=== PATIENT | male | born 1960 | race Asian ===

== ENCOUNTER 2022-04-15 15:35 | Emergency (ER) | payer MEDICAID, SELFPAY ==
--- NOTE | ~2022-04-15 | XR_ITS ---
EXAMINATION: XR CHEST CLINICAL INFORMATION: Cough. COMPARISON: None TECHNIQUE: Frontal view of the chest was obtained. FINDINGS: Rounded masslike density in the right infrahilar lung. This measures about [address] chest with contrast for further assessment. Left lung normally aerated. No pleural effusion. Heart size normal. Multilevel degenerative spondylosis spine. XR/XR chest 1V IMPRESSION: Rounded masslike density in the right infrahilar lung. Recommend CT chest with contrast for further assessment. This result was discussed with Cyndi De Leon on 04/15/2022, 5:00 PM and it was ascertained that the content and urgency of the report was understood at the time of direct communication.
--- NOTE | ~2022-04-15 | CT_ITS ---
EXAMINATION: CT CHEST WITH CONTRAST CLINICAL INFORMATION: Abnormal chest x-ray COMPARISON: None TECHNIQUE: Multidetector volumetric CT imaging of the chest was obtained after the administration of 65 mL of Omnipaque 350 intravenous contrast without immediate adverse reactions. Axial MIP volume rendering provided. Sagittal and coronal reformatted images were obtained. This CT examination was performed using dose optimization techniques as appropriate, variously including the following: *Automated exposure control *Adjustment of mA and/or kV according to patient size (this includes techniques or standardized protocols for targeted exams where dose is matched to indication/reason for exam; i.e. extremities or head) *Use of iterative reconstruction technique DLP: 254 mGy-cm FINDINGS: There is a 5.4 cm mass in the right middle lobe, contiguous with a right hilar mass measuring 2.9 cm within the right lower lobe, and bulky right hilar and mediastinal adenopathy. There is also contralateral prevascular mediastinal lymphadenopathy measuring up to 1.3 cm. No pathologically enlarged left hilar lymph nodes, or supraclavicular lymphadenopathy, There is a punctate nodule in the right lower lobe, at the right lung apex and in the left upper lobe. Moderate background emphysema. Diffuse mild bronchial wall thickening. Normal heart size. No pericardial effusion. Imaged upper abdomen reveals normal adrenal glands. A simple cyst is present in the upper pole of left kidney requiring no follow-up. No acute or suspicious osseous abnormalities. CT/CT chest w con IMPRESSION: Right middle lobe lung cancer with direct extension through the axial interstitium into the mediastinum with bulky mediastinal and right hilar lymphadenopathy. Pathologically enlarged contralateral left mediastinal lymph node. This critical result was discussed with Kyleigh Darnell at 04/15/2022 7:49 PM and it was ascertained that the content and urgency of the report was understood at the time of direct communication.
[2022-04-15 16:08] VITALS: BP 115/73; PULSE 87; RESP 18; TEMP 36.6; O2SAT 97; BMI 22.3
[2022-04-15 16:30] LABS: Strep A Nucleic Acid Negative (Negative)
[2022-04-15 16:36] LABS: COVID-19 Test Negative (Negative); IDNOW Serial# 55D5AD1C
[2022-04-15 18:33] VITALS: BP 147/78; PULSE 76; RESP 16; TEMP 36.6; O2SAT 98
--- NOTE | 2022-04-15 18:39 | PC.NURSE ---
patient a/o x4 . pearrla . heart rate regular at 77 beats .lungs diminished , wet non productive cough . skin pink warm and dry . abdomen soft non tender . positive bowel sounds in all quadrants . 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 IV placed in left AC . labs sent . patient aware of plan of care .
[2022-04-15 18:42] LABS: MANUAL DIFF FLAG NO
[2022-04-15 18:51] LABS: Basophils Absolute Auto 0.1 X10*3/uL (0.0-0.2); Basophils Percent Auto 0.5 % (0-2); Eosinophils Absolute Auto 0.3 X10*3/uL (0.0-0.4); Eosinophils Percent Auto 2.4 % (0-4); Hematocrit 39.7 % (42.0-52.0); Hemoglobin 12.5 g/dl (14.0-18.0); Imm Gran Abs Auto 0.05 X10*3/uL (0.00-0.03); Imm Gran Pct Auto 0.4 % (0.0-0.4); Lymphocytes Absolute Auto 2.9 X10*3/uL (1.2-4.9); Lymphocytes Percent Auto 22.5 % (20-40); Mean Corpuscular HGB Conc 31.5 g/dl (31.0-36.0); Mean Corpuscular Hemoglobin 24.2 pg (27.0-33.0); Mean Corpuscular Volume 76.8 fL (80.0-98.0); Mean Platelet Volume 9.7 fL (9.4-12.4); Monocytes Absolute Auto 0.9 X10*3/uL (0.1-1.2); Monocytes Percent Auto 7.1 % (2-11); Neutrophils Absolute Auto 8.7 x10*3/uL (2.0-8.3); Neutrophils Percent Auto 67.1 % (45-73); Platelet Count 411 X10*3/uL (160-400); Red Blood Count 5.17 X10*6/uL (4.60-5.80); Red Cell Distribution Width 15.7 % (11.0-16.0)
[2022-04-15 19:05] LABS: Alanine Aminotransferase 22 U/L (0-40); Albumin Level 3.9 g/dL (3.5-5.0); Alkaline Phosphatase 124 U/L (39-117); Anion Gap 15 (12-20); Aspartate Amino Transferase 20 U/L (5-37); Bilirubin Total 0.3 mg/dL (0.0-1.0); Blood Urea Nitrogen 18 mg/dL (9-16); Calcium 9.3 mg/dL (8.4-10.2); Carbon Dioxide 27 mmol/L (22-29); Chloride 101 mmol/L (96-108); Creatinine Clr Calc Pharmacy 76.8; Estimated Glomerular Filt Rate > 60; Glucose Random 96 mg/dL (60-115); Potassium 4.5 mmol/L (3.3-5.1); Sodium 138 mmol/L (135-145); Total Protein 8.1 g/dL (6.5-8.0)
[2022-04-15] MEDS: iohexoL 350 MG/ML 100 ML INFUS..BTL IV (19:20)
[2022-04-15 19:34] VITALS: BP 137/69; PULSE 79; RESP 18; O2SAT 99
--- NOTE | 2022-04-15 19:40 | ED.GENADULT ---
HPI - General Adult General Chief complaint: Upper Respiratory Symptoms Stated complaint: Cough/Sore throat Time Seen by Provider: 04/15/22 16:57 Source: patient and family (Son) Mode of arrival: ambulatory History of Present Illness HPI narrative: 61-year-old male who is an everyday smoker presents with 7 day weeks of cough and congestion, sore throat, without fevers/chills/night sweats/unexplained weight loss. Patient states that he is been doing work in a basement and has discover that there is fungus growing in the basement and he is concerned that this might be contributing to his underlying symptoms. Related Data Allergies Allergy/AdvReac Type Severity Reaction Status Date / Time No Known Allergies Allergy Verified 04/15/22 16:08 Review of Systems Review of Systems: Pertinent positives and negatives as stated in HPI 10 point review of systems is otherwise negative. [facility] Past Medical History Source: nursing notes reviewed Social History Social History Alcohol intake: never Patient Tobacco Use Status: Current everyday Tobacco user Advance Directives: No Advance Directives Information Provided: No Physical Exam ED Vital Signs: Vital Signs - 24 hr 04/15/22 16:08 04/15/22 18:33 04/15/22 19:34 Temperature 97.8 F 97.8 F Pulse Rate 87 76 79 Respiratory Rate 18 16 18 Blood Pressure 115/73 147/78 H 137/69 Pulse Oximetry 97 98 99 Oxygen Delivery Method Room Air Room Air Room Air BMI result Body Mass Index 22.3 VITAL SIGNS: Reviewed. GENERAL: Well developed, well nourished, in no acute distress. HEAD: Normocephalic/atraumatic EYES: PERRLA, EOMI EARS: Ext canals without abnormality NOSE: Nares patent bilateral OROPHARYNX: no oral lesions noted, posterior pharynx clear NECK: Supple, no adenopathy LUNGS: Normal breath sounds. No adventitious sounds or accessory muscle use. SpO2<97> CARDIOVASCULAR: Regular rate and rhythm without noted murmurs, no JVD or lower extremity edema. ABDOMEN: Soft, non-tender, non-distended with bowel sounds. MUSCULOSKELETAL: No tenderness, deformities, or effusions noted on gross inspection. EXTREMITIES: No cyanosis, clubbing or edema. SKIN: Inspection of the skin reveals no rashes NEUROLOGIC: Alert and oriented x 4. Strength and sensation to light touch were grossly intact x 4. Course Course Course Narrative: 61-year-old male with history and clinical presentation suggestive of possible pneumonia, but there is no evidence of fever or chills, patient is an everyday smoker initial chest x-ray is being read as a in the right infrahilar lung. Patient was informed of these chest x-ray findings it was explained that he would further undergo lab work as well as a CT scan for better characterization of this mass. He acknowledges understanding and his son who is at bedside also is aware of these imaging findings. Patient has no pain at this time. Reevaluation(s) Reevaluation #1: I discuss the CT findings with the patient at bedside, I answered any questions, I am awaiting to hear back from Heme/Onc. Time: 20:24 Reevaluation #2: I discussed the case with Dr. Rojas who will see the patient on Monday morning and arrange for subsequent biopsy. Patient was informed of this plan. Time: 20:35 Medical Decision Making Lab Data Result diagrams: 04/15/22 18:30 04/15/22 18:30 Labs: Lab Results 04/15/22 04/15/22 04/15/22 Range/Units 16:12 16:12 18:30 WBC 13.0 H (4.8-10.8) X10*3/uL RBC 5.17 (4.60-5.80) X10*6/uL Hgb 12.5 L (14.0-18.0) g/dl Hct 39.7 L (42.0-52.0) % MCV 76.8 L (80.0-98.0) fL MCH 24.2 L (27.0-33.0) pg MCHC 31.5 (31.0-36.0) g/dl RDW 15.7 (11.0-16.0) % Plt Count 411 H (160-400) X10*3/uL MPV 9.7 (9.4-12.4) fL Immature Gran % (Auto) 0.4 (0.0-0.4) % Neut % (Auto) 67.1 (45-73) % Lymph % (Auto) 22.5 (20-40) % [place] % (Auto) 7.1 (2-11) % Eos % (Auto) 2.4 (0-4) % Baso % (Auto) 0.5 (0-2) % Lymph # (Auto) 2.9 (1.2-4.9) X10*3/uL [place] # (Auto) 0.9 (0.1-1.2) X10*3/uL Eos # (Auto) 0.3 (0.0-0.4) X10*3/uL Baso # (Auto) 0.1 (0.0-0.2) X10*3/uL Abs Immat Gran (auto) 0.05 H (0.00-0.03) X10*3/uL Absolute Neuts (auto) 8.7 H (2.0-8.3) x10*3/uL Absolute Nucleated RBC 0.000 (0.0-0.012) X10*3/uL Nucleated RBC % (auto) 0.0 (0.0-0.2) /100WBC Sodium (135-145) mmol/L Potassium (3.3-5.1) mmol/L Chloride (96-108) mmol/L Carbon Dioxide (22-29) mmol/L Anion Gap (12-20) BUN (9-16) mg/dL Creatinine (0.5-1.4) mg/dL Estim Creat Clear Calc Estimated GFR Random Glucose (60-115) mg/dL Calcium (8.4-10.2) mg/dL Total Bilirubin (0.0-1.0) mg/dL AST (5-37) U/L ALT (0-40) U/L Alkaline Phosphatase (39-117) U/L Total Protein (6.5-8.0) g/dL Albumin (3.5-5.0) g/dL COVID-19 ([facility]) Negative (Negative) COVID-19 Clin Com See Note S. pyogenes GrpA EULOGIO Negative (Negative) 04/15/22 Range/Units 18:30 WBC (4.8-10.8) X10*3/uL RBC (4.60-5.80) X10*6/uL Hgb (14.0-18.0) g/dl Hct (42.0-52.0) % MCV (80.0-98.0) fL MCH (27.0-33.0) pg MCHC (31.0-36.0) g/dl RDW (11.0-16.0) % Plt Count (160-400) X10*3/uL MPV (9.4-12.4) fL Immature Gran % (Auto) (0.0-0.4) % Neut % (Auto) (45-73) % Lymph % (Auto) (20-40) % [place] % (Auto) (2-11) % Eos % (Auto) (0-4) % Baso % (Auto) (0-2) % Lymph # (Auto) (1.2-4.9) X10*3/uL [place] # (Auto) (0.1-1.2) X10*3/uL Eos # (Auto) (0.0-0.4) X10*3/uL Baso # (Auto) (0.0-0.2) X10*3/uL Abs Immat Gran (auto) (0.00-0.03) X10*3/uL Absolute Neuts (auto) (2.0-8.3) x10*3/uL Absolute Nucleated RBC (0.0-0.012) X10*3/uL Nucleated RBC % (auto) (0.0-0.2) /100WBC Sodium 138 (135-145) mmol/L Potassium 4.5 (3.3-5.1) mmol/L Chloride 101 (96-108) mmol/L Carbon Dioxide 27 (22-29) mmol/L Anion Gap 15 (12-20) BUN 18 H (9-16) mg/dL Creatinine 1.01 (0.5-1.4) mg/dL Estim Creat Clear Calc 76.8 Estimated GFR > 60 Random Glucose 96 (60-115) mg/dL Calcium 9.3 (8.4-10.2) mg/dL Total Bilirubin 0.3 (0.0-1.0) mg/dL AST 20 (5-37) U/L ALT 22 (0-40) U/L Alkaline Phosphatase 124 H (39-117) U/L Total Protein 8.1 H (6.5-8.0) g/dL Albumin 3.9 (3.5-5.0) g/dL COVID-19 ([facility]) (Negative) COVID-19 Clin Com S. pyogenes GrpA EULOGIO (Negative) Discharge Plan Discharge Clinical Impression: Lung cancer Patient Disposition: Home, Self-Care Instructions: Lung Cancer (DC) Additional Instructions: Please call the office of Dr. Rojas on Monday. The referral has been provided to you below. Return to the ER for worsening symptoms. Referrals: Yolie Rojas MD [Physician] - (7.5cm Lung Mass)
== END 2022-04-15 20:54 | disposition home or self-care (01) ==
PROVIDERS: Emergency Provider Student in an Organized Health Care Education/Training Program
DX: C34.90 Malignant neoplasm of unspecified part of unspecified bronchus or lung (principal); R05.9 Cough, unspecified; R07.89 Other chest pain; Z20.822 Contact with and (suspected) exposure to COVID-19; F17.200 Nicotine dependence, unspecified, uncomplicated; Z71.6 Tobacco abuse counseling
CPT/HCPCS: 36415; 71045; 71260; 80053; 85025; 87635; 87651; 99284; Q9967

== ENCOUNTER → 2022-04-18 10:53 | Outpatient (BNV) | payer MEDICAID, MEDICARE, OTHER, SELFPAY | PROVIDERS: Visit Provider Internal Medicine | DX: C34.91 Malignant neoplasm of unspecified part of right bronchus or lung (principal); J69.8 Pneumonitis due to inhalation of other solids and liquids; Z92.21 Personal history of antineoplastic chemotherapy | CPT/HCPCS: 99205; 99213; 99214; 99215; G2211 ==

== ENCOUNTER 2022-04-28 09:04 | Day surgery (SDC) | payer OTHER, SELFPAY ==
[2022-04-28] VITALS (8 sets, daily range): BP systolic 114–173; BP diastolic 69–89; PULSE 70–89; RESP 18–20; TEMP 37; O2SAT 96–98; BMI 23.5
--- NOTE | ~2022-04-28 | XR_ITS ---
EXAMINATION: XR CHEST CLINICAL INFORMATION: Status post right lung biopsy. COMPARISON: CT chest 04/15/2022 TECHNIQUE: Frontal view of the chest was obtained. FINDINGS: There is no pneumothorax status post right lung biopsy. Again visualized is a large mass in the right midlung. Heart size and pulmonary vascularity is normal. There is mild spondylosis throughout dorsal spine. No aggressive lytic or sclerotic process seen. XR/XR chest 1V IMPRESSION: No pneumothorax status post right lung biopsy. Results were called to patient's nurse in PACU at 4:05 PM.
--- NOTE | ~2022-04-28 | CT_ITS ---
PROCEDURE: CT GUIDED BIOPSY, LUNG CLINICAL INFORMATION: Right lung mass. COMPARISON: 04/15/2022 TECHNIQUE: CT fluoroscopic-guided core biopsy right middle lobe mass. This CT examination was performed using dose optimization techniques as appropriate, variously including the following: *Automated exposure control *Adjustment of mA and/or kV according to patient size (this includes techniques or standardized protocols for targeted exams where dose is matched to indication/reason for exam; i.e. extremities or head) *Use of iterative reconstruction technique DLP: 286 mGy-cm Sedation: 18 minutes FINDINGS: Informed consent was obtained from the patient prior to the procedure. During this process, the procedure and potential alternatives were explained, along with the intended outcome and benefits. The risks of the procedure, as well as the risk of not doing the procedure, were discussed. The patient was given the opportunity to ask questions regarding the procedure and appeared competent to make medical decisions. A signed consent form which documents this discussion was placed in the medical record. CT scan demonstrates a large right middle lobe mass as well as right hilar and bilateral mediastinal lymphadenopathy. There is a small pericardial effusion. There are moderate changes of centrilobular and paraseptal emphysema. Using sterile technique and CT fluoroscopic guidance from a right anterolateral approach a 19-gauge guiding needle was directed into the right middle lobe mass. Three 18-gauge core biopsies were then obtained. Preliminary cytologic result was of an adequate specimen. No immediate postprocedure pneumothorax is identified. CT/CT biopsy lung RT IMPRESSION: Successful right middle lobe lung biopsy as described.
[2022-04-28 09:41] LABS: MANUAL DIFF FLAG NO
[2022-04-28 09:44] LABS: Basophils Absolute Auto 0.1 X10*3/uL (0.0-0.2); Basophils Percent Auto 0.4 % (0-2); Eosinophils Absolute Auto 0.3 X10*3/uL (0.0-0.4); Eosinophils Percent Auto 2.2 % (0-4); Hematocrit 40.6 % (42.0-52.0); Hemoglobin 12.9 g/dl (14.0-18.0); Imm Gran Abs Auto 0.08 X10*3/uL (0.00-0.03); Imm Gran Pct Auto 0.6 % (0.0-0.4); Lymphocytes Absolute Auto 2.6 X10*3/uL (1.2-4.9); Lymphocytes Percent Auto 18.4 % (20-40); Mean Corpuscular HGB Conc 31.8 g/dl (31.0-36.0); Mean Corpuscular Hemoglobin 23.9 pg (27.0-33.0); Mean Corpuscular Volume 75.2 fL (80.0-98.0); Mean Platelet Volume 9.5 fL (9.4-12.4); Monocytes Absolute Auto 0.9 X10*3/uL (0.1-1.2); Monocytes Percent Auto 6.6 % (2-11); Neutrophils Absolute Auto 9.9 x10*3/uL (2.0-8.3); Neutrophils Percent Auto 71.8 % (45-73); Platelet Count 354 X10*3/uL (160-400); White Blood Count 13.8 X10*3/uL (4.8-10.8)
[2022-04-28 09:51] LABS: INTERNATIONAL NORM RATIO 0.9 (0.9-1.1); Prothrombin Time 10.6 SEC (10.0-13.1)
[2022-04-28 09:54] LABS: Partial Thromboplastin Time 31.1 SEC (26.0-36.4)
== END 2022-04-28 16:43 | disposition home or self-care (01) ==
PROVIDERS: Radiology Diagnostic Radiology; Visit Provider Internal Medicine
DX: C34.2 Malignant neoplasm of middle lobe, bronchus or lung (principal); Z87.891 Personal history of nicotine dependence; E11.9 Type 2 diabetes mellitus without complications
CPT/HCPCS: 32408; 36415; 71045; 81479; 85025; 85610; 85730; 88305; 88333; 88341; 88342; 88360; 88374; 99152; J2250; J3010

== ENCOUNTER 2022-05-03 09:58 | Outpatient (REF) | payer OTHER, SELFPAY ==
--- NOTE | ~2022-05-03 | MR_ITS ---
EXAMINATION: MR BRAIN WITHOUT AND WITH CONTRAST CLINICAL INFORMATION: Lung cancer. Assess for metastases. Headaches. COMPARISON: There are no prior studies available for comparison. TECHNIQUE: Multiplanar, multisequence MRI of the brain was obtained before and after the intravenous administration of 6 mL Gadavist. FINDINGS: No diffusion abnormalities are identified to suggest an acute or subacute infarct. No mass effect or midline shift is seen. There is mild commensurate prominence of the ventricles and sulci consistent with mild diffuse volume loss. Brain parenchymal signal is unremarkable, and there is no abnormal parenchymal or leptomeningeal enhancement. No extra-axial fluid collections are seen. The brainstem appears normal. No pathologic magnetic susceptibility artifact is identified on the gradient refocused acquisition. The cerebellar tonsils have normal contour and position, and the craniocervical junction appears normal. Marrow signal and midline structures are normal. The major intracranial flow-voids at the level of the knik of [place] are preserved. The dural venous sinus flow-voids are maintained. The mastoid air cells are well-aerated. There is mild pansinus mucoperiosteal thickening. MR/MR head/brain wo/w con IMPRESSION: 1. There are no acute bleeds or infarcts. There are no masses or areas of abnormal enhancement. There is mild diffuse volume loss.
== END 2022-05-03 09:59 | disposition home or self-care (01) ==
LOC: HO.MRI 09:58
PROVIDERS: Visit Provider Internal Medicine
DX: R51.9 Headache, unspecified (principal); C34.90 Malignant neoplasm of unspecified part of unspecified bronchus or lung
CPT/HCPCS: 70553; A9585

== ENCOUNTER 2022-05-20 12:03 | Outpatient (REF) | payer OTHER, SELFPAY ==
[2022-05-20 14:00] LABS: Blood Urea Nitrogen 20 mg/dL (9-16); Estimated Glomerular Filt Rate > 60
== END 2022-05-20 12:04 | disposition home or self-care (01) ==
LOC: HO.CT 12:03
PROVIDERS: PCP Internal Medicine; Visit Provider Internal Medicine
DX: R91.8 Other nonspecific abnormal finding of lung field (principal)
CPT/HCPCS: 36415; 82565; 84520

== ENCOUNTER 2022-05-24 11:22 | Outpatient (REF) | payer OTHER, SELFPAY ==
--- NOTE | ~2022-05-24 | PE_ITS ---
EXAMINATION: Fluorine-18 FDG PET/CT Scan CLINICAL INDICATION: Initial treatment management. Lung cancer. PROCEDURE: 55 minutes following the intravenous administration of 16.4 mCi of fluorine 18 FDG, images from the base of the skull to the mid thighs were obtained using a combined PET/CT scanner with CT scan based attenuation correction. No oral contrast was administered. No intravenous contrast was administered. Transverse, coronal, sagittal, and volume reconstruction projections were obtained. The patient's blood glucose as determined by a finger stick, was 89 mg/dl immediately prior to injection. Total CT exam dose-length product 405.92 mGy-cm * These CT images were obtained using dose optimization techniques as appropriate, variously including the following: Automated exposure control * Adjustment of mA and/or kV according to patient size (this includes techniques or standardized protocols for targeted exams where dose is matched to indication/reason for exam; i.e. extremities or head) * Use of iterative reconstruction technique COMPARISON: No previous PET/CT scan is available for comparison. CT of the chest dated 04/15/[address]-guided right lung biopsy dated 04/28/2022 are available for comparison. FINDINGS: (Slice numbers described in this report are numbered superiorly to inferiorly with slice #1 in the head) NECK AND VISUALIZED HEAD: No foci of abnormal FDG activity are noted. The distribution of FDG activity is physiological. 2 adjacent right-sided cervical level 5B (supraclavicular) lymph nodes are present, the most intense showing SUVmax 6.6, slice 65/311 an measuring 1.5 x 1.3 cm in largest transverse dimensions. There is no additional cervical lymphadenopathy. THORAX: The recently biopsied right upper lobe lung mass is intensely FDG avid, SUVmax 14.9, slice 102/311. This abuts both the anterolateral and medial pleura of the right upper lobe. This measures 7.8 x 6.2 cm in largest transverse dimensions an approximate 7.8 cm cephalocaudad. This extends into the right hilum and narrows the right upper lobe bronchus. Peripheral to this there is some airspace opacity in this is only weakly FDG avid. There is some dependent atelectasis posteriorly in the right lower lobe and this is very weakly FDG avid. Trace pleural fluid on the right is also present. There is no abnormal FDG activity in the left lung. There is biapical scarring which is also not FDG avid. Extensive mediastinal FDG avid lymphadenopathy is present. The most intense is a mid right paratracheal node showing SUVmax 8.4, slice 83/311 measuring 3.0 x 2.6 cm in largest transverse dimensions. Additional right prevascular and periaortic/AP window FDG avid lymphadenopathy is present, the latter showing SUVmax 6.7, slice 85/311. Subcarinal FDG avid lymphadenopathy is also present. There is no left-sided pleural fluid with a small amount of predominantly left-sided pericardial fluid is present. The latter does not show abnormal FDG activity, but is new since 04/15/2022. There is no axillary lymphadenopathy. ABDOMEN AND PELVIS: There are no foci of abnormal FDG activity in the abdomen or pelvis. There is mild FDG activity throughout the gastrointestinal tract without a suspicious focal component, likely physiological. There is diverticulosis without evidence of diverticulitis. The hollow viscera are otherwise unremarkable. The liver, gallbladder, and spleen are unremarkable. There is a hypodense cyst in the upper pole of the left kidney and this is markedly FDG photopenic. The kidneys are otherwise unremarkable. The adrenal glands and pancreas are unremarkable. A moderately sized right-sided hydrocele is present and this is markedly FDG photopenic. Bilateral fat-containing inguinal hernias are present, larger on the right. The pelvic organs are otherwise unremarkable. MUSCULOSKELETAL: There are no foci of abnormal FDG activity in the osseous structures. There are degenerative changes in the spine, most severely in the mid thoracic spine. There are no suspicious sclerotic or lytic lesions visualized. VASCULAR: Vascular calcifications including coronary are noted. PET/PET CT fusion skull to thigh IMPRESSION: 1. A large intensely FDG avid right upper lobe malignant mass is present as described above. 2. Extensive mediastinal and right supraclavicular FDG avid lymphadenopathy is present most consistent with metastases. 3. No additional metastatic or other malignant lesions are noted. 4. Vascular calcifications including coronary.
== END 2022-05-24 11:23 | disposition home or self-care (01) ==
LOC: HO.PET 11:22
PROVIDERS: Visit Provider Internal Medicine
DX: Z13.89 Encounter for screening for other disorder (principal)

== ENCOUNTER 2022-08-24 08:14 | Outpatient (REF) | payer OTHER, SELFPAY ==
--- NOTE | ~2022-08-24 | CT_ITS ---
EXAMINATION: CT ABDOMEN AND PELVIS WITH CONTRAST CLINICAL INFORMATION: Lung cancer. Assess response to treatment. COMPARISON: PET/CT May 2022 TECHNIQUE: Multidetector volumetric images were obtained from the superior aspect of the liver through the pubic symphysis following administration 85 mL of Omnipaque 350 intravenous contrast. Sagittal and coronal reformatted images were obtained on the technologist's workstation. Oral contrast: Yes This CT examination was performed using dose optimization techniques as appropriate, variously including the following: *Automated exposure control *Adjustment of mA and/or kV according to patient size (this includes techniques or standardized protocols for targeted exams where dose is matched to indication/reason for exam; i.e. extremities or head) *Use of iterative reconstruction technique DLP: 390 mGy-cm FINDINGS: LUNG BASES: See chest CT report from the same day. LIVER, GALLBLADDER, AND BILIARY TREE: The liver is low in attenuation suggestive of fatty infiltration. No focal liver lesion. The gallbladder has been removed. No biliary duct dilatation. PANCREAS: Unremarkable. SPLEEN: Unremarkable. ADRENAL GLANDS: Unremarkable. KIDNEYS AND URETERS: Left renal cysts, largest measuring 3.0 cm in the upper pole of the left kidney. No imaging follow-up. Kidneys are otherwise unremarkable. BLADDER: Unremarkable. GASTROINTESTINAL TRACT: The small and large bowel are unremarkable. The appendix is unremarkable. ABDOMINAL WALL: LYMPH NODES: Normal. VASCULAR: Atherosclerotic disease. Mild dilatation of the distal abdominal aorta measuring 2.6 x 2.7 cm. No aneurysm. PELVIC VISCERA: Unremarkable. Fluid in the right scrotum probably a hydrocele. OSSEOUS STRUCTURES: Degenerative changes of the spine. CT/CT abdomen pelvis w IV con IMPRESSION: No evidence of metastatic disease. Fleischner guidelines were followed.
--- NOTE | ~2022-08-24 | CT_ITS ---
EXAMINATION: CT CHEST WITH CONTRAST CLINICAL INFORMATION: Lung cancer. Assess response to treatment. COMPARISON: Previous chest CT 04/15/2022. TECHNIQUE: Multidetector volumetric CT imaging of the chest was obtained after the administration of 85 mL of Omnipaque 350 intravenous contrast without immediate adverse reactions. Axial MIP volume rendering provided. Sagittal and coronal reformatted images were obtained. This CT examination was performed using dose optimization techniques as appropriate, variously including the following: *Automated exposure control *Adjustment of mA and/or kV according to patient size (this includes techniques or standardized protocols for targeted exams where dose is matched to indication/reason for exam; i.e. extremities or head) *Use of iterative reconstruction technique DLP: 113 mGy-cm FINDINGS: LUNGS: There is evidence of emphysema. There is increasing volume loss to the right upper and middle lobe. There is interval increase in mixed interstitial and reticular markings, mild traction bronchiectasis and ground-glass attenuation. The appearance is questionable for post radiation changes. The previously identified right middle lobe mass appears smaller measuring 3 cm (for example axial image 31, series 3) compared to 5.4 cm on the previous exam. This also appears more cystic or cavitary. This extends to the right pulmonary hilum. This extends peripherally to the right pleural surface and there is focal right pleural thickening. There are new increased interstitial or reticular markings seen in both lower lobes and some increase in ground-glass attenuation. There is new mild bilateral lower lobe bronchial wall thickening and this may represent airways disease. MEDIASTINUM: There is interval decrease in the right hilar and bilateral mediastinal lymphadenopathy. There is interval decrease in right supraclavicular lymphadenopathy. Normal heart size. Small pericardial effusion, slightly increased from previous exam. Normal caliber thoracic aorta. PLEURA: Focal pleural thickening in the right middle lobe adjacent to the mass. No pleural effusion. AXILLA: No lymphadenopathy. UPPER ABDOMEN: See abdominal and pelvic CT report from the same day. OSSEOUS STRUCTURES: Degenerative changes of the spine. CT/CT chest w IV con IMPRESSION: Interval decrease in the size of the right middle lobe mass. This now may be cavitary. Increasing volume loss to the right upper and middle lobe, increased interstitial or reticular markings and traction bronchiolectasis and ground-glass attenuation, question representing post radiation change. Emphysema. Increased generalized reticular markings and ground-glass attenuation and some bronchial wall thickening in both lower lobes, question representing airways disease. Significant interval decrease in mediastinal and right hilar and right supraclavicular lymphadenopathy. Fleischner guidelines were followed.
[2022-08-24] MEDS: Barium Sulfate Oral (Vanilla) 450 ML ORAL.SUSP 900 ML PO (11:01)
[2022-08-24] MEDS: iohexoL 350 MG/ML 100 ML INFUS..BTL IV (11:03)
== END 2022-08-24 08:15 | disposition home or self-care (01) ==
LOC: HO.CT 08:14
PROVIDERS: Visit Provider Internal Medicine
DX: C34.91 Malignant neoplasm of unspecified part of right bronchus or lung (principal)
CPT/HCPCS: 71260; 74177; Q9967

== ENCOUNTER 2022-08-31 09:51 | Outpatient (REF) | payer OTHER, SELFPAY ==
--- NOTE | ~2022-08-31 | XR_ITS ---
EXAMINATION: XR CHEST CLINICAL INFORMATION: Lung cancer. Possible pneumonia. COMPARISON: CT chest 08/24/2022, portable chest 04/28/2022, 04/15/2022 TECHNIQUE: Frontal view of the chest was obtained. FINDINGS: Changes right hemithorax is similar to recent CT 08/24/2022 with perihilar cavitary lesion 3.6 cm in diameter, mild volume loss, and coarsening of interstitial markings possibly post radiation changes. There is no lobar or segmental airspace consolidation or effusion. Heart size normal. Left lung shows mild coarsening of the interstitial and bronchovascular markings. There is no cephalization of flow. No effusion. No acute bony abnormality. XR/XR chest 1V IMPRESSION: 1. Changes right hemithorax similar to recent CT 08/24/2022. 2. Coarsening interstitial markings left lung. 3. Vascularity normal. No lobar or segmental airspace consolidation or effusion.
== END 2022-08-31 09:52 | disposition home or self-care (01) ==
LOC: HO.XRAY 09:51
PROVIDERS: PCP Nurse Practitioner Family; Visit Provider Internal Medicine
DX: R05.9 Cough, unspecified (principal)
CPT/HCPCS: 71045

== ENCOUNTER → 2022-09-02 09:59 | Outpatient (BNVA) | payer MEDICAID, SELFPAY | PROVIDERS: PCP Nurse Practitioner Family; Visit Provider Urology | DX: Z12.31 Encounter for screening mammogram for malignant neoplasm of breast (principal) ==

== ENCOUNTER 2022-09-02 10:56 | Inpatient (IN) | payer OTHER, SELFPAY ==
--- NOTE | 2022-09-02 | ECG_ITS ---
Test Reason : Tachycardia Blood Pressure : / mmHG Vent. Rate : 114 BPM Atrial Rate : 114 BPM P-R Int : 138 ms QRS Dur : 074 ms QT Int : 334 ms P-R-T Axes : 062 074 044 degrees QTc Int : 460 ms Sinus tachycardia Nonspecific T wave abnormality Abnormal ECG When compared with ECG of 31-AUG-2022 09:20, No significant change was found Referred By: Generic ED Physician Electronically Signed By:Boris Pennington
[2022-09-02 11:06] VITALS: BP 127/83; PULSE 127; RESP 18; TEMP 36.6; O2SAT 96; BMI 21.7
[2022-09-02 11:45] VITALS: BP 137/87; PULSE 121; RESP 25; O2SAT 97
[2022-09-02 12:12] LABS: MANUAL DIFF FLAG NO
--- NOTE | 2022-09-02 12:20 | ED.SOB ---
HPI - SOB/Dyspnea General Chief Complaint: Dyspnea Stated Complaint: sob Time Seen by Provider: 09/02/22 11:40 Source: patient Mode of arrival: ambulatory History of Present Illness HPI Narrative: 62-year-old male presents with worsening shortness of breath that results in him feeling dizzy and wanting to pass out is been worsening since the end of his chemo/radiation therapy for lung cancer. Patient denies any fever, chills, sore throat, GI or symptoms but states he has had cough with the shortness of breath but denies any chest pain/palpitations. The son who is at bedside endorses that he had the flu last week and lives with his father. Related Data Previous Rx's Medication Instructions Recorded ibuprofen 400 mg tablet 400 mg PO Q8H PRN Pain #30 tabs 05/31/22 ondansetron 8 mg disintegrating 8 mg PO Q8H PRN Nausea #30 tabs 05/31/22 tablet benzonatate 200 mg capsule 200 mg PO BID #60 caps 06/21/22 sennosides 8.6 mg-docusate sodium 1 tab-cap PO BID #60 tabs 06/22/22 50 mg tablet (Senna with Docusate Sodium) Allergies Allergy/AdvReac Type Severity Reaction Status Date / Time No Known Allergies Allergy Verified 09/02/22 10:14 Review of Systems Review of Systems: Pertinent positives and negatives as stated in HPI 10 point review of systems is otherwise negative. [facility] Past Medical History Source: nursing notes reviewed Medical History Diabetes (Unknown) Family History Family History Mother Diabetes Father Diabetes Social History Social History Household Members: Spouse and Children Household Members Other:: son Housing: Apartment Alcohol intake: never Patient Tobacco Use Status: Former Tobacco user Tobacco use type: Cigarette Advance Directives: No service: No Current occupational status: retired Physical Exam Vital Signs: Vital Signs: Last Vital Signs Temp 97.8 F 09/02/22 11:06 Pulse 121 H 09/02/22 11:45 Resp 25 H 09/02/22 11:45 BP 137/87 09/02/22 11:45 Pulse Ox 97 09/02/22 11:45 O2 Del Method 09/02/22 11:45 BMI result Body Mass Index 21.7 VITAL SIGNS: Reviewed. GENERAL: Well developed, well nourished, in no acute distress. HEAD: Normocephalic/atraumatic EYES: PERRLA, EOMI EARS: Ext canals without abnormality, TMs non-bulging and non-erythematous NOSE: Nares patent bilateral OROPHARYNX: no oral lesions noted, posterior pharynx clear and non-erythematous without noted tonsillar enlargement/erythema/exudates NECK: Supple, no adenopathy LUNGS: Good inspiratory effort without rhonchi/rales/wheeze noted, no tachypnea noted. SpO2<97> CARDIOVASCULAR: Regular rate and rhythm without noted murmurs, no JVD or lower extremity edema. ABDOMEN: Soft, non-tender, non-distended with bowel sounds. MUSCULOSKELETAL: No tenderness, deformities, or effusions noted on gross inspection. EXTREMITIES: No cyanosis, clubbing or edema. SKIN: Inspection of the skin reveals no rashes NEUROLOGIC: Alert and oriented x 4. Strength and sensation to light touch were grossly intact x 4. Course Course Course Narrative: I had discussed this case with Dr. Rojas a couple of days ago and she had reported to me that patient had undergone CT scan of the chest with IV contrast a few days ago and there was no identification of a PE. Reevaluation(s) Reevaluation #1: I reviewed patient's laboratory workup as well as imaging studies and suspect that patient has pneumonia although due to his immunocompromised state there is no associated fever or leukocytosis. At this time I suspect infection and will give patient cefepime. WIll discuss with patient at bedside. Time: 15:06 Medications Administered Discontinued Medications Generic Name Dose Route Start Last Admin Trade Name Freq PRN Reason Stop Dose Admin Sodium Chloride 1,000 mls @ 999 mls/hr 09/02/22 12:30 09/02/22 14:19 Ns IV 09/02/22 13:30 Infused .Q1H1M MANJINDER Infusion Iohexol 65 ml 09/02/22 14:14 09/02/22 14:14 Iohexol 350 Mg/Ml 75 Ml Infus..Btl IV 09/02/22 14:15 65 ml ONCE ONE Administration Medical Decision Making Medical Decision Making MDM Narrative: 62-year-old male with history and clinical presentation of worsening shortness of breath, lightheadedness, cough since completion of his chemo and radiation. Patient does otherwise appear well. Differential Diagnosis Differential Diagnoses: The differential diagnosis associated with the presentation includes Viral infection, pneumonia, PE Admission/Observation Consideration of admission/observation: Escalation of care including admission/observation considered After review of all investigations my suspicion is for pneumonia and as patient is immunocompromised will admit and administer antibiotics. Consult Healthcare Provider Management of the patient was discussed with: Hospitalist I discussed this case with the hospitalist who accepts admission. Lab Data MDM Lab Attestation statement: I reviewed the patient's lab results. Please see patient's course for complete discussion Result Diagrams: 09/02/22 12:05 09/02/22 12:05 Labs: Lab Results 09/02/22 09/02/22 09/02/22 Range/Units 12:05 12:05 12:05 WBC 5.8 (4.8-10.8) X10*3/uL RBC 4.36 L (4.60-5.80) X10*6/uL Hgb 11.4 L (14.0-18.0) g/dl Hct 35.2 L (42.0-52.0) % MCV 80.7 (80.0-98.0) fL MCH 26.1 L (27.0-33.0) pg MCHC 32.4 (31.0-36.0) g/dl RDW 19.9 H (11.0-16.0) % Plt Count 177 (160-400) X10*3/uL MPV 9.0 L (9.4-12.4) fL Immature Gran % (Auto) 0.3 (0.0-0.4) % Neut % (Auto) 76.7 H (45-73) % Lymph % (Auto) 9.2 L (20-40) % [place] % (Auto) 10.6 (2-11) % Eos % (Auto) 2.9 (0-4) % Baso % (Auto) 0.3 (0-2) % Lymph # (Auto) 0.5 L (1.2-4.9) X10*3/uL [place] # (Auto) 0.6 (0.1-1.2) X10*3/uL Eos # (Auto) 0.2 (0.0-0.4) X10*3/uL Baso # (Auto) 0.0 (0.0-0.2) X10*3/uL Abs Immat Gran (auto) 0.02 (0.00-0.03) X10*3/uL Absolute Neuts (auto) 4.4 (2.0-8.3) x10*3/uL Absolute Nucleated RBC 0.000 (0.0-0.012) X10*3/uL Nucleated RBC % (auto) 0.0 (0.0-0.2) /100WBC D-Dimer High Sensitivty 489 NG/ML Sodium 136 (135-145) mmol/L Potassium 4.3 (3.3-5.1) mmol/L Chloride 100 (96-108) mmol/L Carbon Dioxide 27 (22-29) mmol/L Anion Gap 13 (12-20) BUN 14 (9-16) mg/dL Creatinine 0.98 (0.5-1.4) mg/dL Estim Creat Clear Calc 76.2 Estimated GFR > 60 Random Glucose 205 H (60-115) mg/dL Calcium 9.3 (8.4-10.2) mg/dL Total Bilirubin 0.6 (0.0-1.0) mg/dL AST 19 (5-37) U/L ALT 15 (0-40) U/L Alkaline Phosphatase 129 H (39-117) U/L Troponin I High Sens (<3.5-35.0) ng/L Total Protein 7.0 (6.5-8.0) g/dL Albumin 3.7 (3.5-5.0) g/dL Influenza Type A (PCR) (Negative) Influenza Type B (PCR) (Negative) RSV RNA Qual (PCR) (Negative) SARS-CoV-2 RNA (RT-PCR) (Negative) 09/02/22 09/02/22 Range/Units 12:05 12:05 WBC (4.8-10.8) X10*3/uL RBC (4.60-5.80) X10*6/uL Hgb (14.0-18.0) g/dl Hct (42.0-52.0) % MCV (80.0-98.0) fL MCH (27.0-33.0) pg MCHC (31.0-36.0) g/dl RDW (11.0-16.0) % Plt Count (160-400) X10*3/uL MPV (9.4-12.4) fL Immature Gran % (Auto) (0.0-0.4) % Neut % (Auto) (45-73) % Lymph % (Auto) (20-40) % [place] % (Auto) (2-11) % Eos % (Auto) (0-4) % Baso % (Auto) (0-2) % Lymph # (Auto) (1.2-4.9) X10*3/uL [place] # (Auto) (0.1-1.2) X10*3/uL Eos # (Auto) (0.0-0.4) X10*3/uL Baso # (Auto) (0.0-0.2) X10*3/uL Abs Immat Gran (auto) (0.00-0.03) X10*3/uL Absolute Neuts (auto) (2.0-8.3) x10*3/uL Absolute Nucleated RBC (0.0-0.012) X10*3/uL Nucleated RBC % (auto) (0.0-0.2) /100WBC D-Dimer High Sensitivty NG/ML Sodium (135-145) mmol/L Potassium (3.3-5.1) mmol/L Chloride (96-108) mmol/L Carbon Dioxide (22-29) mmol/L Anion Gap (12-20) BUN (9-16) mg/dL Creatinine (0.5-1.4) mg/dL Estim Creat Clear Calc Estimated GFR Random Glucose (60-115) mg/dL Calcium (8.4-10.2) mg/dL Total Bilirubin (0.0-1.0) mg/dL AST (5-37) U/L ALT (0-40) U/L Alkaline Phosphatase (39-117) U/L Troponin I High Sens 4.4 (<3.5-35.0) ng/L Total Protein (6.5-8.0) g/dL Albumin (3.5-5.0) g/dL Influenza Type A (PCR) NEGATIVE (Negative) Influenza Type B (PCR) NEGATIVE (Negative) RSV RNA Qual (PCR) NEGATIVE (Negative) SARS-CoV-2 RNA (RT-PCR) NEGATIVE (Negative) Independent Interpretation I performed an independent interpretation of an: EKG Interpretation: Sinus tachycardia, HR-114, no STEMI, nonspecific T-wave abnormality, CO/QRS/QTC are within normal limits. Radiology Impression Radiologist Impression: My interpretation agrees with radiologist's impression of imaging studies. External Record Review External record reviewed: Inpatient record, Prior outpatient labs, Prior outpatient radiology and Outside ED record Chronic Conditions Patient?s care impacted by: Other Lung CA Critical Care Time Critical Care Time Critical Care Time: Yes Total Critical Care Time: 60 Attestation: I personally attest to this time spent taking care of the patient. Discharge Plan Discharge Clinical Impression: Dyspnea, Pneumonia, Lung cancer Patient Disposition: Admitted As Inpatient Prescriptions: No Action ondansetron 8 mg Tablet,Disintegrating 8 mg PO Q8H PRN (Reason: Nausea) Qty: 30 3RF ibuprofen 400 mg Tablet 400 mg PO Q8H PRN (Reason: Pain) Qty: 30 1RF benzonatate 200 mg Capsule 200 mg PO BID Qty: 60 3RF sennosides-docusate sodium [Senna with Docusate Sodium] 8.6-50 mg Tablet 1 tab-cap PO BID Qty: 60 0RF
[2022-09-02 12:21] LABS: D Dimer High Sensitivity 489 NG/ML
[2022-09-02 12:22] LABS: Basophils Percent Auto 0.3 % (0-2); Eosinophils Absolute Auto 0.2 X10*3/uL (0.0-0.4); Eosinophils Percent Auto 2.9 % (0-4); Hematocrit 35.2 % (42.0-52.0); Hemoglobin 11.4 g/dl (14.0-18.0); Imm Gran Abs Auto 0.02 X10*3/uL (0.00-0.03); Imm Gran Pct Auto 0.3 % (0.0-0.4); Lymphocytes Absolute Auto 0.5 X10*3/uL (1.2-4.9); Lymphocytes Percent Auto 9.2 % (20-40); Mean Corpuscular HGB Conc 32.4 g/dl (31.0-36.0); Mean Corpuscular Hemoglobin 26.1 pg (27.0-33.0); Mean Corpuscular Volume 80.7 fL (80.0-98.0); Monocytes Absolute Auto 0.6 X10*3/uL (0.1-1.2); Monocytes Percent Auto 10.6 % (2-11); Neutrophils Absolute Auto 4.4 x10*3/uL (2.0-8.3); Neutrophils Percent Auto 76.7 % (45-73); Platelet Count 177 X10*3/uL (160-400); Red Blood Count 4.36 X10*6/uL (4.60-5.80); Red Cell Distribution Width 19.9 % (11.0-16.0); White Blood Count 5.8 X10*3/uL (4.8-10.8)
[2022-09-02 12:41] LABS: Alanine Aminotransferase 15 U/L (0-40); Albumin Level 3.7 g/dL (3.5-5.0); Alkaline Phosphatase 129 U/L (39-117); Anion Gap 13 (12-20); Aspartate Amino Transferase 19 U/L (5-37); Bilirubin Total 0.6 mg/dL (0.0-1.0); Blood Urea Nitrogen 14 mg/dL (9-16); Calcium 9.3 mg/dL (8.4-10.2); Carbon Dioxide 27 mmol/L (22-29); Chloride 100 mmol/L (96-108); Creatinine Clr Calc Pharmacy 76.2; Estimated Glomerular Filt Rate > 60; Glucose Random 205 mg/dL (60-115); Potassium 4.3 mmol/L (3.3-5.1); Sodium 136 mmol/L (135-145)
[2022-09-02 12:48] LABS: Troponin-I High Sensitivity 4.4 ng/L (<3.5-35.0)
[2022-09-02] MEDS: 0.9 % Sodium Chloride 1,000 ML 999 ML IV (12:50)
[2022-09-02 12:54] LABS: Influenza A PCR NEGATIVE (Negative); Influenza B PCR NEGATIVE (Negative); Resp Syncy Virus RNA Qual PCR NEGATIVE (Negative); SARS COV2 PCR INHOUSE NEGATIVE (Negative)
[2022-09-02] MEDS: iohexoL 350 MG/ML 75 ML INFUS..BTL 65 ML IV (14:14)
--- NOTE | 2022-09-02 15:31 | PC.NURSE ---
iv inserted as documented, labs drawn, fluid started as documented. pt's son at bedside. no complaints.
[2022-09-02 16:00] VITALS: BP 132/86; PULSE 110; RESP 20; TEMP 37; O2SAT 98
--- NOTE | 2022-09-02 16:01 | MHC.EDTECH ---
pt blood culture and lactic acid was drawn and send to lab .
[2022-09-02 16:13] LABS: Lactic Acid 1.8 mmol/L (0.5-2.0)
[2022-09-02] MEDS: cefEPime HCl 2 GM in 0.9 % Sodium Chloride 50 ML IV (16:18)
[2022-09-02 16:27] LABS: Estimated Average Glucose 131 mg/dL; Hemoglobin A1C 149.8435 umol/L; Hemoglobin A1c % 6.2 %
--- NOTE | 2022-09-02 16:29 | PM.IMHP ---
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 patient reports coughing with yellow sputum for past few weeks, associated with sob, worse on exertion, and constant palpiations with measured tachycardia in 120s. patient reports overall good appetite and po intake. denies fever, chills. recently treated for pna. also notes several episodes of staring off, lasts about 30s, has never had before. last brain imaging was on PET 05/24/22, negative for brain mets. in ED CTA negative for pe, positive for right sided pna, ekg with sinus tach. Review of Systems Review of Systems: Constitutional: Denies fever, denies Chills Eyes: denies blurry vision ENT: denies sore throat CVS: see hpi Respiratory: dyspnea GI: no abdominal pain : denies dysuria MSK: denies neck pain Skin: denies rash Neuro: see hpi Psych: denies suicidal ideation Endocrine: denies heat/cold intolerance Hematologic: denies easy bleeding Allergy: denies hives [facility] Medical History (Updated 09/02/22 @ 16:34 by Christiano Peterson MD) Diabetes (Unknown) Non-small cell cancer of right lung Family History Mother Diabetes Father Diabetes Social History Household Members: Spouse and Children Household Members Other:: son Housing: Apartment Alcohol intake: never Patient Tobacco Use Status: Former Tobacco user Tobacco use type: Cigarette Smoked in Last 30 Days: No Use of substances other than those prescribed or required for medical reasons: No Advance Directives: No service: No Current occupational status: retired Meds Allergies Allergy/AdvReac Type Severity Reaction Status Date / Time No Known Allergies Allergy Verified 09/02/22 10:14 Active Medications: Current Medications Azithromycin (Azithromycin 500 Mg Tablet) 500 mg PO Q24H MANJINDER Famotidine (Famotidine 20 Mg Tablet) 20 mg PO BID PRN PRN Reason: heartburn Guaifenesin/Codeine Phosphate (Guaifen/Codeine Sf 200/20/10ml 10 Ml Liquid) 5 ml PO TID PRN PRN Reason: cough Ceftriaxone Sodium 1 gm/ (Sodium Chloride) 50 mls @ 100 mls/hr IV Q24H [facility] Pharmacy Consult (Consult Rx Perform Med Rec) 1 each MISCELLANE ONCE PRN PRN Reason: Consult order Home Medications Medication Instructions Recorded Confirmed Last Taken Type benzonatate 200 mg capsule 200 mg PO BID PRN Cough 09/02/22 09/02/22 Unknown History codeine 10 mg-guaifenesin 100 mg/5 5 ml PO TID PRN cough 09/02/22 09/02/22 Unknown History mL oral liquid famotidine 20 mg tablet 1 tab PO BID PRN heartburn 09/02/22 09/02/22 Unknown History sennosides 8.6 mg-docusate sodium 1 tab-cap PO BID PRN Constipation 09/02/22 09/02/22 Unknown History 50 mg tablet (Senna with Docusate Sodium) Physical Exam Vital Signs and Narrative: Vital Signs: Last Vital Signs Temp 98.6 F 09/02/22 16:00 Pulse 110 H 09/02/22 16:00 Resp 20 09/02/22 16:00 BP 132/86 09/02/22 16:00 Pulse Ox 98 09/02/22 16:00 O2 Del Method 09/02/22 16:00 BMI result Body Mass Index 21.7 General: no acute distress HEENT: atraumatic Neck: normal to visual inspection CVS: S1, S2, tachy Resp: CTA bilateral Chest: non tender GI: soft, non tender, non distended : no CVA tenderness Skin: no rashes Extremities: no edema Neuro: Oriented X3, grossly intact Psych: cooperative Results Labs CBC and Chem 7: 09/02/22 12:05 09/02/22 12:05 Labs: Laboratory Results - last 24 hr 09/02/22 09/02/22 09/02/22 12:05 12:05 12:05 MCV 80.7 MCH 26.1 L MCHC 32.4 RDW 19.9 H Plt Count 177 MPV 9.0 L Immature Gran % (Auto) 0.3 Neut % (Auto) 76.7 H Lymph % (Auto) 9.2 L [place] % (Auto) 10.6 Eos % (Auto) 2.9 Baso % (Auto) 0.3 Lymph # (Auto) 0.5 L [place] # (Auto) 0.6 Eos # (Auto) 0.2 Baso # (Auto) 0.0 Abs Immat Gran (auto) 0.02 Absolute Neuts (auto) 4.4 Absolute Nucleated RBC 0.000 Nucleated RBC % (auto) 0.0 D-Dimer High Sensitivty 489 Anion Gap 13 Estim Creat Clear Calc 76.2 Estimated GFR > 60 Random Glucose 205 H Estimat Average Glucose Hemoglobin A1c % Lactic Acid Calcium 9.3 Total Bilirubin 0.6 AST 19 ALT 15 Alkaline Phosphatase 129 H Troponin I High Sens Total Protein 7.0 Albumin 3.7 Influenza Type A (PCR) Influenza Type B (PCR) RSV RNA Qual (PCR) SARS-CoV-2 RNA (RT-PCR) 09/02/22 09/02/22 09/02/22 12:05 12:05 12:05 MCV MCH MCHC RDW Plt Count MPV Immature Gran % (Auto) Neut % (Auto) Lymph % (Auto) [place] % (Auto) Eos % (Auto) Baso % (Auto) Lymph # (Auto) [place] # (Auto) Eos # (Auto) Baso # (Auto) Abs Immat Gran (auto) Absolute Neuts (auto) Absolute Nucleated RBC Nucleated RBC % (auto) D-Dimer High Sensitivty Anion Gap Estim Creat Clear Calc Estimated GFR Random Glucose Estimat Average Glucose 131 Hemoglobin A1c % 6.2 Lactic Acid Calcium Total Bilirubin AST ALT Alkaline Phosphatase Troponin I High Sens 4.4 Total Protein Albumin Influenza Type A (PCR) NEGATIVE Influenza Type B (PCR) NEGATIVE RSV RNA Qual (PCR) NEGATIVE SARS-CoV-2 RNA (RT-PCR) NEGATIVE 09/02/22 15:58 MCV MCH MCHC RDW Plt Count MPV Immature Gran % (Auto) Neut % (Auto) Lymph % (Auto) [place] % (Auto) Eos % (Auto) Baso % (Auto) Lymph # (Auto) [place] # (Auto) Eos # (Auto) Baso # (Auto) Abs Immat Gran (auto) Absolute Neuts (auto) Absolute Nucleated RBC Nucleated RBC % (auto) D-Dimer High Sensitivty Anion Gap Estim Creat Clear Calc Estimated GFR Random Glucose Estimat Average Glucose Hemoglobin A1c % Lactic Acid 1.8 Calcium Total Bilirubin AST ALT Alkaline Phosphatase Troponin I High Sens Total Protein Albumin Influenza Type A (PCR) Influenza Type B (PCR) RSV RNA Qual (PCR) SARS-CoV-2 RNA (RT-PCR) Imaging Radiologist's Impressions: Impressions Chest X-Ray 09/02/22 11:49 IMPRESSION: Similar distribution and severity of pulmonary markings. These remain nonspecific but suggest chronic interstitial changes. An acute on chronic component cannot be excluded. Please refer to the report from the recent CT scan for more detailed findings. Radiographic follow-up is recommended as clinically indicated. Chest CTA 09/02/22 13:45 IMPRESSION: 1. No pulmonary embolism. 2. Moderate to severe emphysema. Similar appearance of cystic structure in the right middle lobe with surrounding consolidation. There is a spiculated nodular density at the inferior aspect of this cystic structure which is unchanged from the recent prior. Additional ill-defined opacities are seen more superiorly in the right upper lobe and right middle lobe which could be infectious or inflammatory. 3. Soft tissue prominence in the right hilar region. This could be associated with the right middle lobe process. 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 pna not septic rocpehin, azithro, follow up cultures staring spells check mri brain, rule out mets eeg palpitations check magnesium, tsh, echo lung cancer outpatient follow up hyperglycemia, borderline DM a1c 6.2, not on meds dvt prophylaxis - lovenox full code pateint with pna, immunocompromised at risk for decopmensation due to lung cancer, therefore, expected to require atleast 2 midnights inpatient Time Spent With Patient Time: Total time managing care of this patient today ____ minutes. Quality Stroke Does the patient have a stroke diagnosis?: No VTE Prior VTE?: No VTE Risk Level:: Medical - moderate - high VTE Device Contraindication: Treatment Not Indicated VTE Drug Contraindication: N/A - Med Ordered
[2022-09-02 16:46] LABS: Magnesium 2.1 mg/dL (1.6-2.6)
--- NOTE | 2022-09-02 16:59 | PC.NURSE ---
PT UP TO BATHROOM, STEADY GAIT OBSERVED, DENIES RDZ/DIZZINESS/PAIN. AT MRI. VSS.
[2022-09-02 17:06] LABS: Thyroid Stimulating Hormone 0.53 uIU/mL (0.32-4.0)
[2022-09-02] MEDS: Azithromycin 500 MG TABLET PO (18:44)
--- NOTE | 2022-09-02 21:25 | PC.NURSE ---
Addendum entered by Michaelle Cruz 09/02/22 22:46: Tolerating PO fluids. Original Note: PT A&Ox3, denies any pain, reports productive cough. Requested lights to be lowered. Warm blanket provided.
[2022-09-02 22:24] VITALS: BP 105/69; PULSE 112; RESP 18; O2SAT 96
[2022-09-02] MEDS: 0.9 % Sodium Chloride Flush 3 ML SYRINGE IVFLUSH (23:08)
[2022-09-03] VITALS: BP 113/59; PULSE 114; RESP 16; TEMP 37.1; O2SAT 98
--- NOTE | 2022-09-03 00:11 | MHC.EDTECH ---
0000 rounding done vital sign taken ,pt awake and in bed ,pt at bedside ,call castillo within reach .
--- NOTE | 2022-09-03 02:41 | PC.NURSE ---
PT denies pain. Ambulated to BR independently.
[2022-09-03 04:00] VITALS: BP 114/71; PULSE 112; RESP 16; TEMP 36.5; O2SAT 95
[2022-09-03] MEDS: cefTRIAXone sodium 1 GM in 0.9 % Sodium Chloride 50 ML IV (06:12)
[2022-09-03 06:29] LABS: Hematocrit 31.8 % (42.0-52.0); Hemoglobin 10.2 g/dl (14.0-18.0); Mean Corpuscular HGB Conc 32.1 g/dl (31.0-36.0); Mean Corpuscular Hemoglobin 26.1 pg (27.0-33.0); Mean Corpuscular Volume 81.3 fL (80.0-98.0); Mean Platelet Volume 9.7 fL (9.4-12.4); Platelet Count 179 X10*3/uL (160-400); Red Blood Count 3.91 X10*6/uL (4.60-5.80); Red Cell Distribution Width 19.8 % (11.0-16.0); White Blood Count 5.3 X10*3/uL (4.8-10.8)
[2022-09-03 06:45] LABS: Anion Gap 13 (12-20); Blood Urea Nitrogen 13 mg/dL (9-16); Calcium 9.1 mg/dL (8.4-10.2); Carbon Dioxide 25 mmol/L (22-29); Chloride 103 mmol/L (96-108); Creatinine Clr Calc Pharmacy 80.3; Estimated Glomerular Filt Rate > 60; Glucose Fasting 127 mg/dL (60-99); Magnesium 2.1 mg/dL (1.6-2.6); Potassium 4.5 mmol/L (3.3-5.1); Sodium 136 mmol/L (135-145)
--- NOTE | 2022-09-03 07:18 | PC.NURSE ---
pt arrvies to overflow unit. remain in sinus tach 110. aox3 speaking in full clear sentences. ambulates independently with steady gait. family at bedside. aware of plan of care and denied having any questions at this time.
--- NOTE | 2022-09-03 07:56 | PM.DS ---
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 patient reports coughing with yellow sputum for past few weeks, associated with sob, worse on exertion, and constant palpiations with measured tachycardia in 120s. patient reports overall good appetite and po intake. denies fever, chills. recently treated for pna. also notes several episodes of staring off, lasts about 30s, has never had before. last brain imaging was on PET 05/24/22, negative for brain mets. in ED CTA negative for pe, positive for right sided pna, ekg with sinus tach. hosptial course: Patient was admitted for pneumonia. History of ceftriaxone and azithromycin. He improved faster than expected and will be discharged on 5 more days of cefuroxime and azithromycin. For his staring spells there was concern of possible brain metastasis from is poorly differentiated adenocarcinoma of the lung, MRI of the brain was done and was negative. Patient will be referred for EEG and Neurology as outpatient. For his palpitations and sinus tachycardia differential includes pneumonia, deconditioning,. Magnesium and TSH were unremarkable, plan to pursue echocardiogram as outpatient. For his hyperglycemia due to borderline diabetes he will continue to monitor and diet control as outpatient. Time Spent with Patient Time attestation: Total time managing care of this patient today ____ minutes. Discharge coordination time: Greater than 30 minutes Quality: Safe Use of Opioids Does Pt have an Active Cancer Diagnosis on the Problem List?: Yes Opioid Measure Date for [facility] [address] [address] Report: 08/04/22 Opioid Measure Time for [facility] [address] Report: 07:57 Quality: Stroke Does the patient have a stroke diagnosis?: No Physical Exam Vital Signs: Vital Signs: Last Vital Signs Temp 97.7 F 09/03/22 04:00 Pulse 112 H 09/03/22 04:00 Resp 16 09/03/22 04:00 BP 114/71 09/03/22 04:00 Pulse Ox 95 09/03/22 04:00 O2 Del Method 09/03/22 04:00 BMI result Body Mass Index 21.7 General: AO X 3, no acute distress Resp: CTA bilateral, no accessory muscles used CVS: S1,S2,Rapid GI: soft, non tender, non distended Neuro: motor grossly intact, alert Psych: appropriate affect, appropriate insight DS: Data Data Completed and Pending Labs on day of discharge: Laboratory Results - last 24 hr 09/02/22 09/02/22 09/02/22 12:05 12:05 12:05 WBC 5.8 RBC 4.36 L Hgb 11.4 L Hct 35.2 L MCV 80.7 MCH 26.1 L MCHC 32.4 RDW 19.9 H Plt Count 177 MPV 9.0 L Immature Gran % (Auto) 0.3 Neut % (Auto) 76.7 H Lymph % (Auto) 9.2 L Henry % (Auto) 10.6 Eos % (Auto) 2.9 Baso % (Auto) 0.3 Lymph # (Auto) 0.5 L Henry # (Auto) 0.6 Eos # (Auto) 0.2 Baso # (Auto) 0.0 Abs Immat Gran (auto) 0.02 Absolute Neuts (auto) 4.4 Absolute Nucleated RBC 0.000 Nucleated RBC % (auto) 0.0 D-Dimer High Sensitivty 489 Sodium 136 Potassium 4.3 Chloride 100 Carbon Dioxide 27 Anion Gap 13 BUN 14 Creatinine 0.98 Estim Creat Clear Calc 76.2 Estimated GFR > 60 Random Glucose 205 H Fasting Glucose Estimat Average Glucose Hemoglobin A1c % Lactic Acid Calcium 9.3 Magnesium 2.1 Total Bilirubin 0.6 AST 19 ALT 15 Alkaline Phosphatase 129 H Troponin I High Sens Total Protein 7.0 Albumin 3.7 TSH 0.53 Influenza Type A (PCR) Influenza Type B (PCR) RSV RNA Qual (PCR) SARS-CoV-2 RNA (RT-PCR) 09/02/22 09/02/22 09/02/22 12:05 12:05 12:05 WBC RBC Hgb Hct MCV MCH MCHC RDW Plt Count MPV Immature Gran % (Auto) Neut % (Auto) Lymph % (Auto) Henry % (Auto) Eos % (Auto) Baso % (Auto) Lymph # (Auto) Henry # (Auto) Eos # (Auto) Baso # (Auto) Abs Immat Gran (auto) Absolute Neuts (auto) Absolute Nucleated RBC Nucleated RBC % (auto) D-Dimer High Sensitivty Sodium Potassium Chloride Carbon Dioxide Anion Gap BUN Creatinine Estim Creat Clear Calc Estimated GFR Random Glucose Fasting Glucose Estimat Average Glucose 131 Hemoglobin A1c % 6.2 Lactic Acid Calcium Magnesium Total Bilirubin AST ALT Alkaline Phosphatase Troponin I High Sens 4.4 Total Protein Albumin TSH Influenza Type A (PCR) NEGATIVE Influenza Type B (PCR) NEGATIVE RSV RNA Qual (PCR) NEGATIVE SARS-CoV-2 RNA (RT-PCR) NEGATIVE 09/02/22 09/03/22 09/03/22 15:58 06:05 06:05 WBC 5.3 RBC 3.91 L Hgb 10.2 L Hct 31.8 L MCV 81.3 MCH 26.1 L MCHC 32.1 RDW 19.8 H Plt Count 179 MPV 9.7 Immature Gran % (Auto) Neut % (Auto) Lymph % (Auto) Henry % (Auto) Eos % (Auto) Baso % (Auto) Lymph # (Auto) Henry # (Auto) Eos # (Auto) Baso # (Auto) Abs Immat Gran (auto) Absolute Neuts (auto) Absolute Nucleated RBC 0.000 Nucleated RBC % (auto) 0.0 D-Dimer High Sensitivty Sodium 136 Potassium 4.5 Chloride 103 Carbon Dioxide 25 Anion Gap 13 BUN 13 Creatinine 0.93 Estim Creat Clear Calc 80.3 Estimated GFR > 60 Random Glucose Fasting Glucose 127 H Estimat Average Glucose Hemoglobin A1c % Lactic Acid 1.8 Calcium 9.1 Magnesium 2.1 Total Bilirubin AST ALT Alkaline Phosphatase Troponin I High Sens Total Protein Albumin TSH Influenza Type A (PCR) Influenza Type B (PCR) RSV RNA Qual (PCR) SARS-CoV-2 RNA (RT-PCR) Discharge Plan Discharge Anticipated Discharge Date/Time: 09/03/22 07:54 Patient Disposition: Home, Self-Care Discharge Diagnosis: pneumonia, staring episodes Referrals: Christina Nugent MD [Physician] - 1 Week (staring episodes) Nika May CNP [Primary Care Provider] - 1 Week Discharge Medications: New azithromycin 500 mg Tablet 500 mg PO Q24H Qty: 5 0RF cefuroxime axetil 500 mg tablet 500 mg PO BID Qty: 10 0RF Continued ondansetron 8 mg Tablet,Disintegrating 8 mg PO Q8H PRN (Reason: Nausea) Qty: 30 3RF famotidine 20 mg tablet 1 tab PO BID PRN (Reason: heartburn) codeine-guaifenesin 10-100 mg/5 mL liquid 5 ml PO TID PRN (Reason: cough) benzonatate 200 mg capsule 200 mg PO BID PRN (Reason: Cough) sennosides-docusate sodium [Senna with Docusate Sodium] 8.6-50 mg tablet 1 tab-cap PO BID PRN (Reason: Constipation) Discontinued ibuprofen 400 mg Tablet 400 mg PO Q8H PRN (Reason: Pain) Qty: 30 1RF Discharge Orders: Discharge Order (Routine); Ordered 09/03/22 Ordered By: Christiano Peterson Diet: Advance to usual diet Activity on Discharge: As tolerated Stand Alone Forms: Patient Portal Discharge page Other Ambulatory Orders: EEG electroencephalogram (Routine) Timeframe: 1 Week Facility: [facility] - Location: Radiology Ordered By: Christiano LANDAVERDE echo transthoracic complete (Routine) Timeframe: 1 Week Facility: [facility] - Location: Cardiology Ordered By: Christiano Peterson Care Plan Goals: recovery Health Concerns: tachycardia, staring spells, pneumonia Plan of Treatment: 5 more days antibiotics, follow up echo and eeg, follow up with neuro and oncology Assessment: see above
--- NOTE | 2022-09-03 08:11 | PC.NURSE ---
plan for dc per md frances
[2022-09-03 08:29] VITALS: BP 108/58; PULSE 106; RESP 16; TEMP 36.7; O2SAT 93
== END 2022-09-03 09:30 | disposition home or self-care (01) | DRG 139 ==
LOC: HO.ED 15:17 → HO.EDOVER 16:44
PROVIDERS: Admitting Provider Internal Medicine; Emergency Provider Student in an Organized Health Care Education/Training Program; PCP Nurse Practitioner Family; Visit Provider Internal Medicine
DX: J18.9 Pneumonia, unspecified organism (principal); C34.91 Malignant neoplasm of unspecified part of right bronchus or lung; R73.03 Prediabetes; Z20.822 Contact with and (suspected) exposure to COVID-19; Z87.891 Personal history of nicotine dependence; Z79.899 Other long term (current) drug therapy
CPT/HCPCS: 0241U; 36415; 70553; 71045; 71275; 80048; 80053; 80202; 82565; 82947; 83036; 83605; 83735; 84145; 84443; 84484; 85025; 85027; 85379; 87040; 90686; 93005; 94640; 96360; 99285; A9585; J0692; J0696; J2270; J2405; J2543; J2930; J3370; Q9967

== ENCOUNTER 2022-09-06 13:03 | Inpatient (IN) | payer OTHER, SELFPAY ==
[2022-09-06] VITALS (7 sets, daily range): BP systolic 109–122; BP diastolic 68–86; PULSE 98–139; RESP 18–26; TEMP 36.3–36.7; O2SAT 94–99; BMI 20.9
--- NOTE | ~2022-09-06 | CT_ITS ---
EXAMINATION: CT ANGIOGRAM OF THE CHEST WITH AND WITHOUT CONTRAST (CT PULMONARY ANGIOGRAM FOR PE) CLINICAL INFORMATION: Reason for Exam sob, CA COMPARISON: None TECHNIQUE: Prior to contrast administration, noncontrast localization images were obtained. Subsequently, multidetector volumetric imaging was performed from the thoracic inlet to below the diaphragms following the administration of 80 mL Omnipaque 350 intravenous contrast. No contrast reaction reported Sagittal, coronal, and MIP oblique sagittal reformatted images were obtained on the CT workstation, uploaded to PACS, and reviewed. This CT examination was performed using dose optimization techniques as appropriate, variously including the following: *Automated exposure control *Adjustment of mA and/or kV according to patient size (this includes techniques or standardized protocols for targeted exams where dose is matched to indication/reason for exam; i.e. extremities or head) *Use of iterative reconstruction technique Total exam dose-length product 244 mGy-cm FINDINGS: QUALITY OF STUDY/CONTRAST BOLUS: Satisfactory. PULMONARY ARTERIES: No central or segmental pulmonary emboli. THORACIC AORTA: There is mild calcified the sclerotic plaque along the undersurface of the aortic arch and soft plaque along the left subclavian artery. A three-vessel branching of arch is noted. No aortic aneurysm or dissection seen. LUNG: There is diffuse centrilobular and paraseptal emphysema with patchy opacities and reticular interstitial thickening in right upper lobe, right middle lobe and both lower lobes especially left side. There is a large cyst or cavity in the right upper lobe with peripheral parenchymal atelectasis. Also visualized is bilateral especially right paravascular parahilar soft tissue opacities. No pulmonary nodule, mass or consolidation seen. Previously described spiculated-appearing area inferior to the cystic structure right middle lobe is mainly parenchymal consolidation/atelectasis and is stable. PLEURA: There is minimal posterior bibasilar and bilateral apical pleural thickening. MEDIASTINUM: Normal heart size. No pericardial effusion. No hilar or mediastinal lymphadenopathy. No evidence of septal bowing or right heart strain. CHEST WALL/AXILLA: No axillary or internal mammary lymphadenopathy. OSSEOUS STRUCTURES: No aggressive lytic or sclerotic process seen. Moderate ventral spondylosis mid and lower dorsal spine. UPPER ABDOMEN: There is a moderate-sized cyst upper midpole left kidney. Liver, gallbladder, spleen and adrenal glands unremarkable. No reflux of contrast into the hepatic veins to suggest elevated right heart pressures. CT/CT angio chest PE protocol IMPRESSION: 1. No evidence of PE. 2. 3. No evidence aortic dissection or aneurysm. Atherosclerotic plaques along the left brachiocephalic artery and undersurface of the arch. 4. Diffuse centrilobular and paraseptal emphysema with a large cyst or cavity in the right upper lobe with peripheral atelectasis/consolidation is stable. Spiculated appearance inferior to right middle lobe cyst seen on the previous study is most likely parenchymal opacity/consolidation. There is chronic interstitial thickening and honeycombing appearance in right upper lobe, left lower lobe, stable. 5. Bilateral paravascular parahilar soft tissue opacities are stable VTE: negative
--- NOTE | 2022-09-06 15:31 | ED.GENADULT ---
HPI - General Adult General Chief complaint: Upper Respiratory Symptoms <LOKI Tee - Last Filed: 09/06/22 15:42> Stated complaint: Low O2/Rib pain/Back pain <LOKI Tee - Last Filed: 09/06/22 15:42> Time Seen by Provider: 09/06/22 16:09 <LOKI Tee - Last Filed: 09/06/22 15:42> Source: patient <Sho Treadwell NP - Last Filed: 09/07/22 02:48> Mode of arrival: ambulatory <Sho Treadwell NP - Last Filed: 09/07/22 02:48> Limitations: no limitations <Sho Treadwell NP - Last Filed: 09/07/22 02:48> History of Present Illness HPI narrative: 62-year-old male presents for shortness of breath, right-sided chest pain, and hypoxia. He does have lung cancer, was recently admitted and treated with antibiotics. He states to feel fatigued, has intermittent fevers and chills, and week. <Sho Treadwell NP - Last Filed: 09/07/22 02:48> Onset (ago): day(s) <Sho Treadwell NP - Last Filed: 09/07/22 02:48> Severity: moderate <Sho Treadwell NP - Last Filed: 09/07/22 02:48> Quality: aching <Sho Treadwell NP - Last Filed: 09/07/22 02:48> Pain Consistency: constant <Sho Treadwell NP - Last Filed: 09/07/22 02:48> Relieving factors: none <Sho Treadwell NP - Last Filed: 09/07/22 02:48> Exacerbating factors: movement and other (Breathing) <Sho Treadwell NP - Last Filed: 09/07/22 02:48> Associated symptoms: chest pain, cough, fever/chills, malaise and nausea/vomiting <Sho Treadwell NP - Last Filed: 09/07/22 02:48> Treatments prior to arrival: other (Antibiotics) <Sho Treadwell NP - Last Filed: 09/07/22 02:48> Related Data Home medications: Home Medications Medication Instructions Recorded Confirmed benzonatate 200 mg capsule 200 mg PO BID PRN Cough 09/02/22 09/06/22 codeine 10 mg-guaifenesin 100 mg/5 5 ml PO TID PRN cough 09/02/22 09/06/22 mL oral liquid famotidine 20 mg tablet 1 tab PO BID PRN heartburn 09/02/22 09/06/22 sennosides 8.6 mg-docusate sodium 1 tab-cap PO BID PRN Constipation 09/02/22 09/06/22 50 mg tablet (Senna with Docusate Sodium) Previous Rx's Medication Instructions Recorded ondansetron 8 mg disintegrating 8 mg PO Q8H PRN Nausea #30 tabs 05/31/22 tablet azithromycin 500 mg tablet 500 mg PO Q24H #5 tabs 09/03/22 cefuroxime axetil 500 mg tablet 500 mg PO BID #10 tabs 09/03/22 <LOKI Tee - Last Filed: 09/06/22 15:42> Allergies/adverse reactions: Allergies Allergy/AdvReac Type Severity Reaction Status Date / Time No Known Allergies Allergy Verified 09/06/22 15:38 <LOKI Tee - Last Filed: 09/06/22 15:42> Review of Systems Review of Systems: Constitutional: Pop Fever, positive Chills ENT/Mouth: No sore throat, No Rhinorrhea, No Swallowing Difficulty Eyes: No Eye Pain, No Swelling, No Redness Cardiovascular: Positive Chest Pain, positive SOB, No Orthopnea, no Edema Respiratory: Positive Cough, No Sputum, positive Wheezing, positive dyspnea Gastrointestinal: Positive Nausea, No Vomiting, No Diarrhea, No abdominal Pain, No Hematochezia, No Melena Genitourinary: No Dysuria, No Urinary Frequency, No Hematuria Musculoskeletal: No joint pain, positive Myalgias Skin: No Skin Lesions, No rash Neuro: Pop Weakness, No Numbness, No Dizziness, No Headache Psych: No Anxiety/Panic, No Depression <Sho Treadwell NP - Last Filed: 09/07/22 02:48> Yes all other systems are reviewed and are negative <Sho Treadwell NP - Last Filed: 09/07/22 02:48> PMFSH Past Medical History Attestation statement: The following information was validated with the patient. <Sho Treadwell NP - Last Filed: 09/07/22 02:48> Source: old records reviewed <Sho Treadwell NP - Last Filed: 09/07/22 02:48> Medical History: Medical History Diabetes (Unknown) Non-small cell cancer of right lung <LOKI Tee - Last Filed: 09/06/22 15:42> Family History Family History: Family History Mother Diabetes Father Diabetes <LOKI Tee - Last Filed: 09/06/22 15:42> Social History Social History: Social History Household Members: Spouse and Children Household Members Other:: son Housing: Apartment Alcohol intake: never Patient Tobacco Use Status: Former Tobacco user Tobacco use type: Cigarette Advance Directives: No Advance Directives Information Provided: No service: No Current occupational status: retired <LOKI Tee - Last Filed: 09/06/22 15:42> Physical Exam ED Vital Signs: Vital Signs - 24 hr 09/06/22 15:30 09/06/22 15:54 09/06/22 15:57 Temperature 98.0 F Pulse Rate 139 H 120 H 122 H Respiratory Rate 24 H 26 H Blood Pressure 122/86 113/83 Pulse Oximetry 94 99 Oxygen Delivery Method Room Air Nasal Cannula Oxygen Flow Rate 2 09/06/22 16:47 09/06/22 16:54 09/06/22 21:04 Temperature 97.4 F Pulse Rate 120 H 104 H Respiratory Rate 24 H Blood Pressure 109/68 Pulse Oximetry 95 96 Oxygen Delivery Method Nasal Cannula Room Air Oxygen Flow Rate BMI result Body Mass Index 20.9 <LOKI Tee - Last Filed: 09/06/22 15:42> Vital Signs - 24 hr 09/06/22 15:30 09/06/22 15:54 09/06/22 15:57 Temperature 98.0 F Pulse Rate 139 H 120 H 122 H Respiratory Rate 24 H 26 H Blood Pressure 122/86 113/83 Pulse Oximetry 94 99 Oxygen Delivery Method Room Air Nasal Cannula Oxygen Flow Rate 2 09/06/22 16:47 09/06/22 16:54 09/06/22 21:04 Temperature 97.4 F Pulse Rate 120 H 104 H Respiratory Rate 24 H Blood Pressure 109/68 Pulse Oximetry 95 96 Oxygen Delivery Method Nasal Cannula Room Air Oxygen Flow Rate BMI result Body Mass Index 20.9 <Sho Treadwell NP - Last Filed: 09/07/22 02:48> Appearance: Alert. Oriented X3. Moderate distress. Eyes: Pupils equal, round and reactive to light. ENT: Pharynx normal. Dry mucous membranes. Neck: Normal inspection. Neck supple. CVS: Tachycardic heart rate and rhythm. Apical pulses equal pulses to extremities. Respiratory: No respiratory distress. Expiratory wheezing throughout. Poor lung sound at the bases. Abdomen: Soft and nontender. Skin: Skin warm and dry. Normal skin color. Normal skin turgor. Extremities: No lower extremity edema. Gait balance and coordinated. Neuro: No motor deficit. No sensory deficit. Cranial nerves 2-12 intact. <Sho Treadwell NP - Last Filed: 09/07/22 02:48> Course Course Course Narrative: RME: 1532 62 year old male hx of lung cancer, diabetes presents with shortness of breath and palpiations. Was recently admitted into the hospital. O2 sat at home 85% on RA. doesnt wear oxygen. PE: w/ ambulatory O2 of 88% Plan- speak to charge to get patient back ajith concerns for PE vs pna <LOKI Tee - Last Filed: 09/06/22 15:42> RME: 1532 62 year old male hx of lung cancer, diabetes presents with shortness of breath and palpiations. Was recently admitted into the hospital. O2 sat at home 85% on RA. doesnt wear oxygen. PE: w/ ambulatory O2 of 88% Plan- speak to charge to get patient back ajith concerns for PE vs pna 62-year-old male presents for worsening shortness of breath, fatigue, and chest pain with hypoxia. Has lung cancer, is on O2 chronically however his O2 sat was 88% with oxygen which is unusual for him. Was admitted to the hospitalist service on 09/02/2022, and discharged on 09/03 with prescription for cefuroxime azithromycin for 5 days. Has been taking these medications as directed and has 2 days left. His last dose of antibiotics was this morning. He states he presents because his chest pain and his poor breathing is really concerning to him. He is concerned that he might have worsening pneumonia or fluid in his chest. Patient's labs were drawn in the emergency department waiting room, his D-dimer has more than doubled since his last value on 09/02/2022. I will order PE study for this patient, give 2 L of fluid, add lactic and cultures, and give ceftriaxone. 17:00 fluids are infusing, lactic do not indicate sepsis. Viral panel is negative. 20:30 CTA indicates no evidence of PE, no evidence of aortic dissection or aneurysm, diffuse central lobular and paraseptal emphysema with large cystic cavity to the right upper lobe with peripheral atelectasis and consolidation is stable. There is a spiculated appearance inferior to the right middle lobe of the cyst seen in the previous study is most likely parent [place] opacity or consolidation. There is chronic interstitial thickening and honeycombing appearance of the right upper lobe. Bilateral para vascular parahilar soft tissue opacities are stable. While there is no obvious source of infection, I feel that this patient should be admitted for suspected pneumonia. 20:45 discussion with hospitalist, plan of care is to admit and also for vancomycin and Zosyn. Patient agrees with plan of care. <Sho Treadwell NP - Last Filed: 09/07/22 02:48> Consultations Consultation #1: Meredith <Sho Treadwell NP - Last Filed: 09/07/22 02:48> Time: 20:45 <Sho Treadwell NP - Last Filed: 09/07/22 02:48> Medications Administered Generic Name Dose Route Start Last Admin Trade Name Freq PRN Reason Stop Dose Admin Heparin Sodium (Porcine) 5,000 unit 09/06/22 21:30 09/07/22 00:34 Heparin Sodium,Porcine 5,000 Unit/Ml Vial SUBCUT 5,000 unit Q12H MANJINDER Administration Sodium Chloride 1,000 mls @ 80 mls/hr 09/06/22 21:30 09/07/22 00:33 Ns IVCONT 80 mls/hr .[id number] MANJINDER Administration Sodium Chloride 3 ml 09/07/22 00:00 09/07/22 00:54 0.9 % Sodium Chloride Flush 3 Ml Syringe IVFLUSH 3 ml QSHIFT MANJINDER Administration Discontinued Medications Generic Name Dose Route Start Last Admin Trade Name Nataliya PRN Reason Stop Dose Admin Acetaminophen 650 mg 09/06/22 17:22 09/06/22 17:25 Acetaminophen 325 Mg Tablet PO 09/06/22 17:23 650 mg ONCE ONE Administration Albuterol Sulfate 7.5 mg/ 10 mg 09/06/22 16:36 09/06/22 16:46 Albuterol Sulfate 2.5 mg INHALE 09/06/22 16:37 10 mg ONCE ONE Administration Ceftriaxone Sodium 1 gm/ 50 mls @ 100 mls/hr 09/06/22 16:48 09/06/22 18:13 Sodium Chloride IV 09/06/22 17:17 Infused ONCE ONE Infusion Vancomycin HCl 1,000 mg/ 535 mls @ 267.5 mls/hr 09/06/22 20:40 09/07/22 00:23 Vancomycin HCl 750 mg/ Sodium IV 09/06/22 22:39 Infused Chloride ONCE ONE Infusion Piperacillin Sod/Tazobactam 50 mls @ 100 mls/hr 09/06/22 20:40 09/07/22 00:59 Sod 3.375 gm/ Sodium Chloride IV 09/06/22 21:09 Infused ONCE ONE Infusion Iohexol 65 ml 09/06/22 19:00 09/06/22 19:01 Iohexol 350 Mg/Ml 100 Ml Infus..Btl IV 09/06/22 19:01 65 ml ONCE ONE Administration Methylprednisolone Sodium Succinate 125 mg 09/06/22 16:36 09/06/22 16:49 Methylprednisolone Sod Succ 125 Mg/2 Ml Vial IVPUSH 09/06/22 16:37 125 mg ONCE ONE Administration Morphine Sulfate 2 mg 09/06/22 16:36 09/06/22 16:49 Morphine Sulfate 2 Mg/Ml Cartridge IVPUSH 09/06/22 16:37 2 mg ONCE ONE Administration Protocol Ondansetron HCl 4 mg 09/06/22 16:36 09/06/22 16:49 Ondansetron Hcl 4 Mg/2 Ml Vial IVPUSH 09/06/22 16:37 4 mg ONCE ONE Administration <LOKI Tee - Last Filed: 09/06/22 15:42> Medications Administered Generic Name Dose Route Start Last Admin Trade Name Freq PRN Reason Stop Dose Admin Heparin Sodium (Porcine) 5,000 unit 09/06/22 21:30 09/07/22 00:34 Heparin Sodium,Porcine 5,000 Unit/Ml Vial SUBCUT 5,000 unit Q12H MANJINDER Administration Sodium Chloride 1,000 mls @ 80 mls/hr 09/06/22 21:30 09/07/22 00:33 Ns IVCONT 80 mls/hr .[id number] MANJINDER Administration Sodium Chloride 3 ml 09/07/22 00:00 09/07/22 00:54 0.9 % Sodium Chloride Flush 3 Ml Syringe IVFLUSH 3 ml QSHIFT MANJINDER Administration Discontinued Medications Generic Name Dose Route Start Last Admin Trade Name Rosasq PRN Reason Stop Dose Admin Acetaminophen 650 mg 09/06/22 17:22 09/06/22 17:25 Acetaminophen 325 Mg Tablet PO 09/06/22 17:23 650 mg ONCE ONE Administration Albuterol Sulfate 7.5 mg/ 10 mg 09/06/22 16:36 09/06/22 16:46 Albuterol Sulfate 2.5 mg INHALE 09/06/22 16:37 10 mg ONCE ONE Administration Ceftriaxone Sodium 1 gm/ 50 mls @ 100 mls/hr 09/06/22 16:48 09/06/22 18:13 Sodium Chloride IV 09/06/22 17:17 Infused ONCE ONE Infusion Vancomycin HCl 1,000 mg/ 535 mls @ 267.5 mls/hr 09/06/22 20:40 09/07/22 00:23 Vancomycin HCl 750 mg/ Sodium IV 09/06/22 22:39 Infused Chloride ONCE ONE Infusion Piperacillin Sod/Tazobactam 50 mls @ 100 mls/hr 09/06/22 20:40 09/07/22 00:59 Sod 3.375 gm/ Sodium Chloride IV 09/06/22 21:09 Infused ONCE ONE Infusion Iohexol 65 ml 09/06/22 19:00 09/06/22 19:01 Iohexol 350 Mg/Ml 100 Ml Infus..Btl IV 09/06/22 19:01 65 ml ONCE ONE Administration Methylprednisolone Sodium Succinate 125 mg 09/06/22 16:36 09/06/22 16:49 Methylprednisolone Sod Succ 125 Mg/2 Ml Vial IVPUSH 09/06/22 16:37 125 mg ONCE ONE Administration Morphine Sulfate 2 mg 09/06/22 16:36 09/06/22 16:49 Morphine Sulfate 2 Mg/Ml Cartridge IVPUSH 09/06/22 16:37 2 mg ONCE ONE Administration Protocol Ondansetron HCl 4 mg 09/06/22 16:36 09/06/22 16:49 Ondansetron Hcl 4 Mg/2 Ml Vial IVPUSH 09/06/22 16:37 4 mg ONCE ONE Administration <Sho Treadwell NP - Last Filed: 09/07/22 02:48> Medical Decision Making Differential Diagnosis Differential Diagnoses: The differential diagnosis associated with the presentation includes <Sho Treadwell NP - Last Filed: 09/07/22 02:48> Admission/Observation Consideration of admission/observation: Escalation of care including admission/observation considered <Sho Treadwell NP - Last Filed: 09/07/22 02:48> This patient requires admission for hypoxia and chest pain <Sho Treadwell NP - Last Filed: 09/07/22 02:48> Consult Healthcare Provider Management of the patient was discussed with: Hospitalist <Sho Treadwell NP - Last Filed: 09/07/22 02:48> Lab Data MDM Lab Attestation statement: I reviewed the patient's lab results. <Sho Treadwell NP - Last Filed: 09/07/22 02:48> Result Diagrams: : 09/06/22 15:54 09/06/22 15:54 <LOKI Tee - Last Filed: 09/06/22 15:42> Labs: Lab Results 09/06/22 09/06/22 09/06/22 Range/Units 15:48 15:54 15:54 WBC 5.7 (4.8-10.8) X10*3/uL RBC 4.25 L (4.60-5.80) X10*6/uL Hgb 11.2 L (14.0-18.0) g/dl Hct 35.0 L (42.0-52.0) % MCV 82.4 (80.0-98.0) fL MCH 26.4 L (27.0-33.0) pg MCHC 32.0 (31.0-36.0) g/dl RDW 19.4 H (11.0-16.0) % Plt Count 261 D (160-400) X10*3/uL MPV 9.5 (9.4-12.4) fL Immature Gran % (Auto) 0.4 (0.0-0.4) % Neut % (Auto) 72.7 (45-73) % Lymph % (Auto) 11.5 L (20-40) % [place] % (Auto) 11.3 H (2-11) % Eos % (Auto) 3.7 (0-4) % Baso % (Auto) 0.4 (0-2) % Lymph # (Auto) 0.7 L (1.2-4.9) X10*3/uL [place] # (Auto) 0.6 (0.1-1.2) X10*3/uL Eos # (Auto) 0.2 (0.0-0.4) X10*3/uL Baso # (Auto) 0.0 (0.0-0.2) X10*3/uL Abs Immat Gran (auto) 0.02 (0.00-0.03) X10*3/uL Absolute Neuts (auto) 4.1 (2.0-8.3) x10*3/uL Absolute Nucleated RBC 0.000 (0.0-0.012) X10*3/uL Nucleated RBC % (auto) 0.0 (0.0-0.2) /100WBC D-Dimer High Sensitivty NG/ML Sodium 133 L (135-145) mmol/L Potassium 4.1 (3.3-5.1) mmol/L Chloride 101 (96-108) mmol/L Carbon Dioxide 23 (22-29) mmol/L Anion Gap 13 (12-20) BUN 15 (9-16) mg/dL Creatinine 0.84 (0.5-1.4) mg/dL Estim Creat Clear Calc 85.4 Estimated GFR > 60 Random Glucose 126 H (60-115) mg/dL Lactic Acid (0.5-2.0) mmol/L Calcium 9.0 (8.4-10.2) mg/dL Total Bilirubin 0.5 (0.0-1.0) mg/dL AST 49 H (5-37) U/L ALT 53 H (0-40) U/L Alkaline Phosphatase 190 H (39-117) U/L Troponin I High Sens (<3.5-35.0) ng/L Total Protein 7.3 (6.5-8.0) g/dL Albumin 3.8 (3.5-5.0) g/dL Influenza Type A (PCR) NEGATIVE (Negative) Influenza Type B (PCR) NEGATIVE (Negative) RSV RNA Qual (PCR) NEGATIVE (Negative) SARS-CoV-2 RNA (RT-PCR) NEGATIVE (Negative) 09/06/22 09/06/22 09/06/22 Range/Units 15:54 15:54 17:52 WBC (4.8-10.8) X10*3/uL RBC (4.60-5.80) X10*6/uL Hgb (14.0-18.0) g/dl Hct (42.0-52.0) % MCV (80.0-98.0) fL MCH (27.0-33.0) pg MCHC (31.0-36.0) g/dl RDW (11.0-16.0) % Plt Count (160-400) X10*3/uL MPV (9.4-12.4) fL Immature Gran % (Auto) (0.0-0.4) % Neut % (Auto) (45-73) % Lymph % (Auto) (20-40) % [place] % (Auto) (2-11) % Eos % (Auto) (0-4) % Baso % (Auto) (0-2) % Lymph # (Auto) (1.2-4.9) X10*3/uL [place] # (Auto) (0.1-1.2) X10*3/uL Eos # (Auto) (0.0-0.4) X10*3/uL Baso # (Auto) (0.0-0.2) X10*3/uL Abs Immat Gran (auto) (0.00-0.03) X10*3/uL Absolute Neuts (auto) (2.0-8.3) x10*3/uL Absolute Nucleated RBC (0.0-0.012) X10*3/uL Nucleated RBC % (auto) (0.0-0.2) /100WBC D-Dimer High Sensitivty 796 NG/ML Sodium (135-145) mmol/L Potassium (3.3-5.1) mmol/L Chloride (96-108) mmol/L Carbon Dioxide (22-29) mmol/L Anion Gap (12-20) BUN (9-16) mg/dL Creatinine (0.5-1.4) mg/dL Estim Creat Clear Calc Estimated GFR Random Glucose (60-115) mg/dL Lactic Acid 1.5 (0.5-2.0) mmol/L Calcium (8.4-10.2) mg/dL Total Bilirubin (0.0-1.0) mg/dL AST (5-37) U/L ALT (0-40) U/L Alkaline Phosphatase (39-117) U/L Troponin I High Sens 6.5 (<3.5-35.0) ng/L Total Protein (6.5-8.0) g/dL Albumin (3.5-5.0) g/dL Influenza Type A (PCR) (Negative) Influenza Type B (PCR) (Negative) RSV RNA Qual (PCR) (Negative) SARS-CoV-2 RNA (RT-PCR) (Negative) <LOKI Tee - Last Filed: 09/06/22 15:42> Lab Results 09/06/22 09/06/22 09/06/22 Range/Units 15:48 15:54 15:54 WBC 5.7 (4.8-10.8) X10*3/uL RBC 4.25 L (4.60-5.80) X10*6/uL Hgb 11.2 L (14.0-18.0) g/dl Hct 35.0 L (42.0-52.0) % MCV 82.4 (80.0-98.0) fL MCH 26.4 L (27.0-33.0) pg MCHC 32.0 (31.0-36.0) g/dl RDW 19.4 H (11.0-16.0) % Plt Count 261 D (160-400) X10*3/uL MPV 9.5 (9.4-12.4) fL Immature Gran % (Auto) 0.4 (0.0-0.4) % Neut % (Auto) 72.7 (45-73) % Lymph % (Auto) 11.5 L (20-40) % [place] % (Auto) 11.3 H (2-11) % Eos % (Auto) 3.7 (0-4) % Baso % (Auto) 0.4 (0-2) % Lymph # (Auto) 0.7 L (1.2-4.9) X10*3/uL [place] # (Auto) 0.6 (0.1-1.2) X10*3/uL Eos # (Auto) 0.2 (0.0-0.4) X10*3/uL Baso # (Auto) 0.0 (0.0-0.2) X10*3/uL Abs Immat Gran (auto) 0.02 (0.00-0.03) X10*3/uL Absolute Neuts (auto) 4.1 (2.0-8.3) x10*3/uL Absolute Nucleated RBC 0.000 (0.0-0.012) X10*3/uL Nucleated RBC % (auto) 0.0 (0.0-0.2) /100WBC D-Dimer High Sensitivty NG/ML Sodium 133 L (135-145) mmol/L Potassium 4.1 (3.3-5.1) mmol/L Chloride 101 (96-108) mmol/L Carbon Dioxide 23 (22-29) mmol/L Anion Gap 13 (12-20) BUN 15 (9-16) mg/dL Creatinine 0.84 (0.5-1.4) mg/dL Estim Creat Clear Calc 85.4 Estimated GFR > 60 Random Glucose 126 H (60-115) mg/dL Lactic Acid (0.5-2.0) mmol/L Calcium 9.0 (8.4-10.2) mg/dL Total Bilirubin 0.5 (0.0-1.0) mg/dL AST 49 H (5-37) U/L ALT 53 H (0-40) U/L Alkaline Phosphatase 190 H (39-117) U/L Troponin I High Sens (<3.5-35.0) ng/L Total Protein 7.3 (6.5-8.0) g/dL Albumin 3.8 (3.5-5.0) g/dL Influenza Type A (PCR) NEGATIVE (Negative) Influenza Type B (PCR) NEGATIVE (Negative) RSV RNA Qual (PCR) NEGATIVE (Negative) SARS-CoV-2 RNA (RT-PCR) NEGATIVE (Negative) 09/06/22 09/06/22 09/06/22 Range/Units 15:54 15:54 17:52 WBC (4.8-10.8) X10*3/uL RBC (4.60-5.80) X10*6/uL Hgb (14.0-18.0) g/dl Hct (42.0-52.0) % MCV (80.0-98.0) fL MCH (27.0-33.0) pg MCHC (31.0-36.0) g/dl RDW (11.0-16.0) % Plt Count (160-400) X10*3/uL MPV (9.4-12.4) fL Immature Gran % (Auto) (0.0-0.4) % Neut % (Auto) (45-73) % Lymph % (Auto) (20-40) % [place] % (Auto) (2-11) % Eos % (Auto) (0-4) % Baso % (Auto) (0-2) % Lymph # (Auto) (1.2-4.9) X10*3/uL [place] # (Auto) (0.1-1.2) X10*3/uL Eos # (Auto) (0.0-0.4) X10*3/uL Baso # (Auto) (0.0-0.2) X10*3/uL Abs Immat Gran (auto) (0.00-0.03) X10*3/uL Absolute Neuts (auto) (2.0-8.3) x10*3/uL Absolute Nucleated RBC (0.0-0.012) X10*3/uL Nucleated RBC % (auto) (0.0-0.2) /100WBC D-Dimer High Sensitivty 796 NG/ML Sodium (135-145) mmol/L Potassium (3.3-5.1) mmol/L Chloride (96-108) mmol/L Carbon Dioxide (22-29) mmol/L Anion Gap (12-20) BUN (9-16) mg/dL Creatinine (0.5-1.4) mg/dL Estim Creat Clear Calc Estimated GFR Random Glucose (60-115) mg/dL Lactic Acid 1.5 (0.5-2.0) mmol/L Calcium (8.4-10.2) mg/dL Total Bilirubin (0.0-1.0) mg/dL AST (5-37) U/L ALT (0-40) U/L Alkaline Phosphatase (39-117) U/L Troponin I High Sens 6.5 (<3.5-35.0) ng/L Total Protein (6.5-8.0) g/dL Albumin (3.5-5.0) g/dL Influenza Type A (PCR) (Negative) Influenza Type B (PCR) (Negative) RSV RNA Qual (PCR) (Negative) SARS-CoV-2 RNA (RT-PCR) (Negative) <Sho Treadwell NP - Last Filed: 09/07/22 02:48> Independent Interpretation I performed an independent interpretation of an: EKG and CT Scan <Sho Treadwell NP - Last Filed: 09/07/22 02:48> Interpretation: Vent. rate 129 BPM OK interval 112 ms QRS duration 72 ms QT/QTc 398/583 ms P-R-T axes 0 62 56 Sinus tachycardia Nonspecific T wave abnormality Abnormal ECG When compared with ECG of 02-SEP-2022 11:48, No significant change was found 06-SEP-2022 17:12:50 <Sho Treadwell NP - Last Filed: 09/07/22 02:48> Radiology Impression Discussion of test interpretation with radiology: I have reviewed the radiologist's reading. <Sho Treadwell NP - Last Filed: 09/07/22 02:48> Radiologist Impression: QUALITY OF STUDY/CONTRAST BOLUS: Satisfactory. PULMONARY ARTERIES: No central or segmental pulmonary emboli.? THORACIC AORTA: There is mild calcified the sclerotic plaque along the undersurface of the aortic arch and soft plaque along the left subclavian artery. A three-vessel branching of arch is noted. No aortic aneurysm or dissection seen. LUNG: There is diffuse centrilobular and paraseptal emphysema with patchy opacities and reticular interstitial thickening in right upper lobe, right middle lobe and both lower lobes especially left side. There is a large cyst or cavity in the right upper lobe with peripheral parenchymal atelectasis. Also visualized is bilateral especially right paravascular parahilar soft tissue opacities. No pulmonary nodule, mass or consolidation seen. Previously described spiculated-appearing area inferior to the cystic structure right middle lobe is mainly parenchymal consolidation/atelectasis and is stable. PLEURA: There is minimal posterior bibasilar and bilateral apical pleural thickening. MEDIASTINUM: Normal heart size.? No pericardial effusion.? No hilar or mediastinal lymphadenopathy.? No evidence of septal bowing or right heart strain. CHEST WALL/AXILLA: No axillary or internal mammary lymphadenopathy. OSSEOUS STRUCTURES: No aggressive lytic or sclerotic process seen. Moderate ventral spondylosis mid and lower dorsal spine.? UPPER ABDOMEN: There is a moderate-sized cyst upper midpole left kidney. Liver, gallbladder, spleen and adrenal glands unremarkable.? No reflux of contrast into the hepatic veins to suggest elevated right heart pressures. CT/CT angio chest PE protocol IMPRESSION: 1.? No evidence of PE. 2.? 3.? No evidence aortic dissection or aneurysm. Atherosclerotic plaques along the left brachiocephalic artery and undersurface of the arch. 4. ? Diffuse centrilobular and paraseptal emphysema with a large cyst or cavity in the right upper lobe with peripheral atelectasis/consolidation is stable. Spiculated appearance inferior to right middle lobe cyst seen on the previous study is most likely parenchymal opacity/consolidation. There is chronic interstitial thickening and honeycombing appearance in right upper lobe, left lower lobe, stable. 5.? Bilateral paravascular parahilar soft tissue opacities are stable <Sho Treadwell NP - Last Filed: 09/07/22 02:48> Independent Historian Clinical information obtained from an independent historian. History obtained from or confirmed by: Other (Son) <Sho Treadwell NP - Last Filed: 09/07/22 02:48> External Record Review External record reviewed: Inpatient record, Office record and Outpatient record <Sho Treadwell NP - Last Filed: 09/07/22 02:48> Chronic Conditions Patient?s care impacted by: Cancer <Sho Treadwell NP - Last Filed: 09/07/22 02:48> Discharge Plan Discharge Clinical Impression: Pneumonia, Non-small cell cancer of right lung, Dyspnea, Hypoxia <LOKI Tee - Last Filed: 09/06/22 15:42> Patient Disposition: Admitted As Inpatient <LOKI Tee - Last Filed: 09/06/22 15:42>
--- NOTE | 2022-09-06 15:34 | ECG_ITS ---
Test Reason : SHORT OF BREATH Blood Pressure : / mmHG Vent. Rate : 129 BPM Atrial Rate : 129 BPM P-R Int : 112 ms QRS Dur : 072 ms QT Int : 398 ms P-R-T Axes : 000 062 056 degrees QTc Int : 583 ms Sinus tachycardia Nonspecific T wave abnormality Abnormal ECG When compared with ECG of 02-SEP-2022 11:48, No significant change was found Referred By: Kyleigh Darnell Electronically Signed By:LITA PATEL MD
[2022-09-06 15:59] LABS: MANUAL DIFF FLAG NO
[2022-09-06 16:08] LABS: D Dimer High Sensitivity 796 NG/ML
[2022-09-06 16:13] LABS: Basophils Percent Auto 0.4 % (0-2); Eosinophils Absolute Auto 0.2 X10*3/uL (0.0-0.4); Eosinophils Percent Auto 3.7 % (0-4); Hemoglobin 11.2 g/dl (14.0-18.0); Imm Gran Abs Auto 0.02 X10*3/uL (0.00-0.03); Imm Gran Pct Auto 0.4 % (0.0-0.4); Lymphocytes Absolute Auto 0.7 X10*3/uL (1.2-4.9); Lymphocytes Percent Auto 11.5 % (20-40); Mean Corpuscular Hemoglobin 26.4 pg (27.0-33.0); Mean Corpuscular Volume 82.4 fL (80.0-98.0); Mean Platelet Volume 9.5 fL (9.4-12.4); Monocytes Absolute Auto 0.6 X10*3/uL (0.1-1.2); Monocytes Percent Auto 11.3 % (2-11); Neutrophils Absolute Auto 4.1 x10*3/uL (2.0-8.3); Neutrophils Percent Auto 72.7 % (45-73); Platelet Count 261 X10*3/uL (160-400); Red Blood Count 4.25 X10*6/uL (4.60-5.80); Red Cell Distribution Width 19.4 % (11.0-16.0); White Blood Count 5.7 X10*3/uL (4.8-10.8)
[2022-09-06 16:22] LABS: Alanine Aminotransferase 53 U/L (0-40); Albumin Level 3.8 g/dL (3.5-5.0); Alkaline Phosphatase 190 U/L (39-117); Anion Gap 13 (12-20); Aspartate Amino Transferase 49 U/L (5-37); Bilirubin Total 0.5 mg/dL (0.0-1.0); Blood Urea Nitrogen 15 mg/dL (9-16); Carbon Dioxide 23 mmol/L (22-29); Chloride 101 mmol/L (96-108); Creatinine Clr Calc Pharmacy 85.4; Estimated Glomerular Filt Rate > 60; Glucose Random 126 mg/dL (60-115); Potassium 4.1 mmol/L (3.3-5.1); Sodium 133 mmol/L (135-145); Total Protein 7.3 g/dL (6.5-8.0)
[2022-09-06 16:37] LABS: Troponin-I High Sensitivity 6.5 ng/L (<3.5-35.0)
[2022-09-06 16:42] LABS: Influenza A PCR NEGATIVE (Negative); Influenza B PCR NEGATIVE (Negative); Resp Syncy Virus RNA Qual PCR NEGATIVE (Negative); SARS COV2 PCR INHOUSE NEGATIVE (Negative)
[2022-09-06] MEDS: Albuterol Sulfate 7.5 MG, Albuterol Sulfate (0.083%) 2.5 MG 10 MG INHALE (16:46)
[2022-09-06] MEDS: methylPREDNISolone Sod Succ 125 MG/2 ML VIAL IVPUSH (16:49)
[2022-09-06] MEDS: ondansetron HCL 4 MG/2 ML VIAL IVPUSH (16:49)
[2022-09-06] MEDS: Morphine Sulfate 2 MG/ML CARTRIDGE IVPUSH (16:49)
[2022-09-06] MEDS: Acetaminophen 325 MG TABLET 650 MG PO (17:25)
[2022-09-06] MEDS: cefTRIAXone sodium 1 GM in 0.9 % Sodium Chloride 50 ML IV (17:50)
[2022-09-06 18:11] LABS: Lactic Acid 1.5 mmol/L (0.5-2.0)
[2022-09-06] MEDS: iohexoL 350 MG/ML 100 ML INFUS..BTL 65 ML IV (19:01)
[2022-09-06] MEDS: Piperacillin Sodium/Tazobactam 3.375 GM in 0.9 % Sodium Chloride 50 ML IV (21:10)
--- NOTE | 2022-09-06 21:23 | P.HPHOSP_ITS ---
History of Present Illness Date of Service: 09/06/22 Chief Complaint: SOB 62-year-old male with past medical history of non-small cell cancer of right lung, diabetes, recently discharged from the hospital on 09/03 after being managed for pneumonia presents to the hospital with complaints of worsening symptoms. Patient was discharged on p.o. antibiotics. Patient reports that he ever since discharge on the he continued to feel worse, he continues to have cough, dyspnea, and generally not feeling well, increased weakness, and decreased appetite. Patient denies any fever, has chills, reports no chest pain, no abdominal pain nausea or vomiting, no diarrhea constipation, no urinary symptoms and no lower e xtremity edema. On arrival to the ED patient found to have a heart rate of 139 cough, respiratory rate of 24, satting 94% on room air Labs are significant for WBC count of 5.7, hemoglobin of 11.2, hematocrit 35, sodium 133, D-dimer of 796, AST of 49, ALT of 53, viral serology negative Chest CT angiogram shows no PE, diffuse centrilobular and paraseptal emphysema with a large cyst or cavity in the right upper lobe with peripheral consolidation. Patient started on IV antibiotics and will be admitted for further management Review of Systems Review of Systems: Yes all other systems are reviewed and are negative [facility] Medical History Diabetes (Unknown) Non-small cell cancer of right lung Family History Mother Diabetes Father Diabetes Social History Household Members: Spouse and Children Household Members Other:: son Housing: Apartment Alcohol intake: never Patient Tobacco Use Status: Former Tobacco user Tobacco use type: Cigarette Advance Directives: No Advance Directives Information Provided: No service: No Current occupational status: retired Meds Allergies Allergy/AdvReac Type Severity Reaction Status Date / Time No Known Allergies Allergy Verified 09/06/22 15:38 Active Medications: Current Medications Vancomycin HCl 1,000 mg/Vancomycin HCl 750 mg/ Sodium Chloride 535 mls @ 267.5 mls/hr IV ONCE ONE Stop: 09/06/22 22:39 Home Medications Medication Instructions Recorded Confirmed Last Taken Type benzonatate 200 mg capsule 200 mg PO BID PRN Cough 09/02/22 09/06/22 Unknown History codeine 10 mg-guaifenesin 100 mg/5 5 ml PO TID PRN cough 09/02/22 09/06/22 Unknown History mL oral liquid famotidine 20 mg tablet 1 tab PO BID PRN heartburn 09/02/22 09/06/22 Unknown History sennosides 8.6 mg-docusate sodium 1 tab-cap PO BID PRN Constipation 09/02/22 09/06/22 Unknown History 50 mg tablet (Senna with Docusate Sodium) Physical Exam Vital Signs and Narrative: Vital Signs: Last Vital Signs Temp 97.4 F 09/06/22 21:04 Pulse 104 H 09/06/22 21:04 Resp 24 H 09/06/22 21:04 BP 109/68 09/06/22 21:04 Pulse Ox 96 09/06/22 21:04 O2 Del Method 09/06/22 21:04 O2 Flow Rate 2 09/06/22 15:57 Oxygen Flow Rate 2 09/06/22 16:54 BMI result Body Mass Index 20.9 Const: Other: Ill-appearing General: cooperative and no acute distress Orientation/consciousness: patient oriented x3 Eyes: General: appearance normal, both eyes and all related structures Pupils: Equal, round and reactive pupils present Resp: Other: Crackles Effort & Inspection: normal respiratory effort Cardio: Rate: regular rate Rhythm: regular rhythm GI: Palpation (GI): Soft to palpation Auscultation: normal bowel sounds Skin: General skin exam: no rashes or lesions noted Neuro: General: patient oriented x3 Cranial nerves: Yes Equal, round and reactive pupils present Cognition (Neuro): normal cognition Extrem: General: Yes normal to inspection and Yes no pedal edema Results Labs CBC and Chem 7: 09/06/22 15:54 09/06/22 15:54 Labs: Laboratory Results - last 24 hr 09/06/22 09/06/22 09/06/22 15:48 15:54 15:54 MCV 82.4 MCH 26.4 L MCHC 32.0 RDW 19.4 H Plt Count 261 D MPV 9.5 Immature Gran % (Auto) 0.4 Neut % (Auto) 72.7 Lymph % (Auto) 11.5 L [place] % (Auto) 11.3 H Eos % (Auto) 3.7 Baso % (Auto) 0.4 Lymph # (Auto) 0.7 L [place] # (Auto) 0.6 Eos # (Auto) 0.2 Baso # (Auto) 0.0 Abs Immat Gran (auto) 0.02 Absolute Neuts (auto) 4.1 Absolute Nucleated RBC 0.000 Nucleated RBC % (auto) 0.0 D-Dimer High Sensitivty Anion Gap 13 Estim Creat Clear Calc 85.4 Estimated GFR > 60 Random Glucose 126 H Lactic Acid Calcium 9.0 Total Bilirubin 0.5 AST 49 H ALT 53 H Alkaline Phosphatase 190 H Troponin I High Sens Total Protein 7.3 Albumin 3.8 Influenza Type A (PCR) NEGATIVE Influenza Type B (PCR) NEGATIVE RSV RNA Qual (PCR) NEGATIVE SARS-CoV-2 RNA (RT-PCR) NEGATIVE 09/06/22 09/06/22 09/06/22 15:54 15:54 17:52 MCV MCH MCHC RDW Plt Count MPV Immature Gran % (Auto) Neut % (Auto) Lymph % (Auto) [place] % (Auto) Eos % (Auto) Baso % (Auto) Lymph # (Auto) [place] # (Auto) Eos # (Auto) Baso # (Auto) Abs Immat Gran (auto) Absolute Neuts (auto) Absolute Nucleated RBC Nucleated RBC % (auto) D-Dimer High Sensitivty 796 Anion Gap Estim Creat Clear Calc Estimated GFR Random Glucose Lactic Acid 1.5 Calcium Total Bilirubin AST ALT Alkaline Phosphatase Troponin I High Sens 6.5 Total Protein Albumin Influenza Type A (PCR) Influenza Type B (PCR) RSV RNA Qual (PCR) SARS-CoV-2 RNA (RT-PCR) Imaging Radiologist's Impressions: Impressions Chest CTA 09/06/22 19:01 IMPRESSION: 1. No evidence of PE. 2. 3. No evidence aortic dissection or aneurysm. Atherosclerotic plaques along the left brachiocephalic artery and undersurface of the arch. 4. Diffuse centrilobular and paraseptal emphysema with a large cyst or cavity in the right upper lobe with peripheral atelectasis/consolidation is stable. Spiculated appearance inferior to right middle lobe cyst seen on the previous study is most likely parenchymal opacity/consolidation. There is chronic interstitial thickening and honeycombing appearance in right upper lobe, left lower lobe, stable. 5. Bilateral paravascular parahilar soft tissue opacities are stable VTE: negative Assessment and Plan (1) Pneumonia: Qualifiers: Pneumonia type: due to unspecified organism Laterality: right Lung location: middle lobe of lung Qualified Code(s): J18.9 - Pneumonia, unspecified organism Status: Acute (2) Non-small cell cancer of right lung: Status: Acute Plan 62-year-old male with past medical history of lung cancer presents to the hospital with complaints of worsening respiratory symptoms after being treated f or pneumonia discharged on 09/03 # pneumonia - at this point will treat for hospital-acquired given his recent admission as well as non resolution of his symptoms - imaging show stable consolidation, failed outpatient therapy with cefuroxime as well as azithromycin - Patient has no leukocytosis, afebrile - treat with IV antibiotics - follow cultures # non-small cell cancer of right line - continue management outpatient DVT prophylaxis: Heparin subQ Given pneumonia with failed outpatient therapy patient require minimum 2 night inpatient hospital stay for further management and monitoring Time Spent With Patient Time: Total time managing care of this patient today ____ minutes. Quality Stroke Does the patient have a stroke diagnosis?: No VTE Prior VTE?: No VTE Risk Level:: Medical - moderate - high VTE Device Contraindication: Treatment Not Indicated VTE Drug Contraindication: N/A - Med Ordered
--- NOTE | 2022-09-06 21:33 | PHA.MEDREC ---
Pharmacy Consult ? Medication Reconciliation Pharmacy has completed the medication reconciliation.
[2022-09-06] MEDS: vancomycin HCL 1,000 MG, vancomycin HCL 750 MG in 0.9 % Sodium Chloride 500 ML 267.5 MG IV (21:38)
--- NOTE | 2022-09-06 22:16 | PHA.PROG ---
Admission Date/Time: September 06, 2022 21:21 Indication: RESP INFECTION Weight in k.039 kg Serum Creatinine - Last 168 Hours 09/06/22 15:54 Creatinine 0.84 Estimated CrCl and GFR - Last 168 Hours 09/06/22 15:54 Estim Creat Clear Calc 85.4 Estimated GFR > 60 Vancomycin Loading Dose: 1750 Current Vancomycin Dosing Regimen: 100 Q 12 Vancomycin Monitoring using AUC goal of 400 - 600 range with trough as surrogate marker: 575 Date and Time for next Vancomycin Level to be drawn: 09/08 @ 0800 Pharmacist Comments on Vancomycin Plan: Vancomycin dosing will take advantage of [employer] as a clinical decision support tool that uses Bayesian modeling to calculate individual patient's pharmacokinetic parameters and forecast the patient's drug concentration time course with the target goal AUC 24 range of 400 - 600 mg/L/hr.
[2022-09-07 00:09] VITALS: BP 110/69; PULSE 87; RESP 22; TEMP 36.4; O2SAT 93
[2022-09-07] MEDS: 0.9 % Sodium Chloride 1,000 ML 80 ML IVCONT ×2 (00:33→14:02)
[2022-09-07] MEDS: Heparin Sodium,Porcine 5,000 UNIT/ML VIAL 5000 UNIT SUBCUT ×3 (00:34→20:18)
[2022-09-07] MEDS: 0.9 % Sodium Chloride Flush 3 ML SYRINGE IVFLUSH (00:54)
--- NOTE | 2022-09-07 02:45 | MHC.EDTECH ---
pt is resting his daughter stated he was hungry so got him a tuna sandwich and her a turkey sandwich with darek emanuel, vitals taken no issues
[2022-09-07 03:14] VITALS: BP 120/74; PULSE 67; RESP 18
[2022-09-07 04:13] VITALS: BP 117/76; PULSE 90; RESP 25; TEMP 36.6; O2SAT 94
[2022-09-07] MEDS: Piperacillin Sodium/Tazobactam 3.375 GM in 0.9 % Sodium Chloride 50 ML IV ×4 (04:46→20:17)
--- NOTE | 2022-09-07 04:54 | PC.NURSE ---
Patient is alert and oriented to his baseline. Denies pain, skin warm and dry. No signs of resp distress. Daughter by the bedside
--- NOTE | 2022-09-07 05:14 | MHC.EDTECH ---
pt ambulated to restroom had a BM
[2022-09-07 07:04] LABS: MANUAL DIFF FLAG NO
[2022-09-07 07:05] LABS: Basophils Percent Auto 0.3 % (0-2); Hematocrit 29.5 % (42.0-52.0); Hemoglobin 9.7 g/dl (14.0-18.0); Imm Gran Abs Auto 0.01 X10*3/uL (0.00-0.03); Imm Gran Pct Auto 0.3 % (0.0-0.4); Lymphocytes Absolute Auto 0.3 X10*3/uL (1.2-4.9); Lymphocytes Percent Auto 7.6 % (20-40); Mean Corpuscular HGB Conc 32.9 g/dl (31.0-36.0); Mean Corpuscular Hemoglobin 26.3 pg (27.0-33.0); Mean Corpuscular Volume 79.9 fL (80.0-98.0); Monocytes Absolute Auto 0.2 X10*3/uL (0.1-1.2); Monocytes Percent Auto 4.8 % (2-11); Neutrophils Absolute Auto 3.4 x10*3/uL (2.0-8.3); Platelet Count 219 X10*3/uL (160-400); Red Blood Count 3.69 X10*6/uL (4.60-5.80); Red Cell Distribution Width 18.8 % (11.0-16.0)
[2022-09-07 07:26] LABS: Anion Gap 13 (12-20); Blood Urea Nitrogen 17 mg/dL (9-16); Calcium 8.9 mg/dL (8.4-10.2); Carbon Dioxide 21 mmol/L (22-29); Chloride 103 mmol/L (96-108); Creatinine Clr Calc Pharmacy 74.8; Estimated Glomerular Filt Rate > 60; Glucose Random 283 mg/dL (60-115); Potassium 4.4 mmol/L (3.3-5.1); Sodium 133 mmol/L (135-145)
--- NOTE | 2022-09-07 07:52 | HE.PHANOTE ---
RE: vanco Pt's creatinine increased, new predicted AUC with 1000mg Q12H increased to 634mg/L. Changed dose to 750mg Q12H with predicted AUC 480mg/L. Level still to be drawn 09/08/22 @0800 as originally planned
[2022-09-07] MEDS: Acetaminophen 325 MG TABLET 650 MG PO (09:36)
[2022-09-07 10:19] VITALS: BP 116/76; PULSE 81; RESP 22; TEMP 36.7; O2SAT 97
[2022-09-07] MEDS: vancomycin HCL 750 MG in 0.9 % Sodium Chloride 250 ML 265 MG IV ×2 (10:51→21:10)
--- NOTE | 2022-09-07 15:15 | HO.PM.IMPN ---
Subjective Subjective Date of Service: 09/07/22 Interval History: Notes improvement in breathing overnight. Lying quietly in bed Review of Systems Denies chest pain Denies shortness of breath Denies nausea vomiting diarrhea Denies fever chills Physical Exam Vital Signs: Vital Signs: Last Vital Signs Temp 98.1 F 09/07/22 10:19 Pulse 81 09/07/22 10:19 Resp 22 H 09/07/22 10:19 BP 116/76 09/07/22 10:19 Pulse Ox 97 09/07/22 10:19 O2 Del Method 09/07/22 10:19 O2 Flow Rate 2 09/06/22 15:57 Oxygen Flow Rate 2 09/06/22 16:54 BMI result Body Mass Index 20.9 Const: Other: Awake alert lying comfortably in bed Resp: Other: Diminished at bases with scant crackles right mid failed Cardio: Other: No S4; positive S1-S2; no S3 murmurs rubs or gallops GI: Other: Soft nontender nondistended normoactive bowel sounds Extrem: Other: No edema bilaterally Objective Data Active Medications Acetaminophen (Acetaminophen 325 Mg Tablet) 650 mg PO Q6H PRN PRN Reason: Pain, Mild (Pain Scale 1-3) Last Admin: 09/07/22 09:36 Dose: 650 mg Documented By: MANPREET Docusate Sodium (Docusate Sodium 100 Mg Capsule) 100 mg PO DAILY PRN PRN Reason: Constipation Heparin Sodium (Porcine) (Heparin Sodium,Porcine 5,000 Unit/Ml Vial) 5,000 unit SUBCUT Q12H [facility] Last Admin: 09/07/22 09:29 Dose: 5,000 unit Documented By: MANPREET Sodium Chloride (Ns) 1,000 mls @ 80 mls/hr IVCONT .[id number] [facility] Last Admin: 09/07/22 14:02 Dose: 80 mls/hr Documented By: MANPREET Piperacillin Sod/Tazobactam (Sod 3.375 gm/ Sodium Chloride) 50 mls @ 100 mls/hr IV Q6H [facility] Last Infusion: 09/07/22 10:19 Dose: 0 mls/hr Documented By: MANPREET Vancomycin HCl 750 mg/ Sodium (Chloride) 265 mls @ 265 mls/hr IV Q12H [facility] Last Infusion: 09/07/22 12:33 Dose: 0 mls/hr Documented By: MANPREET Ondansetron HCl (Ondansetron Hcl 4 Mg/2 Ml Vial) 4 mg IVPUSH Q8H PRN PRN Reason: Nausea and Vomiting Pharmacy Consult (Consult Rx Vancomycin Dosing) 1 each MISCELLANE DAILY PRN PRN Reason: Consult order Sodium Chloride (0.9 % Sodium Chloride Flush 3 Ml Syringe) 3 ml IVFLUSH QSHIFT [facility] Last Admin: 09/07/22 09:22 Dose: Not Given Documented By: MANPREET Non-Admin Reason: IV Running Labs CBC & Chem 7: 09/07/22 06:58 09/07/22 06:58 Labs: Laboratory Results - last 24 hr 09/06/22 09/06/22 09/06/22 15:48 15:54 15:54 MCV 82.4 MCH 26.4 L MCHC 32.0 RDW 19.4 H Plt Count 261 D MPV 9.5 Immature Gran % (Auto) 0.4 Neut % (Auto) 72.7 Lymph % (Auto) 11.5 L [place] % (Auto) 11.3 H Eos % (Auto) 3.7 Baso % (Auto) 0.4 Lymph # (Auto) 0.7 L [place] # (Auto) 0.6 Eos # (Auto) 0.2 Baso # (Auto) 0.0 Abs Immat Gran (auto) 0.02 Absolute Neuts (auto) 4.1 Absolute Nucleated RBC 0.000 Nucleated RBC % (auto) 0.0 D-Dimer High Sensitivty Anion Gap 13 Estim Creat Clear Calc 85.4 Estimated GFR > 60 Random Glucose 126 H Lactic Acid Calcium 9.0 Total Bilirubin 0.5 AST 49 H ALT 53 H Alkaline Phosphatase 190 H Troponin I High Sens Total Protein 7.3 Albumin 3.8 Influenza Type A (PCR) NEGATIVE Influenza Type B (PCR) NEGATIVE RSV RNA Qual (PCR) NEGATIVE SARS-CoV-2 RNA (RT-PCR) NEGATIVE 09/06/22 09/06/22 09/06/22 15:54 15:54 17:52 MCV MCH MCHC RDW Plt Count MPV Immature Gran % (Auto) Neut % (Auto) Lymph % (Auto) [place] % (Auto) Eos % (Auto) Baso % (Auto) Lymph # (Auto) [place] # (Auto) Eos # (Auto) Baso # (Auto) Abs Immat Gran (auto) Absolute Neuts (auto) Absolute Nucleated RBC Nucleated RBC % (auto) D-Dimer High Sensitivty 796 Anion Gap Estim Creat Clear Calc Estimated GFR Random Glucose Lactic Acid 1.5 Calcium Total Bilirubin AST ALT Alkaline Phosphatase Troponin I High Sens 6.5 Total Protein Albumin Influenza Type A (PCR) Influenza Type B (PCR) RSV RNA Qual (PCR) SARS-CoV-2 RNA (RT-PCR) 09/07/22 09/07/22 06:58 06:58 MCV 79.9 L MCH 26.3 L MCHC 32.9 RDW 18.8 H Plt Count 219 MPV 9.0 L Immature Gran % (Auto) 0.3 Neut % (Auto) 87.0 H Lymph % (Auto) 7.6 L [place] % (Auto) 4.8 Eos % (Auto) 0.0 Baso % (Auto) 0.3 Lymph # (Auto) 0.3 L [place] # (Auto) 0.2 Eos # (Auto) 0.0 Baso # (Auto) 0.0 Abs Immat Gran (auto) 0.01 Absolute Neuts (auto) 3.4 Absolute Nucleated RBC 0.000 Nucleated RBC % (auto) 0.0 D-Dimer High Sensitivty Anion Gap 13 Estim Creat Clear Calc 74.8 Estimated GFR > 60 Random Glucose 283 H Lactic Acid Calcium 8.9 Total Bilirubin AST ALT Alkaline Phosphatase Troponin I High Sens Total Protein Albumin Influenza Type A (PCR) Influenza Type B (PCR) RSV RNA Qual (PCR) SARS-CoV-2 RNA (RT-PCR) Assessment and Plan (1) Pneumonia: Status: Acute (2) Non-small cell cancer of right lung: Status: Acute Plan 62-year-old male with past medical history of lung cancer presents to the hospital with complaints of worsening respiratory symptoms after being treated for pneumonia discharged on 09/03 1. Hospital Aquired Pneumonia - vancomycin/Zosyn (2) -titrate O2 to maintain sats greater than equal to 92% -IV Solu-Medrol 60 mg q.6 hours -DuoNebs q.4 hours 2.Non-small cell cancer of right line - continue management outpatient Heparin subQ Full code Patient requires ongoing hospitalization for IV antibiotics/steroids for treatment of hospital-acquired pneumonia Time Spent With Patient Time: Total time managing care of this patient today ____ minutes. Quality Stroke Does the patient have a stroke diagnosis?: No VTE Prior VTE?: No VTE Risk Level:: Medical - moderate - high VTE Device Contraindication: Treatment Not Indicated VTE Drug Contraindication: N/A - Med Ordered
[2022-09-07 16:00] VITALS: BP 102/65; PULSE 86; RESP 19; TEMP 36.8; O2SAT 95
[2022-09-07 19:09] VITALS: BMI 21.9
[2022-09-07 19:22] VITALS: BP 103/63; PULSE 100; RESP 20; TEMP 36.6; O2SAT 98
--- NOTE | 2022-09-07 20:40 | MHC.CM.PN ---
Met with admitted patient in ED Over with bed assignment pending. A&Ox4. Lives w and family. No DME/services. Outpatient oncology services. Non small cell CA R lung. Recently at [facility] . None admitted with pneumonia. Pfizer x2. HCP at home. HCP/son Jonas Bradford ([phone]). D/C plan: home without services. Family to transport. CM to follow for discharge planning.
[2022-09-07] MEDS: methylPREDNISolone Sod Succ 125 MG/2 ML VIAL 60 MG IVPUSH (21:10)
[2022-09-08] MEDS: Piperacillin Sodium/Tazobactam 3.375 GM in 0.9 % Sodium Chloride 50 ML IV ×4 (03:06→19:47)
[2022-09-08] MEDS: methylPREDNISolone Sod Succ 125 MG/2 ML VIAL 60 MG IVPUSH ×4 (03:06→21:58)
[2022-09-08] MEDS: 0.9 % Sodium Chloride 1,000 ML 80 ML IVCONT ×2 (03:07→17:40)
[2022-09-08 04:00] VITALS: BP 107/60; PULSE 65; RESP 18; TEMP 36.2; O2SAT 98
[2022-09-08 07:23] VITALS: BP 99/54; PULSE 86; RESP 18; TEMP 36; O2SAT 97
[2022-09-08 08:56] LABS: Basophils Percent Auto 0.1 % (0-2); Hemoglobin 9.9 g/dl (14.0-18.0); Imm Gran Abs Auto 0.03 X10*3/uL (0.00-0.03); Imm Gran Pct Auto 0.4 % (0.0-0.4); Lymphocytes Absolute Auto 0.3 X10*3/uL (1.2-4.9); Lymphocytes Percent Auto 4.5 % (20-40); MANUAL DIFF FLAG SCAN; Mean Corpuscular HGB Conc 31.9 g/dl (31.0-36.0); Mean Corpuscular Hemoglobin 26.1 pg (27.0-33.0); Mean Corpuscular Volume 81.8 fL (80.0-98.0); Mean Platelet Volume 9.5 fL (9.4-12.4); Monocytes Absolute Auto 0.1 X10*3/uL (0.1-1.2); Monocytes Percent Auto 1.6 % (2-11); Neutrophils Absolute Auto 6.9 x10*3/uL (2.0-8.3); Neutrophils Percent Auto 93.4 % (45-73); Platelet Count 260 X10*3/uL (160-400); Red Blood Count 3.79 X10*6/uL (4.60-5.80); SCAN SMEAR FLAG 1; White Blood Count 7.4 X10*3/uL (4.8-10.8)
[2022-09-08] MEDS: Heparin Sodium,Porcine 5,000 UNIT/ML VIAL 5000 UNIT SUBCUT ×2 (09:08→19:49)
[2022-09-08 09:14] LABS: Alanine Aminotransferase 52 U/L (0-40); Albumin Level 3.2 g/dL (3.5-5.0); Alkaline Phosphatase 130 U/L (39-117); Anion Gap 11 (12-20); Aspartate Amino Transferase 32 U/L (5-37); Bilirubin Total 0.3 mg/dL (0.0-1.0); Blood Urea Nitrogen 17 mg/dL (9-16); Calcium 8.5 mg/dL (8.4-10.2); Carbon Dioxide 23 mmol/L (22-29); Chloride 107 mmol/L (96-108); Estimated Glomerular Filt Rate > 60; Glucose Fasting 216 mg/dL (60-99); Potassium 4.1 mmol/L (3.3-5.1); Sodium 137 mmol/L (135-145); Total Protein 6.1 g/dL (6.5-8.0)
[2022-09-08] MEDS: Docusate Sodium 100 MG CAPSULE PO (09:16)
[2022-09-08 09:22] LABS: SLIDE REVIEW VERIFIED
--- NOTE | 2022-09-08 10:16 | P.PNIM_ITS ---
Subjective Subjective Date of Service: 09/08/22 Interval History: Notes improvement in breathing overnight. Still markedly short of breath with minimal ambulation Review of Systems Denies chest pain Denies shortness of breath Denies nausea vomiting diarrhea Denies fever chills Physical Exam Vital Signs: Vital Signs: Last Vital Signs Temp 96.8 F 09/08/22 07:23 Pulse 86 09/08/22 07:23 Resp 18 09/08/22 07:23 BP 99/54 L 09/08/22 07:23 Pulse Ox 97 09/08/22 07:23 O2 Del Method 09/08/22 07:23 O2 Flow Rate 2 09/08/22 07:23 Oxygen Flow Rate 2 09/06/22 16:54 BMI result Body Mass Index 21.9 Const: Other: Awake alert lying comfortably in bed Resp: Other: Diminished at bases with scant crackles right mid failed Cardio: Other: No S4; positive S1-S2; no S3 murmurs rubs or gallops GI: Other: Soft nontender nondistended normoactive bowel sounds Extrem: Other: No edema bilaterally Objective Data Active Medications Acetaminophen (Acetaminophen 325 Mg Tablet) 650 mg PO Q6H PRN PRN Reason: Pain, Mild (Pain Scale 1-3) Last Admin: 09/07/22 09:36 Dose: 650 mg Documented By: MANPREET Docusate Sodium (Docusate Sodium 100 Mg Capsule) 100 mg PO DAILY PRN PRN Reason: Constipation Last Admin: 09/08/22 09:16 Dose: 100 mg Documented By: RASHAAD Heparin Sodium (Porcine) (Heparin Sodium,Porcine 5,000 Unit/Ml Vial) 5,000 unit SUBCUT Q12H [facility] Last Admin: 09/08/22 09:08 Dose: 5,000 unit Documented By: RASHAAD Sodium Chloride (Ns) 1,000 mls @ 80 mls/hr IVCONT .[id number] [facility] Last Infusion: 09/08/22 03:41 Dose: 80 mls/hr Documented By: JOSE Piperacillin Sod/Tazobactam (Sod 3.375 gm/ Sodium Chloride) 50 mls @ 100 mls/hr IV Q6H [facility] Last Infusion: 09/08/22 09:40 Dose: 0 mls/hr Documented By: ROXIE Vancomycin HCl 750 mg/ Sodium (Chloride) 265 mls @ 265 mls/hr IV Q12H [facility] Last Infusion: 09/07/22 22:21 Dose: 0 mls/hr Documented By: JOSE Methylprednisolone Sodium Succinate (Methylprednisolone Sod Succ 125 Mg/2 Ml Vial) 60 mg IVPUSH Q6H [facility] Last Admin: 09/08/22 09:08 Dose: 60 mg Documented By: RASHAAD Ondansetron HCl (Ondansetron Hcl 4 Mg/2 Ml Vial) 4 mg IVPUSH Q8H PRN PRN Reason: Nausea and Vomiting Pharmacy Consult (Consult Rx Vancomycin Dosing) 1 each MISCELLANE DAILY PRN PRN Reason: Consult order Sodium Chloride (0.9 % Sodium Chloride Flush 3 Ml Syringe) 3 ml IVFLUSH QSHIFT [facility] Last Admin: 09/08/22 07:03 Dose: Not Given Documented By: ROXIE Non-Admin Reason: IV Running Labs CBC & Chem 7: 09/08/22 08:16 09/08/22 08:16 Labs: Laboratory Results - last 24 hr 09/08/22 09/08/22 09/08/22 08:16 08:16 08:16 MCV 81.8 MCH 26.1 L MCHC 31.9 RDW 19.0 H Plt Count 260 MPV 9.5 Immature Gran % (Auto) 0.4 Neut % (Auto) 93.4 H Lymph % (Auto) 4.5 L [place] % (Auto) 1.6 L Eos % (Auto) 0.0 Baso % (Auto) 0.1 Lymph # (Auto) 0.3 L [place] # (Auto) 0.1 Eos # (Auto) 0.0 Baso # (Auto) 0.0 Abs Immat Gran (auto) 0.03 Absolute Neuts (auto) 6.9 Absolute Nucleated RBC 0.000 Nucleated RBC % (auto) 0.0 Smear Tech's Comments VERIFIED Anion Gap 11 L Estim Creat Clear Calc 81.0 Estimated GFR > 60 Fasting Glucose 216 H Calcium 8.5 Total Bilirubin 0.3 AST 32 ALT 52 H Alkaline Phosphatase 130 H Total Protein 6.1 L Albumin 3.2 L Vancomycin Trough 12.0 Microbiology Microbiology Results: Microbiology 09/06/22 17:52 Blood Culture - Preliminary Blood - Venous No growth after 24 hours. 09/06/22 17:52 Blood Culture - Preliminary Blood - Venous No growth after 24 hours. Assessment and Plan (1) Pneumonia: Status: Acute (2) Non-small cell cancer of right lung: Status: Acute Plan 62-year-old male with past medical history of lung cancer presents to the [facility] with complaints of worsening respiratory symptoms after being treated for pneumonia discharged on 09/03 1. Hospital Aquired Pneumonia - vancomycin/Zosyn (3)... Slowly responding to therapies -titrate O2 to maintain sats greater than equal to 92% -IV Solu-Medrol 60 mg q.6 hours -DuoNebs q.4 hours 2.Non-small cell cancer of right line - continue management outpatient Heparin subQ Full code Patient requires ongoing hospitalization for IV antibiotics/steroids for treatment of hospital-acquired pneumonia Time Spent With Patient Time: Total time managing care of this patient today ____ minutes. Quality Stroke Does the patient have a stroke diagnosis?: No VTE Prior VTE?: No VTE Risk Level:: Medical - moderate - high VTE Device Contraindication: Treatment Not Indicated VTE Drug Contraindication: N/A - Med Ordered
[2022-09-08] MEDS: vancomycin HCL 750 MG in 0.9 % Sodium Chloride 250 ML 265 MG IV ×2 (10:55→21:58)
--- NOTE | 2022-09-08 13:49 | P.CDIC_ITS ---
CDI Concurrent Query Documentation Clarification: PHYSICIAN'S DOCUMENTATION REQUEST Date of Query: 09/08/22 1303 Patient Name: Bayron Arenas Admit Date: 09/06/22 Dear Doctor, A review of the medical record indicates additional documentation may be needed. Please review below and update the documentation accordingly. Clinical Indicators: Is there a diagnosis that correlates with the findings below: Risk Factors/Clinical Indicators/Treatments POA/RESOLVED/TREAT/RULE OUT Per provider progress note on 09/08: Still markedly short of breath with minimal ambulation. Lungs diminished at bases with scant crackles right mid failed. Hospital Aquired Pneumonia Slowly responding to therapies -titrate O2 to maintain sats greater eula n equal to 92% -IV Solu-Medrol 60 mg q.6 hours Other indicators: -Patient with tachypnea -Patient tachycardic -Patient receiving IV solumedrol Recognized standard criteria for respiratory failure includes: (Source: [facility] Hospitalist Jul 2013) Symptoms: ? Tachypnea, SOB, dyspnea ? Pallor or cyanosis ? Anxiety or restlessness ? Use of accessory muscles ? Retractions (grunting in newborns) ? Unable to speak in complete sentences Clarify which of the following accurately represents the patient's respiratory status: * Acute respiratory failure * Other (please specify) * Unable to determine Please include type if known: * Hypoxic * Hypercapnic * Hypoxic and hypercapnic * Unable to determine Use of terms such as suspected, likely, concern for, or probable (associated with a specific diagnosis that is being evaluated, monitored, or treated as if it exists) are acceptable and can be coded in the inpatient setting, when documented at the time of discharge. Thank you, Kaitlynn Flores, MS, RN, CCRN Extension: [phone] Please use your independent medical judgment in providing your response. THIS QUERY IS PART OF THE PERMANENT MEDICAL RECORD Provider Response: Other Other Diagnosis: Acute hypoxic respiratory failure
--- NOTE | 2022-09-08 14:09 | P.CDIC_ITS ---
CDI Concurrent Query Documentation Clarification: PHYSICIAN'S DOCUMENTATION REQUEST Date of Query: 09/08/22 1409 Patient Name: Bayron Arenas Admit Date: 09/06/22 Dear Doctor, A review of the medical record indicates additional documentation may be needed. Please review below and update the documentation accordingly. Clinical Indicators: Is there a diagnosis that correlates with the findings below: Risk Factors/Clinical Indicators/Treatments Labs: POCs: 09/07 283 09/08 Based on the above, could you clarify in the Progress Notes the appropriate diagnosis, if significant, that supports the above abnormalities and additional evaluation, monitoring, and/or treatment rendered: * Hyperglycemia * Labs indicate a diagnosis of (please specify) * Other (please specify) * Unable to determine Use of terms such as suspected, likely, concern for, or probable (associated with a specific diagnosis that is being evaluated, monitored, or treated as if it exists) are acceptable and can be coded in the inpatient setting, when documented at the time of discharge. Thank you, Kaitlynn Flores MS, RN, CCRN Extension: [phone] Please use your independent medical judgment in providing your response. THIS QUERY IS PART OF THE PERMANENT MEDICAL RECORD Provider Response: Other Other Diagnosis: Hyperglycemia secondary to steroids
[2022-09-08 15:39] VITALS: BP 112/67; PULSE 85; RESP 18; TEMP 36.1; O2SAT 92
[2022-09-08] MEDS: 0.9 % Sodium Chloride Flush 3 ML SYRINGE IVFLUSH (15:56)
[2022-09-08 20:00] VITALS: BP 118/70; PULSE 83; RESP 18; TEMP 36.4; O2SAT 98
[2022-09-09] MEDS: Piperacillin Sodium/Tazobactam 3.375 GM in 0.9 % Sodium Chloride 50 ML IV ×4 (03:02→20:33)
[2022-09-09] MEDS: methylPREDNISolone Sod Succ 125 MG/2 ML VIAL 60 MG IVPUSH ×4 (03:02→21:26)
[2022-09-09 03:27] VITALS: BP 124/75; PULSE 86; RESP 15; TEMP 36.4; O2SAT 96
[2022-09-09] MEDS: guaiFENesin DM 100/10/5 ML 5 ML SYRUP PO (03:33)
[2022-09-09 05:27] LABS: MANUAL DIFF FLAG NO
[2022-09-09 05:34] LABS: Basophils Percent Auto 0.1 % (0-2); Hematocrit 28.3 % (42.0-52.0); Hemoglobin 9.2 g/dl (14.0-18.0); Imm Gran Abs Auto 0.13 X10*3/uL (0.00-0.03); Imm Gran Pct Auto 1.6 % (0.0-0.4); Lymphocytes Absolute Auto 0.3 X10*3/uL (1.2-4.9); Lymphocytes Percent Auto 3.6 % (20-40); Mean Corpuscular HGB Conc 32.5 g/dl (31.0-36.0); Mean Corpuscular Hemoglobin 26.3 pg (27.0-33.0); Mean Corpuscular Volume 80.9 fL (80.0-98.0); Mean Platelet Volume 9.3 fL (9.4-12.4); Monocytes Absolute Auto 0.4 X10*3/uL (0.1-1.2); Monocytes Percent Auto 5.2 % (2-11); NRBC Pct Auto 0.2 /100WBC (0.0-0.2); Neutrophils Absolute Auto 7.2 x10*3/uL (2.0-8.3); Neutrophils Percent Auto 89.5 % (45-73); Platelet Count 256 X10*3/uL (160-400); Red Cell Distribution Width 18.7 % (11.0-16.0)
[2022-09-09 06:14] LABS: Alanine Aminotransferase 40 U/L (0-40); Albumin Level 3.1 g/dL (3.5-5.0); Alkaline Phosphatase 130 U/L (39-117); Anion Gap 11 (12-20); Aspartate Amino Transferase 18 U/L (5-37); Bilirubin Total 0.3 mg/dL (0.0-1.0); Blood Urea Nitrogen 19 mg/dL (9-16); Calcium 8.6 mg/dL (8.4-10.2); Carbon Dioxide 24 mmol/L (22-29); Chloride 105 mmol/L (96-108); Creatinine Clr Calc Pharmacy 76.1; Estimated Glomerular Filt Rate > 60; Glucose Fasting 346 mg/dL (60-99); Potassium 3.9 mmol/L (3.3-5.1); Sodium 136 mmol/L (135-145); Total Protein 5.9 g/dL (6.5-8.0)
[2022-09-09 07:55] VITALS: BP 133/73; PULSE 70; RESP 18; TEMP 36.8; O2SAT 92
[2022-09-09] MEDS: Heparin Sodium,Porcine 5,000 UNIT/ML VIAL 5000 UNIT SUBCUT ×2 (08:52→20:36)
[2022-09-09] MEDS: vancomycin HCL 750 MG in 0.9 % Sodium Chloride 250 ML 265 MG IV (09:41)
--- NOTE | 2022-09-09 13:43 | MHC.CM.PN ---
PLAN IS DC HOME MONDAY - [facility] FAM[facility] TO TRANSPORT
--- NOTE | 2022-09-09 13:45 | HO.PM.IMPN ---
Subjective Subjective Date of Service: 09/09/22 Interval History: Continues to improve. Able to ambulate to bathroom and back without O2 with lessening shortness of breath Review of Systems Denies chest pain Denies shortness of breath Denies nausea vomiting diarrhea Denies fever chills Physical Exam Vital Signs: Vital Signs: Last Vital Signs Temp 98.2 F 09/09/22 07:55 Pulse 70 09/09/22 07:55 Resp 18 09/09/22 07:55 BP 133/73 09/09/22 07:55 Pulse Ox 92 09/09/22 07:55 O2 Del Method 09/09/22 07:55 O2 Flow Rate 3 09/09/22 03:27 Oxygen Flow Rate 2 09/06/22 16:54 BMI result Body Mass Index 21.9 Const: Other: Awake alert lying comfortably in bed Resp: Other: Improved air flow to the bases. Minimal crackles appreciated Cardio: Other: No S4; positive S1-S2; no S3 murmurs rubs or gallops GI: Other: Soft nontender nondistended normoactive bowel sounds Extrem: Other: No edema bilaterally Objective Data Active Medications Acetaminophen (Acetaminophen 325 Mg Tablet) 650 mg PO Q6H PRN PRN Reason: Pain, Mild (Pain Scale 1-3) Last Admin: 09/07/22 09:36 Dose: 650 mg Documented By: MANPREET Docusate Sodium (Docusate Sodium 100 Mg Capsule) 100 mg PO DAILY PRN PRN Reason: Constipation Last Admin: 09/08/22 09:16 Dose: 100 mg Documented By: RASHAAD Guaifenesin/Dextromethorphan (Guaifenesin Dm 100/10/5 Ml 5 Ml Syrup) 5 ml PO Q4H PRN PRN Reason: Cough Last Admin: 09/09/22 03:33 Dose: 5 ml Documented By: DOMENICA Heparin Sodium (Porcine) (Heparin Sodium,Porcine 5,000 Unit/Ml Vial) 5,000 unit SUBCUT Q12H [facility] Last Admin: 09/09/22 08:52 Dose: 5,000 unit Documented By: MARIO Piperacillin Sod/Tazobactam (Sod 3.375 gm/ Sodium Chloride) 50 mls @ 100 mls/hr IV Q6H [facility] Last Infusion: 09/09/22 09:42 Dose: 0 mls/hr Documented By: MARIO Vancomycin HCl 750 mg/ Sodium (Chloride) 265 mls @ 265 mls/hr IV Q12H [facility] Last Infusion: 09/09/22 10:51 Dose: 0 mls/hr Documented By: MARIO Methylprednisolone Sodium Succinate (Methylprednisolone Sod Succ 125 Mg/2 Ml Vial) 60 mg IVPUSH Q6H [facility] Last Admin: 09/09/22 08:51 Dose: 60 mg Documented By: MARIO Ondansetron HCl (Ondansetron Hcl 4 Mg/2 Ml Vial) 4 mg IVPUSH Q8H PRN PRN Reason: Nausea and Vomiting Pharmacy Consult (Consult Rx Vancomycin Dosing) 1 each MISCELLANE DAILY PRN PRN Reason: Consult order Sodium Chloride (0.9 % Sodium Chloride Flush 3 Ml Syringe) 3 ml IVFLUSH QSHIFT [facility] Last Admin: 09/09/22 07:12 Dose: Not Given Documented By: MARIO Non-Admin Reason: IV Running Labs CBC & Chem 7: 09/09/22 05:12 09/09/22 05:12 Labs: Laboratory Results - last 24 hr 09/09/22 09/09/22 05:12 05:12 MCV 80.9 MCH 26.3 L MCHC 32.5 RDW 18.7 H Plt Count 256 MPV 9.3 L Immature Gran % (Auto) 1.6 H Neut % (Auto) 89.5 H Lymph % (Auto) 3.6 L Bradford % (Auto) 5.2 Eos % (Auto) 0.0 Baso % (Auto) 0.1 Lymph # (Auto) 0.3 L Bradford # (Auto) 0.4 Eos # (Auto) 0.0 Baso # (Auto) 0.0 Abs Immat Gran (auto) 0.13 H Absolute Neuts (auto) 7.2 Absolute Nucleated RBC 0.020 H Nucleated RBC % (auto) 0.2 Anion Gap 11 L Estim Creat Clear Calc 76.1 Estimated GFR > 60 Fasting Glucose 346 H Calcium 8.6 Total Bilirubin 0.3 AST 18 ALT 40 Alkaline Phosphatase 130 H Total Protein 5.9 L D Albumin 3.1 L D Microbiology Microbiology Results: Microbiology 09/06/22 17:52 Blood Culture - Preliminary Blood - Venous No growth after 48 hours. 09/06/22 17:52 Blood Culture - Preliminary Blood - Venous No growth after 48 hours. Assessment and Plan (1) Pneumonia: Status: Acute (2) Acute respiratory failure with hypoxia: Status: Acute (3) Non-small cell cancer of right lung: Status: Acute Plan 62-year-old male with past medical history of lung cancer presents to the hospital with complaints of worsening respiratory symptoms after being treated for pneumonia discharged on 09/03 1. Hospital Aquired Pneumonia/acute hypoxic respiratory failure - vancomycin/Zosyn (4)... Slowly responding to therapies -titrate O2 to maintain sats greater than equal to 92% -IV Solu-Medrol 60 mg q.6 hours -DuoNebs q.4 hours 2.Non-small cell cancer of right line - continue management outpatient Heparin subQ Full code Patient requires ongoing hospitalization for IV antibiotics/steroids for treatment of hospital-acquired pneumonia Time Spent With Patient Time: Total time managing care of this patient today ____ minutes. Quality Stroke Does the patient have a stroke diagnosis?: No VTE Prior VTE?: No VTE Risk Level:: Medical - moderate - high VTE Device Contraindication: Treatment Not Indicated VTE Drug Contraindication: N/A - Med Ordered
[2022-09-09] MEDS: 0.9 % Sodium Chloride Flush 3 ML SYRINGE IVFLUSH (14:07)
[2022-09-09 15:14] VITALS: BP 112/57; PULSE 80; RESP 17; TEMP 37.1; O2SAT 91
[2022-09-09 19:15] VITALS: BP 133/63; PULSE 85; RESP 18; TEMP 36.9; O2SAT 93
[2022-09-09 20:41] LABS: Vancomycin Trough 11.3 mcg/mL (10.0-20.0)
[2022-09-09] MEDS: vancomycin HCL 1,000 MG in 0.9 % Sodium Chloride 250 ML 270 MG IV (21:26)
[2022-09-09 23:37] VITALS: BP 142/65; PULSE 78; RESP 18; TEMP 36.2; O2SAT 97
[2022-09-10] MEDS: 0.9 % Sodium Chloride Flush 3 ML SYRINGE IVFLUSH ×4 (01:14→20:03)
[2022-09-10] MEDS: ondansetron HCL 4 MG/2 ML VIAL IVPUSH (01:14)
[2022-09-10] MEDS: Piperacillin Sodium/Tazobactam 3.375 GM in 0.9 % Sodium Chloride 50 ML IV ×4 (03:10→20:04)
[2022-09-10] MEDS: methylPREDNISolone Sod Succ 125 MG/2 ML VIAL 60 MG IVPUSH ×4 (03:10→21:32)
[2022-09-10 03:17] VITALS: BP 135/73; PULSE 69; RESP 18; TEMP 36.3; O2SAT 94
[2022-09-10 05:49] LABS: Basophils Percent Auto 0.2 % (0-2); Hematocrit 32.1 % (42.0-52.0); Hemoglobin 10.3 g/dl (14.0-18.0); Imm Gran Abs Auto 0.45 X10*3/uL (0.00-0.03); Imm Gran Pct Auto 4.5 % (0.0-0.4); Lymphocytes Absolute Auto 0.5 X10*3/uL (1.2-4.9); Lymphocytes Percent Auto 5.3 % (20-40); Mean Corpuscular HGB Conc 32.1 g/dl (31.0-36.0); Mean Corpuscular Hemoglobin 26.3 pg (27.0-33.0); Mean Corpuscular Volume 82.1 fL (80.0-98.0); Mean Platelet Volume 9.7 fL (9.4-12.4); Monocytes Absolute Auto 0.6 X10*3/uL (0.1-1.2); Monocytes Percent Auto 5.5 % (2-11); Neutrophils Absolute Auto 8.4 x10*3/uL (2.0-8.3); Neutrophils Percent Auto 84.5 % (45-73); Platelet Count 274 X10*3/uL (160-400); Red Blood Count 3.91 X10*6/uL (4.60-5.80); Red Cell Distribution Width 19.2 % (11.0-16.0); White Blood Count 9.9 X10*3/uL (4.8-10.8)
[2022-09-10 05:59] LABS: NRBC Pct Auto 2.3 /100WBC (0.0-0.2)
[2022-09-10 06:00] LABS: MANUAL DIFF FLAG SCAN
[2022-09-10 06:11] LABS: SLIDE REVIEW VERIFIED
[2022-09-10 06:37] LABS: Alanine Aminotransferase 41 U/L (0-40); Albumin Level 2.9 g/dL (3.5-5.0); Alkaline Phosphatase 144 U/L (39-117); Anion Gap 14 (12-20); Aspartate Amino Transferase 20 U/L (5-37); Bilirubin Total 0.4 mg/dL (0.0-1.0); Blood Urea Nitrogen 20 mg/dL (9-16); Calcium 8.6 mg/dL (8.4-10.2); Carbon Dioxide 23 mmol/L (22-29); Chloride 103 mmol/L (96-108); Creatinine Clr Calc Pharmacy 71.1; Estimated Glomerular Filt Rate > 60; Glucose Fasting 483 mg/dL (60-99); Potassium 3.9 mmol/L (3.3-5.1); Sodium 136 mmol/L (135-145); Total Protein 6.1 g/dL (6.5-8.0)
[2022-09-10] MEDS: Insulin Lispro 100 UNIT/ML 3 ML VIAL SUBCUT ×5 (06:46→20:04)
[2022-09-10 06:54] VITALS: BP 123/80; PULSE 84; RESP 18; TEMP 36.1; O2SAT 92
--- NOTE | 2022-09-10 06:57 | PC.NURSE ---
received critical blood glucose [address] Harper order sliding scale & extra lispro 5 units. given by this nurse. will check POC 4/day.
[2022-09-10 07:56] LABS: Glucose, Whole Blood 445 mg/dL (60-115)
--- NOTE | 2022-09-10 08:01 | HE.PHANOTE ---
SOFIA TORRE CONTINUE CURRENT DOSE. SLIGHT BUMP IN SCR, PREDICTED LEVEL NOW 559, TROUGH 16.9. NEXT LEVEL DUE 09/11 @0800 BE
[2022-09-10 08:36] LABS: Glucose, Whole Blood 356 mg/dL (60-115)
--- NOTE | 2022-09-10 08:57 | MHC.CM.PN ---
PT EXPECTED TO DC HOME TODAY WITH NO SERVICES PT TO ARRANGE TRANSPORT
[2022-09-10] MEDS: Heparin Sodium,Porcine 5,000 UNIT/ML VIAL 5000 UNIT SUBCUT ×2 (08:58→21:32)
[2022-09-10] MEDS: vancomycin HCL 1,000 MG in 0.9 % Sodium Chloride 250 ML 270 MG IV ×2 (10:10→21:33)
[2022-09-10 11:03] LABS: Glucose, Whole Blood 342 mg/dL (60-115)
[2022-09-10 14:52] VITALS: BP 145/75; PULSE 90; RESP 18; TEMP 36.6; O2SAT 95
--- NOTE | 2022-09-10 15:01 | HO.PM.IMPN ---
Subjective Subjective Date of Service: 09/10/22 Interval History: Still short of breath with exertion; O2 requirement of 2 liters/minute but feels somewhat better Review of Systems Denies chest pain Denies shortness of breath Denies nausea vomiting diarrhea Denies fever chills Physical Exam Vital Signs: Vital Signs: Last Vital Signs Temp 97.9 F 09/10/22 14:52 Pulse 90 09/10/22 14:52 Resp 18 09/10/22 14:52 BP 145/75 H 09/10/22 14:52 Pulse Ox 95 09/10/22 14:52 O2 Del Method 09/10/22 14:52 O2 Flow Rate 2 09/10/22 14:52 Oxygen Flow Rate 2 09/06/22 16:54 BMI result Body Mass Index 21.9 Const: Other: Awake alert lying comfortably in bed Resp: Other: Improved air flow to the bases. Minimal crackles appreciated Cardio: Other: No S4; positive S1-S2; no S3 murmurs rubs or gallops GI: Other: Soft nontender nondistended normoactive bowel sounds Extrem: Other: No edema bilaterally Objective Data Active Medications Acetaminophen (Acetaminophen 325 Mg Tablet) 650 mg PO Q6H PRN PRN Reason: Pain, Mild (Pain Scale 1-3) Last Admin: 09/07/22 09:36 Dose: 650 mg Documented By: MANPREET Dextrose (Dextrose 50 % 25 Gm/50 Ml Syringe) 25 gm IVPUSH Q15M PRN; Protocol PRN Reason: per Hypoglycemia Standing Ord. Docusate Sodium (Docusate Sodium 100 Mg Capsule) 100 mg PO DAILY PRN PRN Reason: Constipation Last Admin: 09/08/22 09:16 Dose: 100 mg Documented By: RASHAAD Glucose (Glucose Gel 15 Gm Gel..Gram.) 15 gm PO Q15M PRN; Protocol PRN Reason: per Hypoglycemia Standing Ord. Guaifenesin/Dextromethorphan (Guaifenesin Dm 100/10/5 Ml 5 Ml Syrup) 5 ml PO Q4H PRN PRN Reason: Cough Last Admin: 09/09/22 03:33 Dose: 5 ml Documented By: DOMENICA Heparin Sodium (Porcine) (Heparin Sodium,Porcine 5,000 Unit/Ml Vial) 5,000 unit SUBCUT Q12H [facility] Last Admin: 09/10/22 08:58 Dose: 5,000 unit Documented By: RAJI Piperacillin Sod/Tazobactam (Sod 3.375 gm/ Sodium Chloride) 50 mls @ 100 mls/hr IV Q6H [facility] Last Admin: 09/10/22 14:44 Dose: 100 mls/hr Documented By: RAJI Vancomycin HCl 1,000 mg/ (Sodium Chloride) 270 mls @ 270 mls/hr IV Q12H [facility] Last Infusion: 09/10/22 11:11 Dose: 0 mls/hr Documented By: RAJI Insulin Human Lispro (Insulin Lispro 100 Unit/Ml 3 Ml Vial) 0 unit SUBCUT QIDACHS [facility]; Protocol Last Admin: 09/10/22 11:48 Dose: 8 unit Documented By: RAJI Methylprednisolone Sodium Succinate (Methylprednisolone Sod Succ 125 Mg/2 Ml Vial) 60 mg IVPUSH Q6H [facility] Last Admin: 09/10/22 08:58 Dose: 60 mg Documented By: RAJI Ondansetron HCl (Ondansetron Hcl 4 Mg/2 Ml Vial) 4 mg IVPUSH Q8H PRN PRN Reason: Nausea and Vomiting Last Admin: 09/10/22 01:14 Dose: 4 mg Documented By: MARIO Pharmacy Consult (Consult Rx Vancomycin Dosing) 1 each MISCELLANE DAILY PRN PRN Reason: Consult order Sodium Chloride (0.9 % Sodium Chloride Flush 3 Ml Syringe) 3 ml IVFLUSH QSHIFT [facility] Last Admin: 09/10/22 14:44 Dose: 3 ml Documented By: RAJI Labs CBC & Chem 7: 09/10/22 05:28 09/10/22 05:28 Labs: Laboratory Results - last 24 hr 09/09/22 09/10/22 09/10/22 20:13 05:28 05:28 MCV 82.1 MCH 26.3 L MCHC 32.1 RDW 19.2 H Plt Count 274 MPV 9.7 Immature Gran % (Auto) 4.5 H Neut % (Auto) 84.5 H Lymph % (Auto) 5.3 L Fleming % (Auto) 5.5 Eos % (Auto) 0.0 Baso % (Auto) 0.2 Lymph # (Auto) 0.5 L Fleming # (Auto) 0.6 Eos # (Auto) 0.0 Baso # (Auto) 0.0 Abs Immat Gran (auto) 0.45 H Absolute Neuts (auto) 8.4 H Absolute Nucleated RBC 0.230 H Nucleated RBC % (auto) 2.3 H Smear Tech's Comments VERIFIED Anion Gap 14 Estim Creat Clear Calc 71.1 Estimated GFR > 60 POC Glucose Fasting Glucose 483 H* Calcium 8.6 Total Bilirubin 0.4 AST 20 ALT 41 H Alkaline Phosphatase 144 H Total Protein 6.1 L Albumin 2.9 L Vancomycin Trough 11.3 09/10/22 09/10/22 09/10/22 06:53 08:32 10:57 MCV MCH MCHC RDW Plt Count MPV Immature Gran % (Auto) Neut % (Auto) Lymph % (Auto) Fleming % (Auto) Eos % (Auto) Baso % (Auto) Lymph # (Auto) Fleming # (Auto) Eos # (Auto) Baso # (Auto) Abs Immat Gran (auto) Absolute Neuts (auto) Absolute Nucleated RBC Nucleated RBC % (auto) Smear Tech's Comments Anion Gap Estim Creat Clear Calc Estimated GFR POC Glucose 445 H* 356 H* 342 H Fasting Glucose Calcium Total Bilirubin AST ALT Alkaline Phosphatase Total Protein Albumin Vancomycin Trough Assessment and Plan (1) Acute respiratory failure with hypoxia: Status: Acute (2) Pneumonia: Status: Acute (3) Non-small cell cancer of right lung: Status: Acute Plan 62-year-old male with past medical history of lung cancer presents to the hospital with complaints of worsening respiratory symptoms after being treated for pneumonia discharged on 09/03 1. Hospital Aquired Pneumonia/acute hypoxic respiratory failure - vancomycin/Zosyn (5)... Slowly responding to therapies -titrate O2 to maintain sats greater than equal to 92% -IV Solu-Medrol 60 mg q.6 hours -DuoNebs q.4 hours 2.Non-small cell cancer of right line - continue management outpatient Heparin subQ Full code Patient requires ongoing hospitalization for IV antibiotics/steroids for treatment of hospital-acquired pneumonia Time Spent With Patient Time: Total time managing care of this patient today ____ minutes. Quality Stroke Does the patient have a stroke diagnosis?: No VTE Prior VTE?: No VTE Risk Level:: Medical - moderate - high VTE Device Contraindication: Treatment Not Indicated VTE Drug Contraindication: N/A - Med Ordered
[2022-09-10 16:25] LABS: Glucose, Whole Blood 296 mg/dL (60-115)
[2022-09-10 19:31] VITALS: BP 167/77; PULSE 103; RESP 18; TEMP 37; O2SAT 89
[2022-09-10 19:41] LABS: Glucose, Whole Blood 321 mg/dL (60-115)
[2022-09-11] MEDS: Piperacillin Sodium/Tazobactam 3.375 GM in 0.9 % Sodium Chloride 50 ML IV ×4 (02:48→20:51)
[2022-09-11] MEDS: methylPREDNISolone Sod Succ 125 MG/2 ML VIAL 60 MG IVPUSH ×2 (03:16→14:21)
[2022-09-11 04:00] VITALS: BP 133/71; PULSE 72; RESP 18; TEMP 36.1; O2SAT 92
[2022-09-11] MEDS: Acetaminophen 325 MG TABLET 650 MG PO (04:44)
--- NOTE | 2022-09-11 04:51 | PC.NURSE ---
pt requesting O2 sat check and glucose check, O2 sat is 3L via NC 92%, POC 293, pt states that sweaty, not feeling well. provided Acetaminophen, he agree to take for the discomfort. continue to monitor S/S.
[2022-09-11 06:56] VITALS: BP 158/82; PULSE 74; RESP 18; TEMP 36.1; O2SAT 97
[2022-09-11 07:10] LABS: Glucose, Whole Blood 285 mg/dL (60-115)
[2022-09-11 08:08] LABS: Glucose, Whole Blood 293 mg/dL (60-115)
[2022-09-11 08:35] LABS: Vancomycin Random 15.4 mcg/mL (15-20)
[2022-09-11 08:36] LABS: Creatinine Clr Calc Pharmacy 84.6; Estimated Glomerular Filt Rate > 60
[2022-09-11] MEDS: Insulin Glargine,Hum.rec.anlog 100 UNIT/ML 10 ML VIAL 20 UNIT SUBCUT (08:41)
[2022-09-11] MEDS: Insulin Lispro 100 UNIT/ML 3 ML VIAL SUBCUT ×4 (08:41→20:50)
[2022-09-11] MEDS: 0.9 % Sodium Chloride Flush 3 ML SYRINGE IVFLUSH ×3 (08:41→20:56)
[2022-09-11] MEDS: Heparin Sodium,Porcine 5,000 UNIT/ML VIAL 5000 UNIT SUBCUT ×2 (08:42→20:50)
--- NOTE | 2022-09-11 09:11 | HE.PHANOTE ---
VANCOMYCIN DOSE ADJUSTMENT BASED ON SCR AND TROUGH DOSE CONTINUED AT 1000 Q 12H. NEXT TROUGH AT 09/12 @ 1900
[2022-09-11] MEDS: vancomycin HCL 1,000 MG in 0.9 % Sodium Chloride 250 ML 270 MG IV ×2 (09:58→21:30)
[2022-09-11 11:07] LABS: Glucose, Whole Blood 244 mg/dL (60-115)
--- NOTE | 2022-09-11 12:19 | P.PNIM_ITS ---
Subjective Subjective Date of Service: 09/11/22 Interval History: coughing + dyspnea improved qualifies for home O2- RA SaO2 87 at rest Review of Systems Review of Systems: Yes all other systems are reviewed and are negative Physical Exam Vital Signs: Vital Signs: Last Vital Signs Temp 97 F 09/11/22 06:56 Pulse 74 09/11/22 06:56 Resp 18 09/11/22 06:56 BP 158/82 H 09/11/22 06:56 Pulse Ox 97 09/11/22 06:56 O2 Del Method 09/11/22 06:56 O2 Flow Rate 3 09/11/22 04:00 Oxygen Flow Rate 2 09/06/22 16:54 BMI result Body Mass Index 21.9 Gen: in no acute distress HEENT: sclera anicteric, moist mucus membranes Neck: supple Lungs: clear to auscultation bilaterally Heart: regular rate and rhythm, no murmurs Abd: soft, non-tender, non-distended Ext: no edema Skin: warm/well-perfused Neuro: alert and oriented x3, no focal findings Psych: appropriate affect Objective Data Active Medications Acetaminophen (Acetaminophen 325 Mg Tablet) 650 mg PO Q6H PRN PRN Reason: Pain, Mild (Pain Scale 1-3) Last Admin: 09/11/22 04:44 Dose: 650 mg Documented By: YUNIOR Benzonatate (Benzonatate 100 Mg Capsule) 200 mg PO BID PRN PRN Reason: Cough Dextrose (Dextrose 50 % 25 Gm/50 Ml Syringe) 25 gm IVPUSH Q15M PRN; Protocol PRN Reason: per Hypoglycemia Standing Ord. Docusate Sodium (Docusate Sodium 100 Mg Capsule) 100 mg PO DAILY PRN PRN Reason: Constipation Last Admin: 09/08/22 09:16 Dose: 100 mg Documented By: RASHAAD Famotidine (Famotidine 20 Mg Tablet) 20 mg PO BID PRN PRN Reason: heartburn Glucose (Glucose Gel 15 Gm Gel..Gram.) 15 gm PO Q15M PRN; Protocol PRN Reason: per Hypoglycemia Standing Ord. Guaifenesin/Dextromethorphan (Guaifenesin Dm 100/10/5 Ml 5 Ml Syrup) 5 ml PO Q4H PRN PRN Reason: Cough Last Admin: 09/09/22 03:33 Dose: 5 ml Documented By: DOMENICA Heparin Sodium (Porcine) (Heparin Sodium,Porcine 5,000 Unit/Ml Vial) 5,000 unit SUBCUT Q12H [facility] Last Admin: 09/11/22 08:42 Dose: 5,000 unit Documented By: MARIO Piperacillin Sod/Tazobactam (Sod 3.375 gm/ Sodium Chloride) 50 mls @ 100 mls/hr IV Q6H [facility] Last Infusion: 09/11/22 09:19 Dose: 0 mls/hr Documented By: MARIO Vancomycin HCl 1,000 mg/ (Sodium Chloride) 270 mls @ 270 mls/hr IV Q12H [facility] Last Infusion: 09/11/22 11:18 Dose: 0 mls/hr Documented By: MARIO Insulin Glargine (Insulin Glargine,Hum.Rec.Anlog 100 Unit/Ml 10 Ml Vial) 20 unit SUBCUT DAILY [facility] Last Admin: 09/11/22 08:41 Dose: 20 unit Documented By: MARIO Insulin Human Lispro (Insulin Lispro 100 Unit/Ml 3 Ml Vial) 0 unit SUBCUT QIDACHS [facility]; Protocol Last Admin: 09/11/22 11:59 Dose: 4 unit Documented By: SO Methylprednisolone Sodium Succinate (Methylprednisolone Sod Succ 125 Mg/2 Ml Vial) 60 mg IVPUSH Q12H [facility] Ondansetron HCl (Ondansetron Hcl 4 Mg/2 Ml Vial) 4 mg IVPUSH Q8H PRN PRN Reason: Nausea and Vomiting Last Admin: 09/10/22 01:14 Dose: 4 mg Documented By: MARIO Pharmacy Consult (Consult Rx Vancomycin Dosing) 1 each MISCELLANE DAILY PRN PRN Reason: Consult order Senna/Docusate Sodium (Sennosides/Docusate Sodium Tablet) 1 tab PO BID PRN PRN Reason: Constipation Sodium Chloride (0.9 % Sodium Chloride Flush 3 Ml Syringe) 3 ml IVFLUSH QSHIFT [facility] Last Admin: 09/11/22 08:41 Dose: 3 ml Documented By: MARIO Labs CBC & Chem 7: 09/10/22 05:28 09/11/22 08:07 Labs: Laboratory Results - last 24 hr 09/10/22 09/10/22 09/11/22 16:21 19:34 04:42 Estim Creat Clear Calc Estimated GFR POC Glucose 296 H 321 H 293 H Random Vancomycin 09/11/22 09/11/22 09/11/22 06:56 08:07 08:07 Estim Creat Clear Calc 84.6 Estimated GFR > 60 POC Glucose 285 H Random Vancomycin 15.4 09/11/22 11:01 Estim Creat Clear Calc Estimated GFR POC Glucose 244 H Random Vancomycin Assessment and Plan (1) Acute respiratory failure with hypoxia: Status: Acute (2) Pneumonia: Status: Acute (3) Non-small cell cancer of right lung: Status: Acute Plan hospital d#6 62yo M with 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 Quality Stroke Does the patient have a stroke diagnosis?: No VTE Prior VTE?: No VTE Risk Level:: Medical - moderate - high VTE Device Contraindication: Treatment Not Indicated VTE Drug Contraindication: N/A - Med Ordered
[2022-09-11 13:43] VITALS: PULSE 77; PULSE 78; PULSE 81; PULSE 90; O2SAT 86; O2SAT 87; O2SAT 91; O2SAT 94
[2022-09-11 15:20] VITALS: BP 140/70; PULSE 77; RESP 18; TEMP 36.8; O2SAT 93
[2022-09-11 15:48] LABS: Glucose, Whole Blood 293 mg/dL (60-115)
[2022-09-11 19:12] VITALS: BP 146/86; PULSE 84; RESP 18; TEMP 37.1; O2SAT 93
[2022-09-11 20:19] LABS: Glucose, Whole Blood 323 mg/dL (60-115)
[2022-09-12] MEDS: Piperacillin Sodium/Tazobactam 3.375 GM in 0.9 % Sodium Chloride 50 ML IV ×2 (03:02→08:38)
[2022-09-12] MEDS: methylPREDNISolone Sod Succ 125 MG/2 ML VIAL 60 MG IVPUSH (03:02)
[2022-09-12 03:04] VITALS: BP 149/81; PULSE 59; RESP 18; TEMP 36; O2SAT 97
[2022-09-12 06:16] LABS: Hematocrit 31.1 % (42.0-52.0); Mean Corpuscular HGB Conc 32.2 g/dl (31.0-36.0); Mean Corpuscular Hemoglobin 26.5 pg (27.0-33.0); Mean Corpuscular Volume 82.5 fL (80.0-98.0); Mean Platelet Volume 9.4 fL (9.4-12.4); Platelet Count 243 X10*3/uL (160-400); Red Blood Count 3.77 X10*6/uL (4.60-5.80); Red Cell Distribution Width 20.4 % (11.0-16.0); White Blood Count 7.4 X10*3/uL (4.8-10.8)
[2022-09-12 06:17] LABS: NRBC Pct Auto 2.4 /100WBC (0.0-0.2)
[2022-09-12 06:41] LABS: Anion Gap 12 (12-20); Blood Urea Nitrogen 24 mg/dL (9-16); Calcium 8.2 mg/dL (8.4-10.2); Carbon Dioxide 28 mmol/L (22-29); Chloride 102 mmol/L (96-108); Creatinine Clr Calc Pharmacy 77.6; Estimated Glomerular Filt Rate > 60; Glucose Random 186 mg/dL (60-115); Potassium 4.1 mmol/L (3.3-5.1); Sodium 138 mmol/L (135-145)
[2022-09-12 06:54] LABS: Procalcitonin 0.04 ng/mL
[2022-09-12 08:00] VITALS: BP 166/85; PULSE 68; RESP 18; TEMP 36.8; O2SAT 97
[2022-09-12 08:02] LABS: Glucose, Whole Blood 227 mg/dL (60-115)
[2022-09-12 08:11] LABS: Estimated Average Glucose 137 mg/dL; Hemoglobin A1c % 6.4 %
[2022-09-12] MEDS: Insulin Lispro 100 UNIT/ML 3 ML VIAL SUBCUT ×2 (08:36→12:27)
[2022-09-12] MEDS: 0.9 % Sodium Chloride Flush 3 ML SYRINGE IVFLUSH (08:37)
[2022-09-12] MEDS: Insulin Glargine,Hum.rec.anlog 100 UNIT/ML 10 ML VIAL 20 UNIT SUBCUT (08:37)
[2022-09-12] MEDS: Heparin Sodium,Porcine 5,000 UNIT/ML VIAL 5000 UNIT SUBCUT (08:37)
[2022-09-12] MEDS: vancomycin HCL 1,000 MG in 0.9 % Sodium Chloride 250 ML 270 MG IV (09:41)
--- NOTE | 2022-09-12 09:59 | W.MHC.F2F ---
Service Date Service Date: 09/12/22 Encounter Date of encounter: 09/12/22 Reasons for Services Signs and symptoms assessed: home oxygen requirement Reason for prison: medication management, medication treatment, teach disease management and other Reason for physical therapy: home safety and mobility, therapeutic exercises, gait/transfer training, assess need for DME, ADL training and energy conservation MD Overseeing Care: Nika May Homebound: Leaving the home is medically contraindicated at this time without the asist of a device and/or another person due th the listed conditions above and below. Reason homebound: shortness of breath with minimal effort and weakness related to hospital stay Certification: Based on the above findings, I certify that this patient is confined to the home and needs intermittent prison care, physical therapy and/or speech therapy, or continues to need occupational therapy. The patient is under my care, and I have initiated the establishment of the plan of care. The patient will be followed by a physician who will periodically review the plan of care. Time Spent With Patient Time: Total time managing care of this patient today ____ minutes.
--- NOTE | 2022-09-12 10:12 | PM.DS ---
DS: Providers Provider Date of Service: 09/12/22 Date of admission: 09/06/22 21:21 Date of discharge: 09/12/22 Primary care physician: Nika May CNP DS: Diagnosis Discharge Diagnosis (1) Acute respiratory failure with hypoxia: Status: Acute (2) Pneumonia: Status: Acute (3) Non-small cell cancer of right lung: Status: Acute (4) Type 2 diabetes mellitus with hyperglycemia: Status: Acute DS: Summary Hospital Course Hospital Course: from admission history and physical by hospitalist Perico Harper, 09/06/22: 62-year-old male with past medical history of non-small cell cancer of right lung, diabetes, recently discharged from the hospital on 09/03 after being managed for pneumonia presents to the hospital with complaints of worsening symptoms.? Patient was discharged on p.o. antibiotics.? Patient reports that he ever since discharge on the he continued to feel worse, he continues to have cough, dyspnea, and generally not feeling well, increased weakness, and decreased appetite. Patient denies any fever, has chills, reports no chest pain, no abdominal pain nausea or vomiting, no diarrhea constipation, no urinary symptoms and no lower extremity edema.? On arrival to the ED patient found to have a heart rate of 139 cough, respiratory rate of 24, satting 94% on room air Labs are significant for WBC count of 5.7, hemoglobin of 11.2, hematocrit 35, sodium 133, D-dimer of 796, AST of 49, ALT of 53, viral serology negative Chest CT angiogram shows no PE, diffuse centrilobular and paraseptal emphysema with a large cyst or cavity in the right upper lobe with peripheral consolidation. 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 He was admitted to the medical/surgical floor and treated with 7 days of vancomycin and piperacillin/tazobactam IV along with steroids. He gradually improved. Blood cultures were negative. He was discharged on home oxygen 2L and will need to follow up with his oncologist and his primary care doctor. He was prescribed 3 more days of antibiotic treatment with doxycycline and amoxicillin-clavulanate PO. He was started on metformin for steroid-induced hyperglycemia. Time Spent with Patient Time attestation: Total time managing care of this patient today __35__ minutes. Discharge coordination time: Greater than 30 minutes Quality: Safe Use of Opioids Does Pt have an Active Cancer Diagnosis on the Problem List?: Yes Opioid Measure Date for [facility] [address] Report: 08/13/22 Opioid Measure Time for [facility] [address] Report: 10:14 Quality: Stroke Does the patient have a stroke diagnosis?: No Physical Exam Vital Signs: Vital Signs: Last Vital Signs Temp 98.3 F 09/12/22 08:00 Pulse 68 09/12/22 08:00 Resp 18 09/12/22 08:00 BP 166/85 H 09/12/22 08:00 Pulse Ox 97 09/12/22 08:00 O2 Del Method 09/12/22 08:00 O2 Flow Rate 2 09/12/22 03:04 Oxygen Flow Rate 2 09/06/22 16:54 BMI result Body Mass Index 21.9 Gen: in no acute distress HEENT: sclera anicteric, moist mucus membranes Neck: supple Lungs: clear to auscultation bilaterally Heart: regular rate and rhythm, no murmurs Abd: soft, non-tender, non-distended Ext: no edema Skin: warm/well-perfused Neuro: alert and oriented x3, no focal findings Psych: appropriate affect DS: Data Data Completed and Pending Completed studies during hospitalization [Text1]: Laboratory Results WBC 7.4 X10*3/uL (4.8-10.8) 09/12/22 05:40 RBC 3.77 X10*6/uL (4.60-5.80) L 09/12/22 05:40 Hgb 10.0 g/dl (14.0-18.0) L 09/12/22 05:40 Hct 31.1 % (42.0-52.0) L 09/12/22 05:40 MCV 82.5 fL (80.0-98.0) 09/12/22 05:40 MCH 26.5 pg (27.0-33.0) L 09/12/22 05:40 MCHC 32.2 g/dl (31.0-36.0) 09/12/22 05:40 RDW 20.4 % (11.0-16.0) H 09/12/22 05:40 Plt Count 243 X10*3/uL (160-400) 09/12/22 05:40 MPV 9.4 fL (9.4-12.4) 09/12/22 05:40 Immature Gran % (Auto) 4.5 % (0.0-0.4) H 09/10/22 05:28 Neut % (Auto) 84.5 % (45-73) H 09/10/22 05:28 Lymph % (Auto) 5.3 % (20-40) L 09/10/22 05:28 [place]ley % (Auto) 5.5 % (2-11) 09/10/22 05:28 Eos % (Auto) 0.0 % (0-4) 09/10/22 05:28 Baso % (Auto) 0.2 % (0-2) 09/10/22 05:28 Lymph # (Auto) 0.5 X10*3/uL (1.2-4.9) L 09/10/22 05:28 [place]wsley # (Auto) 0.6 X10*3/uL (0.1-1.2) 09/10/22 05:28 Eos # (Auto) 0.0 X10*3/uL (0.0-0.4) 09/10/22 05:28 Baso # (Auto) 0.0 X10*3/uL (0.0-0.2) 09/10/22 05:28 Abs Immat Gran (auto) 0.45 X10*3/uL (0.00-0.03) H 09/10/22 05:28 Absolute Neuts (auto) 8.4 x10*3/uL (2.0-8.3) H 09/10/22 05:28 Absolute Nucleated RBC 0.180 X10*3/uL (0.0-0.012) H 09/12/22 05:40 Nucleated RBC % (auto) 2.4 /100WBC (0.0-0.2) H 09/12/22 05:40 Smear Tech's Comments VERIFIED 09/10/22 05:28 D-Dimer High Sensitivty 796 NG/ML 09/06/22 15:54 Sodium 138 mmol/L (135-145) 09/12/22 05:40 Potassium 4.1 mmol/L (3.3-5.1) 09/12/22 05:40 Chloride 102 mmol/L (96-108) 09/12/22 05:40 Carbon Dioxide 28 mmol/L (22-29) 09/12/22 05:40 Anion Gap 12 (12-20) 09/12/22 05:40 BUN 24 mg/dL (9-16) H 09/12/22 05:40 Creatinine 0.97 mg/dL (0.5-1.4) 09/12/22 05:40 Estim Creat Clear Calc 77.6 09/12/22 05:40 Estimated GFR > 60 09/12/22 05:40 POC Glucose 227 mg/dL (60-115) H 09/12/22 07:47 Random Glucose 186 mg/dL (60-115) H D 09/12/22 05:40 Fasting Glucose 483 mg/dL (60-99) H* 09/10/22 05:28 Estimat Average Glucose 137 mg/dL 09/12/22 05:40 Hemoglobin A1c % 6.4 % 09/12/22 05:40 Lactic Acid 1.5 mmol/L (0.5-2.0) 09/06/22 17:52 Calcium 8.2 mg/dL (8.4-10.2) L 09/12/22 05:40 Total Bilirubin 0.4 mg/dL (0.0-1.0) 09/10/22 05:28 AST 20 U/L (5-37) 09/10/22 05:28 ALT 41 U/L (0-40) H 09/10/22 05:28 Alkaline Phosphatase 144 U/L (39-117) H 09/10/22 05:28 Troponin I High Sens 6.5 ng/L (<3.5-35.0) 09/06/22 15:54 Total Protein 6.1 g/dL (6.5-8.0) L 09/10/22 05:28 Albumin 2.9 g/dL (3.5-5.0) L 09/10/22 05:28 Procalcitonin 0.04 ng/mL 09/12/22 05:40 Vancomycin Trough 11.3 mcg/mL (10.0-20.0) 09/09/22 20:13 Random Vancomycin 15.4 mcg/mL (15-20) 09/11/22 08:07 Influenza Type A (PCR) NEGATIVE (Negative) 09/06/22 15:48 Influenza Type B (PCR) NEGATIVE (Negative) 09/06/22 15:48 RSV RNA Qual (PCR) NEGATIVE (Negative) 09/06/22 15:48 SARS-CoV-2 RNA (RT-PCR) NEGATIVE (Negative) 09/06/22 15:48 Impressions Chest CTA 09/06/22 19:01 IMPRESSION: 1. No evidence of PE. 2. 3. No evidence aortic dissection or aneurysm. Atherosclerotic plaques along the left brachiocephalic artery and undersurface of the arch. 4. Diffuse centrilobular and paraseptal emphysema with a large cyst or cavity in the right upper lobe with peripheral atelectasis/consolidation is stable. Spiculated appearance inferior to right middle lobe cyst seen on the previous study is most likely parenchymal opacity/consolidation. There is chronic interstitial thickening and honeycombing appearance in right upper lobe, left lower lobe, stable. 5. Bilateral paravascular parahilar soft tissue opacities are stable VTE: negative Discharge Plan Discharge Anticipated Discharge Date/Time: 09/12/22 10:00 Patient Disposition: Home Health Service Discharge Diagnosis: acute hypoxic respiratory failure due to pneumonia and lung cancer, diabetes mellitus Referrals: Yolie Rojas MD [Physician] - 1 Week Nika May CNP [Primary Care Provider] - 1 Week Discharge Medications: New doxycycline monohydrate 100 mg tablet 100 mg PO BID Qty: 6 0RF amoxicillin-pot clavulanate 875-125 mg tablet 1 tab PO BID Qty: 6 0RF prednisone 10 mg tablet See Rx Instructions .ROUTE .COMPLEX Qty: 20 0RF Rx Instructions: 40 mg daily x 2 days, then 30 mg daily x 2 days, then 20 mg daily x 2 days, then 10 mg daily x 2 days metformin 500 mg tablet extended release 24 hr 500 mg PO BID Qty: 60 0RF (DME) FreeStyle Lite Strips Strip Qty: 100 0RF Rx Instructions: check blood glucose every morning before breakfast (DME) blood-glucose meter [FreeStyle Lite Meter] Kit Qty: 1 0RF Rx Instructions: check blood glucose every morning before breakfast alcohol swabs Pads, Medicated 1 pad TOPICAL DAILY Qty: 100 0RF Rx Instructions: check blood glucose every morning before breakfast (DME) lancets [FreeStyle Lancets] 28 gauge misc Qty: 100 0RF Rx Instructions: check blood glucose every morning before breakfast Continued ondansetron 8 mg Tablet,Disintegrating 8 mg PO Q8H PRN (Reason: Nausea) Qty: 30 3RF famotidine 20 mg tablet 1 tab PO BID PRN (Reason: heartburn) codeine-guaifenesin 10-100 mg/5 mL liquid 5 ml PO TID PRN (Reason: cough) benzonatate 200 mg capsule 200 mg PO BID PRN (Reason: Cough) sennosides-docusate sodium [Senna with Docusate Sodium] 8.6-50 mg tablet 1 tab-cap PO BID PRN (Reason: Constipation) Discontinued azithromycin 500 mg Tablet 500 mg PO Q24H Qty: 5 0RF cefuroxime axetil 500 mg tablet 500 mg PO BID Qty: 10 0RF Discharge Orders: Discharge Order (Routine); Ordered 09/12/22 Ordered By: Wilmar Pnea Diet: Diabetic diet Activity on Discharge: As tolerated Stand Alone Forms: Patient Portal Discharge page Care Plan Goals: respiratory relief Health Concerns: acute hypoxic respiratory failure due to pneumonia and lung cancer, diabetes mellitus Plan of Treatment: home oxygen 2 liters antibiotics as prescribed for 3 days prednisone taper as follows: 40 mg daily x 2 days, then 30 mg daily x 2 days, then 20 mg daily x 2 days, then 10 mg daily x 2 days metformin 500 mg twice daily, diabetic diet check blood sugar daily before breakfast; goal 80-140 mg/dL follow up with Dr Rojas from Oncology in 1 week. Please follow up with your primary care doctor within 1 week. Return to the hospital if you experience recurrent or worsening symptoms. Assessment: See Discharge Summary.
--- NOTE | 2022-09-12 10:35 | MHC.CM.PN ---
Addendum entered by Jacqui Sandoval RN 09/12/22 12:55: CHANGE OF PLAN. MD WANTS [facility] SERVICES [facility] REFERRAL PLACED. RN AWARE AWARE CASE MANAGEMENT TO UPDATE WITH A NEW NOTE Original Note: PATIENT IS DC HOME - [facility] TO TRANSPORT. RN AWARE OF PLAN.
[2022-09-12 11:46] LABS: Glucose, Whole Blood 257 mg/dL (60-115)
--- NOTE | 2022-09-12 13:40 | MHC.CM.PN ---
[facility] CANNOT SEE WITHIN A SAFE TIME FRAME REFERRALS UPDATED TO INCLUDE MORE AGENCIES
--- NOTE | 2022-09-12 15:17 | MHC.CM.PN ---
PATIENT AWARE OF THE LACK OF AVAILABLE [facility] SERVICE AT THIS TIME. HE DOES NOT WISH TO STAY OVERNIGHT AND REPORTS FEELING SAFE TO DC HOME. T/W TO DISCUSS WITH TEAM TOMORROW ABOUT POSSIBLE [facility] SERVICES, ALTHOUGH [facility] IS CURRENTLY TELLING T/W THAT THEY CANNOT ACCEPT AT THIS TIME. RN AWARE OF PLAN. SON IS IN ROOM TO TRANSPORT
== END 2022-09-12 15:48 | disposition home health service (06) | DRG 139 ==
LOC: HO.ED 21:25 → HO.EDOVER 21:31 → HO.S3 09-07 16:07
PROVIDERS: Hospitalist; Nurse Practitioner Family; Physician Assistant; Admitting Provider Internal Medicine; Emergency Provider Internal Medicine; PCP Nurse Practitioner Family; Visit Provider Family Medicine
DX: J18.9 Pneumonia, unspecified organism (principal); J96.01 Acute respiratory failure with hypoxia; E11.65 Type 2 diabetes mellitus with hyperglycemia; J43.2 Centrilobular emphysema; T38.0X5A Adverse effect of glucocorticoids and synthetic analogues, initial encounter; C34.91 Malignant neoplasm of unspecified part of right bronchus or lung; Z23 Encounter for immunization; Z87.891 Personal history of nicotine dependence; Z79.899 Other long term (current) drug therapy
CPT/HCPCS: 0241U; 36415; 71275; 80048; 80053; 80202; 82565; 82947; 83036; 83605; 84145; 84484; 85025; 85027; 85379; 87040; 90686; 93005; 94640; 99285; J0696; J2270; J2405; J2543; J2930; J3370; Q9967

== ENCOUNTER 2022-09-22 13:41 | Outpatient (REF) | payer OTHER, SELFPAY ==
--- NOTE | 2022-09-22 17:18 | PFT_ITS ---
FLOWS: FEV1 61% of predicted at 2.19 L. FVC 65% of predicted at 3.16 L. FEV1 to FVC ratio of 0.69. No bronchodilator response. LUNG VOLUMES: Total lung capacity 61% of predicted at 4.44 L. Residual volume 58% of predicted at 1.39 L. Slow vital capacity 63% of predicted at 3.06 L. Expiratory reserve volume 103% of predicted at 1.47 L. Diffusion capacity is severely decreased. IMPRESSION: Combined moderate obstructive and moderate restrictive ventilatory defect with no bronchodilator response. Decreased diffusion capacity suggests emphysema. Nick Cortez MD AP/MODL / [id number]
== END 2022-09-22 13:42 | disposition home or self-care (01) ==
LOC: HO.RESP 13:41
PROVIDERS: PCP Family Medicine; Visit Provider Hospitalist
DX: C34.90 Malignant neoplasm of unspecified part of unspecified bronchus or lung (principal); J44.9 Chronic obstructive pulmonary disease, unspecified
CPT/HCPCS: 94060; 94727; 94729

== ENCOUNTER 2022-09-27 11:36 | Emergency (ER) | payer OTHER, SELFPAY ==
--- NOTE | ~2022-09-27 | CT_ITS ---
EXAMINATION: CT ANGIOGRAM OF THE CHEST WITH AND WITHOUT CONTRAST (CT PULMONARY ANGIOGRAM FOR PE) CLINICAL INFORMATION: Reason for Exam Right sided chest pain with pleurisy? PE? COMPARISON: CT angiogram chest 09/06/2022 TECHNIQUE: Prior to contrast administration, noncontrast localization images were obtained. Subsequently, multidetector volumetric imaging was performed from the thoracic inlet to below the diaphragms following the administration of 65 mL Omnipaque 350 intravenous contrast. No contrast reaction reported Sagittal, coronal, and MIP oblique sagittal reformatted images were obtained on the CT workstation, uploaded to PACS, and reviewed. This CT examination was performed using dose optimization techniques as appropriate, variously including the following: *Automated exposure control *Adjustment of mA and/or kV according to patient size (this includes techniques or standardized protocols for targeted exams where dose is matched to indication/reason for exam; i.e. extremities or head) *Use of iterative reconstruction technique Total exam dose-length product 202 mGy-cm FINDINGS: QUALITY OF STUDY/CONTRAST BOLUS: Satisfactory. PULMONARY ARTERIES: No central or segmental pulmonary emboli. THORACIC AORTA: No aneurysm or dissection. Scattered vascular wall calcifications of thoracic aorta. LUNG: Redemonstration of the diffuse centrilobular and paraseptal emphysematous change of lungs with architectural distortion bronchial wall thickening and bronchiectasis of the lungs. Stable large cyst or cavity in the right upper lobe with pleural and parenchymal scarring and thickening. No acute airspace disease. No significant change since prior CT chest 09/06/2022. PLEURA: Stable pleural thickening bibasilar and biapical. Trace dependent right pleural effusion. MEDIASTINUM: Normal heart size. No pericardial effusion. No hilar or mediastinal lymphadenopathy. No evidence of septal bowing or right heart strain. CORONARY ARTERY CALCIFICATION: None visualized on this study. CHEST WALL/AXILLA: No axillary or internal mammary lymphadenopathy. OSSEOUS STRUCTURES: No acute or suspicious osseous abnormality. Multilevel degenerative spondylosis spine. UPPER ABDOMEN: Unremarkable. No reflux of contrast into the hepatic veins to suggest elevated right heart pressures. CT/CT angio chest PE protocol IMPRESSION: 1. No evidence of pulmonary embolism. 2. Stable emphysematous changes of lungs. Stable large cyst or cavity in the right upper lobe with pleural and parenchymal scarring and thickening. No acute airspace disease. VTE: negative
--- NOTE | 2022-09-27 11:59 | ECG_ITS ---
Test Reason : RIGHT SIDED CHEST PAIN Blood Pressure : / mmHG Vent. Rate : 100 BPM Atrial Rate : 100 BPM P-R Int : 136 ms QRS Dur : 082 ms QT Int : 310 ms P-R-T Axes : 058 067 056 degrees QTc Int : 399 ms Normal sinus rhythm Possible Left atrial enlargement Nonspecific ST elevation Possible Early Repolarization Abnormal ECG When compared with ECG of 06-SEP-2022 17:12, ST elevation now present in Anterior leads Referred By: Bereket Rossi Electronically Signed By:LITA PATEL MD
[2022-09-27 12:00] VITALS: BP 105/76; PULSE 115; RESP 20; TEMP 36.9; O2SAT 99; BMI 21.2
--- NOTE | 2022-09-27 12:03 | ED.GENADULT ---
HPI - General Adult General Chief complaint: Dyspnea <LOKI Flores - Last Filed: 09/27/22 19:19> Stated complaint: Lung pain/SOB <LOKI Flores - Last Filed: 09/27/22 19:19> Time Seen by Provider: 09/27/22 12:21 <LOKI Flores - Last Filed: 09/27/22 19:19> Source: patient <Rudy Barrett MD - Last Filed: 09/27/22 16:51> Mode of arrival: ambulatory <Rudy Barrett MD - Last Filed: 09/27/22 16:51> History of Present Illness HPI narrative: Presented to the Ed c/o rt side chest pain and SOB,he has hx of lung cancer rt and pain is refractory to oxycodone,he wear 02 24/h <Rudy Barrett MD - Last Filed: 09/27/22 16:51> Onset (ago): day(s) (2) <Rudy Barrett MD - Last Filed: 09/27/22 16:51> Location: chest <Rudy Barrett MD - Last Filed: 09/27/22 16:51> Radiation: non-radiation <Rudy Barrett MD - Last Filed: 09/27/22 16:51> Pain Consistency: constant <Rudy Barrett MD - Last Filed: 09/27/22 16:51> Relieving factors: none <Rudy Barrett MD - Last Filed: 09/27/22 16:51> Exacerbating factors: none <Rudy Barrett MD - Last Filed: 09/27/22 16:51> Related Data Home medications: Home Medications Medication Instructions Recorded Confirmed benzonatate 200 mg capsule 200 mg PO BID PRN Cough 09/02/22 09/21/22 codeine 10 mg-guaifenesin 100 mg/5 5 ml PO TID PRN cough 09/02/22 09/21/22 mL oral liquid famotidine 20 mg tablet 1 tab PO BID PRN heartburn 09/02/22 09/21/22 sennosides 8.6 mg-docusate sodium 1 tab-cap PO BID PRN Constipation 09/02/22 09/21/22 50 mg tablet (Senna with Docusate Sodium) Previous Rx's Medication Instructions Recorded ondansetron 8 mg disintegrating 8 mg PO Q8H PRN Nausea #30 tabs 05/31/22 tablet alcohol swabs 1 pad topical DAILY #100 ea 09/12/22 amoxicillin 875 mg-potassium 1 tab PO BID #6 tabs 09/12/22 clavulanate 125 mg tablet blood sugar diagnostic (FreeStyle #100 ea 09/12/22 Lite Strips) blood-glucose meter (FreeStyle #1 ea 09/12/22 Lite Meter kit) doxycycline monohydrate 100 mg 100 mg PO BID #6 tabs 09/12/22 tablet lancets 28 gauge (FreeStyle #100 ea 09/12/22 Lancets) metformin 500 mg tablet,extended 500 mg PO BID #60 tabs 09/12/22 release 24 hr prednisone 10 mg tablet See Rx Instructions .Route 09/12/22 .COMPLEX #20 tabs lorazepam 0.5 mg tablet 0.5 mg PO BID PRN Anxiety #60 tabs 09/21/22 tramadol 50 mg tablet 50 mg PO Q6H PRN pain #15 tabs 09/27/22 <LOKI Flores - Last Filed: 09/27/22 19:19> Allergies/adverse reactions: Allergies Allergy/AdvReac Type Severity Reaction Status Date / Time No Known Allergies Allergy Verified 09/19/22 11:46 <LOKI Flores - Last Filed: 09/27/22 19:19> Review of Systems Eyes: Eyes: Reports no additional eye complaints <Rudy Barrett MD - Last Filed: 09/27/22 16:51> Respiratory: Respiratory: Reports other (rt side chest pain) <Rudy Barrett MD - Last Filed: 09/27/22 16:51> [facility] Past Medical History Medical History: Medical History Diabetes (Unknown) Non-small cell cancer of right lung Type 2 diabetes mellitus with hyperglycemia <LOKI Flores - Last Filed: 09/27/22 19:19> Family History Family History: Family History Mother Diabetes Father Diabetes <LOKI Flores - Last Filed: 09/27/22 19:19> Social History Social History: Social History Household Members: Spouse and Children Household Members Other:: son Housing: Apartment Do you presently have visiting nurse or other home services: No Alcohol intake: never Patient Tobacco Use Status: Former Tobacco user Quit Date: 05/12/22 Tobacco use type: Cigarette Smoked in Last 30 Days: No Second Hand Smoke Exposure: No Advance Directives: No Advance Directives Information Provided: Yes service: No Current occupational status: retired <LOKI Flores - Last Filed: 09/27/22 19:19> Physical Exam ED Vital Signs: Vital Signs - 24 hr 09/27/22 12:00 09/27/22 12:52 09/27/22 12:55 Temperature 98.4 F 97.9 F Pulse Rate 115 H 100 Respiratory Rate 20 20 20 Blood Pressure 105/76 131/86 Pulse Oximetry 99 100 Oxygen Delivery Method Nasal Cannula Oxygen Flow Rate 2 09/27/22 14:00 09/27/22 16:27 Temperature 97.7 F 97.8 F Pulse Rate 90 92 Respiratory Rate 18 18 Blood Pressure 125/76 119/77 Pulse Oximetry 100 99 Oxygen Delivery Method Room Air Nasal Cannula Oxygen Flow Rate 2 BMI result Body Mass Index 21.2 <LOKI Flores - Last Filed: 09/27/22 19:19> Vital Signs - 24 hr 09/27/22 12:00 09/27/22 12:52 09/27/22 12:55 Temperature 98.4 F 97.9 F Pulse Rate 115 H 100 Respiratory Rate 20 20 20 Blood Pressure 105/76 131/86 Pulse Oximetry 99 100 Oxygen Delivery Method Nasal Cannula Oxygen Flow Rate 2 09/27/22 14:00 09/27/22 16:27 Temperature 97.7 F 97.8 F Pulse Rate 90 92 Respiratory Rate 18 18 Blood Pressure 125/76 119/77 Pulse Oximetry 100 99 Oxygen Delivery Method Room Air Nasal Cannula Oxygen Flow Rate 2 BMI result Body Mass Index 21.2 <Rudy Barrett MD - Last Filed: 09/27/22 16:51> Const General: cooperative <Rudy Barrett MD - Last Filed: 09/27/22 16:51> Nutritional Appearance: average body habitus <Rudy Barrett MD - Last Filed: 09/27/22 16:51> Orientation/consciousness: patient oriented x3 <Rudy Barrett MD - Last Filed: 09/27/22 16:51> HENMT Head: Yes normal to inspection <Rudy Barrett MD - Last Filed: 09/27/22 16:51> General nose exam: Normal external nose present <Rudy Barrett MD - Last Filed: 09/27/22 16:51> Face and sinus: Yes normal facial exam <Rudy Barrett MD - Last Filed: 09/27/22 16:51> Mouth: Normal oral and palatal mucosa present <Rudy Barrett MD - Last Filed: 09/27/22 16:51> Throat: Yes posterior oropharynx normal <Rudy Barrett MD - Last Filed: 09/27/22 16:51> Neck Neck: Yes normal visual inspection and Yes full ROM <Rudy Barrett MD - Last Filed: 09/27/22 16:51> Chest Chest palpation & inspection: normal inspection of the chest <Rudy Barrett MD - Last Filed: 09/27/22 16:51> Resp Effort & Inspection: normal respiratory effort <Rudy Barrett MD - Last Filed: 09/27/22 16:51> Cardio Rate: regular rate <Rudy Barrett MD - Last Filed: 09/27/22 16:51> Rhythm: regular rhythm <MD Natalia Shelby Last Filed: 09/27/22 16:51> GI Inspection: Yes normal to inspection <Rudy Barrett MD - Last Filed: 09/27/22 16:51> Palpation (GI): Soft to palpation, not firm, nontender and no guarding <Rudy Barrett MD - Last Filed: 09/27/22 16:51> Auscultation: other (rease breath sond rt) <Rudy Barrett MD - Last Filed: 09/27/22 16:51> Skin General skin exam: no rashes or lesions noted and elasticity normal <MD Natalia Shelby Last Filed: 09/27/22 16:51> Lesions: no lesions <Rudy Barrett MD - Last Filed: 09/27/22 16:51> Rashes: no rashes <Rudy Barrett MD - Last Filed: 09/27/22 16:51> Neuro General: patient oriented x3 <Rudy Barrett MD - Last Filed: 09/27/22 16:51> Course Course Course Narrative: RME: 62 yold male with lung CA and recent pneumonia presents for right sided CHest pain with SOB and pleurisy. Patient is on oxygen at home. Vital signs stable. no leg swelling. EKG and labs ordered. CHest CTA ordered due to risk with Cancer, Tachycardia, and immoblization. D- dimer in august was over 700. no need for repeat D-dimer <LOKI Flores - Last Filed: 09/27/22 19:19> Reevaluation(s) Reevaluation #1: Asyntomatic at this tome heart rate 80,CTA negative for PE no pneumonia,ct unchanged essentially from August <Rudy Barrett MD - Last Filed: 09/27/22 16:51> Time: 16:19 <Rudy Barrett MD - Last Filed: 09/27/22 16:51> Medications Administered Discontinued Medications Generic Name Dose Route Start Last Admin Trade Name Freq PRN Reason Stop Dose Admin Iohexol 100 ml 09/27/22 14:19 09/27/22 14:19 Iohexol 350 Mg/Ml 100 Ml Infus..Btl IV 09/27/22 14:20 65 ml ONCE ONE Administration Morphine Sulfate 5 mg 09/27/22 12:30 09/27/22 12:52 Morphine Sulfate 10 Mg/Ml Cartridge IVPUSH 09/27/22 12:31 5 mg ONCE ONE Administration Protocol <LOKI Flores - Last Filed: 09/27/22 19:19> Medications Administered Discontinued Medications Generic Name Dose Route Start Last Admin Trade Name Freq PRN Reason Stop Dose Admin Iohexol 100 ml 09/27/22 14:19 09/27/22 14:19 Iohexol 350 Mg/Ml 100 Ml Infus..Btl IV 09/27/22 14:20 65 ml ONCE ONE Administration Morphine Sulfate 5 mg 09/27/22 12:30 09/27/22 12:52 Morphine Sulfate 10 Mg/Ml Cartridge IVPUSH 09/27/22 12:31 5 mg ONCE ONE Administration Protocol <Rudy Barrett MD - Last Filed: 09/27/22 16:51> Medical Decision Making Medical Decision Making [facility] Narrative: presented with rt side schest pain <Rudy Barrett MD - Last Filed: 09/27/22 16:51> Differential Diagnosis Differential Diagnoses: The differential diagnosis associated with the presentation includes <Rudy Barrett MD - Last Filed: 09/27/22 16:51> PNX/Pneumonia/DE <Rudy Barrett MD - Last Filed: 09/27/22 16:51> Admission/Observation Consideration of admission/observation: Escalation of care including admission/observation considered <Rudy Barrett MD - Last Filed: 09/27/22 16:51> Lab Data [facility] Lab Attestation statement: I reviewed the patient's lab results. <Rudy Barrett MD - Last Filed: 09/27/22 16:51> Result Diagrams: 09/27/22 12:45 09/27/22 12:45 <LOKI Flores - Last Filed: 09/27/22 19:19> Labs: Lab Results 09/27/22 09/27/22 09/27/22 Range/Units 12:45 12:45 12:45 WBC 5.3 (4.8-10.8) X10*3/uL RBC 4.50 L (4.60-5.80) X10*6/uL Hgb 12.4 L D (14.0-18.0) g/dl Hct 38.1 L D (42.0-52.0) % MCV 84.7 (80.0-98.0) fL MCH 27.6 (27.0-33.0) pg MCHC 32.5 (31.0-36.0) g/dl RDW 17.6 H (11.0-16.0) % Plt Count 220 (160-400) X10*3/uL MPV 9.7 (9.4-12.4) fL Immature Gran % (Auto) 1.0 H (0.0-0.4) % Neut % (Auto) 77.1 H (45-73) % Lymph % (Auto) 9.9 L (20-40) % Butts % (Auto) 8.4 (2-11) % Eos % (Auto) 3.4 (0-4) % Baso % (Auto) 0.2 (0-2) % Lymph # (Auto) 0.5 L (1.2-4.9) X10*3/uL Butts # (Auto) 0.4 (0.1-1.2) X10*3/uL Eos # (Auto) 0.2 (0.0-0.4) X10*3/uL Baso # (Auto) 0.0 (0.0-0.2) X10*3/uL Abs Immat Gran (auto) 0.05 H (0.00-0.03) X10*3/uL Absolute Neuts (auto) 4.1 (2.0-8.3) x10*3/uL Absolute Nucleated RBC 0.000 (0.0-0.012) X10*3/uL Nucleated RBC % (auto) 0.0 (0.0-0.2) /100WBC PT 9.8 L (10.0-13.1) SEC INR 0.9 (0.9-1.1) APTT 33.6 (26.0-36.4) SEC Sodium 136 (135-145) mmol/L Potassium 4.4 (3.3-5.1) mmol/L Chloride 98 (96-108) mmol/L Carbon Dioxide 28 (22-29) mmol/L Anion Gap 14 (12-20) BUN 16 (9-16) mg/dL Creatinine 0.84 (0.5-1.4) mg/dL Estim Creat Clear Calc 86.6 Estimated GFR > 60 Random Glucose 178 H (60-115) mg/dL Calcium 9.7 D (8.4-10.2) mg/dL Total Bilirubin 0.3 (0.0-1.0) mg/dL AST 17 (5-37) U/L ALT 18 (0-40) U/L Alkaline Phosphatase 127 H (39-117) U/L Troponin I High Sens (<3.5-35.0) ng/L B-Natriuretic Peptide (<100) pg/mL Total Protein 6.8 (6.5-8.0) g/dL Albumin 3.8 (3.5-5.0) g/dL Influenza Type A (PCR) (Negative) Influenza Type B (PCR) (Negative) RSV RNA Qual (PCR) (Negative) SARS-CoV-2 RNA (RT-PCR) (Negative) 09/27/22 09/27/22 09/27/22 Range/Units 12:45 12:45 12:45 WBC (4.8-10.8) X10*3/uL RBC (4.60-5.80) X10*6/uL Hgb (14.0-18.0) g/dl Hct (42.0-52.0) % MCV (80.0-98.0) fL MCH (27.0-33.0) pg MCHC (31.0-36.0) g/dl RDW (11.0-16.0) % Plt Count (160-400) X10*3/uL MPV (9.4-12.4) fL Immature Gran % (Auto) (0.0-0.4) % Neut % (Auto) (45-73) % Lymph % (Auto) (20-40) % Butts % (Auto) (2-11) % Eos % (Auto) (0-4) % Baso % (Auto) (0-2) % Lymph # (Auto) (1.2-4.9) X10*3/uL Butts # (Auto) (0.1-1.2) X10*3/uL Eos # (Auto) (0.0-0.4) X10*3/uL Baso # (Auto) (0.0-0.2) X10*3/uL Abs Immat Gran (auto) (0.00-0.03) X10*3/uL Absolute Neuts (auto) (2.0-8.3) x10*3/uL Absolute Nucleated RBC (0.0-0.012) X10*3/uL Nucleated RBC % (auto) (0.0-0.2) /100WBC PT (10.0-13.1) SEC INR (0.9-1.1) APTT (26.0-36.4) SEC Sodium (135-145) mmol/L Potassium (3.3-5.1) mmol/L Chloride (96-108) mmol/L Carbon Dioxide (22-29) mmol/L Anion Gap (12-20) BUN (9-16) mg/dL Creatinine (0.5-1.4) mg/dL Estim Creat Clear Calc Estimated GFR Random Glucose (60-115) mg/dL Calcium (8.4-10.2) mg/dL Total Bilirubin (0.0-1.0) mg/dL AST (5-37) U/L ALT (0-40) U/L Alkaline Phosphatase (39-117) U/L Troponin I High Sens 3.9 (<3.5-35.0) ng/L B-Natriuretic Peptide 11 (<100) pg/mL Total Protein (6.5-8.0) g/dL Albumin (3.5-5.0) g/dL Influenza Type A (PCR) NEGATIVE (Negative) Influenza Type B (PCR) NEGATIVE (Negative) RSV RNA Qual (PCR) NEGATIVE (Negative) SARS-CoV-2 RNA (RT-PCR) NEGATIVE (Negative) <LOKI Flores - Last Filed: 09/27/22 19:19> Lab Results 09/27/22 09/27/22 09/27/22 Range/Units 12:45 12:45 12:45 WBC 5.3 (4.8-10.8) X10*3/uL RBC 4.50 L (4.60-5.80) X10*6/uL Hgb 12.4 L D (14.0-18.0) g/dl Hct 38.1 L D (42.0-52.0) % MCV 84.7 (80.0-98.0) fL MCH 27.6 (27.0-33.0) pg MCHC 32.5 (31.0-36.0) g/dl RDW 17.6 H (11.0-16.0) % Plt Count 220 (160-400) X10*3/uL MPV 9.7 (9.4-12.4) fL Immature Gran % (Auto) 1.0 H (0.0-0.4) % Neut % (Auto) 77.1 H (45-73) % Lymph % (Auto) 9.9 L (20-40) % Butts % (Auto) 8.4 (2-11) % Eos % (Auto) 3.4 (0-4) % Baso % (Auto) 0.2 (0-2) % Lymph # (Auto) 0.5 L (1.2-4.9) X10*3/uL Butts # (Auto) 0.4 (0.1-1.2) X10*3/uL Eos # (Auto) 0.2 (0.0-0.4) X10*3/uL Baso # (Auto) 0.0 (0.0-0.2) X10*3/uL Abs Immat Gran (auto) 0.05 H (0.00-0.03) X10*3/uL Absolute Neuts (auto) 4.1 (2.0-8.3) x10*3/uL Absolute Nucleated RBC 0.000 (0.0-0.012) X10*3/uL Nucleated RBC % (auto) 0.0 (0.0-0.2) /100WBC PT 9.8 L (10.0-13.1) SEC INR 0.9 (0.9-1.1) APTT 33.6 (26.0-36.4) SEC Sodium 136 (135-145) mmol/L Potassium 4.4 (3.3-5.1) mmol/L Chloride 98 (96-108) mmol/L Carbon Dioxide 28 (22-29) mmol/L Anion Gap 14 (12-20) BUN 16 (9-16) mg/dL Creatinine 0.84 (0.5-1.4) mg/dL Estim Creat Clear Calc 86.6 Estimated GFR > 60 Random Glucose 178 H (60-115) mg/dL Calcium 9.7 D (8.4-10.2) mg/dL Total Bilirubin 0.3 (0.0-1.0) mg/dL AST 17 (5-37) U/L ALT 18 (0-40) U/L Alkaline Phosphatase 127 H (39-117) U/L Troponin I High Sens (<3.5-35.0) ng/L B-Natriuretic Peptide (<100) pg/mL Total Protein 6.8 (6.5-8.0) g/dL Albumin 3.8 (3.5-5.0) g/dL Influenza Type A (PCR) (Negative) Influenza Type B (PCR) (Negative) RSV RNA Qual (PCR) (Negative) SARS-CoV-2 RNA (RT-PCR) (Negative) 09/27/22 09/27/22 09/27/22 Range/Units 12:45 12:45 12:45 WBC (4.8-10.8) X10*3/uL RBC (4.60-5.80) X10*6/uL Hgb (14.0-18.0) g/dl Hct (42.0-52.0) % MCV (80.0-98.0) fL MCH (27.0-33.0) pg MCHC (31.0-36.0) g/dl RDW (11.0-16.0) % Plt Count (160-400) X10*3/uL MPV (9.4-12.4) fL Immature Gran % (Auto) (0.0-0.4) % Neut % (Auto) (45-73) % Lymph % (Auto) (20-40) % Butts % (Auto) (2-11) % Eos % (Auto) (0-4) % Baso % (Auto) (0-2) % Lymph # (Auto) (1.2-4.9) X10*3/uL Butts # (Auto) (0.1-1.2) X10*3/uL Eos # (Auto) (0.0-0.4) X10*3/uL Baso # (Auto) (0.0-0.2) X10*3/uL Abs Immat Gran (auto) (0.00-0.03) X10*3/uL Absolute Neuts (auto) (2.0-8.3) x10*3/uL Absolute Nucleated RBC (0.0-0.012) X10*3/uL Nucleated RBC % (auto) (0.0-0.2) /100WBC PT (10.0-13.1) SEC INR (0.9-1.1) APTT (26.0-36.4) SEC Sodium (135-145) mmol/L Potassium (3.3-5.1) mmol/L Chloride (96-108) mmol/L Carbon Dioxide (22-29) mmol/L Anion Gap (12-20) BUN (9-16) mg/dL Creatinine (0.5-1.4) mg/dL Estim Creat Clear Calc Estimated GFR Random Glucose (60-115) mg/dL Calcium (8.4-10.2) mg/dL Total Bilirubin (0.0-1.0) mg/dL AST (5-37) U/L ALT (0-40) U/L Alkaline Phosphatase (39-117) U/L Troponin I High Sens 3.9 (<3.5-35.0) ng/L B-Natriuretic Peptide 11 (<100) pg/mL Total Protein (6.5-8.0) g/dL Albumin (3.5-5.0) g/dL Influenza Type A (PCR) NEGATIVE (Negative) Influenza Type B (PCR) NEGATIVE (Negative) RSV RNA Qual (PCR) NEGATIVE (Negative) SARS-CoV-2 RNA (RT-PCR) NEGATIVE (Negative) <Rudy Barrett MD - Last Filed: 09/27/22 16:51> Independent Interpretation I performed an independent interpretation of an: EKG <Rudy Barrett MD - Last Filed: 09/27/22 16:51> Interpretation: NSR [address]-t changes no ischemia <Rudy Barrett MD - Last Filed: 09/27/22 16:51> Radiology Impression Discussion of test interpretation with radiology: I have reviewed the radiologist's reading. <Rudy Barrett MD - Last Filed: 09/27/22 16:51> Radiologist Impression: PLEURA: Stable pleural thickening bibasilar and biapical. Trace dependent right pleural effusion. MEDIASTINUM: Normal heart size.? No pericardial effusion.? No hilar or mediastinal lymphadenopathy.? No evidence of septal bowing or right heart strain. CORONARY ARTERY CALCIFICATION: None visualized on this study. CHEST WALL/AXILLA: No axillary or internal mammary lymphadenopathy. OSSEOUS STRUCTURES: No acute or suspicious osseous abnormality. Multilevel degenerative spondylosis spine.? UPPER ABDOMEN: Unremarkable.? No reflux of contrast into the hepatic veins to suggest elevated right heart pressures. CT/CT angio chest PE protocol IMPRESSION: 1.? No evidence of pulmonary embolism. 2.? Stable emphysematous changes of lungs. Stable large cyst or cavity in the right upper lobe with pleural and parenchymal scarring and thickening. No acute airspace disease. ? VTE: negative <Rudy Barrett MD - Last Filed: 09/27/22 16:51> Independent Historian Clinical information obtained from an independent historian. History obtained from or confirmed by: Other (Son) <Rudy Barrett MD - Last Filed: 09/27/22 16:51> External Record Review External record reviewed: Inpatient record <Rudy Barrett MD - Last Filed: 09/27/22 16:51> Prescription Management I considered prescription management with: Pain Medication <Rudy Barrett MD - Last Filed: 09/27/22 16:51> Chronic Conditions Patient?s care impacted by: Cancer <Rudy Barrett MD - Last Filed: 09/27/22 16:51> Social Determinants CT chest essentially unchanged,shared decision making with pt and son,it is reasonable d/c home,pt states that does not like oxycodone because makes him drowsy will try different analgesic ,will try tramadol <Rudy Barrett MD - Last Filed: 09/27/22 16:51> Discharge Plan Discharge Clinical Impression: Chest wall pain <LOKI Flores - Last Filed: 09/27/22 19:19> Patient Disposition: Home, Self-Care <LOKI Flores - Last Filed: 09/27/22 19:19> Instructions: Chest Wall Pain (ED) <LOKI Flores - Last Filed: 09/27/22 19:19> Additional Instructions: follow up with your Primary Care Doctor return if worse <LOKI Flores - Last Filed: 09/27/22 19:19> Prescriptions: New tramadol 50 mg tablet 50 mg PO Q6H PRN (Reason: pain) Qty: 15 0RF No Action ondansetron 8 mg Tablet,Disintegrating 8 mg PO Q8H PRN (Reason: Nausea) Qty: 30 3RF lorazepam 0.5 mg Tablet 0.5 mg PO BID PRN (Reason: Anxiety) Qty: 60 0RF famotidine 20 mg tablet 1 tab PO BID PRN (Reason: heartburn) codeine-guaifenesin 10-100 mg/5 mL liquid 5 ml PO TID PRN (Reason: cough) benzonatate 200 mg capsule 200 mg PO BID PRN (Reason: Cough) sennosides-docusate sodium [Senna with Docusate Sodium] 8.6-50 mg tablet 1 tab-cap PO BID PRN (Reason: Constipation) doxycycline monohydrate 100 mg tablet 100 mg PO BID Qty: 6 0RF amoxicillin-pot clavulanate 875-125 mg tablet 1 tab PO BID Qty: 6 0RF prednisone 10 mg tablet See Rx Instructions .ROUTE .COMPLEX Qty: 20 0RF Rx Instructions: 40 mg daily x 2 days, then 30 mg daily x 2 days, then 20 mg daily x 2 days, then 10 mg daily x 2 days metformin 500 mg tablet extended release 24 hr 500 mg PO BID Qty: 60 0RF (DME) FreeStyle Lite Strips Strip Qty: 100 0RF Rx Instructions: check blood glucose every morning before breakfast (DME) blood-glucose meter [FreeStyle Lite Meter] Kit Qty: 1 0RF Rx Instructions: check blood glucose every morning before breakfast alcohol swabs Pads, Medicated 1 pad TOPICAL DAILY Qty: 100 0RF Rx Instructions: check blood glucose every morning before breakfast (DME) lancets [FreeStyle Lancets] 28 gauge misc Qty: 100 0RF Rx Instructions: check blood glucose every morning before breakfast <LOKI Flores - Last Filed: 09/27/22 19:19> Referrals: Viraj Mckoy MD [Primary Care Provider] - 2 days <LOKI Flores - Last Filed: 09/27/22 19:19> Interventions: ED Discharge Assessment Last Done: 09/27/22 16:45 <LOKI Flores - Last Filed: 09/27/22 19:19> Discharge Date/Time: 09/27/22 16:45 <LOKI Flores - Last Filed: 09/27/22 19:19>
[2022-09-27 12:52] VITALS: RESP 20
[2022-09-27] MEDS: Morphine Sulfate 10 MG/ML CARTRIDGE 5 MG IVPUSH (12:52)
[2022-09-27 12:55] VITALS: BP 131/86; PULSE 100; RESP 20; TEMP 36.6; O2SAT 100
[2022-09-27 12:59] LABS: MANUAL DIFF FLAG NO
[2022-09-27 13:01] LABS: Basophils Percent Auto 0.2 % (0-2); Eosinophils Absolute Auto 0.2 X10*3/uL (0.0-0.4); Eosinophils Percent Auto 3.4 % (0-4); Hematocrit 38.1 % (42.0-52.0); Hemoglobin 12.4 g/dl (14.0-18.0); Imm Gran Abs Auto 0.05 X10*3/uL (0.00-0.03); Lymphocytes Absolute Auto 0.5 X10*3/uL (1.2-4.9); Lymphocytes Percent Auto 9.9 % (20-40); Mean Corpuscular HGB Conc 32.5 g/dl (31.0-36.0); Mean Corpuscular Hemoglobin 27.6 pg (27.0-33.0); Mean Corpuscular Volume 84.7 fL (80.0-98.0); Mean Platelet Volume 9.7 fL (9.4-12.4); Monocytes Absolute Auto 0.4 X10*3/uL (0.1-1.2); Monocytes Percent Auto 8.4 % (2-11); Neutrophils Absolute Auto 4.1 x10*3/uL (2.0-8.3); Neutrophils Percent Auto 77.1 % (45-73); Platelet Count 220 X10*3/uL (160-400); Red Cell Distribution Width 17.6 % (11.0-16.0); White Blood Count 5.3 X10*3/uL (4.8-10.8)
--- NOTE | 2022-09-27 13:05 | PC.NURSE ---
patient a/ox4 . markyrla . heart rate regular at 98 beats per minute . breathing even and unlabored . crackles noted in bilaterally upper lobes , airway flow diminished in right lobe . skin pink warm and moist . productive wet cough , patient reports green mucous for last week . abdomen soft , positive bowel sounds throughout . patient placed on cardiac rn . EKG done . IV placed in left A.C . labs sent . Patient medicated with IVP morphine for 8 out of 10 chest pain/ lung pain .as reported by patient . family at bedside . family and patient aware of plan of care .
[2022-09-27 13:06] LABS: INTERNATIONAL NORM RATIO 0.9 (0.9-1.1); Prothrombin Time 9.8 SEC (10.0-13.1)
[2022-09-27 13:09] LABS: Partial Thromboplastin Time 33.6 SEC (26.0-36.4)
[2022-09-27 13:19] LABS: Alanine Aminotransferase 18 U/L (0-40); Albumin Level 3.8 g/dL (3.5-5.0); Alkaline Phosphatase 127 U/L (39-117); Anion Gap 14 (12-20); Aspartate Amino Transferase 17 U/L (5-37); Bilirubin Total 0.3 mg/dL (0.0-1.0); Blood Urea Nitrogen 16 mg/dL (9-16); Calcium 9.7 mg/dL (8.4-10.2); Carbon Dioxide 28 mmol/L (22-29); Chloride 98 mmol/L (96-108); Creatinine Clr Calc Pharmacy 86.6; Estimated Glomerular Filt Rate > 60; Glucose Random 178 mg/dL (60-115); Potassium 4.4 mmol/L (3.3-5.1); Sodium 136 mmol/L (135-145); Total Protein 6.8 g/dL (6.5-8.0)
[2022-09-27 13:22] LABS: B Type Natriuretic Peptide 11 pg/mL (<100)
[2022-09-27 13:27] LABS: Troponin-I High Sensitivity 3.9 ng/L (<3.5-35.0)
[2022-09-27 13:37] LABS: Influenza A PCR NEGATIVE (Negative); Influenza B PCR NEGATIVE (Negative); Resp Syncy Virus RNA Qual PCR NEGATIVE (Negative); SARS COV2 PCR INHOUSE NEGATIVE (Negative)
--- NOTE | 2022-09-27 13:49 | PC.NURSE ---
Patient transported to [facility] for images . patient and family aware of plan of care .
[2022-09-27 14:00] VITALS: BP 125/76; PULSE 90; RESP 18; TEMP 36.5; O2SAT 100
--- NOTE | 2022-09-27 14:16 | PC.NURSE ---
patient a&o, vss, family at bedside, pt c/o 01/18 pain which he states has decreased, call castillo within reach, will continue to monitor
[2022-09-27] MEDS: iohexoL 350 MG/ML 100 ML INFUS..BTL IV (14:19)
[2022-09-27 16:27] VITALS: BP 119/77; PULSE 92; RESP 18; TEMP 36.6; O2SAT 99
== END 2022-09-27 16:45 | disposition home or self-care (01) ==
PROVIDERS: Physician Assistant; Emergency Provider Emergency Medicine; PCP Family Medicine
DX: R07.89 Other chest pain (principal); R06.02 Shortness of breath; Z87.891 Personal history of nicotine dependence; Z20.822 Contact with and (suspected) exposure to COVID-19; Z20.828 Contact with and (suspected) exposure to other viral communicable diseases; Z79.899 Other long term (current) drug therapy
CPT/HCPCS: 0241U; 36415; 71275; 80053; 83880; 84484; 85025; 85610; 85730; 93005; 96374; 99284; 99285; J2270; Q9967

== ENCOUNTER → 2022-09-29 12:57 | Outpatient (BNVA) | payer OTHER, SELFPAY | PROVIDERS: PCP Family Medicine; Visit Provider Hospitalist | DX: C34.91 Malignant neoplasm of unspecified part of right bronchus or lung (principal); J96.21 Acute and chronic respiratory failure with hypoxia; J43.2 Centrilobular emphysema; J18.9 Pneumonia, unspecified organism; Z92.21 Personal history of antineoplastic chemotherapy; Z92.3 Personal history of irradiation; Z99.81 Dependence on supplemental oxygen | CPT/HCPCS: 99202 ==

== ENCOUNTER → 2022-10-18 10:37 | Outpatient (BNVA) | payer OTHER, SELFPAY | PROVIDERS: PCP Family Medicine; Visit Provider Hospitalist | DX: J43.2 Centrilobular emphysema (principal); J96.21 Acute and chronic respiratory failure with hypoxia; C34.91 Malignant neoplasm of unspecified part of right bronchus or lung; J18.9 Pneumonia, unspecified organism | CPT/HCPCS: 99212 ==

== ENCOUNTER → 2022-10-25 08:43 | Outpatient (REF) | payer OTHER, SELFPAY ==
--- NOTE | 2022-10-25 08:48 | CA_ITS ---
Transthoracic Echocardiogram Patient (Last, First, Middle): Bayron Arenas C Gender: Male Date of : 1960 Age: 62 Procedure Date: 10/25/2022 Procedure Type: Transthoracic Echocardiogram Location: OP Height: 180.34 cm Weight: 70.31 kg BSA: 1.89 m2 Heart Rate: bpm BP: 135 / 80 mmHg Mail Technician: TO Referring MD: Neil Huynh MD Symptoms: R00.0 - Tachycardia, unspecified Study Quality: Fair ECG Rhythm: Sinus Conclusions: - The left ventricular systolic function is normal. The calculated ejection fraction is 65% by biplane method. - No obvious valvular pathology seen on this study. - There is a small loculated pericardial effusion overlying the left ventricle (noted in chest CT 08/2022). Findings Left Ventricle Normal left ventricular cavity size. There is normal left ventricular wall thickness. The left ventricular systolic function is normal. The calculated ejection fraction is 65% by biplane method. There is no evidence of regional wall motion abnormalities. Diastolic function is normal for age. Right Ventricle Normal right ventricular cavity size and systolic function. Atria Both atria are normal in size. Aortic Valve There is a normal trileaflet aortic valve. There is mild calcification of the aortic valve. There is no aortic valve stenosis. There is no aortic valve regurgitation. Mitral Valve The mitral valve appears normal. There is trace mitral valve regurgitation. There is no mitral valve stenosis. Pulmonic Valve The pulmonic valve is likely normal. Tricuspid Valve Normal tricuspid valve structure. There is trace tricuspid valve regurgitation. There is no evidence of pulmonary hypertension. Great Vessels The aortic annulus, sinuses of valsalva, and asc aorta are normal in size. Venous The inferior vena cava is normal in size and collapses greater than 50% with inspiration. Pericardium/Pleural There is a small loculated pericardial effusion overlying the left ventricle. Prior Study Comparison No prior study available for comparison. Recommendations, Care & Conclusions No obvious valvular pathology seen on this study. Measurements 2D Linear Measurements IVSd: 0.89 0.6-0.9/0.6-1.0 cm LVIDd: 4.74 3.9-5.3/4.2-5.9 cm LVIDd Index: 2.51 2.4-3.2/2.2-3.1 cm/m2 LVIDs: 3.33 2.0-3.6 cm LVPWd: 0.83 0.7-1.1 cm LA Diam: 3.10 2.7-3.8/3.0-4.0 cm LAIDs Index: 1.64 1.5-2.3 cm/m2 LV Mass: 169.22 67-162/88-224 g LV Mass Index: 89.54 43-95/49-115 g/m2 LVOT Diam: 2.00 3.0+(-)1.3 cm 2D Systolic Function EF 4C: 66.30 >55% EF 2C: 65.30 >55% EF BiP: 64.50 >55% Mitral Valve MV Pk E: 0.75 MV PK A: 0.82 MV Decel Time: 208.00 E/A: 0.90 E'Lateral: 9.57 E'Medial: 5.00 E/E' Med: 15.10 E/E' Lat: 7.90 PHT: 61.00 MVA PHT: 3.61 Decel Howell: 3.63 Aortic Valve AoV Pk Ric: 1.44 AoV Mn Ric: 0.97 AoV VTI: 0.26 AoV Pk Grad: 8.00 Aov Mn Grad: 4.00 CURTIS Cont.VTI: 3.16 LVOT LVOT Pk Ric: 1.46 LVOT Mn Ric: 0.94 LVOT VTI: 0.27 LVOT Pk Grad: 9.00 LVOT Mn Grad: 4.00 LVOT Diam: 2.00 LVOT Area: 3.14 Diastolic Function MV Pk E: 0.75 MV Pk A: 0.82 E/A: 0.90 E'Medial: 5.00 E/E' Med: 15.10 E' Laterial: 9.57 E/E' Lat: 7.90 Right Ventricle TAPSE (mm): 18.70 TVS' Ric: 11.10 Tricuspid Valve TR Pk Ric: 2.07 TR Pk Grad: 17.00 Great Vessels Aorta Sinus of Valsalva: 3.03 2.0-3.[address] Ridge: 2.11 1.7-3.4 cm Ao Asc: 2.80 2.1-3.4 cm Updated in Other Vendor System with Status of Final Tao Mahmood MD electronically signed on 10/25/2022 12:36:53 PM with status of Final
== END ==
LOC: HO.CARD 08:43
PROVIDERS: PCP Nurse Practitioner Family; Visit Provider Hospitalist
DX: R00.0 Tachycardia, unspecified (principal)
CPT/HCPCS: 93306

== ENCOUNTER 2022-10-25 10:04 | Outpatient (REF) | payer OTHER, SELFPAY | END 2022-10-25 10:05 | disposition home or self-care (01) | LOC: HO.PET 10:04 | PROVIDERS: PCP Family Medicine; Visit Provider Internal Medicine | DX: Z13.89 Encounter for screening for other disorder (principal) ==

== ENCOUNTER 2022-11-03 10:01 | Outpatient (REF) | payer OTHER, SELFPAY ==
--- NOTE | ~2022-11-03 | XR_ITS ---
EXAMINATION: XR CHEST CLINICAL INFORMATION: Dyspnea COMPARISON: 09/02/2022 TECHNIQUE: 2 views of the chest were obtained. FINDINGS: Interval increase in right lung opacities with bronchial wall thickening. Right lung cystic opacity with increased peripheral thickening measuring up to 1.1 cm. No effusion. Unchanged cardiac mediastinal silhouette. XR/XR chest 2V IMPRESSION: Interval increase in right lung opacities with bronchial wall thickening. Right lung cystic opacity with increased peripheral thickening measuring up to 1.1 cm. Findings are concerning for infection.
== END 2022-11-03 10:02 | disposition home or self-care (01) ==
LOC: HO.XRAY 10:01
PROVIDERS: PCP Nurse Practitioner Family; Visit Provider Hospitalist
DX: C34.91 Malignant neoplasm of unspecified part of right bronchus or lung (principal); J96.21 Acute and chronic respiratory failure with hypoxia; J43.2 Centrilobular emphysema; J18.9 Pneumonia, unspecified organism
CPT/HCPCS: 71046; 99212

== ENCOUNTER 2022-11-15 09:43 | Outpatient (REF) | payer OTHER, SELFPAY ==
--- NOTE | ~2022-11-15 | PE_ITS ---
EXAMINATION: Fluorine-18 FDG PET/CT Scan CLINICAL INDICATION: Subsequent treatment management. Malignant neoplasm right lung, restaging. Status post chemotherapy and radiation therapy last treatment 7 weeks ago, September 2022. PROCEDURE: 70 minutes following the intravenous administration of 17.1 mCi of fluorine 18 FDG, images from the base of the skull to the mid thighs were obtained using a combined PET/CT scanner with CT scan based attenuation correction. No oral contrast was administered. No intravenous contrast was administered. Transverse, coronal, sagittal, and volume reconstruction projections were obtained. The patient's blood glucose as determined by a finger stick, was 135 mg/dl immediately prior to injection. Total CT exam dose-length product 386.71 mGy-cm * These CT images were obtained using dose optimization techniques as appropriate, variously including the following: Automated exposure control * Adjustment of mA and/or kV according to patient size (this includes techniques or standardized protocols for targeted exams where dose is matched to indication/reason for exam; i.e. extremities or head) * Use of iterative reconstruction technique COMPARISON: The previous PET CT scan dated 05/24/2022 is available for comparison. CT angiogram of the chest dated 09/27/[address] scan of the abdomen and pelvis dated 08/24/2022 are also available for comparison. FINDINGS: (Slice numbers described in this report are numbered superiorly to inferiorly with slice #1 in the head) NECK AND VISUALIZED HEAD: There is an FDG avid left cervical level 5B lymph node showing SUVmax 7.4, slice 59/267 corresponding to a lymph node on the CT images measuring 1.6 x 1.0 cm in largest transverse dimensions. An additional right sided subcentimeter mildly FDG avid cervical level 5B lymph node is also present, SUVmax 4.1, slice 58/267.. The left-sided lymph node was not present on the prior 05/24/[address] scan, but the mildly FDG avid right supraclavicular lymph node on the current study corresponds to a much more intensely FDG avid lymph node present on 05/24/2022, with previous SUVmax 6.6. Medial to the previously described FDG avid left supraclavicular node there are few subcentimeter weakly FDG avid lymph nodes just lateral to the left lobe of the thyroid gland and this weak FDG activity was also not present on 05/24/2022. No additional cervical lymphadenopathy is present. The distribution of FDG activity in the remainder of the neck and visualized head appears physiological. THORAX: There has been a marked diminution in the intensity of FDG activity as well as a significant diminution in the size of a right lung mass present on the prior 05/24/[address] scan. There are now are patchy opacities present with mild FDG activity throughout the right upper lobe with the most prominent abnormalities in the periphery of the air cyst that measures 3.2 x 1.9 cm in largest transverse dimensions, and approximately 2.5 cm cephalocaudad. This is located in the region of the right upper lobe that was previously within the intensely FDG avid right lung mass. This now shows SUVmax 4.6, slice 92/267 versus SUVmax 14.9 previously. There is diffuse FDG avid pleural thickening in the right lung, most prominently posteriorly in the right lower lobe this shows SUVmax 4.9, slice 101/267. In addition to the FDG avid pleural thickening there is some pleural fluid on the right, but most of this is only weakly FDG avid. In the left lung there is some weakly FDG avid dependent atelectasis but no discrete foci of abnormal FDG activity are present in the left lung. Diffuse emphysema is noted bilaterally. There is no left-sided pleural fluid or pneumothorax. A small amount of pericardial fluid is present, predominantly on the left, and this does not show significant FDG activity. There are few FDG avid high prevascular left-sided mediastinal lymph nodes that are more intense than on 05/24/2022, the most prominent showing SUVmax 4.7, slice 65/267, but multiple previously very prominently FDG avid right high paratracheal, right hilar and subcarinal FDG avid lymph nodes are much less intense on the current study. ABDOMEN AND PELVIS: There are no foci of abnormal FDG activity in the abdomen or pelvis. There is mild FDG activity throughout the gastrointestinal tract without a suspicious focal component or corresponding CT abnormality. The liver, gallbladder, and spleen are unremarkable. A hypodense left renal cyst is unchanged from 05/24/2022 and is markedly FDG photopenic. The adrenal glands are unremarkable. The pancreas is atrophic but otherwise unremarkable. There is no retroperitoneal, mesenteric, pelvic or inguinal lymphadenopathy. The pelvic organs are unremarkable. Bilateral fat-containing inguinal hernias and a right-sided hydrocele which is markedly FDG photopenic are also noted and appear unchanged from 05/24/2022. MUSCULOSKELETAL: There are no foci of abnormal FDG activity in the osseous structures. There are diffuse degenerative changes in the spine but no suspicious sclerotic or lytic lesions are visualized. VASCULAR: Vascular calcifications including some coronary calcifications are noted. Ectasia of the infrarenal abdominal aorta measuring 2.8 cm in largest AP diameter is stable from prior studies. PET/PET CT fusion skull to thigh IMPRESSION: 1. There has been a marked partial metabolic response to therapy of extensive FDG avid masses previously present in the right lung. 2. There has also been resolution of some mediastinal and right hilar FDG avid lymphadenopathy and improvement (partial response) of right supraclavicular FDG avid lymphadenopathy. 3. However, some new FDG avid left supraclavicular and worsening high left prevascular mediastinal lymph nodes are present. 4. There are no FDG avid or other lesions outside the chest and supraclavicular lymph nodes suspicious for other metastatic or malignant lesions. 5. Vascular calcifications including coronary.
== END 2022-11-15 09:44 | disposition home or self-care (01) ==
LOC: HO.PET 09:43
PROVIDERS: PCP Nurse Practitioner Family; Visit Provider Internal Medicine
DX: Z13.89 Encounter for screening for other disorder (principal)

== ENCOUNTER → 2022-12-05 14:15 | Outpatient (BNVA) | payer OTHER, SELFPAY | PROVIDERS: PCP Family Medicine; Visit Provider Hospitalist | DX: C34.91 Malignant neoplasm of unspecified part of right bronchus or lung (principal); J43.2 Centrilobular emphysema; J18.9 Pneumonia, unspecified organism | CPT/HCPCS: 99212 ==

== ENCOUNTER 2023-01-06 15:40 | Outpatient (REF) | payer OTHER, SELFPAY ==
--- NOTE | ~2023-01-06 | XR_ITS ---
EXAMINATION: XR CHEST CLINICAL INFORMATION: Lung cancer. Shortness of breath. COMPARISON: PET/CT 11/15/2022, chest radiographs 11/03/2022, 09/02/2022 TECHNIQUE: Frontal view of the chest was obtained. FINDINGS: Coarsening of the interstitial markings is similar to prior exam. Left lung shows no airspace consolidation or effusion. Right hemithorax again shows mild tenting of the diaphragm and subpleural groundglass opacity is similar to prior exam. Right perihilar cavitary lesion is decreased in size and there is no longer fluid level suggested. There is no interval airspace consolidation or groundglass opacity or effusion. The heart is normal in size. Vascularity normal. XR/XR chest 1V IMPRESSION: No significant changes from prior exam.
== END 2023-01-06 15:41 | disposition home or self-care (01) ==
LOC: HO.XRAY 15:40
PROVIDERS: PCP Family Medicine; Referring Provider Hospitalist; Visit Provider Internal Medicine
DX: R06.00 Dyspnea, unspecified (principal); C34.91 Malignant neoplasm of unspecified part of right bronchus or lung
CPT/HCPCS: 71045

== ENCOUNTER 2023-01-11 15:26 | Outpatient (REF) | payer OTHER, SELFPAY | END 2023-01-11 15:27 | disposition home or self-care (01) | LOC: HO.SH 15:26 | PROVIDERS: Visit Provider Family Medicine | DX: H90.6 Mixed conductive and sensorineural hearing loss, bilateral (principal) | CPT/HCPCS: 92557 ==

== ENCOUNTER 2023-02-17 18:16 | Outpatient (REF) | payer OTHER, SELFPAY ==
--- NOTE | ~2023-02-17 | MR_ITS ---
EXAMINATION: MR BRAIN WITHOUT AND WITH CONTRAST CLINICAL INFORMATION: Evaluate for brain metastases COMPARISON: MRI of the brain with and without contrast 09/02/2022 TECHNIQUE: Multiplanar multisequence MR imaging of the brain was obtained without and following the administration of 7.5 mL Gadavist intravenous contrast. FINDINGS: There is no acute infarct on diffusion-weighted imaging. There is no intracranial hemorrhage on iron-sensitive imaging. No extra-axial collection or mass effect/herniation. Normal parenchymal signal characteristics. No hydrocephalus. Mild generalized cerebral volume loss with commensurate sulcal and ventricular prominence. No abnormal parenchymal or extra-axial enhancement. The major flow voids at the skull base are preserved. The midline structures are normal. The cerebellar tonsils are normally positioned. The craniocervical junction is normal. Marrow signal is within normal limits. The visualized soft tissues are without significant abnormality. Bilateral mastoid effusions, new on the left. MR/MR head/brain wo/w con IMPRESSION: 1. No evidence of intracranial metastatic disease. 2. Bilateral mastoid effusions.
== END 2023-02-17 18:17 | disposition home or self-care (01) ==
LOC: HO.MRI 18:16
PROVIDERS: PCP Family Medicine; Visit Provider Internal Medicine
DX: R51.9 Headache, unspecified (principal); C34.91 Malignant neoplasm of unspecified part of right bronchus or lung
CPT/HCPCS: 70553; A9585

== ENCOUNTER → 2023-02-20 09:49 | Outpatient (BNVA) | payer OTHER, SELFPAY | PROVIDERS: PCP Internal Medicine; Visit Provider Hospitalist | DX: J18.9 Pneumonia, unspecified organism (principal); J43.2 Centrilobular emphysema; C34.91 Malignant neoplasm of unspecified part of right bronchus or lung | CPT/HCPCS: 94618; 99212 ==

== ENCOUNTER → 2023-03-03 09:12 | Outpatient (BNVA) | payer OTHER, SELFPAY | PROVIDERS: PCP Internal Medicine; Visit Provider Psychiatry & Neurology Neurology | DX: R56.9 Unspecified convulsions (principal) | CPT/HCPCS: 99202 ==

== ENCOUNTER 2023-03-28 12:18 | Outpatient (REF) | payer OTHER, SELFPAY ==
--- NOTE | ~2023-03-28 | PE_ITS ---
EXAMINATION: Fluorine-18 FDG PET/CT Scan CLINICAL INDICATION: Subsequent treatment management. Malignant neoplasm of right lung. Status post chemotherapy and radiation therapy. For follow-up. Restaging. PROCEDURE: 65 minutes following the intravenous administration of 16.8 mCi of fluorine 18 FDG, images from the base of the skull to the mid thighs were obtained using a combined PET/CT scanner with CT scan based attenuation correction. No intravenous contrast was administered. Transverse, coronal, sagittal, and volume reconstruction projections were obtained. The patient's blood glucose as determined by a finger stick, was 103 mg/dl immediately prior to injection. The radiotracer was injected intravenously through left antecubital superficial vein, without any complications. Total CT exam dose-length product 703.45 mGy-cm * These CT images were obtained using dose optimization techniques as appropriate, variously including the following: Automated exposure control * Adjustment of mA and/or kV according to patient size (this includes techniques or standardized protocols for targeted exams where dose is matched to indication/reason for exam; i.e. extremities or head) * Use of iterative reconstruction technique COMPARISON: Baseline PET/CT study done on 05/24/2022 and most recent prior PET CT study done on 11/15/2022. MRI of the head done on 05/31/2023 is also reviewed. FINDINGS: NECK AND VISUALIZED HEAD: Interval complete metabolic response of bilateral FDG avid supraclavicular lymphadenopathy since the prior study dated 11/15/2022. No new abnormalities. THORAX: Interval complete metabolic response of previously documented left superior anterior mediastinal FDG avid lymphadenopathy since the prior study. Interval development of pleural-based nonspecific focal airspace opacity associated with mild FDG avidity (SUV max of 3.7-92/267) is noted along the right upper anterolateral hemithorax, may represent evolving posttreatment changes versus evolving pleural-parenchymal scar, atelectasis or infiltrate or combination thereof. Previously documented, clinically known non-FDG avid cavitary lesion and adjacent peribronchiolar thickening and bronchiectatic changes and presumed fibrotic changes at the site of the previously documented intense FDG avid biopsy-proven malignancy appear similar to most recent prior study dated 11/15/2022, consistent with stable posttreatment changes. No definite FDG avid mediastinal, hilar, axillary or internal mammary lymphadenopathy. Note is made of non-FDG avid moderate to large simple appearing right-sided pleural effusion which has significantly increased in size since the most recent prior study dated 11/15/2022. Persistent stable small volume simple appearing fluid is noted within the base of the pericardial space consistent with stable pericardial effusion, unchanged since the baseline study dated 05/24/2022. ABDOMEN AND PELVIS: Interval development of mild FDG avidity is noted within the stomach, likely represent inflammatory changes. Please correlate clinically. No focal FDG avid liver, splenic or adrenal disease. The gallbladder, biliary tree, pancreas appear unremarkable. Simple appearing exophytic cortical renal cyst is noted, appears photopenic involving the anterior mid to superior cortex of the left kidney, appears similar to prior studies. No FDG avid retroperitoneal, mesenteric, pelvic and/or groin lymphadenopathy, unchanged. Long segment FDG avidity involving the right-sided colon is likely physiologic. Persistent stable large volume right-sided hydrocele appear unchanged. The prostate is mildly enlarged. MUSCULOSKELETAL: No suspicious FDG avid osseous disease, unchanged. VASCULAR: Diffuse atherosclerotic disease of the aorta and its branches including coronary artery calcifications. Specific note is made of infrarenal abdominal aortic ectasia measuring 2.8 cm at its maximum dimension. SUV max OF MEDIASTINAL BLOOD POOL: 2.9 SUV max OF LIVER: 3.2 PET/PET CT fusion skull to thigh IMPRESSION: 1. Complete metabolic response at the site of previously documented bilateral FDG avid supraclavicular and left superior mediastinal lymphadenopathy since the prior study dated 11/15/2022. 2. Interval development of pleural-based nonspecific mild FDG avid focal airspace opacities noted at right upper anterolateral hemithorax with SUV max of 3.7 (92/267), may represent evolving posttreatment changes versus evolving pleural parenchymal scar, atelectasis or infiltrate or combination thereof. Attention to follow-up is recommended. 3. Otherwise, previously documented posttreatment changes at the site of the known malignancy involving the right upper lobe of the lung appear stable without any significant FDG avidity to suspect disease recurrence. 4. Non-FDG avid moderate to large simple appearing right-sided pleural effusion, has significantly increased since the most recent prior study dated 11/15/2022. 5. Mild nonspecific FDG avidity within the stomach, new since the prior studies, may represent inflammatory changes. Clinical correlation is recommended.
== END 2023-03-28 12:19 | disposition home or self-care (01) ==
LOC: HO.PET 12:18
PROVIDERS: PCP Internal Medicine; Visit Provider Internal Medicine
DX: Z13.89 Encounter for screening for other disorder (principal)

== ENCOUNTER 2023-04-12 12:53 | Outpatient (REF) | payer OTHER, SELFPAY ==
--- NOTE | 2023-04-12 12:57 | EEG_ITS ---
FINDINGS: Waking background activity consists of a well-defined, moderate-voltage posterior 9 hertz alpha frequency intermixed anteriorly with low voltage fast frequencies. Photic stimulation is without activation. hyperventilation is omitted. No sleep stages are identified. No focal, lateralizing, or paroxysmal discharges are seen. IMPRESSION: This waking EEG is within normal limits. MD RHETT Curtis/AMELIA / [id number]
== END 2023-04-12 12:54 | disposition home or self-care (01) ==
LOC: HO.NEURO 12:53
PROVIDERS: PCP Internal Medicine; Visit Provider Psychiatry & Neurology Neurology
DX: R56.9 Unspecified convulsions (principal)
CPT/HCPCS: 95816

== ENCOUNTER 2023-04-17 08:32 | Outpatient (AMB) | payer OTHER, SELFPAY ==
--- NOTE | 2023-04-17 08:40 | MHC.OFFVIS ---
Intake Vital Signs 04/17/23 08:42 Height 5 ft 11 in Weight 154 lb 5.177 oz BMI 21.5 BP 124/70 Blood Pressure Location Rt brachial Position Sitting Pulse 89 Pulse Source Pulse Oximeter Pulse Oximetry (%) 97 Oxygen Delivery Method Room Air Comment 1.5 Liter Oxygen([employer]) Intake Visit Reasons: Check-up on coughing Fitness Floor Attendant Required: No Allergies No Known Allergies Allergy (Verified 04/17/23 08:45) HPI HPI Comments History of Present Illness Details The patient is a 62-year-old gentleman who was initially evaluated back in the summer of 2021 with worsening cough. He did have a CT scan that point he had a large right middle lobe mass with hilar density as well. 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 He was treated with concomitant chemoradiation including cisplatin and Taxol. The patient completed radiation therapy. However, started developing worsening right-sided chest pains and worsening shortness of breath. Therefore he was started on antibiotics by his radiation therapist. However his symptoms worsened he was admitted to the hospital with a right-sided pneumonia. The patient is treated with antibiotics. He was also placed on oxygen. He has been off the chemo since then. He did speak to Oncology regarding starting immune therapy. I did evaluate his last CTA that he had couple days ago. Appears that he has the masslike density has not become cavitated. He still has some residual abnormalities. In addition to that he has significant airspace disease in pneumonitis along with reactive inflammation of the pleura. He also has a small right-sided pleural effusion. Likely that he has a component of pneumonitis resulting from the chemotherapy and radiation in addition to a component of pleuritis. Smoldering infections are also in the differential she was leukopenic. At this point the patient is still having discomfort so therefore will start him on prednisone. The the patient also had pulmonary function studies demonstrating moderate COPD. The patient also had a moderate restriction due to pneumonitis and also had evidence of severe diffusion impairment. The patient will be started on respiratory therapy for the COPD. He is also continues the oxygen. I will speak further with Oncology regarding the need for bronchoscopy. 10/18/2022 the patient is here for pulmonary follow-up visit. Overall the patient is feeling better. He is not completing the course of prednisone. He only has several days ago. Unfortunately he was not able to gets PET scan because he developed worsening chest pain. He did go to the ER had a CTA. It appears that the cavitary lesions about the same. The ground-glass opacities have subsided some degree. Overall looks like he has improved some. He did start the Advair which she is taking it twice a day. I am hopeful that he can reschedule the PET scan. We did call in to help him schedule it and is currently scheduled for October 25 at 11:15. The patient has the information to make sure that he follows through with that. He understands his blood sugar needs to be below 200 in order to get an effective PET scan and is going to be off the prednisone by then anyway. During our brief walking oximetry the patient was able to maintain a pulse ox between 93-95% with activity. However the heart rate was elevated to about 120 beats per minute. The patient was winded as well. The etiology for the tachycardia still not clear. I will request an echocardiogram and also TSH for the patient. I am also hopeful the patient can follow up with Oncology after the PET scan to see about starting immune therapy. 11/03/2022 the patient is here for a pulmonary follow-up visit. He is feeling more shortness of breath. Unfortunately he had his PET scan but it could not be interpreted so therefore he had to be rescheduled. There was a confusion about his appointment so therefore he missed his PET scan appointment and then will had to be rescheduled again. He is planned to have a this Monday. Unfortunately meantime he has continued to have worsening respiratory status. He did not come in with his oxygen today. I did emphasize that he should use the oxygen with activity. I did have him go for chest x-ray demonstrating some increased haziness of the right hemithorax and also appears to be a nodular like opacity in the left hemithorax. Question of further progression of his cancer. Will hopefully get a better idea once he gets his PET scan. I will give him 4 more days of prednisone and also a Z-Sudheer so we can take that and see if he develops any significant improvement. He should be off the prednisone by Monday in order to get his sugars back to below 200-80 getting adequate PET scan. After the PET scan we can address if this appears to be more recurrent cancer versus pneumonitis versus any risk of any infectious processes. 12/05/2022 the patient is here for a pulmonary follow-up visit. Since we last spoke he did get the PET scan demonstrating the metastatic disease to the lymph nodes. The patient did start his immune therapy for the cancer. He had the 1st dose any seems to be tolerating it with some minimal adverse effects. He is complaining of some increasing shortness of breath and also productive cough with green phlegm. Has a hard time expectorating the phlegm. Sometimes takes a while to bring up some phlegm. Will start him on some antibiotics. The patient tolerated well the deep PACs will go ahead and place him on azithromycin 3 times a week. If the patient feels better then he will continue it. If the patient does not feel better on this therapy then I did provide him with sputum cup for culture and also he can come in for chest x-ray. Depending on his response to therapy we can always consider bronchoscopy to further address the airway disease depending on the x-ray and his response to therapy. He understands it is crucial for him to stay on the PDL1 inhibitor as this cancer has metastasized and this would allow the cancer to be effectively treated. 02/20/2023 the patient is here for a pulmonary follow-up visit. The patient overall has been feeling better. He is tolerating the PDL1 inhibitor. The patient is following closely with Oncology. The plan to repeat the PET scan a few months. In the meantime he has been off prednisone. He continues with the nebulized therapy. He also continues with the oxygen. Sometimes hard for him to get around with the large tanks. Therefore we did do a repeat 6 minutes walk test. The patient did my lot better not requiring oxygen at rest. The patient did need oxygen with activity. He desaturated down to 88% will place him on a portable oxygen concentrator 2 L pulse he was able to maintain a pulse ox of 94% with activity. Therefore will request be cylinders with a conserving valve for him to start off with and then also a portable oxygen concentrator to be provided once once available. The portable oxygen concentrator will provide with better portability outside of the home which is what he needs. 04/17/2023 the patient is here for pulmonary follow-up visit. He continues to have dyspnea on exertion. Moderate severity. Actually even at rest. The patient has been using the oxygen at 2 L with partial improvement. Is very hard for him to carry the oxygen tank. The patient did qualify for the conserving device. Sleep. We had him go for a walk any qualify still. Therefore will would request the cylinders with a conserving valve. The patient also requesting portable oxygen concentrator for increased portability and ease carrying the oxygen. The patient did have a PET scan recently. Review we did review it. Appears to have significant improvement of the mass and the FDG activity. Although now he appears to have a moderate-sized pleural effusion. Likely contributing to his breathing. The patient will need to have drained. He continues with the nebulized therapy does her affecting beneficial. His eosinophil count is increasing on the blood. 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 The patient cannot take prednisone because of the PDL1 inhibitor. She continues to be symptomatic even after the drainage the fluid and we can consider Dupixent as a good option for frequent exacerbation of his COPD. [facility] Medical History (Updated 04/17/23 @ 09:04 by Neil Huynh MD) Acute and chronic respiratory failure Chronic respiratory failure Diabetes (Unknown) Dyspnea Non-small cell cancer of right lung (~2021) Pleural effusion on right Pleuritis Pneumonitis Seizures Tachycardia Type 2 diabetes mellitus with hyperglycemia Surgical History History of lung biopsy Family History Mother Diabetes Father Diabetes Social History Household Members: Spouse and Children Household Members Other:: son Housing: Apartment Do you presently have visiting nurse or other home services: No Alcohol intake: never Patient Tobacco Use Status: Former Tobacco user Quit Date: 05/12/22 Tobacco use type: Cigarette e-Cigarette/Vaping Use: Never Used Second Hand Smoke Exposure: No service: No Current occupational status: retired Review of Systems Const Denies chills, Denies fatigue, Denies fever(s), Denies headache(s) and Denies weakness ENT Denies dizziness and Denies headache(s) Card Denies chest pain, Denies lightheadedness, Reports dyspnea, Reports dyspnea on exertion and Denies other (Palpitations) Resp Denies change in phlegm color, Denies chest congestion, Denies cough, Reports dyspnea, Reports dyspnea on exertion, Denies wheezing and Denies other ( shortness of breath) GI Reports abdominal pain Musc Denies numbness and Denies tingling Neuro Denies dizziness, Denies headache(s), Denies numbness, Denies tingling, Denies paresthesias and Denies weakness Psych Denies anxiety and Denies depression Endo Denies fatigue, Denies polydipsia and Denies polyuria Aller/Immun Denies wheezing Physical Exam Vital Signs: Last Vital Signs Pulse 89 04/17/23 08:42 BP 124/70 04/17/23 08:42 Pulse Ox 97 04/17/23 08:42 Oxygen Delivery Method Room Air 04/17/23 08:42 BMI result Body Mass Index 21.5 Const General: comfortable Nutritional Appearance: thin HEENT Head: Yes normocephalic and Yes atraumatic Eyes General: appearance normal, both eyes and all related structures Neck Neck: Yes supple Chest Chest palpation & inspection: normal inspection of the chest Resp Effort & Inspection: normal respiratory effort Auscultation: no rales and diminished lung sounds Cardio Rate: regular rate Rhythm: regular rhythm Heart sounds: S1 normal heart sound present and S2 normal heart sound present GI Auscultation: normal bowel sounds Skin General skin exam: no rashes or lesions noted Extrem General: Yes clubbing, No cyanosis and No edema Office Procedures 6 Minute Walk SPO2 % at rest: 95 Pulse at rest: 89 SPO2 % during excercise: 88 Pulse during excercise: 90 Distance in yards walked: 150 Juan Score: 7 Supplemental Oxygen: desaturated to 88% with activity, placed on 2L/pulse and maintained pox 92% with activity 74030 - 6 Minute Walk Results Reviewed Results Reviewed: PET/CT personally reviewed by be: moderate right sided pleural effusion Assessment & Plan Assessment & Plan (1) COPD (chronic obstructive pulmonary disease): Code(s): J44.9 - Chronic obstructive pulmonary disease, unspecified Qualifiers: COPD type: emphysema Emphysema type: centrilobular Qualified Code(s): J43.2 - Centrilobular emphysema (2) Non-small cell cancer of right lung: Onset Date: ~2021 Comment: (RML Adenocarcinoma - Clinical stage cT3N2/3, IIIB/C - dx 04/2022) Code(s): C34.91 - Malignant neoplasm of unspecified part of right bronchus or lung (3) Pneumonitis: Comment: better Code(s): J18.9 - Pneumonia, unspecified organism (4) Pleural effusion on right: Code(s): J90 - Pleural effusion, not elsewhere classified Plan Diagnostic/therapeutic right sided thoracentesis. Labs requested continue budesonide BID continue Xopenex DOMINIC as needed consider Dupixent based on the COPD and the elevated Eosiniphil count. continue azithromycin MWF continue PDL1 inhibitor oxygen revision: 2L/pulse with activity and 2L with sleep. requesting a portable oxygen concentrator in order to have better portability outside of the home. He has a hard time handling the oxygen tanks. benzonates as needed Once better, will benifit from pulmonary rehab F/U 8-10 weeks Orders: Orders Cell Count w Diff Pleural Fld Today J90 - Pleural effusion, not elsewhere classified LDH Pleural Fluid Today J90 - Pleural effusion, not elsewhere classified pH Pleural Fluid Today J90 - Pleural effusion, not elsewhere classified Total Protein Pleural Fluid Today J90 - Pleural effusion, not elsewhere classified Other Ref Test - Misc Today J90 - Pleural effusion, not elsewhere classified Routine Culture w Gram Stain Today J90 - Pleural effusion, not elsewhere classified US drain thoracentesis w image Today J90 - Pleural effusion, not elsewhere classified AMB 6 minute walk Today J43.2 - Centrilobular emphysema Medications: Discontinued lorazepam 0.5 mg PO BID PRN 60 tabs 0RF Anxiety methylprednisolone Use as directed. Taper as directed. 4 mg PO DAILY 21 ea 0RF Coding Level of Care Code Est Pt Level 5 (18789) Diagnoses COPD (chronic obstructive pulmonary disease) J43.2 COPD type: emphysema Emphysema type: centrilobular Non-small cell cancer of right lung C34.91 Pneumonitis J18.9 Pleural effusion on right J90 CPT Codes Coding ([id number]) Time Spent (min) 45
[2023-04-17 08:42] VITALS: BP 124/70; PULSE 89; O2SAT 97; BMI 21.5
[2023-04-17 21:15] VITALS: PULSE 89; O2SAT 95
== END 2023-04-17 09:29 | disposition home or self-care (01) ==
PROVIDERS: PCP Internal Medicine; Visit Provider Hospitalist
DX: J43.2 Centrilobular emphysema (principal); C34.91 Malignant neoplasm of unspecified part of right bronchus or lung; J18.9 Pneumonia, unspecified organism; J90 Pleural effusion, not elsewhere classified
CPT/HCPCS: 94618; 99215

== ENCOUNTER → 2023-04-17 08:32 | Outpatient (BNVA) | payer OTHER, SELFPAY | PROVIDERS: PCP Internal Medicine; Visit Provider Hospitalist | DX: J96.20 Acute and chronic respiratory failure, unspecified whether with hypoxia or hypercapnia (principal); J43.2 Centrilobular emphysema; J90 Pleural effusion, not elsewhere classified; C34.91 Malignant neoplasm of unspecified part of right bronchus or lung; Z87.891 Personal history of nicotine dependence; Z92.21 Personal history of antineoplastic chemotherapy; Z92.3 Personal history of irradiation; Z99.81 Dependence on supplemental oxygen | CPT/HCPCS: 94618; 99212 ==

== ENCOUNTER 2023-04-21 13:44 | Outpatient (REF) | payer OTHER, SELFPAY ==
--- NOTE | ~2023-04-21 | XR_ITS ---
EXAMINATION: XR CHEST CLINICAL INFORMATION: Recurrent right pleural effusion COMPARISON: 01/06/2023, 11/03/2022 TECHNIQUE: 2 views of the chest were obtained. FINDINGS: Redemonstration of coarsening of the interstitial markings. Heart size normal. Right perihilar cavity appears increased in size, although precise measurements are limited due to technical differences and background interstitial opacities. CT scan should be considered for more accurate assessment Persistent right subpleural groundglass opacities redemonstrated, decreased. Degenerative changes in the thoracic spine. XR/XR chest 2V IMPRESSION: Right perihilar cavity appears increased in size, although precise measurements are limited due to technical differences and background interstitial opacities. CT scan should be considered for more accurate assessment
== END 2023-04-21 13:45 | disposition home or self-care (01) ==
LOC: HO.XRAY 13:44
PROVIDERS: Visit Provider Internal Medicine
DX: J90 Pleural effusion, not elsewhere classified (principal)
CPT/HCPCS: 71046

== ENCOUNTER 2023-05-05 08:37 | Day surgery (SDC) | payer OTHER, SELFPAY ==
[2023-05-05] VITALS (8 sets, daily range): BP systolic 116–161; BP diastolic 74–95; PULSE 70–96; RESP 15–20; TEMP 36.1–36.6; O2SAT 97–98; BMI 21.6
--- NOTE | ~2023-05-05 | US_ITS ---
EXAMINATION: Ultrasound-guided thoracentesis. CLINICAL INDICATION: Right pleural effusion. TECHNIQUE: Following explaining ultrasound-guided right thoracentesis procedure, benefits and risk, a written consent was obtained. Patient was placed upright sitting with preliminary imaging obtained through the right posterior chest. An optimal site was selected and marked on the posterior infrascapular line. Marked area was cleaned and draped in usual sterile fashion with 2% chlorhexidine solution. 1% lidocaine was injected. Through a small skin incision a 5 [employer] catheter was advanced into the right pleural space. After observing fluid return, stylet was withdrawn and catheter connected to vacuum bottle. After obtaining all fluid and observing no more fluid return, catheter was withdrawn and complete hemostasis achieved at puncture site. Simple Band-Aid applied postprocedure. Patient tolerated procedure extremely well. FINDINGS: There is moderate fluid seen in the right pleural space. Approximately 300 mL of cloudy yellowish fluid was drained from the right chest and sent to lab for further evaluation as per referring physician's orders. US/US thoracentesis IMPRESSION: Successful ultrasound-guided diagnostic and therapeutic right thoracentesis performed.
--- NOTE | ~2023-05-05 | XR_ITS ---
EXAMINATION: XR CHEST CLINICAL INFORMATION: Post right thoracentesis COMPARISON: Previous chest x-ray most recent 04/21/2023 TECHNIQUE: Two-view inspiration and expiration chest x-ray FINDINGS: No pneumothorax post right thoracentesis. No right pleural effusion appreciated. Coarse lung markings and nodular opacities particularly at the right lung base similar to prior exam. The left lung is clear. Cardiac and mediastinal contours are stable. There are degenerative changes of the spine. XR/XR chest 2V IMPRESSION: No pneumothorax post right thoracentesis.
[2023-05-05 09:39] LABS: INTERNATIONAL NORM RATIO 0.9 (0.9-1.1); Prothrombin Time 10.4 SEC (11.1-13.3)
[2023-05-05 09:41] LABS: Glucose, Whole Blood 157 mg/dL (60-115)
[2023-05-05 09:41] LABS: Partial Thromboplastin Time 36.3 SEC (26.0-36.4)
[2023-05-05] MEDS: Lidocaine HCl 1 % MPF 5 ML VIAL SUBCUT (11:09)
[2023-05-05 11:24] LABS: MN% 92.5 %; PMN% 7.5 %; RBC Pleural Fluid 0.002 X10*6/uL
[2023-05-05 12:15] LABS: BF Shift QC OK YES; Man Diluent Bkgrd OK YES
[2023-05-05 12:16] LABS: Basophils Pleural Fluid 2 %; Eosinophils Pleural Fluid 3 %; Lymphocytes Pleural Fluid 77 %; Monocytes Pleural Fluid 3 %; Neutrophils Pleural Fluid 0 %; Other Cells Plerual Fl 15 %
[2023-05-05 14:20] LABS: pH Pleural Fluid 7.51
[2023-05-05 14:26] LABS: LDH Pleural Fluid 153 U/L; Total Protein Pleural Fluid 4.7 GM/DL
== END 2023-05-05 13:10 | disposition home or self-care (01) ==
PROVIDERS: Hospitalist; PCP Nurse Practitioner Family; Visit Provider Radiology Diagnostic Radiology
DX: J90 Pleural effusion, not elsewhere classified (principal); R06.00 Dyspnea, unspecified; C34.91 Malignant neoplasm of unspecified part of right bronchus or lung; C77.1 Secondary and unspecified malignant neoplasm of intrathoracic lymph nodes; J43.2 Centrilobular emphysema; J18.9 Pneumonia, unspecified organism; Z99.81 Dependence on supplemental oxygen; E11.9 Type 2 diabetes mellitus without complications; Z79.84 Long term (current) use of oral hypoglycemic drugs; Z87.891 Personal history of nicotine dependence
CPT/HCPCS: 32555; 36415; 71046; 82947; 83615; 83986; 84157; 85610; 85730; 87070; 87073; 87205; 89051

== ENCOUNTER → 2023-05-05 09:58 | Outpatient (BNV) | payer OTHER, SELFPAY | PROVIDERS: PCP Nurse Practitioner Family; Visit Provider Radiology Diagnostic Radiology | DX: J90 Pleural effusion, not elsewhere classified (principal) | CPT/HCPCS: 32555 ==

== ENCOUNTER 2023-05-23 10:20 | Outpatient (AMB) | payer OTHER, SELFPAY ==
--- NOTE | 2023-05-23 10:24 | A.OFFVIS_ITS ---
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 He did have a CT scan that point he had a large right middle lobe mass with hilar density as well. 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 He was treated with concomitant chemoradiation including cisplatin and Taxol. The patient completed radiation therapy. However, started developing worsening right-sided chest pains and worsening shortness of breath. Therefore he was started on antibiotics by his radiation therapist. However his symptoms worsened he was admitted to the hospital with a right-sided pneumonia. The patient is treated with antibiotics. He was also placed on oxygen. He has been off the chemo since then. He did speak to Oncology regarding starting immune therapy. I did evaluate his last CTA that he had couple days ago. Appears that he has the masslike density has not become cavitated. He still has some residual abnormalities. In addition to that he has significant airspace disease in pneumonitis along with reactive inflammation of the pleura. He also has a small right-sided pleural effusion. Likely that he has a component of pneumonitis resulting from the chemotherapy and radiation in addition to a component of pleuritis. Smoldering infections are also in the differential she was leukopenic. At this point the patient is still having discomfort so therefore will start him on prednisone. The the patient also had pulmonary function studies demonstrating moderate COPD. The patient also had a moderate restriction due to pneumonitis and also had evidence of severe diffusion impairment. The patient will be started on respiratory therapy for the COPD. He is also continues the oxygen. I will speak further with Oncology regarding the need for bronchoscopy. 10/18/2022 the patient is here for pulmona ry follow-up visit. Overall the patient is feeling better. He is not completing the course of prednisone. He only has several days ago. Unfortunately he was not able to gets PET scan because he developed worsening chest pain. He did go to the ER had a CTA. It appears that the cavitary lesions about the same. The ground-glass opacities have subsided some degree. Overall looks like he has improved some. He did start the Advair which she is taking it twice a day. I am hopeful that he can reschedule the PET scan. We did call in to help him schedule it and is currently scheduled for October 25 at 11:15. The patient has the information to make sure that he follows through with that. He understands his blood sugar needs to be below 200 in order to get an effective PET scan and is going to be off the prednisone by then anyway. During our brief walking oximetry the patient was able to maintain a pulse ox between 93-95% with activity. However the heart rate was elevated to about 120 beats per minute. The patient was winded as well. The etiology for the tachycardia still not clear. I will request an echocardiogram and also TSH for the patient. I am also hopeful the patient can follow up with Oncology after the PET scan to see about starting immune therapy. 11/03/2022 the patient is here for a pulmonary follow-up visit. He is feeling more shortness of breath. Unfortunately he had his PET scan but it could not be interpreted so therefore he had to be rescheduled. There was a confusion about his appointment so therefore he missed his PET scan appointment and then will had to be rescheduled again. He is planned to have a this Monday. Unfortunately meantime he has continued to have worsening respiratory status. He did not come in with his oxygen today. I did emphasize that he should use the oxygen with activity. I did have him go for chest x-ray demonstrating some increased haziness of the right hemithorax and also appears to be a nodular like opacity in the left hemithorax. Question of further progression of his cancer. Will hopefully get a better idea once he gets his PET scan. I will give him 4 more days of prednisone and also a Z-Sudheer so we can take that and see if he d evelops any significant improvement. He should be off the prednisone by Monday in order to get his sugars back to below 200-80 getting adequate PET scan. After the PET scan we can address if this appears to be more recurrent cancer versus pneumonitis versus any risk of any infectious processes. 12/05/2022 the patient is here for a pulm onary follow-up visit. Since we last spoke he did get the PET scan demonstrating the metastatic disease to the lymph nodes. The patient did start his immune therapy for the cancer. He had the 1st dose any seems to be tolerating it with some minimal adverse effects. He is complaining of some increasing shortness of breath and also productive cough with green phlegm. Has a hard time expectorating the phlegm. Sometimes takes a while to bring up some phlegm. Will start him on some antibiotics. The patient tolerated well the deep PACs will go ahead and place him on azithromycin 3 times a week. If the patient feels better then he will continue it. If the patient does not feel better on this therapy then I did provide him with sputum cup for culture and also he can come in for chest x-ray. Depending on his response to therapy we can always consider bronchoscopy to further address the airway disease depending on the x-ray and his response to therapy. He understands it is crucial for him to stay on the PDL1 inhibitor as this cancer has metastasized and this would allow the cancer to be effectively treated. 02/20/2023 the patient is here for a pulm onary follow-up visit. The patient overall has been feeling better. He is tolerating the PDL1 inhibitor. The patient is following closely with Oncology. The plan to repeat the PET scan a few months. In the meantime he has been off prednisone. He continues with the nebulized therapy. He also continues with the oxygen. Sometimes hard for him to get around with the large tanks. Therefore we did do a repeat 6 minutes walk test. The patient did my lot better not requiring oxygen at rest. The patient did need oxygen with activity. He desaturated down to 88% will place him on a portable oxygen concentrator 2 L pulse he was able to maintain a pulse ox of 94% with activity. Therefore will request be cylinders with a conserving valve for him to start off with and then also a portable oxygen concentrator to be provided once once available. The portable oxygen concentrator will provide with better portability outside of the home which is what he needs. 04/17/2023 the patient is here for pulmona ry follow-up visit. He continues to have dyspnea on exertion. Moderate severity. Actually even at rest. The patient has been using the oxygen at 2 L with partial improvement. Is very hard for him to carry the oxygen tank. The patient did qualify for the conserving device. Sleep. We had him go for a walk any qualify still. Therefore will would request the cylinders with a conserving valve. The patient also requesting portable oxygen concentrator for increased portability and ease carrying the oxygen. The patient did have a PET scan recently. Review we did review it. Appears to have significant improvement of the mass and the FDG activity. Although now he appears to have a moderate-sized pleural effusion. Likely contributing to his breathing. The patient will need to have drained. He continues with the nebulized therapy does her affecting beneficial. His eosinophil count is increasing on the blood. 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 The patient cannot take prednisone because of the PDL1 inhibitor. She continues to be symptomatic even after the drainage the fluid and we can consider Dupixent as a good option for frequent exacerbation of his COPD. 05/23/2023 the patient is here for a pulm onary follow-up visit. He is feeling a little better. Still having dyspnea on exertion. Still using the oxygen. He did have the thoracentesis draining about 300 mL of fluid. It appears to be exudative in nature in visit predominant. Cytology still not back yet. His postprocedure x-ray still demonstrates opacities on the right lung area. He continues on the immune therapy for his cancer. Seems to be helpful. He has been having symptoms such as dizziness and vertigo specially when she switching positions. His blood work also demonstrated that he was a little dehydrated. Therefore he will increase his fluid intake. The patient also would benefit from pulmonary rehabilitation. She will follow-up with oncology regarding the potential side effects from immune therapy. She understands that the immune therapy is very effective in helping him with his cancer and stopping the therapy could be detrimental. [facility] Medical History (Updated 05/23/23 @ 22:08 by Neil Huynh MD) Pleural effusion on right Seizures Dyspnea Tachycardia Acute and chronic respiratory failure Pleuritis Pneumonitis Chronic respiratory failure Type 2 diabetes mellitus with hyperglycemia Non-small cell cancer of right lung (~2021) Diabetes (Unknown) Surgical History History of lung biopsy Family History Mother Diabetes Father Diabetes Social History Household Members: Spouse and Children Household Members Other:: son Housing: Apartment Do you presently have visiting nurse or other home services: No Alcohol intake: never Patient Tobacco Use Status: Former Tobacco user Quit Date: 05/12/22 Tobacco use type: Cigarette e-Cigarette/Vaping Use: Never Used Second Hand Smoke Exposure: No service: No Current occupational status: retired Review of Systems Const Denies chills, Denies fatigue, Denies fever(s), Denies headache(s) and Denies weakness ENT Denies dizziness and Denies headache(s) Card Denies chest pain, Denies lightheadedness, Reports dyspnea on exertion and Denies other (Palpitations) Resp Denies change in phlegm color, Denies chest congestion, Denies cough, Reports dyspnea on exertion, Denies wheezing and Denies other ( shortness of breath) GI Reports abdominal pain Musc Denies numbness and Denies tingling Neuro Denies dizziness, Denies headache(s), Denies numbness, Denies tingling, Denies paresthesias and Denies weakness Psych Denies anxiety and Denies depression Endo Denies fatigue, Denies polydipsia and Denies polyuria Aller/Immun Denies wheezing Physical Exam Vital Signs: Last Vital Signs Pulse 90 05/23/23 10:25 BP 128/70 05/23/23 10:25 Pulse Ox 97 05/23/23 10:25 BMI result Body Mass Index 22.9 Const General: comfortable Nutritional Appearance: thin HEENT Head: Yes normocephalic and Yes atraumatic Eyes General: appearance normal, both eyes and all related structures Neck Neck: Yes supple Chest Chest palpation & inspection: normal inspection of the chest Resp Effort & Inspection: normal respiratory effort Auscultation: no rales and diminished lung sounds Cardio Rate: regular rate Rhythm: regular rhythm Heart sounds: S1 normal heart sound present and S2 normal heart sound present GI Auscultation: normal bowel sounds Skin General skin exam: no rashes or lesions noted Extrem General: Yes clubbing, No cyanosis and No edema Assessment & Plan Assessment & Plan (1) COPD (chronic obstructive pulmonary disease): Code(s): J44.9 - Chronic obstructive pulmonary disease, unspecified Qualifiers: COPD type: emphysema Emphysema type: centrilobular Qualified Code(s): J43.2 - Centrilobular emphysema (2) Non-small cell cancer of right lung: Onset Date: ~2021 Comment: (RML Adenocarcinoma - Clinical stage cT3N2/3, IIIB/C - dx 04/2022) Code(s): C34.91 - Malignant neoplasm of unspecified part of right bronchus or lung (3) Pneumonitis: Comment: better Code(s): J18.9 - Pneumonia, unspecified organism (4) Pleural effusion on right: Comment: lymphocytic predominant Code(s): J90 - Pleural effusion, not elsewhere classified Plan continue budesonide BID continue Xopenex DOMINIC as needed consider Dupixent based on the COPD and the elevated Eosiniphil count. continue azithromycin MWF continue PDL1 inhibitor oxygen revision: 2L/pulse with activity and 2L with sleep. requesting a portable oxygen concentrator in order to have better portability outside of the home. He has a hard time handling the oxygen tanks. start Pulmonary rehab repeat CXR benzonates as needed Once better, will benifit from pulmonary rehab F/U 8-10 weeks Orders: Orders XR chest 2V Today J44.9 - Chronic obstructive pulmonary disease, unspecified Pulmonary Rehab Today J44.9 - Chronic obstructive pulmonary disease, unspecified Coding Level of Care Code Est Pt Level 4 (15575) Diagnoses Centrilobular emphysema J43.2 COPD type: emphysema Emphysema type: centrilobular Non-small cell cancer of right lung C34.91 Pneumonitis J18.9 Pleural effusion on right J90 Time Spent (min) 18
[2023-05-23 10:25] VITALS: BP 128/70; PULSE 90; O2SAT 97; BMI 22.9
== END 2023-05-23 10:49 | disposition home or self-care (01) ==
PROVIDERS: PCP Internal Medicine; Visit Provider Hospitalist
DX: J43.2 Centrilobular emphysema (principal); C34.91 Malignant neoplasm of unspecified part of right bronchus or lung; J18.9 Pneumonia, unspecified organism; J90 Pleural effusion, not elsewhere classified
CPT/HCPCS: 99214

== ENCOUNTER → 2023-05-23 10:20 | Outpatient (BNVA) | payer OTHER, SELFPAY | PROVIDERS: PCP Internal Medicine; Visit Provider Hospitalist | DX: J43.2 Centrilobular emphysema (principal); C34.2 Malignant neoplasm of middle lobe, bronchus or lung; J18.9 Pneumonia, unspecified organism; J90 Pleural effusion, not elsewhere classified; Z79.899 Other long term (current) drug therapy; Z92.3 Personal history of irradiation | CPT/HCPCS: 99212 ==

== ENCOUNTER 2023-06-29 07:45 | Outpatient (AMB) | payer MEDICARE, MEDICAID, SELFPAY ==
[2023-06-29 08:06] VITALS: BP 118/80; BMI 22.6
--- NOTE | 2023-06-29 08:06 | A.OFFPC_ITS ---
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 Accompanied by: Self / Same As Patient Allergies No Known Allergies Allergy (Verified 06/29/23 08:11) Medication List - Last Reconciled 06/29/23 by Bhargav Chen MD alcohol swabs 1 pad topical DAILY blood sugar diagnostic (FreeStyle Lite Strips) check blood glucose every morning before breakfast blood-glucose meter (FreeStyle Lite Meter kit) check blood glucose every morning before breakfast budesonide 0.5 mg (2 mL) inhalation BID 30 days famotidine 1 tab PO BID PRN fluticasone furoate-vilanterol 200-25 mcg/dose (Breo Ellipta) 1 inh inhalation DAILY 30 days fluticasone propion-salmeterol 250-50 mcg/dose (Advair Diskus) 1 inh inhalation Q12H 30 days glipizide ER 5 mg PO QAM 30 days lancets (FreeStyle Lancets) check blood glucose every morning before breakfast levalbuterol HCl 1.25 mg (3 mL) inhalation BID 30 days lorazepam 0.5 mg PO BID PRN metformin ER 500 mg PO DAILY 30 days miscellaneous medical supply Wheelchair As directed, 999 days nebulizers As directed ondansetron 8 mg PO Q8H PRN Oxygen Home Use As directed sennosides-docusate sodium 8.6-50 mg (Senna with Docusate Sodium) 1 tab-cap PO BID PRN tramadol 50 mg PO Q6H PRN triamcinolone acetonide 0.1% 1 appl topical BID 14 days walker (Ultra-Light Rollator [facility] [place]) Rollator walker with As directed seat and brakes. As directed, 999 days Tobacco use date assessed: 11/17/22 Fall risk assessment: No Falls in past year Last assessed Fall Risk: 06/29/23 Dental Screening Dental Screen Date: 06/29/23 Did you have a dental visit in the last 12 months?: No Did you have a dental problem in the last 6 months where you did not have access to dental care?: No Was dental information given to patient?: Patient declined HPI Primary care visit HPI Details 62-year-old male presents to the office to establish his care. Chronic medical conditions include active non-small cell cancer of the right lung, moderately well controlled diabetes mellitus and shortness of breath at baseline. Patient is seen a oncologist and a car supervisor for the above reasons. His diabetes is new onset and is reasonably well controlled on metformin. Blood sugars are in the 200 range. [facility] Medical History Pleural effusion on right Seizures Dyspnea Tachycardia Acute and chronic respiratory failure Pleuritis Pneumonitis Chronic respiratory failure Type 2 diabetes mellitus with hyperglycemia Non-small cell cancer of right lung (~2021) Diabetes (Unknown) Surgical History History of lung biopsy Family History Mother Diabetes Father Diabetes Social History Household Members: Spouse and Children Household Members Other:: son Housing: Apartment Do you presently have visiting nurse or other home services: No Alcohol intake: never Patient Tobacco Use Status: Former Tobacco user Quit Date: 05/12/22 Tobacco use type: Cigarette e-Cigarette/Vaping Use: Never Used Second Hand Smoke Exposure: No service: No Current occupational status: retired Cognitive needs: No Hearing needs: No Vision needs: Yes Questionnaire Thrive Questionnaire Date Thrive assessed: 10/19/22 EVE-7 AMB Questionnaire EVE-7 Date EVE - 7 assessed: 10/19/22 Source: Developed by Drs. Bakari Herr, Genevieve Mcelroy, Asael Winter and colleagues, with an educational ulises from [employer]. Physical exam (Primary Care) Tobacco/Smoking Status: Tobacco use Status Tobacco use date assessed 11/17/22 01/10/23 10:05 Patient Tobacco Use Status Former Tobacco user 05/05/23 12:55 Tobacco use type Cigarette 01/10/23 10:05 e-Cigarette/Vaping Use Never Used 01/10/23 10:05 Thrive Assessment: Date of Thrive Assessment Date Thrive assessed 10/19/22 01/10/23 10:05 Advance Care Planning discussion: Exists, not on file Date of discussion: 06/29/23 Who was present: Son and patient Forms completed: Health Care Proxy and MOLST Time spent: 1-15 minutes, not on file Const Other: Using oxygen at baseline and is comfortable. General: cooperative, healthy appearing, comfortable and no acute distress Nutritional Appearance: well nourished Orientation/consciousness: patient oriented x3 Limitations: no limitations HENMT Head: Yes normal to inspection Eyes General: appearance normal, both eyes and all related structures Neck Neck: Yes normal visual inspection Chest Other: Diminished breath sounds. Chest palpation & inspection: normal palpation of entire chest wall Resp Effort & Inspection: normal respiratory effort Neuro General: patient oriented x3 Results AMB Hemoglobin A1c AMB Hemoglobin A1c 6.0 % Last Edit by ELLYN Deluca on 06/29/23 08:1 6 Assessment and Plan Assessment & Plan (1) Diabetes: Onset Date: Unknown Code(s): E11.9 - Type 2 diabetes mellitus without complications Plan: A1c reviewed. Continue metformin at same dosage. Advised to continue to check blood sugars P (2) Non-small cell cancer of right lung: Onset Date: ~2021 Comment: (RML Adenocarcinoma - Clinical stage cT3N2/3, IIIB/C - dx 04/2022) Code(s): C34.91 - Malignant neoplasm of unspecified part of right bronchus or lung Plan: Condition is being actively managed by the oncologist. Follow the management. (3) Chronic respiratory failure: Code(s): J96.10 - Chronic respiratory failure, unspecified whether with hypoxia or hypercapnia Plan: Patient is on nebulizer treatment and home oxygen. Continue current management plan Orders: Orders AMB Hemoglobin A1c Today E11.65 - Type 2 diabetes mellitus with hyperglycemia Medications: Discontinued diphenhydramine HCl (Benadryl) Discontinued Reason: Patient Completed Course 25 mg PO TID PRN 90 caps 3RF Rash benzonatate Discontinued Reason: Patient Completed Course 200 mg PO BID PRN 60 caps 6RF Cough azithromycin Take 1 tablet on Monday/Monday/Monday Discontinued Reason: Patient Completed Course 250 mg PO 3XW 12 tabs 6RF 28 days K21.9 - Gastro-esophageal reflux disease without esophagitis Coding Level of Care Code Est Pt Level 4 (08092) Diagnoses Diabetes E11.9 Non-small cell cancer of right lung C34.91 Chronic respiratory failure J96.10 Additional Codes Vital Signs *Quality* - Advance Care Planning discussion: Exists, not on file ([id number]) Vital Signs *Quality* - Time spent: 1-15 minutes, not on file ([id number])
== END 2023-06-29 08:36 | disposition home or self-care (01) ==
PROVIDERS: PCP Internal Medicine; Visit Provider Internal Medicine
DX: E11.9 Type 2 diabetes mellitus without complications (principal); C34.91 Malignant neoplasm of unspecified part of right bronchus or lung; J96.10 Chronic respiratory failure, unspecified whether with hypoxia or hypercapnia; E11.65 Type 2 diabetes mellitus with hyperglycemia; Z00.00 Encounter for general adult medical examination without abnormal findings
CPT/HCPCS: 1123F; 1124F; 83036; 99214

== ENCOUNTER 2023-07-19 14:49 | Outpatient (AMB) | payer MEDICARE, MEDICAID, SELFPAY ==
[2023-07-19 14:55] VITALS: BP 138/82; PULSE 98; O2SAT 99; BMI 24.0
--- NOTE | 2023-07-19 14:55 | MHC.PC.OV ---
Vital Signs 07/19/23 14:55 Height 5 ft 11 in Weight 172 lb BMI 24.0 BP 138/82 Blood Pressure Location Lt brachial Position Sitting Pulse 98 Pulse Source Pulse Oximeter Pulse Oximetry (%) 99 Oxygen Delivery Method Nasal Cannula Oxygen Flow Rate 1.5 Intake Visit Reasons: mid back pain Intake Note: Pt is here for mid back pain for two days. Also, requesting ENT referral due to multiples ear infections. Health Equipment Servicer Required: No Accompanied by: Son Allergies No Known Allergies Allergy (Verified 07/19/23 15:14) Medication List - Last Reconciled 07/19/23 by Rubén Joshi PA-C alcohol swabs 1 pad topical DAILY blood sugar diagnostic (FreeStyle Lite Strips) check blood glucose every morning before breakfast blood-glucose meter (FreeStyle Lite Meter kit) check blood glucose every morning before breakfast budesonide 0.5 mg (2 mL) inhalation BID 30 days famotidine 1 tab PO BID PRN fluticasone furoate-vilanterol 200-25 mcg/dose (Breo Ellipta) 1 inh inhalation DAILY 30 days fluticasone propion-salmeterol 250-50 mcg/dose (Advair Diskus) 1 inh inhalation Q12H 30 days glipizide ER 5 mg PO QAM 30 days lancets (FreeStyle Lancets) check blood glucose every morning before breakfast levalbuterol HCl 1.25 mg (3 mL) inhalation BID 30 days lorazepam 0.5 mg PO BID PRN metformin ER 500 mg PO DAILY 30 days miscellaneous medical supply Wheelchair As directed, 999 days nebulizers As directed ondansetron 8 mg PO Q8H PRN Oxygen Home Use As directed sennosides-docusate sodium 8.6-50 mg (Senna with Docusate Sodium) 1 tab-cap PO BID PRN tramadol 50 mg PO Q6H PRN triamcinolone acetonide 0.1% 1 appl topical BID 14 days walker (Ultra[place] [facility] [place]er with As directed seat and brakes. As directed, 999 days Tobacco use date assessed: 11/17/22 Fall risk assessment: No Falls in past year Last assessed Fall Risk: 07/19/23 Dental Screening Dental Screen Date: 07/19/23 Did you have a dental visit in the last 12 months?: No Did you have a dental problem in the last 6 months where you did not have access to dental care?: No Was dental information given to patient?: Yes HPI mid back pain HPI Details Patient is 63-year-old male here today for problem visit. This is the 1st time meeting this 63-year-old male with a past medical history significant for non-small small lung cancer, COPD and type 2 diabetes. Reports having left upper flank pain and is concerned that this is his lung. He reports pain in this area when he takes a deep breath over the last 2 days.. He has had pneumonia in the past requiring several-day hospitalization. He denies any increased cough, fever or shortness of breath. He is interested in getting a chest x-ray. Currently undergoing treatment for his lung cancer and reports he is due for CT and PET scan in near future. He also reports he continues to get chronic outer ear infections and would like treatment for this. [facility] Medical History Pleural effusion on right Seizures Dyspnea Tachycardia Acute and chronic respiratory failure Pleuritis Pneumonitis Chronic respiratory failure Type 2 diabetes mellitus with hyperglycemia Non-small cell cancer of right lung (~2021) Diabetes (Unknown) Surgical History History of lung biopsy Family History Mother Diabetes Father Diabetes Social History Household Members: Spouse and Children Household Members Other:: son Housing: Apartment Do you presently have visiting nurse or other home services: No Alcohol intake: never Patient Tobacco Use Status: Former Tobacco user Quit Date: 05/12/22 Tobacco use type: Cigarette e-Cigarette/Vaping Use: Never Used Second Hand Smoke Exposure: No service: No Current occupational status: retired Cognitive needs: No Hearing needs: No Vision needs: Yes Questionnaire Thrive Questionnaire Date Thrive assessed: 10/19/22 EVE-7 AMB Questionnaire EVE-7 Date EVE - 7 assessed: 10/19/22 Source: Developed by Drs. Bakari Herr, Genevieve Mcelroy, Asael Winter and colleagues, with an educational ulises from [employer]. Review of Systems Const Denies headache(s) Eyes Denies loss of vision ENT Denies vertigo, Denies dizziness, Denies headache(s) and Denies sore throat Card Denies chest pain, Denies leg edema and Denies lightheadedness Resp Denies cough, Denies hemoptysis and Denies wheezing GI Denies abdominal pain, Denies melena, Denies constipation, Denies diarrhea and Denies vomiting Denies dysuria, Denies urinary frequency and Denies urinary urgency Musc Denies arthralgias, Denies joint swelling, Denies numbness and Denies tingling Neuro Denies Abnormal speech present, Denies behavioral changes, Denies vertigo, Denies dizziness, Denies headache(s), Denies loss of vision, Denies memory loss, Denies numbness and Denies tingling Psych Denies anxiety, Denies behavioral changes, Denies depression, Denies memory loss and Denies panic attacks [place]/Lymph Denies easy bleeding and Denies easy bruising Aller/Immun Denies wheezing Physical exam (Primary Care) Vital Signs: Last Vital Signs Pulse 98 07/19/23 14:55 BP 138/82 07/19/23 14:55 Pulse Ox 99 07/19/23 14:55 Oxygen Delivery Method Nasal Cannula 07/19/23 14:55 Oxygen Flow Rate 1.5 07/19/23 14:55 BMI result Body Mass Index 24.0 Tobacco/Smoking Status: Tobacco use Status Tobacco use date assessed 11/17/22 07/19/23 14:59 Patient Tobacco Use Status Former Tobacco user 07/19/23 14:59 Tobacco use type Cigarette 07/19/23 14:59 e-Cigarette/Vaping Use Never Used 07/19/23 14:59 Thrive Assessment: Date of Thrive Assessment Date Thrive assessed 10/19/22 07/19/23 14:59 Const General: healthy appearing, no acute distress, alert and awake Nutritional Appearance: well nourished Orientation/consciousness: oriented to person, oriented to place and oriented to time HENMT Other: RIGHT EXTERNAL CANAL ERYTHEMATOUS AND EDEMATOUS. Ears: TM's normal bilaterally General nose exam: Normal nasal mucous membranes and turbinates present Eyes Conjunctivae: conjunctivae normal Sclerae: sclerae normal Pupils: Equal, round and reactive pupils present Neck Neck: Yes no lymphadenopathy and Yes no JVD Thyroid: Thyroid normal Carotids: no bruits Resp Effort & Inspection: normal respiratory effort and not tachypneic Auscultation: no crackles, no rales, no rhonchi and no wheezes Cardio Rate: regular rate Rhythm: regular rhythm Heart sounds: no murmurs and normal S1 and S2 GI Palpation (GI): Soft to palpation, nontender, no hepatomegaly and no splenomegaly Auscultation: normal bowel sounds Skin General skin exam: no rashes or lesions noted and dry skin Neuro General: oriented to person, oriented to place and oriented to time Cranial nerves: Yes Equal, round and reactive pupils present Speech: No Abnormal speech present Gait exam (Neuro): Normal gait present Motor exam (neuro): no tremor noted Extrem Right upper extremity: full ROM Left upper extremity: full ROM Right lower extremity: full ROM; no edema Left lower extremity: full ROM; no edema Psych Mental Status: mental status grossly normal Speech and movement: Normal speech and movement present Affect: normal affect Attitude: cooperative Thought process: Normal thought process present Assessment and Plan Assessment & Plan (1) Otitis externa: Code(s): H60.90 - Unspecified otitis externa, unspecified ear Qualifiers: Chronicity: chronic Laterality: right Otitis externa type: diffuse Qualified Code(s): H60.311 - Diffuse otitis externa, right ear Plan: Notable external canal edema and erythema. Will supply patient with antibiotic ear drops. (2) Left flank pain: Code(s): R10.9 - Unspecified abdominal pain Plan: Reporting left flank pain. Does have history of lung cancer. Has also history of pneumonia on his afraid that pneumonia is back. Will get x-ray of chest to evaluate for pulmonary infiltrate on left side. Otherwise he reports his breathing is not compromised.. Orders: Orders XR chest 2V 07/19/23 C34.91 - Malignant neoplasm of unspecified part of right bronchus or lung, R05.9 - Cough, unspecified Medications: New ofloxacin 0.3% 10 drps otic (ears) DAILY 7 days 10 mL 0RF H60.311 - Diffuse otitis externa, right ear Coding Level of Care Code Est Pt Level 3 (61358) Diagnoses Chronic diffuse otitis externa of right ear H60.311 Chronicity: chronic Laterality: right Otitis externa type: diffuse Left flank pain R10.9
== END 2023-07-19 15:28 | disposition home or self-care (01) ==
PROVIDERS: PCP Internal Medicine; Visit Provider Physician Assistant
DX: H60.311 Diffuse otitis externa, right ear (principal); R10.9 Unspecified abdominal pain
CPT/HCPCS: 99213

== ENCOUNTER 2023-07-20 17:29 | Emergency (ER) | payer MEDICARE, MEDICAID, SELFPAY ==
--- NOTE | ~2023-07-20 | CT_ITS ---
EXAMINATION: CT ABDOMEN AND PELVIS WITHOUT CONTRAST CLINICAL INFORMATION: Abdominal distention, small bowel obstruction. History of lung cancer. COMPARISON: PET/CT 03/28/2023, CT abdomen/pelvis 08/24/2022. TECHNIQUE: Multidetector volumetric imaging was performed from the superior aspect of the liver through the pubic symphysis. Sagittal and coronal reformatted images were obtained on the technologist's workstation. This CT examination was performed using dose optimization techniques as appropriate, variously including the following: *Automated exposure control *Adjustment of mA and/or kV according to patient size (this includes techniques or standardized protocols for targeted exams where dose is matched to indication/reason for exam; i.e. extremities or head) *Use of iterative reconstruction technique DLP: 485 mGy-cm FINDINGS: The lack of intravenous contrast limits evaluation of the solid visceral organs including the liver, spleen, pancreas, and kidneys. LUNG BASES: Stable moderate-sized right-sided pleural effusion compared to most recent PET. Stable partially imaged irregular parenchymal thickening, bronchiectasis and cavitary lesion in the lingula/right lower lobe compared to most recent PET. Partially imaged small pericardial effusion, multivessel coronary artery calcifications and aortic valve calcifications. LIVER, GALLBLADDER, AND BILIARY TREE: The liver is normal in size, shape, and attenuation. No focal hepatic lesion or biliary ductal dilatation is present. The gallbladder is unremarkable with no evidence of radiopaque gallstones, gallbladder wall thickening, or obvious pericholecystic inflammatory changes. PANCREAS: New fat stranding centered around the root of the small bowel mesentery, abutting the inferior aspect of the pancreatic head/uncinate process, as well as minimal fatty haziness around the celiac axis. No main ductal dilatation. SPLEEN: Unremarkable. ADRENAL GLANDS: Unremarkable. KIDNEYS AND URETERS: Simple appearing water density cyst in the upper left kidney, for which no imaging follow-up is recommended. Punctate nonobstructive calculi in the mid right kidney (6:75). No hydronephrosis or No perinephric fat stranding. BLADDER: Unremarkable. GASTROINTESTINAL TRACT: The stomach and the small bowel are nondilated. Normal appendix. Colonic diverticulosis without significant pericolonic fat stranding or free fluid. No evidence of bowel obstruction. ABNormal. WALL: Redemonstration of partially imaged large right hydrocele, not significantly changed compared to most recent PET. LYMPH NODES: Prominent posterior mediastinal lymph nodes, for instance measuring 0.7 cm in short axis (3:1) are unchanged compared to most recent PET. A few prominent, subcentimeter lower paraesophageal lymph nodes (3:16) are also unchanged. VASCULAR: Atherosclerotic disease. Aneurysm of the infrarenal abdominal aorta measuring 2.6 cm, unchanged. PELVIC VISCERANo significant abnormality.STRUCTURES: No acute or aggressive appearing osseous findings. Degenerative changes of the spine. CT/CT abdomen pelvis wo IV con IMPRESSION: 1. New fat stranding centered around the proximal pancreas suspicious for acute pancreatitis in the appropriate clinical context. 2. No evidence of bowel obstruction. 3. Colonic diverticulosis but no evidence of acute diverticulitis. 4. Stable moderate-sized right-sided pleural effusion; stable irregular parenchymal thickening, bronchiectasis and cavitary lesion in the lingula/right lower lobe; stable prominent posterior mediastinal and lower paraesophageal lymph nodes when compared to most recent PET. Recommend continued follow-up according to according to guidelines in this patient with a history of lung cancer. 5. Redemonstration of partially imaged large right hydrocele, not significantly changed compared to most recent PET. 6. Aneurysm of the infrarenal abdominal aorta measuring 2.6 cm, unchanged. Based on published guidelines in J Am Gosia Radiol 2013; 10(10):789-794 and J Vasc Surg. 2018; 67:2-77, the recommendation for an abdominal aorta with diameter 2.6-2.9 cm is follow-up every 5 years if the aorta that meets the criteria for AAA (>1.5 x proximal normal segment; no f/u if < 1.5 x proximal normal segment; no f/u for aorta < 2.6 cm).
--- NOTE | ~2023-07-20 | XR_ITS ---
EXAMINATION: XR CHEST CLINICAL INFORMATION: Shortness of breath, history of lung cancer. COMPARISON: Chest radiograph 05/05/2023. TECHNIQUE: 2 views of the chest were obtained. FINDINGS: Stable asymmetric volume loss in the right lung with multifocal patchy, streaky and nodular-like opacities; dominant nodular-like opacity projecting over the right lower lobe measuring up to 4.2 cm is increased in size from 2.7 cm on 05/05/2023. Clear left lung. Unchanged cardiomediastinal silhouette. No acute osseous findings. Thoracic spondylosis. Similar asymmetric tenting of the right hemidiaphragm. XR/XR chest 2V IMPRESSION: Complex appearance of the right lung with increased size of a dominant nodule-like opacity projecting over the right lower lobe compared to 05/05/2023. In this patient with a history of lung cancer, malignancy is a concern and further evaluation with a chest CT is recommended.
[2023-07-20 17:35] VITALS: BP 162/98; PULSE 106; RESP 20; TEMP 36.9; O2SAT 98; BMI 23.6
[2023-07-20 17:51] LABS: MANUAL DIFF FLAG NO
--- NOTE | 2023-07-20 17:52 | ED_ITS ---
HPI - General Adult General Chief complaint: Abdominal Pain Stated complaint: Abdominal pain 2 days Time Seen by Provider: 07/20/23 21:06 History of Present Illness HPI narrative: Seen By Dr. Bailey Related Data Home Medications Medication Instructions Recorded Confirmed famotidine 20 mg tablet 1 tab PO BID PRN heartburn 09/02/22 07/19/23 Oxygen Home Use 12/05/22 07/19/23 nebulizers 12/05/22 07/19/23 Previous Rx's Medication Instructions Recorded ondansetron 8 mg disintegrating 8 mg PO Q8H PRN Nausea #30 tabs 05/31/22 tablet alcohol swabs 1 pad topical DAILY #100 ea 09/12/22 blood-glucose meter (FreeStyle #1 ea 09/12/22 Lite Meter kit) lancets 28 gauge (FreeStyle #100 ea 09/12/22 Lancets) tramadol 50 mg tablet 50 mg PO Q6H PRN pain #15 tabs 09/27/22 fluticasone furoate 200 1 inh inhalation DAILY 30 days #60 09/29/22 mcg-vilanterol 25 mcg/dose ea inhalation powder (Breo Ellipta) fluticasone 250 mcg-salmeterol 50 1 inh inhalation Q12H 30 days #60 10/03/22 mcg/dose blistr powdr for ea inhalation (Advair Diskus) glipizide 5 mg tablet, extended 5 mg PO QAM 30 days #30 tabs 11/17/22 release 24 hr lorazepam 0.5 mg tablet 0.5 mg PO BID PRN Anxiety #60 tabs 12/15/22 budesonide 0.5 mg/2 mL suspension 0.5 mg (2 mL) inhalation BID 30 12/19/22 for nebulization days #120 mL levalbuterol HCl 1.25 mg/3 mL 1.25 mg (3 mL) inhalation BID 30 12/19/22 solution for nebulization days #180 mL miscellaneous medical supply #1 ea 01/10/23 triamcinolone acetonide 0.1 % 1 appl topical BID 14 days #60 01/10/23 topical ointment francisco javier parker (Ultra-Light Rollator misc) #1 ea 01/10/23 blood sugar diagnostic (FreeStyle #100 ea 02/27/23 Lite Strips) metformin 500 mg tablet,extended 500 mg PO DAILY 30 days #30 tabs 05/22/23 release 24 hr sennosides 8.6 mg-docusate sodium 1 tab-cap PO BID PRN Constipation 06/23/23 50 mg tablet (Senna with Docusate #60 tabs Sodium) ofloxacin 0.3 % ear drops 10 drp otic (ears) DAILY 7 days 07/19/23 #10 mL Allergies Allergy/AdvReac Type Severity Reaction Status Date / Time No Known Allergies Allergy Verified 07/20/23 17:35 [facility] Past Medical History Medical History Pleural effusion on right Seizures Dyspnea Tachycardia Acute and chronic respiratory failure Pleuritis Pneumonitis Chronic respiratory failure Type 2 diabetes mellitus with hyperglycemia Non-small cell cancer of right lung (~2021) Diabetes (Unknown) Surgical History History of lung biopsy Family History Family History Mother Diabetes Father Diabetes Social History Social History Household Members: Spouse and Children Household Members Other:: son Housing: Apartment Do you presently have visiting nurse or other home services: No Alcohol intake: never Patient Tobacco Use Status: Former Tobacco user Quit Date: 05/12/22 Tobacco use type: Cigarette Smoked in Last 30 Days: No e-Cigarette/Vaping Use: Never Used Second Hand Smoke Exposure: No Use of substances other than those prescribed or required for medical reasons: No Advance Directives: No service: No Current occupational status: retired Cognitive needs: No Hearing needs: No Vision needs: Yes Physical Exam ED Vital Signs: Vital Signs - 24 hr 07/20/23 17:35 07/20/23 20:31 07/20/23 21:43 Temperature 98.5 F 97.6 F 98.4 F Pulse Rate 106 H 90 Respiratory Rate 20 18 16 Blood Pressure 162/98 H 174/105 H 170/96 H Pulse Oximetry 98 99 98 Oxygen Delivery Method Nasal Cannula Nasal Cannula Nasal Cannula Oxygen Flow Rate 1.5 1 07/20/23 23:30 Temperature 97.7 F Pulse Rate 88 Respiratory Rate 16 Blood Pressure 163/104 H Pulse Oximetry 97 Oxygen Delivery Method Nasal Cannula Oxygen Flow Rate 1 BMI result Body Mass Index 23.6 Course Course Course Narrative: RME: 63 yold male presents to the ED for abdominal pain and constipation for the past 2 days. patient states also dysuria, abdominal distended. Patient is oxygen dependent. labs odered Medications Administered Discontinued Medications Generic Name Dose Route Start Last Admin Trade Name Rosasq PRN Reason Stop Dose Admin Acetaminophen 975 mg 07/20/23 23:32 07/20/23 23:46 Acetaminophen 325 Mg Tablet PO 07/20/23 23:33 975 mg ONCE ONE Administration Sodium Chloride 500 mls @ 999 mls/hr 07/20/23 21:45 07/20/23 22:33 Ns IV 07/20/23 22:15 Infused .Q31M MANJINDER Infusion Polyethylene Glycol 17 gm 07/20/23 21:37 07/20/23 21:54 Polyethylene Glycol 3350 17 Gm Powd.Pack PO 07/20/23 21:38 17 gm ONCE ONE Administration Medical Decision Making Lab Data 07/20/23 17:46 07/20/23 17:46 Labs: Lab Results 07/20/23 07/20/23 Range/Units 17:46 21:01 WBC 10.0 (4.8-10.8) X10*3/uL RBC 5.88 H (4.60-5.80) X10*6/uL Hgb 15.1 (14.0-18.0) g/dl Hct 46.0 (42.0-52.0) % MCV 78.2 L (80.0-98.0) fL MCH 25.7 L (27.0-33.0) pg MCHC 32.8 (31.0-36.0) g/dl RDW 14.6 (11.0-16.0) % Plt Count 262 (160-400) X10*3/uL MPV 9.0 L (9.4-12.4) fL Immature Gran % (Auto) 0.3 (0.0-0.4) % Neut % (Auto) 73.1 H (45-73) % Lymph % (Auto) 11.6 L (20-40) % [place] % (Auto) 7.1 (2-11) % Eos % (Auto) 7.4 H (0-4) % Baso % (Auto) 0.5 (0-2) % Lymph # (Auto) 1.2 (1.2-4.9) X10*3/uL [place] # (Auto) 0.7 (0.1-1.2) X10*3/uL Eos # (Auto) 0.7 H (0.0-0.4) X10*3/uL Baso # (Auto) 0.1 (0.0-0.2) X10*3/uL Abs Immat Gran (auto) 0.03 (0.00-0.03) X10*3/uL Absolute Neuts (auto) 7.3 (2.0-8.3) x10*3/uL Absolute Nucleated RBC 0.000 (0.0-0.012) X10*3/uL Nucleated RBC % (auto) 0.0 (0.0-0.2) /100WBC Sodium 136 (135-145) mmol/L Potassium 4.1 (3.3-5.1) mmol/L Chloride 99 (96-108) mmol/L Carbon Dioxide 27 (22-29) mmol/L Anion Gap 14 (12-20) BUN 11 (9-16) mg/dL Creatinine 1.12 (0.5-1.4) mg/dL Estim Creat Clear Calc 70.0 Estimated GFR > 60 Random Glucose 175 H (60-115) mg/dL Calcium 9.9 (8.4-10.2) mg/dL Total Bilirubin 0.4 (0.0-1.0) mg/dL AST 20 (5-37) U/L ALT 17 (0-40) U/L Alkaline Phosphatase 105 (39-117) U/L Total Protein 8.1 H (6.5-8.0) g/dL Albumin 4.4 (3.5-5.0) g/dL Lipase 18 (8-78) U/L Urine Color Yellow Urine Appearance Clear Urine pH 6.5 (5.0-9.0) Ur Specific [place] 1.010 (1.005-1.025) Urine Protein Negative (Neg-Trace) mg/dL Urine Glucose (UA) Negative (Negative) mg/dL Urine Ketones Negative (Negative) mg/dL Urine Blood Negative (Negative) Urine Nitrite Negative (Negative) Ur Leukocyte Esterase Negative (Negative) Discharge Plan Discharge Clinical Impression: Abdominal pain Patient Disposition: Home, Self-Care Instructions: Abdominal Pain (ED) Prescriptions: No Action fluticasone propion-salmeterol [Advair Diskus] 250-50 mcg/dose blister with device 1 inh inhalation Q12H 30 Days Qty: 60 11RF levalbuterol HCl 1.25 mg/3 mL solution for nebulization 1.25 mg inhalation BID 30 Days Qty: 180 0RF budesonide 0.5 mg/2 mL suspension for nebulization 0.5 mg inhalation BID 30 Days Qty: 120 11RF (DME) FreeStyle Lite Strips Strip Qty: 100 0RF Rx Instructions: check blood glucose every morning before breakfast metformin 500 mg tablet extended release 24 hr 500 mg PO DAILY 30 Days Qty: 30 1RF tramadol 50 mg tablet 50 mg PO Q6H PRN (Reason: pain) Qty: 15 0RF ondansetron 8 mg Tablet,Disintegrating 8 mg PO Q8H PRN (Reason: Nausea) Qty: 30 3RF lorazepam 0.5 mg Tablet 0.5 mg PO BID PRN (Reason: Anxiety) Qty: 60 0RF sennosides-docusate sodium [Senna with Docusate Sodium] 8.6-50 mg tablet 1 tab-cap PO BID PRN (Reason: Constipation) Qty: 60 4RF famotidine 20 mg tablet 1 tab PO BID PRN (Reason: heartburn) (DME) blood-glucose meter [FreeStyle Lite Meter] Kit Qty: 1 0RF Rx Instructions: check blood glucose every morning before breakfast alcohol swabs Pads, Medicated 1 pad TOPICAL DAILY Qty: 100 0RF Rx Instructions: check blood glucose every morning before breakfast (DME) lancets [FreeStyle Lancets] [facility]: 100 0RF Rx Instructions: check blood glucose every morning before breakfast glipizide 5 mg tablet extended release 24hr 5 mg PO QAM 30 Days Qty: 30 2RF (DME) miscellaneous medical supply Misc See Rx Instructions .ROUTE .MEDSUPPLY Qty: 1 0RF Rx Instructions: Wheelchair As directed, 999 days (DME) Ultra-Light Rollator Misc See Rx Instructions .Route Qty: 1 0RF Rx Instructions: Rollator walker with As directed seat and brakes. As directed, 999 days triamcinolone acetonide 0.1 % ointment 1 appl topical BID 14 Days Qty: 60 0RF ofloxacin 0.3 % drops 10 drp otic (ears) DAILY 7 Days Qty: 10 0RF fluticasone furoate-vilanterol [Breo Ellipta] 200-25 mcg/dose blister with device 1 inh inhalation DAILY 30 Days Qty: 60 11RF (DME) nebulizers Misc See Rx Instructions .Route Rx Instructions: As directed (DME) Oxygen Home Use Kit See Rx Instructions .Route Rx Instructions: As directed Referrals: Physician,Connor J [Primary Care Provider] - 07/24/23 Interventions: ED Discharge Assessment Last Done: 07/21/23 01:56 Discharge Date/Time: 07/21/23 01:57
[2023-07-20 17:53] LABS: Basophils Absolute Auto 0.1 X10*3/uL (0.0-0.2); Basophils Percent Auto 0.5 % (0-2); Eosinophils Absolute Auto 0.7 X10*3/uL (0.0-0.4); Eosinophils Percent Auto 7.4 % (0-4); Hemoglobin 15.1 g/dl (14.0-18.0); Imm Gran Abs Auto 0.03 X10*3/uL (0.00-0.03); Imm Gran Pct Auto 0.3 % (0.0-0.4); Lymphocytes Absolute Auto 1.2 X10*3/uL (1.2-4.9); Lymphocytes Percent Auto 11.6 % (20-40); Mean Corpuscular HGB Conc 32.8 g/dl (31.0-36.0); Mean Corpuscular Hemoglobin 25.7 pg (27.0-33.0); Mean Corpuscular Volume 78.2 fL (80.0-98.0); Monocytes Absolute Auto 0.7 X10*3/uL (0.1-1.2); Monocytes Percent Auto 7.1 % (2-11); Neutrophils Absolute Auto 7.3 x10*3/uL (2.0-8.3); Neutrophils Percent Auto 73.1 % (45-73); Platelet Count 262 X10*3/uL (160-400); Red Blood Count 5.88 X10*6/uL (4.60-5.80); Red Cell Distribution Width 14.6 % (11.0-16.0)
[2023-07-20 18:06] LABS: Alanine Aminotransferase 17 U/L (0-40); Albumin Level 4.4 g/dL (3.5-5.0); Alkaline Phosphatase 105 U/L (39-117); Anion Gap 14 (12-20); Aspartate Amino Transferase 20 U/L (5-37); Bilirubin Total 0.4 mg/dL (0.0-1.0); Blood Urea Nitrogen 11 mg/dL (9-16); Calcium 9.9 mg/dL (8.4-10.2); Carbon Dioxide 27 mmol/L (22-29); Chloride 99 mmol/L (96-108); Estimated Glomerular Filt Rate > 60; Glucose Random 175 mg/dL (60-115); Lipase 18 U/L (8-78); Potassium 4.1 mmol/L (3.3-5.1); Sodium 136 mmol/L (135-145); Total Protein 8.1 g/dL (6.5-8.0)
[2023-07-20 20:31] VITALS: BP 174/105; RESP 18; TEMP 36.4; O2SAT 99
[2023-07-20 21:07] LABS: Appearance Urine Clear; Color Urine Yellow; Glucose Urine UA Negative (Negative); Leukocyte Esterase Urine Negative (Negative); Nitrite Urine Negative (Negative); PH 6.5 (5.0-9.0); Urine Blood Negative (Negative); Urine Ketones Negative (Negative); Urine Protein Negative (Neg-Trace)
--- NOTE | 2023-07-20 21:31 | ED_ITS ---
HPI - Abdominal Pain General Chief Complaint: Abdominal Pain Stated Complaint: Abdominal pain 2 days Time Seen by Provider: 07/20/23 21:06 History of Present Illness HPI narrative: Patient is a 63-year-old male with a history of lung cancer currently on chemotherapy last dose was approximately 11 days ago. History of respiratory failure history of COPD baseline is on a L and a half of oxygen at home. History of having pleural effusion on the right side. Positive history of shortness of breath but is about the same as before. What is new today is patient is having abdominal pain that is diffuse over the entire abdomen. No fever no chills. Positive bowel movement this morning. However patient feels that he is constipated. He has not been taking his tramadol. He has a history diabetes been compliant with his medication. No fever no chills. No pain on urination. Patient is from home. No travel history. No leg swelling. Related Data Home Medications Medication Instructions Recorded Confirmed famotidine 20 mg tablet 1 tab PO BID PRN heartburn 09/02/22 07/19/23 Oxygen Home Use 12/05/22 07/19/23 nebulizers 12/05/22 07/19/23 Previous Rx's Medication Instructions Recorded ondansetron 8 mg disintegrating 8 mg PO Q8H PRN Nausea #30 tabs 05/31/22 tablet alcohol swabs 1 pad topical DAILY #100 luis 09/12/22 blood-glucose meter (FreeStyle #1 luis 09/12/22 Lite Meter kit) lancets 28 gauge (FreeStyle #100 ea 09/12/22 Lancets) tramadol 50 mg tablet 50 mg PO Q6H PRN pain #15 tabs 09/27/22 fluticasone furoate 200 1 inh inhalation DAILY 30 days #60 09/29/22 mcg-vilanterol 25 mcg/dose ea inhalation powder (Breo Ellipta) fluticasone 250 mcg-salmeterol 50 1 inh inhalation Q12H 30 days #60 10/03/22 mcg/dose blistr powdr for ea inhalation (Advair Diskus) glipizide 5 mg tablet, extended 5 mg PO QAM 30 days #30 tabs 11/17/22 release 24 hr lorazepam 0.5 mg tablet 0.5 mg PO BID PRN Anxiety #60 tabs 12/15/22 budesonide 0.5 mg/2 mL suspension 0.5 mg (2 mL) inhalation BID 30 12/19/22 for nebulization days #120 mL levalbuterol HCl 1.25 mg/3 mL 1.25 mg (3 mL) inhalation BID 30 12/19/22 solution for nebulization days #180 mL [employer] supply #1 ea 01/10/23 triamcinolone acetonide 0.1 % 1 appl topical BID 14 days #60 01/10/23 topical ointment francisco javier parker (Ultra-Light Rollator [facility] [place] #1 ea 01/10/23 blood sugar diagnostic (FreeStyle #100 ea 02/27/23 Lite Strips) metformin 500 mg tablet,extended 500 mg PO DAILY 30 days #30 tabs 05/22/23 release 24 hr sennosides 8.6 mg-docusate sodium 1 tab-cap PO BID PRN Constipation 06/23/23 50 mg tablet (Senna with Docusate #60 tabs Sodium) ofloxacin 0.3 % ear drops 10 drp otic (ears) DAILY 7 days 07/19/23 #10 mL Allergies Allergy/AdvReac Type Severity Reaction Status Date / Time No Known Allergies Allergy Verified 07/20/23 17:35 Review of Systems Review of Systems Positive abdominal pain positive constipation Yes all other systems are reviewed and are negative PMFSH Past Medical History Attestation statement: The following information was validated with the patient. Medical History Pleural effusion on right Seizures Dyspnea Tachycardia Acute and chronic respiratory failure Pleuritis Pneumonitis Chronic respiratory failure Type 2 diabetes mellitus with hyperglycemia Non-small cell cancer of right lung (~2021) Diabetes (Unknown) Surgical History History of lung biopsy Family History Family History Mother Diabetes Father Diabetes Social History Social History Household Members: Spouse and Children Household Members Other:: son Housing: Apartment Do you presently have visiting nurse or other home services: No Alcohol intake: never Patient Tobacco Use Status: Former Tobacco user Quit Date: 05/12/22 Tobacco use type: Cigarette Smoked in Last 30 Days: No e-Cigarette/Vaping Use: Never Used Second Hand Smoke Exposure: No Use of substances other than those prescribed or required for medical reasons: No Advance Directives: No service: No Current occupational status: retired Cognitive needs: No Hearing needs: No Vision needs: Yes Physical Exam ED Vital Signs: Vital Signs - 24 hr 07/20/23 17:35 07/20/23 20:31 07/20/23 21:43 Temperature 98.5 F 97.6 F 98.4 F Pulse Rate 106 H 90 Respiratory Rate 20 18 16 Blood Pressure 162/98 H 174/105 H 170/96 H Pulse Oximetry 98 99 98 Oxygen Delivery Method Nasal Cannula Nasal Cannula Nasal Cannula Oxygen Flow Rate 1.5 1 07/20/23 23:30 Temperature 97.7 F Pulse Rate 88 Respiratory Rate 16 Blood Pressure 163/104 H Pulse Oximetry 97 Oxygen Delivery Method Nasal Cannula Oxygen Flow Rate 1 BMI result Body Mass Index 23.6 Medical Decision Making Medical Decision Making MDM Narrative: presented today with having abdominal pain is diffuse over the entire abdomen. With a history of lung cancer. Currently on chemotherapy. CT scan of the abdomen pelvis again showed pleural effusion on the right side consistent with previous finding. Mass on the right side consistent with history of lung cancer. Patient has no overt sign of obstruction abscess perforation. There is a question of pancreatitis on the CT scan. However patient's lipase is normal pain is diffuse over the entire abdomen patient does not have any history of drinking. Does not have any history gallstone. Did not have any previous history of being on medication causing pancreatitis. In the setting of having normal lipase unlikely this is pancreatitis. Patient has shortness of breath however patient is on baseline 1.5 L oxygen. He feels short of breath all the time and is not new. However given patient's history will get a chest x-ray to check for worsening pleural effusion. Patient's urine was checked there is no evidence of urinary tract infection. CT scan of the abdomen showed a minimally enlarged infrarenal aorta at 2.6 cm in size. No evidence of dissection. Unlikely this is the cause of patient's pain. This with just needs to be follow up on an outpatient basis. A small bolus of fluid was ordered. Will monitor carefully. patient's symptom improved with IV fluids. Will discharge patient home. Currently in stable condition. A chest x-ray show approximally same infiltrate. Patient has a known malignancy. Differential Diagnosis Differential Diagnoses: The differential diagnosis associated with the presentation includes Obstruction, abscess, perforation, dissection, diverticulitis, tumor Admission/Observation Consideration of admission/observation: Escalation of care including admission/observation considered patient baseline on 1/2 L of oxygen. Well-appearing. Does not want to stay in the hospital. Will discharge home Lab Data MDM Lab Attestation statement: I reviewed the patient's lab results. 07/20/23 17:46 07/20/23 17:46 Labs: Lab Results 07/20/23 07/20/23 Range/Units 17:46 21:01 WBC 10.0 (4.8-10.8) X10*3/uL RBC 5.88 H (4.60-5.80) X10*6/uL Hgb 15.1 (14.0-18.0) g/dl Hct 46.0 (42.0-52.0) % MCV 78.2 L (80.0-98.0) fL MCH 25.7 L (27.0-33.0) pg MCHC 32.8 (31.0-36.0) g/dl RDW 14.6 (11.0-16.0) % Plt Count 262 (160-400) X10*3/uL MPV 9.0 L (9.4-12.4) fL Immature Gran % (Auto) 0.3 (0.0-0.4) % Neut % (Auto) 73.1 H (45-73) % Lymph % (Auto) 11.6 L (20-40) % [facility] % (Auto) 7.1 (2-11) % Eos % (Auto) 7.4 H (0-4) % Baso % (Auto) 0.5 (0-2) % Lymph # (Auto) 1.2 (1.2-4.9) X10*3/uL [facility] # (Auto) 0.7 (0.1-1.2) X10*3/uL Eos # (Auto) 0.7 H (0.0-0.4) X10*3/uL Baso # (Auto) 0.1 (0.0-0.2) X10*3/uL Abs Immat Gran (auto) 0.03 (0.00-0.03) X10*3/uL Absolute Neuts (auto) 7.3 (2.0-8.3) x10*3/uL Absolute Nucleated RBC 0.000 (0.0-0.012) X10*3/uL Nucleated RBC % (auto) 0.0 (0.0-0.2) /100WBC Sodium 136 (135-145) mmol/L Potassium 4.1 (3.3-5.1) mmol/L Chloride 99 (96-108) mmol/L Carbon Dioxide 27 (22-29) mmol/L Anion Gap 14 (12-20) BUN 11 (9-16) mg/dL Creatinine 1.12 (0.5-1.4) mg/dL Estim Creat Clear Calc 70.0 Estimated GFR > 60 Random Glucose 175 H (60-115) mg/dL Calcium 9.9 (8.4-10.2) mg/dL Total Bilirubin 0.4 (0.0-1.0) mg/dL AST 20 (5-37) U/L ALT 17 (0-40) U/L Alkaline Phosphatase 105 (39-117) U/L Total Protein 8.1 H (6.5-8.0) g/dL Albumin 4.4 (3.5-5.0) g/dL Lipase 18 (8-78) U/L Urine Color Yellow Urine Appearance Clear Urine pH 6.5 (5.0-9.0) Ur Specific [place] 1.010 (1.005-1.025) Urine Protein Negative (Neg-Trace) mg/dL Urine Glucose (UA) Negative (Negative) mg/dL Urine Ketones Negative (Negative) mg/dL Urine Blood Negative (Negative) Urine Nitrite Negative (Negative) Ur Leukocyte Esterase Negative (Negative) Independent Interpretation I performed an independent interpretation of an: Plain X-Ray ( positive mass noted in the right lung.) and CT Scan ( no large abdominal aortic aneurysm no obstruction) Radiology Impression Discussion of test interpretation with radiology: I have reviewed the radiologist's reading. External Record Review External record reviewed: Office record ( previous pulmonary evaluation reviewed) Chronic Conditions lung cancer, COPD Medications Administered Discontinued Medications Generic Name Dose Route Start Last Admin Trade Name Freq PRN Reason Stop Dose Admin Acetaminophen 975 mg 07/20/23 23:32 07/20/23 23:46 Acetaminophen 325 Mg Tablet PO 07/20/23 23:33 975 mg ONCE ONE Administration Sodium Chloride 500 mls @ 999 mls/hr 07/20/23 21:45 07/20/23 22:33 Ns IV 07/20/23 22:15 Infused .Q31M MANJINDER Infusion Polyethylene Glycol 17 gm 07/20/23 21:37 07/20/23 21:54 Polyethylene Glycol 3350 17 Gm Powd.Pack PO 07/20/23 21:38 17 gm ONCE ONE Administration Discharge Plan Discharge Clinical Impression: Abdominal pain Patient Disposition: Home, Self-Care Instructions: Abdominal Pain (ED) Prescriptions: No Action fluticasone propion-salmeterol [Advair Diskus] 250-50 mcg/dose blister with device 1 inh inhalation Q12H 30 Days Qty: 60 11RF levalbuterol HCl 1.25 mg/3 mL solution for nebulization 1.25 mg inhalation BID 30 Days Qty: 180 0RF budesonide 0.5 mg/2 mL suspension for nebulization 0.5 mg inhalation BID 30 Days Qty: 120 11RF (DME) FreeStyle Lite Strips Strip Qty: 100 0RF Rx Instructions: check blood glucose every morning before breakfast metformin 500 mg tablet extended release 24 hr 500 mg PO DAILY 30 Days Qty: 30 1RF tramadol 50 mg tablet 50 mg PO Q6H PRN (Reason: pain) Qty: 15 0RF ondansetron 8 mg Tablet,Disintegrating 8 mg PO Q8H PRN (Reason: Nausea) Qty: 30 3RF lorazepam 0.5 mg Tablet 0.5 mg PO BID PRN (Reason: Anxiety) Qty: 60 0RF sennosides-docusate sodium [Senna with Docusate Sodium] 8.6-50 mg tablet 1 tab-cap PO BID PRN (Reason: Constipation) Qty: 60 4RF famotidine 20 mg tablet 1 tab PO BID PRN (Reason: heartburn) (DME) blood-glucose meter [FreeStyle Lite Meter] Kit Qty: 1 0RF Rx Instructions: check blood glucose every morning before breakfast alcohol swabs Pads, Medicated 1 pad TOPICAL DAILY Qty: 100 0RF Rx Instructions: check blood glucose every morning before breakfast (DME) lancets [FreeStyle Lancets] 28 gauge misc Qty: 100 0RF Rx Instructions: check blood glucose every morning before breakfast glipizide 5 mg tablet extended release 24hr 5 mg PO QAM 30 Days Qty: 30 2RF (DME) miscellaneous medical supply [facility] [place] See Rx Instructions .ROUTE .MEDSUPPLY Qty: 1 0RF Rx Instructions: Wheelchair As directed, 999 days (DME) Ultra-Light Rollator [facility] [place] See Rx Instructions .Route Qty: 1 0RF Rx Instructions: Rollator walker with As directed seat and brakes. As directed, 999 days triamcinolone acetonide 0.1 % ointment 1 appl topical BID 14 Days Qty: 60 0RF ofloxacin 0.3 % drops 10 drp otic (ears) DAILY 7 Days Qty: 10 0RF fluticasone furoate-vilanterol [Breo Ellipta] 200-25 mcg/dose blister with device 1 inh inhalation DAILY 30 Days Qty: 60 11RF (DME) nebulizers [facility] [place] See Rx Instructions .Route Rx Instructions: As directed (DME) Oxygen Home Use Kit See Rx Instructions .Route Rx Instructions: As directed Referrals: Physician,Connor J [Primary Care Provider] - 07/24/23
[2023-07-20 21:43] VITALS: BP 170/96; PULSE 90; RESP 16; TEMP 36.9; O2SAT 98
[2023-07-20] MEDS: polyethylene glycoL 3350 17 GM POWD.PACK PO (21:54)
[2023-07-20] MEDS: 0.9 % Sodium Chloride 500 ML 999 ML IV (21:54)
[2023-07-20 23:30] VITALS: BP 163/104; PULSE 88; RESP 16; TEMP 36.5; O2SAT 97
--- NOTE | 2023-07-20 23:35 | PC.NURSE ---
Assumed care of pt. Pt lying on stretcher, O2 via NC in place, endorsing moderate abdominal pain. Requested orders from provider. No other acute distress.
[2023-07-20] MEDS: Acetaminophen 325 MG TABLET 975 MG PO (23:46)
== END 2023-07-21 01:57 | disposition home or self-care (01) ==
PROVIDERS: Physician Assistant; Emergency Provider Emergency Medicine Emergency Medical Services
DX: R10.9 Unspecified abdominal pain (principal); E11.9 Type 2 diabetes mellitus without complications; C34.91 Malignant neoplasm of unspecified part of right bronchus or lung; J96.01 Acute respiratory failure with hypoxia; J44.9 Chronic obstructive pulmonary disease, unspecified; Z99.81 Dependence on supplemental oxygen; Z87.891 Personal history of nicotine dependence; Z79.84 Long term (current) use of oral hypoglycemic drugs; Z79.899 Other long term (current) drug therapy
CPT/HCPCS: 36415; 71046; 74176; 80053; 81003; 83690; 85025; 96360; 99284; 99285

== ENCOUNTER 2023-07-28 09:50 | Outpatient (AMB) | payer MEDICARE, MEDICAID, SELFPAY ==
[2023-07-28 09:54] VITALS: PULSE 92; O2SAT 99; BMI 23.1
--- NOTE | 2023-07-28 09:54 | A.OFFVIS_ITS ---
Intake Vital Signs 07/28/23 09:54 Height 5 ft 11 in Weight 165 lb 5.547 oz BMI 23.1 Pulse 92 Pulse Source Pulse Oximeter Pulse Oximetry (%) 99 Oxygen Delivery Method Room Air Comment 1.5 Liters Oxygen([employer]) Intake Visit Reasons: Lung Cancer Follow up Materials Analyst Required: No Allergies No Known Allergies Allergy (Verified 07/28/23 09:55) HPI HPI Comments History of Present Illness Details The patient is a 63-year-old gentleman who was initially evaluated back in the summer of 2021 with worsening cough. He did have a CT scan that point he had a large right middle lobe mass with hilar density as well. 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 He was treated with concomitant chemoradiation including cisplatin and Taxol. The patient completed radiation therapy. However, started developing worsening right-sided chest pains and worsening shortness of breath. Therefore he was started on antibiotics by his radiation therapist. However his symptoms worsened he was admitted to the hospital with a right-sided pneumonia. The patient is treated with antibiotics. He was also placed on oxygen. He has been off the chemo since then. He did speak to Oncology regarding starting immune therapy. I did evaluate his last CTA that he had couple days ago. Appears that he has the masslike density has not become cavitated. He still has some residual abnormalities. In addition to that he has significant airspace disease in pneumonitis along with reactive inflammation of the pleura. He also has a small right-sided pleural effusion. Likely that he has a component of pneumonitis resulting from the chemotherapy and radiation in addition to a component of pleuritis. Smoldering infections are also in the differential she was leukopenic. At this point the patient is still having discomfort so therefore will start him on prednisone. The the patient also had pulmonary function studies demonstrating moderate COPD. The patient also had a moderate restriction due to pneumonitis and also had evidence of severe diffusion impairment. The patient will be started on respiratory therapy for the COPD. He is also continues the oxygen. I will speak further with Oncology regarding the need for bronchoscopy. 10/18/2022 the patient is here for pulmona ry follow-up visit. Overall the patient is feeling better. He is not completing the course of prednisone. He only has several days ago. Unfortunately he was not able to gets PET scan because he developed worsening chest pain. He did go to the ER had a CTA. It appears that the cavitary lesions about the same. The ground-glass opacities have subsided some degree. Overall looks like he has improved some. He did start the Advair which she is taking it twice a day. I am hopeful that he can reschedule the PET scan. We did call in to help him schedule it and is currently scheduled for October 25 at 11:15. The patient has the information to make sure that he follows through with that. He understands his blood sugar needs to be below 200 in order to get an effective PET scan and is going to be off the prednisone by then anyway. During our brief walking oximetry the patient was able to maintain a pulse ox between 93-95% with activity. However the heart rate was elevated to about 120 beats per minute. The patient was winded as well. The etiology for the tachycardia still not clear. I will request an echocardiogram and also TSH for the patient. I am also hopeful the patient can follow up with Oncology after the PET scan to see about starting immune therapy. 11/03/2022 the patient is here for a pulmonary follow-up visit. He is feeling more shortness of breath. Unfortunately he had his PET scan but it could not be interpreted so therefore he had to be rescheduled. There was a confusion about his appointment so therefore he missed his PET scan appointment and then will had to be rescheduled again. He is planned to have a this Monday. Unfortunately meantime he has continued to have worsening respiratory status. He did not come in with his oxygen today. I did emphasize that he should use the oxygen with activity. I did have him go for chest x-ray demonstrating some increased haziness of the right hemithorax and also appears to be a nodular like opacity in the left hemithorax. Question of further progression of his cancer. Will hopefully get a better idea once he gets his PET scan. I will give him 4 more days of prednisone and also a Z-Sudheer so we can take that and see if he develops any significant improvement. He should be off the prednisone by Monday in order to get his sugars back to below 200-80 getting adequate PET scan. After the PET scan we can address if this appears to be more recurrent cancer versus pneumonitis versus any risk of any infectious processes. 12/05/2022 the patient is here for a pulm onary follow-up visit. Since we last spoke he did get the PET scan demonstrating the metastatic disease to the lymph nodes. The patient did start his immune therapy for the cancer. He had the 1st dose any seems to be tolerating it with some minimal adverse effects. He is complaining of some increasing shortness of breath and also productive cough with green phlegm. Has a hard time expectorating the phlegm. Sometimes takes a while to bring up some phlegm. Will start him on some antibiotics. The patient tolerated well the deep PACs will go ahead and place him on azithromycin 3 times a week. If the patient feels better then he will continue it. If the patient does not feel better on this therapy then I did provide him with sputum cup for culture and also he can come in for chest x-ray. Depending on his response to therapy we can always consider bronchoscopy to further address the airway disease depending on the x-ray and his response to therapy. He understands it is crucial for him to stay on the PDL1 inhibitor as this cancer has metastasized and this would allow the cancer to be effectively treated. 02/20/2023 the patient is here for a pulm onary follow-up visit. The patient overall has been feeling better. He is tolerating the PDL1 inhibitor. The patient is following closely with Oncology. The plan to repeat the PET scan a few months. In the meantime he has been off prednisone. He continues with the nebulized therapy. He also continues with the oxygen. Sometimes hard for him to get around with the large tanks. Therefore we did do a repeat 6 minutes walk test. The patient did my lot better not requiring oxygen at rest. The patient did need oxygen with activity. He desaturated down to 88% will place him on a portable oxygen concentrator 2 L pulse he was able to maintain a pulse ox of 94% with activity. Therefore will request be cylinders with a conserving valve for him to start off with and then also a portable oxygen concentrator to be provided once once available. The portable oxygen concentrator will provide with better portability outside of the home which is what he needs. 04/17/2023 the patient is here for pulmona ry follow-up visit. He continues to have dyspnea on exertion. Moderate severity. Actually even at rest. The patient has been using the oxygen at 2 L with partial improvement. Is very hard for him to carry the oxygen tank. The patient did qualify for the conserving device. Sleep. We had him go for a walk any qualify still. Therefore will would request the cylinders with a conserving valve. The patient also requesting portable oxygen concentrator for increased portability and ease carrying the oxygen. The patient did have a PET scan recently. Review we did review it. Appears to have significant improvement of the mass and the FDG activity. Although now he appears to have a moderate-sized pleural effusion. Likely contributing to his breathing. The patient will need to have drained. He continues with the nebulized therapy does her affecting beneficial. His eosinophil count is increasing on the blood. 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 The patient cannot take prednisone because of the PDL1 inhibitor. She continues to be symptomatic even after the drainage the fluid and we can consider Dupixent as a good option for frequent exacerbation of his COPD. 05/23/2023 the patient is here for a pulm onary follow-up visit. He is feeling a little better. Still having dyspnea on exertion. Still using the oxygen. He did have the thoracentesis draining about 300 mL of fluid. It appears to be exudative in nature in visit predominant. Cytology still not back yet. His postprocedure x-ray still demonstrates opacities on the right lung area. He continues on the immune therapy for his cancer. Seems to be helpful. He has been having symptoms such as dizziness and vertigo specially when she switching positions. His blood work also demonstrated that he was a little dehydrated. Therefore he will increase his fluid intake. The patient also would benefit from pulmonary rehabilitation. She will follow-up with oncology regarding the potential side effects from immune therapy. She understands that the immune therapy is very effective in helping him with his cancer and stopping the thera py could be detrimental. 07/28/2023 the patient is here for a pulmonary follow-up visit. Continues have dyspnea on exertion. Has been using the oxygen with good effect. Also continues with respiratory therapy. He did go to the ER because of abdominal discomfort. Found to have inflammatory process. He is feeling better at this time. His CT scan of the abdomen demonstrated stranding around the pancreas. In addition to that the lung windows demonstrated stable findings. He did follow-up with Oncology and is scheduled to have a PET scan soon to assess his response to therapy currently on immune therapy. The patient is still using the oxygen. We did taken for 6 minute walk test. The patient had a portable oxygen concentrator trial and he was able to do well on 2 L pulse. Therefore will go ahead and request be cylinders with conserving valve that he can use with better portability outside of the home. We will retest in the future. It may be that he can wean off the oxygen. [facility] Medical History Pleural effusion on right Seizures Dyspnea Tachycardia Acute and chronic respiratory failure Pleuritis Pneumonitis Chronic respiratory failure Type 2 diabetes mellitus with hyperglycemia Non-small cell cancer of right lung (~2021) Diabetes (Unknown) Surgical History History of lung biopsy Family History Mother Diabetes Father Diabetes Social History Household Members: Spouse and Children Household Members Other:: son Housing: Apartment Do you presently have visiting nurse or other home services: No Alcohol intake: never Patient Tobacco Use Status: Former Tobacco user Quit Date: 05/12/22 Tobacco use type: Cigarette e-Cigarette/Vaping Use: Never Used Second Hand Smoke Exposure: No service: No Current occupational status: retired Cognitive needs: No Hearing needs: No Vision needs: Yes Review of Systems Const Denies chills, Denies fatigue, Denies fever(s), Denies headache(s) and Denies weakness ENT Denies dizziness and Denies headache(s) Card Denies chest pain, Denies lightheadedness, Reports dyspnea on exertion and Denies other (Palpitations) Resp Denies change in phlegm color, Denies chest congestion, Denies cough, Reports dyspnea on exertion, Denies wheezing and Denies other ( shortness of breath) GI Reports abdominal pain Musc Denies numbness and Denies tingling Neuro Denies dizziness, Denies headache(s), Denies numbness, Denies tingling, Denies paresthesias and Denies weakness Psych Denies anxiety and Denies depression Endo Denies fatigue, Denies polydipsia and Denies polyuria Aller/Immun Denies wheezing Physical Exam Vital Signs: Last Vital Signs Pulse 92 11/17/23 09:54 Pulse Ox 99 07/28/23 09:54 Oxygen Delivery Method Room Air 07/28/23 09:54 BMI result Body Mass Index 23.1 Const General: comfortable Nutritional Appearance: thin HEENT Head: Yes normocephalic and Yes atraumatic Eyes General: appearance normal, both eyes and all related structures Neck Neck: Yes supple Chest Chest palpation & inspection: normal inspection of the chest Resp Effort & Inspection: normal respiratory effort Auscultation: no rales and diminished lung sounds Cardio Rate: regular rate Rhythm: regular rhythm Heart sounds: S1 normal heart sound present and S2 normal heart sound present GI Auscultation: normal bowel sounds Skin General skin exam: no rashes or lesions noted Extrem General: Yes clubbing, No cyanosis and No edema Office Procedures 6 Minute Walk Time:: 10:30 SPO2 % at rest: 99 Pulse at rest: 108 SPO2 % during excercise: 88 Pulse during excercise: 128 SPO2 % after excercise: 97 Pulse after excercise: 120 Distance in yards walked: 120 Juan Score: 6 Performance Observations:: Bayron walked on level ground without assistance, he walked on room air the entire walk. his SPO2 88% on no supplemental O2 needed. Placed on 2liters/pulse and maintained pulse ox 95% with acitivity. Requesting conserving valves for oxygen. [id number] - 6 Minute Walk Assessment & Plan Assessment & Plan (1) COPD (chronic obstructive pulmonary disease): Code(s): J44.9 - Chronic obstructive pulmonary disease, unspecified Qualifiers: COPD type: emphysema Emphysema type: centrilobular Qualified Code(s): J43.2 - Centrilobular emphysema (2) Non-small cell cancer of right lung: Onset Date: ~2021 Comment: (RML Adenocarcinoma - Clinical stage cT3N2/3, IIIB/C - dx 04/2022) Code(s): C34.91 - Malignant neoplasm of unspecified part of right bronchus or lung (3) Pneumonitis: Comment: better Code(s): J18.9 - Pneumonia, unspecified organism (4) Pleural effusion on right: Comment: lymphocytic predominant Code(s): J90 - Pleural effusion, not elsewhere classified Plan continue budesonide BID continue Xopenex DOMINIC as needed consider Dupixent based on the COPD and the elevated Eosiniphil count. continue azithromycin MWF continue PDL1 inhibitor oxygen revision: 2L/pulse with activity and 2L with sleep. Requesting B cylinders with conserving valve Pulmonary rehab PET pending benzonates as needed F/U 3-4 months Orders: Orders AMB 6 minute walk 07/28/23 J44.9 - Chronic obstructive pulmonary disease, unspecified Coding Level of Care Code Est Pt Level 4 (95632) Diagnoses Centrilobular emphysema J43.2 COPD type: emphysema Emphysema type: centrilobular Non-small cell cancer of right lung C34.91 Pneumonitis J18.9 Pleural effusion on right J90 CPT Codes Coding ([id number]) Time Spent (min) 17
[2023-07-30 20:45] VITALS: PULSE 108; O2SAT 99
== END 2023-07-28 10:34 | disposition home or self-care (01) ==
PROVIDERS: PCP Internal Medicine; Visit Provider Hospitalist
DX: J43.2 Centrilobular emphysema (principal); C34.91 Malignant neoplasm of unspecified part of right bronchus or lung
CPT/HCPCS: 94618; 99214

== ENCOUNTER → 2023-07-28 09:50 | Outpatient (BNVA) | payer MEDICARE, MEDICAID, SELFPAY | PROVIDERS: PCP Internal Medicine; Visit Provider Hospitalist | DX: J43.2 Centrilobular emphysema (principal); C34.91 Malignant neoplasm of unspecified part of right bronchus or lung; J18.9 Pneumonia, unspecified organism; J90 Pleural effusion, not elsewhere classified | CPT/HCPCS: 94618; 99212 ==

== ENCOUNTER 2023-08-17 11:30 | Outpatient (RCR) | payer MEDICARE, OTHER, MEDICAID, SELFPAY | END 2023-09-27 09:29 | disposition home or self-care (01) | LOC: HO.PR 11:30 | PROVIDERS: Visit Provider Hospitalist | DX: J44.9 Chronic obstructive pulmonary disease, unspecified (principal) | CPT/HCPCS: 94625; 94761; 99215 ==

== ENCOUNTER 2023-09-12 08:11 | Outpatient (REF) | payer OTHER, SELFPAY ==
--- NOTE | ~2023-09-12 | PE_ITS ---
EXAMINATION: FLUORINE-18 FDG PET/CT SCAN CLINICAL INFORMATION: Subsequent treatment management. Malignant neoplasm of right lung. Status post chemotherapy and radiation therapy. For follow-up/restaging. TECHNIQUE: 65 minutes following the intravenous administration of 15.99 mCi of fluorine 18 FDG, images from the base of skull to mid-thigh were obtained using a combined PET/CT scanner with CT scan based attenuation correction. No intravenous contrast was administered. Transverse, coronal, sagittal, and volume reconstruction projections were obtained. The patient's blood glucose as determined by a finger stick, was 125 mg/dL immediately prior to injection. The radiotracer was injected intravenously through the left antecubital superficial vein, without any complications. Total CT exam dose-length product 677.03 mGy-cm. * These CT images were obtained using dose optimization techniques as appropriate, variously including the following: Automated exposure control * Adjustment of mA and/or kV according to patient size (this includes techniques or standardized protocols for targeted exams where dose is matched to indication/reason for exam; i.e. extremities or head) * Use of iterative reconstruction technique COMPARISON: Most recent prior PET CT study done on 03/28/[address] study done on 05/24/2022. CT scan of the abdomen and pelvis in the chest radiograph done on 07/20/2023 at also reviewed during interpretation of the current study. FINDINGS: SUV max REFERENCE: Blood: 2.95 (current). 2.52 (03/28/2023). 1.56 (baseline-05/24/2022). Liver: 3.9 (current). 3.6 (03/28/2023). 1.91 (baseline-05/24/2022). HEAD AND NECK: No abnormal radiotracer uptake. No large intracranial hemorrhage, acute territorial infarct or significant shift of midline structures. CHEST: Ports and Devices: None Lungs: Persistent stable fibrocavitary changes, partial loss of volume of right upper lobe and superimposed pleuroparenchymal soft tissue thickening associated with mild tracer avidity appear stable since 03/28/2023. Similar-appearing changes are also seen extending into the medial segment of the right middle lobe, unchanged. Specifically, no evidence of any discrete focal new mass/soft tissue abnormality identified to suspect local disease recurrence. The contralateral lung field remain clear. Hypoventilatory changes are present at both lung bases. Pleura: Persistent stable moderate size mild tracer avid right-sided pleural effusion is seen, unchanged since 03/28/2023. Lymph Nodes: Persistent stable subcentimeter mild tracer avid superior right paratracheal lymph node with SUV max of 2.1 (187/267), previously 2.78 on the study dated 03/28/2023. Mild tracer avidity around the origin of the right upper lobe bronchus and right perihilar region without any discrete mass appear similar to that of the most recent prior study dated 03/28/2023, most consistent with posttreatment changes. Mediastinum: Persistent small volume simple-appearing non tracer avid pericardial effusion is noted, appear stable since 03/28/2023 and minimally smaller since the baseline study dated 05/24/2022. Breasts/Chest Wall: No abnormal radiotracer uptake. ABDOMEN/PELVIS: Liver/Biliary System: No focal tracer-avid liver lesion. The gallbladder appears unremarkable. Pancreas: Normal. Spleen: No abnormal radiotracer uptake. No evidence of splenomegaly. Adrenal Glands: No abnormal radiotracer uptake. Kidneys: No hydronephrosis, hydroureter or renal calculi bilaterally. Stable left renal cortical cyst. Bowel: There is no significant bowel dilatation to suggest obstruction. Lymph Nodes: No tracer avid retroperitoneal, mesenteric or pelvic and/or groin lymphadenopathy. Pelvic Organs: The urinary bladder is underdistended. MUSCULOSKELETAL: VASCULAR: Calcific atherosclerotic disease of the aorta and is branches including coronary and carotid arterial calcifications. The infrarenal abdominal aorta measures 2.6 cm at its maximum dimension and is stable since prior study dated 03/28/2023. THE SITE(S) OF MOST INTENSE FDG AVIDITY AND SUV MAX: Superior right paratracheal subcentimeter stable lymph node with SUV max of 2.1. PET/PET CT fusion skull to thigh IMPRESSION: 1. Persistent stable posttreatment changes are noted within the right upper lobe of the lung and medial segment of the right middle lobe and the right perihilar region, unchanged since 03/28/2023. Persistent stable subcentimeter mild tracer avid superior right paratracheal lymph node and mild tracer avid moderate size right-sided pleural effusion. 2. No evidence of new tracer avid disease to suspect local disease recurrence or intrathoracic and/or extrathoracic metastatic disease.
== END 2023-09-12 08:12 | disposition home or self-care (01) ==
LOC: HO.PET 08:11
PROVIDERS: PCP Internal Medicine; Visit Provider Internal Medicine
DX: Z13.89 Encounter for screening for other disorder (principal)

== ENCOUNTER 2023-11-03 14:35 | Outpatient (REF) | payer OTHER, SELFPAY ==
--- NOTE | ~2023-11-03 | XR_ITS ---
EXAMINATION: XR CHEST CLINICAL INFORMATION: Cough and congestion. COMPARISON: Chest 07/20/2023 TECHNIQUE: Frontal view of the chest was obtained. FINDINGS: There is loss of right lung volume with multifocal patchy opacity right parahilar region involving lower lobe and right upper lobe. Some of this is most likely postradiation scarring. Similar findings seen on previous CT chest 08/24/2022. The left lung is expanded and clear. Heart size and pulmonary vascularity is normal. No gross bony abnormality seen. XR/XR chest 1V IMPRESSION: 1. Right parahilar upper and lower lobe lobe patchy opacity with loss of right lung volume. Some of this is most likely postradiation scarring. Similar findings were seen on the previous CT chest 08/24/2022. 2. Left lung is clear.
== END 2023-11-03 14:36 | disposition home or self-care (01) ==
LOC: HO.XRAY 14:35
PROVIDERS: PCP Internal Medicine; Visit Provider Internal Medicine Medical Oncology
DX: C34.91 Malignant neoplasm of unspecified part of right bronchus or lung (principal); R05.9 Cough, unspecified
CPT/HCPCS: 71045

== ENCOUNTER 2023-12-01 10:09 | Outpatient (AMB) | payer OTHER, SELFPAY ==
[2023-12-01 10:13] VITALS: BP 118/78; PULSE 115; O2SAT 97; BMI 23.1
--- NOTE | 2023-12-01 10:13 | A.OFFVIS_ITS ---
Intake Vital Signs 12/01/23 10:13 Height 5 ft 11 in Weight 165 lb 5.547 oz BMI 23.1 BP 118/78 Blood Pressure Location Rt brachial Position Sitting Pulse 115 H Pulse Source Pulse Oximeter Pulse Oximetry (%) 97 Oxygen Delivery Method Nasal Cannula Oxygen Flow Rate 1.5 Intake Visit Reasons: Lung Cancer Follow up Intake Note: please discuss refills with pt. Allergies No Known Allergies Allergy (Verified 12/01/23 10:16) HPI HPI Comments History of Present Illness Details The patient is a 63-year-old gentleman who was initially evaluated back in the summer of 2021 with worsening cough. He did have a CT scan that point he had a large right middle lobe mass with hilar density as well. 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 He was treated with concomitant chemoradiation including cisplatin and Taxol. The patient completed radiation therapy. However, started developing worsening right-sided chest pains and worsening shortness of breath. Therefore he was started on antibiotics by his radiation therapist. However his symptoms worsened he was admitted to the hospital with a right-sided pneumonia. The patient is treated with antibiotics. He was also placed on oxygen. He has been off the chemo since then. He did speak to Oncology regarding starting i mmune therapy. I did evaluate his last CTA that he had couple days ago. Appears that he has the masslike density has not become cavitated. He still has some residual abnormalities. In addition to that he has significant airspace disease in pneumonitis along with reactive inflammation of the pleura. He also has a small right-sided pleural effusion. Likely that he has a component of pneumonitis resulting from the chemotherapy and radiation in addition to a component of pleuritis. Smoldering infections are also in the differential she was leukopenic. At this point the patient is still having discomfort so therefore will start him on prednisone. The the patient also had pulmonary function studies demonstrating moderate COPD. The patient also had a moderate restriction due to pneumonitis and also had evidence of severe diffusion impairment. The patient will be started on respiratory therapy for the COPD. He is also continues the oxygen. I will speak further with Oncology regarding the need for bronchoscopy. 10/18/2022 the patient is here for pulmona ry follow-up visit. Overall the patient is feeling better. He is not completing the course of prednisone. He only has several days ago. Unfortunately he was not able to gets PET scan because he developed worsening chest pain. He did go to the ER had a CTA. It appears that the cavitary lesions about the same. The ground-glass opacities have subsided some degree. Overall looks like he has improved some. He did start the Advair which she is taking it twice a day. I am hopeful that he can reschedule the PET scan. We did call in to help him schedule it and is currently scheduled for October 25 at 11:15. The patient has the information to make sure that he follows through with that. He understands his blood sugar needs to be below 200 in order to get an effective PET scan and is going to be off the prednisone by then anyway. During our brief walking oximetry the patient was able to maintain a pulse ox between 93-95% with activity. However the heart rate was elevated to about 120 beats per minute. The patient was winded as well. The etiology for the tachycardia still not clear. I will request an echocardiogram and also TSH for the patient. I am also hopeful the patient can follow up with Oncology after the PET scan to see about starting immune therapy. 11/03/2022 the patient is here for a pulmonary follow-up visit. He is feeling more shortness of breath. Unfortunately he had his PET scan but it could not be interpreted so therefore he had to be rescheduled. There was a confusion about his appointment so therefore he missed his PET scan appointment and then will had to be rescheduled again. He is planned to have a this Monday. Unfortunately meantime he has continued to have worsening respiratory status. He did not come in with his oxygen today. I did emphasize that he should use the oxygen with activity. I did have him go for chest x-ray demonstrating some increased haziness of the right hemithorax and also appears to be a nodular like opacity in the left hemithorax. Question of further progression of his cancer. Will hopefully get a better idea once he gets his PET scan. I will give him 4 more days of prednisone and also a Z-Sudheer so we can take that and see if he develops any significant improvement. He should be off the prednisone by Monday in order to get his sugars back to below 200-80 getting adequate PET scan. After the PET scan we can address if this appears to be more recurrent cancer versus pneumonitis versus any risk of any infectious processes. 12/05/2022 the patient is here for a pulm onary follow-up visit. Since we last spoke he did get the PET scan demonstrating the metastatic disease to the lymph nodes. The patient did start his immune therapy for the cancer. He had the 1st dose any seems to be tolerating it with some minimal adverse effects. He is complaining of some increasing shortness of breath and also productive cough with green phlegm. Has a hard time expectorating the phlegm. Sometimes takes a while to bring up some phlegm. Will start him on some antibiotics. The patient tolerated well the deep PACs will go ahead and place him on azithromycin 3 times a week. If the patient feels better then he will continue it. If the patient does not feel better on this therapy then I did provide him with sputum cup for culture and also he can come in for chest x-ray. Depending on his response to therapy we can always consider bronchoscopy to further address the airway disease depending on the x-ray and his response to therapy. He understands it is crucial for him to stay on the PDL1 inhibitor as this cancer has metastasized and this would allow the cancer to be effectively treated. 02/20/2023 the patient is here for a pulm onary follow-up visit. The patient overall has been feeling better. He is tolerating the PDL1 inhibitor. The patient is following closely with Oncology. The plan to repeat the PET scan a few months. In the meantime he has been off prednisone. He continues with the nebulized therapy. He also continues with the oxygen. Sometimes hard for him to get around with the large tanks. Therefore we did do a repeat 6 minutes walk test. The patient did my lot better not requiring oxygen at rest. The patient did need oxygen with activity. He desaturated down to 88% will place him on a portable oxygen concentrator 2 L pulse he was able to maintain a pulse ox of 94% with activity. Therefore will request be cylinders with a conserving valve for him to start off with and then also a portable oxygen concentrator to be provided once once available. The portable oxygen concentrator will provide with better portability outside of the home which is what he needs. 04/17/2023 the patient is here for pulmona ry follow-up visit. He continues to have dyspnea on exertion. Moderate severity. Actually even at rest. The patient has been using the oxygen at 2 L with partial improvement. Is very hard for him to carry the oxygen tank. The patient did qualify for the conserving device. Sleep. We had him go for a walk any qualify still. Therefore will would request the cylinders with a conserving valve. The patient also requesting portable oxygen concentrator for increased portability and ease carrying the oxygen. The patient did have a PET scan recently. Review we did review it. Appears to have significant improvement of the mass and the FDG activity. Although now he appears to have a moderate-sized pleural effusion. Likely contributing to his breathing. The patient will need to have drained. He continues with the nebulized therapy does her affecting beneficial. His eosinophil count is increasing on the blood. 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 The patient cannot take prednisone because of the PDL1 inhibitor. She continues to be symptomatic even after the drainage the fluid and we can consider Dupixent as a good option for frequent exacerbation of his COPD. 05/23/2023 the patient is here for a pulm onary follow-up visit. He is feeling a little better. Still having dyspnea on exertion. Still using the oxygen. He did have the thoracentesis draining about 300 mL of fluid. It appears to be exudative in nature in visit predominant. Cytology still not back yet. His postprocedure x-ray still demonstrates opacities on the right lung area. He continues on the immune therapy for his cancer. Seems to be helpful. He has been having symptoms such as dizziness and vertigo specially when she switching positions. His blood work also demonstrated that he was a little dehydrated. Therefore he will increase his fluid intake. The patient also would benefit from pulmonary rehabilitation. She will follow-up with oncology regarding the potential side effects from immune therapy. She understands that the immune therapy is very effective in helping him with his cancer and stopping the therapy could be detrimental. 07/28/2023 the patient is here for a pulmonary follow-up visit. Continues have dyspnea on exertion. Has been using the oxygen with good effect. Also continues with respiratory therapy. He did go to the ER because of abdominal discomfort. Found to have inflammatory process. He is feeling better at this time. His CT scan of the abdomen demonstrated stranding around the pancreas. In addition to that the lung windows demonstrated stable findings. He did follow-up with Oncology and is scheduled to have a PET scan soon to assess his response to therapy currently on immune therapy. The patient is still using the oxygen. We did taken for 6 minute walk test. The patient had a portable oxygen concentrator trial and he was able to do well on 2 L pulse. Therefore will go ahead and request be cylinders with conserving valve that he can use with better portability outside of the home. We will retest in the future. It may be that he can wean off the oxygen. 12/01/2023 the patient is here for a pulmonary follow-up visit. The patient was exposed to sick contacts in the family. He started developing worse cough and also chest congestion constitutional symptoms. Most of the family now Doing better. He is still having residual symptoms although also has been getting better. He did have a chest x-ray done demonstrating no evidence of any acute disease although very difficult to interpret x-rays in view of his significant radiation changes to his right hemithorax. The patient is scheduled to have a CT scan of the chest per oncology will follow-up with those results. In the meantime will try get a sputum culture to make sure that he is being adequately treated. The patient continues to be on azithromycin 3 times a week which appears to be helpful. He has been having some difficulty with his nebulizer. It is not working appropriately. The compressor does not appear to be functioning and seems like it is affecting the way it is nebulized in the therapy. At this point the nebulizer personally broken beyond repair. Will request a replacement machine for him. The patient is really dependent on his nebulizers important for him to have a functional nebulizer at this time. He continues use the oxygen with good effect. [facility] Medical History Pleural effusion on right Seizures Dyspnea Tachycardia Acute and chronic respiratory failure Pleuritis Pneumonitis Chronic respiratory failure Type 2 diabetes mellitus with hyperglycemia Non-small cell cancer of right lung (~2021) Diabetes (Unknown) Surgical History History of lung biopsy Family History Mother Diabetes Father Diabetes Social History Household Members: Spouse and Children Household Members Other:: son Housing: Apartment Do you presently have visiting nurse or other home services: No Alcohol intake: never Patient Tobacco Use Status: Former Tobacco user Quit Date: 05/12/22 Tobacco use type: Cigarette e-Cigarette/Vaping Use: Never Used Second Hand Smoke Exposure: No service: No Current occupational status: retired Cognitive needs: No Hearing needs: No Vision needs: Yes Review of Systems Const Denies chills, Denies fatigue, Denies fever(s), Denies headache(s) and Denies weakness ENT Denies dizziness and Denies headache(s) Card Denies chest pain, Denies lightheadedness, Reports dyspnea on exertion and Denies other (Palpitations) Resp Denies change in phlegm color, Denies chest congestion, Denies cough, Reports dyspnea on exertion, Denies wheezing and Denies other ( shortness of breath) GI Reports abdominal pain Musc Denies numbness and Denies tingling Neuro Denies dizziness, Denies headache(s), Denies numbness, Denies tingling, Denies paresthesias and Denies weakness Psych Denies anxiety and Denies depression Endo Denies fatigue, Denies polydipsia and Denies polyuria Aller/Immun Denies wheezing Physical Exam Vital Signs: Last Vital Signs Pulse 115 H 12/01/23 10:13 BP 118/78 12/01/23 10:13 Pulse Ox 97 12/01/23 10:13 Oxygen Delivery Method Nasal Cannula 12/01/23 10:13 Oxygen Flow Rate 1.5 12/01/23 10:13 BMI result Body Mass Index 23.1 Const General: comfortable Nutritional Appearance: thin HEENT Head: Yes normocephalic and Yes atraumatic Eyes General: appearance normal, both eyes and all related structures Neck Neck: Yes supple Chest Chest palpation & inspection: normal inspection of the chest Resp Effort & Inspection: normal respiratory effort Auscultation: no rales and diminished lung sounds Cardio Rate: regular rate Rhythm: regular rhythm Heart sounds: S1 normal heart sound present and S2 normal heart sound present GI Auscultation: normal bowel sounds Skin General skin exam: no rashes or lesions noted Extrem General: Yes clubbing, No cyanosis and No edema Assessment & Plan Assessment & Plan (1) COPD (chronic obstructive pulmonary disease): Code(s): J44.9 - Chronic obstructive pulmonary disease, unspecified Qualifiers: COPD type: emphysema Emphysema type: centrilobular Qualified Code(s): J43.2 - Centrilobular emphysema (2) Non-small cell cancer of right lung: Onset Date: ~2021 Comment: (RML Adenocarcinoma - Clinical stage cT3N2/3, IIIB/C - dx 04/2022) Code(s): C34.91 - Malignant neoplasm of unspecified part of right bronchus or lung (3) Pneumonitis: Comment: better Code(s): J18.9 - Pneumonia, unspecified organism (4) Pleural effusion on right: Comment: lymphocytic predominant Code(s): J90 - Pleural effusion, not elsewhere classified (5) Cough: Code(s): R05.9 - Cough, unspecified Qualifiers: Cough type: chronic Qualified Code(s): R05.3 - Chronic cough Plan Nebulizer is broken, needs a replacement continue budesonide BID->1mg via neb daily sputum culture continue Xopenex DOMINIC as needed consider Dupixent based on the COPD and the elevated Eosiniphil count. continue azithromycin MWF continue PDL1 inhibitor oxygen revision: 2L/pulse with activity and 2L with sleep. Requesting B cylinders with conserving valve Pulmonary rehab CT chest pending benzonates as needed F/U 2-3 months Orders: Orders Sputum Cult + Gram stain 12/01/23 R05.9 - Cough, unspecified Medications: New budesonide (Pulmicort) 0.25 mg (2 mL) inhalation BID 30 days 120 mL 5RF Coding Level of Care Code Est Pt Level 4 (95079) Diagnoses Centrilobular emphysema J43.2 COPD type: emphysema Emphysema type: centrilobular Non-small cell cancer of right lung C34.91 Pneumonitis J18.9 Pleural effusion on right J90 Chronic cough R05.3 Cough type: chronic Time Spent (min) 17
== END 2023-12-01 10:55 | disposition home or self-care (01) ==
PROVIDERS: PCP Internal Medicine; Visit Provider Hospitalist
DX: J43.2 Centrilobular emphysema (principal); C34.91 Malignant neoplasm of unspecified part of right bronchus or lung; J18.9 Pneumonia, unspecified organism; J90 Pleural effusion, not elsewhere classified; R05.3 Chronic cough
CPT/HCPCS: 99214

== ENCOUNTER → 2023-12-01 10:09 | Outpatient (BNVA) | payer OTHER, SELFPAY | PROVIDERS: PCP Internal Medicine; Visit Provider Hospitalist | DX: J18.9 Pneumonia, unspecified organism (principal); J43.2 Centrilobular emphysema; J90 Pleural effusion, not elsewhere classified; C34.91 Malignant neoplasm of unspecified part of right bronchus or lung | CPT/HCPCS: 99212 ==

== ENCOUNTER 2024-01-31 10:48 | Outpatient (AMB) | payer OTHER, SELFPAY ==
[2024-01-31 11:04] VITALS: PULSE 90; O2SAT 97; BMI 23.1
--- NOTE | 2024-01-31 11:04 | A.OFFVIS_ITS ---
Vital Signs 01/31/24 11:04 Height 5 ft 11 in Weight 165 lb 5.547 oz BMI 23.1 Pulse 90 Pulse Source Pulse Oximeter Pulse Oximetry (%) 97 Oxygen Delivery Method Room Air Comment 1.5 Liter Oxygen([employer]) Intake Visit Reasons: Lung Cancer Follow up Supply Chain Coordinator Required: No Allergies No Known Allergies Allergy (Verified 01/31/24 11:07) HPI Comments Details: The patient is a 63-year-old gentleman who was initially evaluated back in the summer of 2021 with worsening cough. He did have a CT scan that point he had a large right middle lobe mass with hilar density as well. 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 He was treated with concomitant chemoradiation including cisp latin and Taxol. The patient completed radiation therapy. However, started developing worsening right-sided chest pains and worsening shortness of breath. Therefore he was started on antibiotics by his radiation therapist. However his symptoms worsened he was admitted to the hospital with a right-sided pneumonia. The patient is treated with antibiotics. He was also placed on oxygen. He has been off the chemo since then. He did speak to Oncology regarding starting immune therapy. I did evaluate his last CTA that he had couple days ago. Appears that he has the masslike density has not become cavitated. He still has some residual abnormalities. In addition to that he has significant airspace disease in pneumonitis along with reactive inflammation of the pleura. He also has a small right-sided pleural effusion. Likely that he has a component of pneumonitis resulting from the chemotherapy and radiation in addition to a component of pleuritis. Smoldering infections are also in the differential she was leukopenic. At this point the patient is still having discomfort so therefore will start him on prednisone. The the patient also had pulmonary function studies demonstrating moderate COPD. The patient also had a moderate restriction due to pneumonitis and also had evidence of severe diffusion impairment. The patient will be started on respiratory therapy for the COPD. He is also continues the oxygen. I will speak further with Oncology regarding the need for bronchoscopy. 07/28/2023 the patient is here for a pulmonary follow-up visit. Continues have dyspnea on exertion. Has been using the oxygen with good effect. Also continues with respiratory therapy. He did go to the ER because of abdominal discomfort. Found to have inflammatory process. He is feeling better at this time. His CT scan of the abdomen demonstrated stranding around the pancreas. In addition to that the lung windows demonstrated stable findings. He did follow-up with Oncology and is scheduled to have a PET scan soon to assess his response to therapy currently on immune therapy. The patient is still using the oxygen. We did taken for 6 minute walk test. The patient had a portable oxygen concentrator trial and he was able to do well on 2 L pulse. Therefore will go ahead and request be cylinders with conserving valve that he can use with better portability outside of the home. We will retest in the future. It may be that he can wean off the oxygen. 12/01/2023 the patient is here for a pulmonary follow-up visit. The patient was exposed to sick contacts in the family. He started developing worse cough and also chest congestion constitutional symptoms. Most of the family now Doing better. He is still having residual symptoms although also has been getting better. He did have a chest x-ray done demonstrating no evidence of any acute disease although very difficult to interpret x-rays in view of his significant radiation changes to his right hemithorax. The patient is scheduled to have a CT scan of the chest per oncology will follow-up with those results. In the meantime will try get a sputum culture to make sure that he is being adequately treated. The patient continues to be on azithromycin 3 times a week which appears to be helpful. He has been having some difficulty with his nebulizer. It is not working appropriately. The compressor does not appear to be functioning and seems like it is affecting the way it is nebulized in the therapy. At this point the nebulizer personally broken beyond repair. Will request a replacement machine for him. The patient is really dependent on his nebulizers important for him to have a functional nebulizer at this time. He continues use the oxygen with good effect. 01/31/2024 the patient is here for a pulmonary follow-up visit. Overall he is doing okay although he still complaining of the chest congestion shortness of breath. Now more than anything he is developing increasing heart rate tachycardia up to 115 even at rest. He is concerned about his heart. He has been using nebulized therapy with budesonide twice a day. Still though he does have significant chest tightness and congestion. On the blood work there significant eosinophilia. This is likely the result of the immune therapy resulting have it can the airway inflammation process. However, we need to hold off on using prednisone. He has chronic bronchitis he has COPD and based on the fact will trying to avoid prednisone he will be a good candidate for Daliresp. Although it may have adverse effects such as weight loss. He have to be careful since he does not have a lot of weight to lose. He can start with a 250 mcg dose 3 times a week and then increase it as tolerated. He will monitor closely for any GI adverse effects. Hopefully he can tolerated then we can increase him to the therapeutic dose to see if we can decrease the inflammation with a PD 4 inhibitor in minimize any interaction with his chemotherapy. In the meantime he is going to go for an EKG. Depending on the findings we will consider medications or referral to Cardiology or both. His last chest x-ray was back from October 2023. Did not show any active disease. He should be scheduled to have a repeat CT scan time now. Will await those results. [facility] Medical History Pleural effusion on right Seizures Dyspnea Tachycardia Acute and chronic respiratory failure Pleuritis Pneumonitis Chronic respiratory failure Type 2 diabetes mellitus with hyperglycemia Non-small cell cancer of right lung (~2021) Diabetes (Unknown) Surgical History History of lung biopsy Family History Mother Diabetes Father Diabetes Social History Household Members: Spouse and Children Household Members Other:: son Housing: Apartment Do you presently have visiting nurse or other home services: No Alcohol intake: never Patient Tobacco Use Status: Former Tobacco user Quit Date: 05/12/22 Tobacco use type: Cigarette e-Cigarette/Vaping Use: Never Used Second Hand Smoke Exposure: No service: No Current occupational status: retired Cognitive needs: No Hearing needs: No Vision needs: Yes Review of Systems Const Denies chills, Denies fatigue, Denies fever(s), Denies headache(s) and Denies weakness ENT Denies dizziness and Denies headache(s) Card Denies chest pain, Denies lightheadedness, Reports palpitations, Reports dyspnea on exertion and Denies other (Palpitations) Resp Denies change in phlegm color, Reports chest congestion, Reports cough, Reports dyspnea on exertion, Denies wheezing and Denies other ( shortness of breath) GI Reports abdominal pain Musc Denies numbness and Denies tingling Neuro Denies dizziness, Denies headache(s), Denies numbness, Denies tingling, Denies paresthesias and Denies weakness Psych Denies anxiety and Denies depression Endo Denies fatigue, Denies polydipsia, Denies polyuria and Reports palpitations Aller/Immun Denies wheezing Physical Exam Vital Signs: Last Vital Signs Pulse 90 01/31/24 11:04 Pulse Ox 97 01/31/24 11:04 Oxygen Delivery Method Room Air 01/31/24 11:04 BMI result Body Mass Index 23.1 Const General: comfortable Nutritional Appearance: thin HEENT Head: Yes normocephalic and Yes atraumatic Eyes General: appearance normal, both eyes and all related structures Neck Neck: Yes supple Chest Chest palpation & inspection: normal inspection of the chest Resp Effort & Inspection: normal respiratory effort Auscultation: no rales and diminished lung sounds Cardio Rate: regular rate Rhythm: regular rhythm Heart sounds: S1 normal heart sound present and S2 normal heart sound present GI Auscultation: normal bowel sounds Skin General skin exam: no rashes or lesions noted Extrem General: Yes clubbing, No cyanosis and No edema Assessment & Plan Assessment & Plan (1) COPD (chronic obstructive pulmonary disease): Code(s): J44.9 - Chronic obstructive pulmonary disease, unspecified Category: Medical Qualifiers: COPD type: emphysema Emphysema type: centrilobular Qualified Code(s): J43.2 - Centrilobular emphysema (2) Non-small cell cancer of right lung: Onset Date: ~2021 Comment: (RML Adenocarcinoma - Clinical stage cT3N2/3, IIIB/C - dx 04/2022) Code(s): C34.91 - Malignant neoplasm of unspecified part of right bronchus or lung Category: Medical (3) Pneumonitis: Comment: better Code(s): J18.9 - Pneumonia, unspecified organism Category: Medical (4) Pleural effusion on right: Comment: lymphocytic predominant Code(s): J90 - Pleural effusion, not elsewhere classified Category: Medical (5) Cough: Code(s): R05.9 - Cough, unspecified Category: Medical Qualifiers: Cough type: chronic Qualified Code(s): R05.3 - Chronic cough Plan EKG continue budesonide BID continue Xopenex DOMINIC as needed start Daliresp continue azithromycin MWF continue PDL1 inhibitor oxygen revision: 2L/pulse with activity and 2L with sleep. Requesting B cylinders with conserving valve Pulmonary rehab CT chest pending benzonates as needed F/U 2-3 months Orders: Orders ECG 12 lead EKG Today J44.9 - Chronic obstructive pulmonary disease, unspecified Medications: New roflumilast (Daliresp) 250 mcg PO DAILY 30 tabs 11RF 30 days J44.9 - Chronic obstructive pulmonary disease, unspecified Coding Level of Care Code Est Pt Level 4 (59603) Diagnoses Centrilobular emphysema J43.2 COPD type: emphysema Emphysema type: centrilobular Non-small cell cancer of right lung C34.91 Pneumonitis J18.9 Pleural effusion on right J90 Chronic cough R05.3 Cough type: chronic Time Spent (min) 17
== END 2024-01-31 11:24 | disposition home or self-care (01) ==
PROVIDERS: PCP Internal Medicine; Visit Provider Hospitalist
DX: J43.2 Centrilobular emphysema (principal); C34.91 Malignant neoplasm of unspecified part of right bronchus or lung; J18.9 Pneumonia, unspecified organism; J90 Pleural effusion, not elsewhere classified; R05.3 Chronic cough
CPT/HCPCS: 99214

== ENCOUNTER → 2024-01-31 10:48 | Outpatient (REF) | payer OTHER, SELFPAY ==
--- NOTE | 2024-01-31 11:30 | ECG_ITS ---
Test Reason : COPD Blood Pressure : / mmHG Vent. Rate : 095 BPM Atrial Rate : 095 BPM P-R Int : 142 ms QRS Dur : 074 ms QT Int : 326 ms P-R-T Axes : 048 071 077 degrees QTc Int : 409 ms Normal sinus rhythm Increased R/S ratio in V1, consider early transition or posterior infarct Abnormal ECG When compared with ECG of 27-SEP-2022 12:24, No significant change was found Referred By: Neil Huynh Electronically Signed By:LITA PATEL MD
== END ==
LOC: HO.CARD 10:48
PROVIDERS: PCP Internal Medicine; Visit Provider Hospitalist
DX: K21.9 Gastro-esophageal reflux disease without esophagitis (principal); J18.9 Pneumonia, unspecified organism; J44.9 Chronic obstructive pulmonary disease, unspecified
CPT/HCPCS: 93005; 99212

== ENCOUNTER → 2024-01-31 11:30 | Outpatient (BNV) | payer OTHER, SELFPAY | PROVIDERS: PCP Internal Medicine; Visit Provider Internal Medicine Cardiovascular Disease | DX: R94.31 Abnormal electrocardiogram [ECG] [EKG] (principal) | CPT/HCPCS: 93010 ==

== ENCOUNTER 2024-03-28 08:56 | Outpatient (REF) | payer OTHER, SELFPAY ==
--- NOTE | ~2024-03-28 | CT_ITS ---
EXAMINATION: CT CHEST WITH CONTRAST CLINICAL INFORMATION: Pneumonitis. History of malignant neoplasm of right lung. Status post chemotherapy and radiation therapy. COMPARISON: 09/27/2022 TECHNIQUE: Multidetector volumetric CT imaging of the chest was obtained after the administration of 65 mL of Omnipaque 350 intravenous contrast without immediate adverse reactions. Axial MIP volume rendering provided. Sagittal and coronal reformatted images were obtained. This CT examination was performed using dose optimization techniques as appropriate, variously including the following: *Automated exposure control *Adjustment of mA and/or kV according to patient size (this includes techniques or standardized protocols for targeted exams where dose is matched to indication/reason for exam; i.e. extremities or head) *Use of iterative reconstruction technique DLP: 121 mGy-cm FINDINGS: LUNGS: Moderate to marked centrilobular and paraseptal emphysematous change of lungs with architectural distortion, bronchial wall thickening and bronchiectasis of the lungs. Interval increase in size of large cavity in the anterior right upper lobe with increasing surrounding pleural and parenchymal scarring and bronchiectasis. There is associated volume loss. New or more conspicuous 4 mm nodule left lower lobe on image 179 of series 6. Scattered areas of mucus plugging. Central airways are patent. MEDIASTINUM: Imaged thyroid gland is unremarkable. Right paratracheal lymph node measures 1.2 x 0.9 cm. Heart size is normal. Small pericardial effusion. Mild coronary artery calcifications. There is soft tissue infiltration in the mediastinum surrounding the central airways as well as the aortic arch and in the right perihilar region. There is proximal narrowing of the right common carotid artery. PLEURA: Moderate complex right pleural effusion. No left pleural effusion. AXILLA: No axillary lymphadenopathy. UPPER ABDOMEN: Hepatic steatosis. 3.0 x 3.0 cm left renal cyst partially visualized. No adrenal mass. OSSEOUS STRUCTURES: No destructive bone lesions. CT/CT chest w IV con IMPRESSION: Interval increase in size of large cavity in the anterior right upper lobe with increasing surrounding pleural and parenchymal scarring and bronchiectasis. There is soft tissue infiltration in the mediastinum surrounding the central airways as well as the aortic arch and in the right perihilar region. There is proximal narrowing of the right common carotid artery. This may be treatment related. Moderate complex right pleural effusion.
[2024-03-28] MEDS: iohexoL 350 MG/ML 100 ML INFUS..BTL 65 ML IV (09:21)
[2024-04-02 08:59] LABS: GFR POC > 60
== END 2024-03-28 08:57 | disposition home or self-care (01) ==
LOC: HO.CT 08:56
PROVIDERS: PCP Internal Medicine; Visit Provider Internal Medicine
DX: C34.91 Malignant neoplasm of unspecified part of right bronchus or lung (principal); R06.00 Dyspnea, unspecified
CPT/HCPCS: 71260; 82565; Q9967

== ENCOUNTER 2024-04-01 13:29 | Outpatient (AMB) | payer OTHER, SELFPAY ==
[2024-04-01 13:44] VITALS: PULSE 92; O2SAT 99; BMI 22.8
--- NOTE | 2024-04-01 13:44 | A.OFFVIS_ITS ---
Vital Signs 04/01/24 13:44 Height 5 ft 11 in Weight 163 lb 2.273 oz BMI 22.8 Pulse 92 Pulse Source Pulse Oximeter Pulse Oximetry (%) 99 Oxygen Delivery Method Room Air Comment 1.5 Liter Oxygen([employer]) Intake Visit Reasons: Lung Cancer Follow up Allergies No Known Allergies Allergy (Verified 04/01/24 13:46) HPI Comments Details: The patient is a 63-year-old gentleman who was initially evaluated back in the summer of 2021 with worsening cough. He did have a CT scan that point he had a large right middle lobe mass with hilar density as well. 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 He was treated with concomitant chemoradiation including cisplatin and Taxol. The patient completed radiation therapy. However, started developing worsening right-sided chest pains and worsening shortness of breath. Therefore he was started on antibiotics by his radiation therapist. However his symptoms worsened he was admitted to the hospital with a right-sided pneumonia. The patient is treated with antibiotics. He was also placed on oxygen. He has been off the chemo since then. He did speak to Oncology regarding starting immune therapy. I did evaluate his last CTA that he had couple days ago. Appears that he has the masslike density has not become cavitated. He still has some residual abnormalities. In addition to that he has significant airspace disease in pneumonitis along with reactive inflammation of the pleura. He also has a small right-sided pleural effusion. Likely that he has a component of pneumonitis resulting from the chemotherapy and radiation in addition to a component of pleuritis. Smoldering infections are also in the differential she was leukopenic. At this point the patient is still having discomfort so therefore will start him on prednisone. The the patient also had pulmonary function studies demonstrating moderate COPD. The patient also had a moderate restriction due to pneumonitis and also had evidence of severe diffusion impairment. The patient will be started on respiratory therapy for the COPD. He is also continues the oxygen. I will speak further with Oncology regarding the need for bronchoscopy. 07/28/2023 the patient is here for a pulmonary follow-up visit. Continues have dyspnea on exertion. Has been using the oxygen with good effect. Also continues with respiratory therapy. He did go to the ER because of abdominal discomfort. Found to have inflammatory process. He is feeling better at this time. His CT scan of the abdomen demonstrated stranding around the pancreas. In addition to that the lung windows demonstrated stable findings. He did follow-up with Oncology and is scheduled to have a PET scan soon to assess his response to therapy currently on immune therapy. The patient is still using the oxygen. We did taken for 6 minute walk test. The patient had a portable oxygen concentrator trial and he was able to do well on 2 L pulse. Therefore will go ahead and request be cylinders with conserving valve that he can use with better portability outside of the home. We will retest in the future. It may be that he can wean off the oxygen. 12/01/2023 the patient is here for a pulmonary follow-up visit. The patient was exposed to sick contacts in the family. He started developing worse cough and also chest congestion constitutional symptoms. Most of the family now Doing better. He is still having residual symptoms although also has been getting better. He did have a chest x-ray done demonstrating no evidence of any acute disease although very difficult to interpret x-rays in view of his significant radiation changes to his right hemithorax. The patient is scheduled to have a CT scan of the chest per oncology will follow-up with those results. In the meantime will try get a sputum culture to make sure that he is being adequately treated. The patient continues to be on azithromycin 3 times a week which appears to be helpful. He has been having some difficulty with his nebulizer. It is not working appropriately. The compressor does not appear to be functioning and seems like it is affecting the way it is nebulized in the therapy. At this point the nebulizer personally broken beyond repair. Will request a replacement machine for him. The patient is really dependent on his nebulizers important for him to have a functional nebulizer at this time. He continues use the oxygen with good effect. 01/31/2024 the patient is here for a pulmonary follow-up visit. Overall he is doing okay although he still complaining of the chest congestion shortness of breath. Now more than anything he is developing increasing heart rate tachycardia up to 115 even at rest. He is concerned about his heart. He has been using nebulized therapy with budesonide twice a day. Still though he does have significant chest tightness and congestion. On the blood work there significant eosinophilia. This is likely the result of the immune therapy resulting have it can the airway inflammation process. However, we need to hold off on using prednisone. He has chronic bronchitis he has COPD and based on the fact will trying to avoid prednisone he will be a good candidate for Daliresp. Although it may have adverse effects such as weight loss. He have to be careful since he does not have a lot of weight to lose. He can start with a 250 mcg dose 3 times a week and then increase it as tolerated. He will monitor closely for any GI adverse effects. Hopefully he can tolerated then we can increase him to the therapeutic dose to see if we can decrease the inflammation with a PD 4 inhibitor in minimize any interaction with his chemotherapy. In the meantime he is going to go for an EKG. Depending on the findings we will consider medications or referral to Cardiology or both. His last chest x-ray was back from October 2023. Did not show any active disease. He should be scheduled to have a repeat CT scan time now. Will await those results. 04/01/2024 the patient is here for a pulmonary follow-up visit. Overall he is doing a little better. He is tolerating the Daliresp. He also continues on the azithromycin 3 times a week. He continues on the PDL1 inhibitor. Appears to be doing better with the adverse reactions. He understands that he will have increased inflammation due to the medication. Although his respiratory status is better. We did taken for a walking oximetry. The patient did tolerate a portable oxygen concentrator 2 L pulse. I do believe that a POC be better for him as this will provide better portability outside of the home. The patient will continue with his current respiratory therapy. He did have a CT scan of the chest that we personally reviewed in the office. Unfortunately has not been officially read yet. We look that it. Appears to be clear. A lot of the pneumonitis has subsided. The area of the previous malignancy appears to be stable and without any recurrence. And also the he does have a small effusion. Seems to be slightly increased from his previous. Will continue to monitor closely. If there is any worsening of his symptoms will go ahead and get an x- ray sooner otherwise have an x-ray in 3 months before I see him. Will going to go ahead and increase his respiratory medications to the full therapeutic ef fect. [facility] Medical History Pleural effusion on right Seizures Dyspnea Tachycardia Acute and chronic respiratory failure Pleuritis Pneumonitis Chronic respiratory failure Type 2 diabetes mellitus with hyperglycemia Non-small cell cancer of right lung (~2021) Diabetes (Unknown) Surgical History History of lung biopsy Family History Mother Diabetes Father Diabetes Social History Household Members: Spouse and Children Household Members Other:: son Housing: Apartment Do you presently have visiting nurse or other home services: No Alcohol intake: never Patient Tobacco Use Status: Former Tobacco user Tobacco use type: Cigarette e-Cigarette/Vaping Use: Never Used Second Hand Smoke Exposure: No service: No Current occupational status: retired Cognitive needs: No Hearing needs: No Vision needs: Yes Review of Systems Const Denies chills, Denies fatigue, Denies fever(s), Denies headache(s) and Denies weakness ENT Denies dizziness and Denies headache(s) Card Denies chest pain, Denies lightheadedness, Denies palpitations, Reports dyspnea on exertion and Denies other (Palpitations) Resp Denies change in phlegm color, Denies chest congestion, Reports cough, Reports dyspnea on exertion, Denies wheezing and Denies other ( shortness of breath) GI Reports abdominal pain Musc Denies numbness and Denies tingling Neuro Denies dizziness, Denies headache(s), Denies numbness, Denies tingling, Denies paresthesias and Denies weakness Psych Denies anxiety and Denies depression Endo Denies fatigue, Denies polydipsia, Denies polyuria and Denies palpitations Aller/Immun Denies wheezing Physical Exam Vital Signs: Last Vital Signs Pulse 92 04/01/24 13:44 Pulse Ox 99 04/01/24 13:44 Oxygen Delivery Method Room Air 04/01/24 13:44 BMI result Body Mass Index 22.8 Const General: comfortable Nutritional Appearance: thin HEENT Head: Yes normocephalic and Yes atraumatic Eyes General: appearance normal, both eyes and all related structures Neck Neck: Yes supple Chest Chest palpation & inspection: normal inspection of the chest Resp Effort & Inspection: normal respiratory effort Auscultation: no rales and diminished lung sounds Cardio Rate: regular rate Rhythm: regular rhythm Heart sounds: S1 normal heart sound present and S2 normal heart sound present GI Auscultation: normal bowel sounds Skin General skin exam: no rashes or lesions noted Extrem General: Yes clubbing, No cyanosis and No edema Assessment & Plan Assessment & Plan (1) COPD (chronic obstructive pulmonary disease): Code(s): J44.9 - Chronic obstructive pulmonary disease, unspecified Category: Medical Qualifiers: COPD type: emphysema Emphysema type: centrilobular Qualified Code(s): J43.2 - Centrilobular emphysema (2) Non-small cell cancer of right lung: Onset Date: ~2021 Comment: (RML Adenocarcinoma - Clinical stage cT3N2/3, IIIB/C - dx 04/2022) Code(s): C34.91 - Malignant neoplasm of unspecified part of right bronchus or lung Category: Medical (3) Pneumonitis: Comment: better Code(s): J18.9 - Pneumonia, unspecified organism Category: Medical (4) Pleural effusion on right: Comment: lymphocytic predominant Code(s): J90 - Pleural effusion, not elsewhere classified Category: Medical (5) Cough: Code(s): R05.9 - Cough, unspecified Category: Medical Qualifiers: Cough type: chronic Qualified Code(s): R05.3 - Chronic cough Plan continue budesonide BID continue Xopenex DOMINIC as needed increase Daliresp 500mcg continue azithromycin MWF continue PDL1 inhibitor oxygen revision: 2L/pulse with activity and 2L with sleep. requesting POC Pulmonary rehab CT chest pending report, but appears better benzonates as needed F/U 3-4 months Medications: New roflumilast (Daliresp) 500 mcg PO DAILY 30 tabs 3RF Refilled azithromycin 250 mg PO 3XW 12 tabs 3RF Coding Level of Care Code Est Pt Level 4 (64322) Complex EM visit Add On G2211 Diagnoses Centrilobular emphysema J43.2 COPD type: emphysema Emphysema type: centrilobular Non-small cell cancer of right lung C34.91 Pneumonitis J18.9 Pleural effusion on right J90 Chronic cough R05.3 Cough type: chronic Time Spent (min) 18
== END 2024-04-01 14:26 | disposition home or self-care (01) ==
PROVIDERS: PCP Internal Medicine; Visit Provider Hospitalist
DX: J43.2 Centrilobular emphysema (principal); C34.91 Malignant neoplasm of unspecified part of right bronchus or lung; J18.9 Pneumonia, unspecified organism; J90 Pleural effusion, not elsewhere classified; R05.3 Chronic cough
CPT/HCPCS: 99214; G2211

== ENCOUNTER → 2024-04-01 13:29 | Outpatient (BNVA) | payer OTHER, SELFPAY | PROVIDERS: PCP Internal Medicine; Visit Provider Hospitalist | DX: J18.9 Pneumonia, unspecified organism (principal); J43.2 Centrilobular emphysema; C34.91 Malignant neoplasm of unspecified part of right bronchus or lung; J90 Pleural effusion, not elsewhere classified; R05.3 Chronic cough | CPT/HCPCS: 99212 ==

== ENCOUNTER 2024-04-09 10:10 | Outpatient (AMB) | payer OTHER, SELFPAY ==
[2024-04-09 10:14] VITALS: BP 150/98; PULSE 114; O2SAT 98; BMI 21.6
--- NOTE | 2024-04-09 10:17 | MHC.PC.OV ---
Vital Signs 04/09/24 10:14 Height 5 ft 11 in Weight 155 lb 0.2 oz BMI 21.6 BP 150/98 H Blood Pressure Location Lt brachial Position Sitting Pulse 114 H Pulse Source Pulse Oximeter Pulse Oximetry (%) 98 Oxygen Delivery Method Nasal Cannula Oxygen Flow Rate 1.5 Intake Visit Reasons: Hypertension Allergies No Known Allergies Allergy (Verified 04/09/24 10:15) Tobacco use date assessed: 11/17/22 Dental Screening Dental Screen Date: 07/19/23 HPI Hypertension HPI Details 63-year-old male presents to the office to discuss his chronic medical conditions. Patient is undergoing treatment for lung cancer. His condition is stable and is followed by the oncologist. Patient is requesting new eye vision glasses. Blood pressure was recently elevated and started on lisinopril. [facility]MERLY [facility], [facility] Medical History (Updated 04/19/24 @ 13:09 by Bhargav Chen MD) Essential hypertension Pleural effusion on right Seizures Dyspnea Tachycardia Acute and chronic respiratory failure Pleuritis Pneumonitis Chronic respiratory failure Type 2 diabetes mellitus with hyperglycemia Non-small cell cancer of right lung (~2021) Diabetes (Unknown) Surgical History History of lung biopsy Family History Mother Diabetes Father Diabetes Social History Household Members: Spouse and Children Household Members Other:: son Housing: Apartment Do you presently have visiting nurse or other home services: No Alcohol intake: never Patient Tobacco Use Status: Former Tobacco user Tobacco use type: Cigarette e-Cigarette/Vaping Use: Never Used Second Hand Smoke Exposure: No service: No Current occupational status: retired Cognitive needs: No Hearing needs: No Vision needs: Yes Questionnaire Thrive Questionnaire Date Thrive assessed: 10/19/22 EVE-7 AMB Questionnaire EVE-7 Date EVE - 7 assessed: 10/19/22 Source: Developed by Drs. Bakari Herr, Genevieve Mcelroy, Asael Winter and colleagues, with an educational ulises from [employer]. Physical exam (Primary Care) Vital Signs: Last Vital Signs Pulse 114 H 04/09/24 10:14 BP 150/98 H 07/30/24 10:14 Pulse Ox 98 04/09/24 10:14 Oxygen Delivery Method Nasal Cannula 04/09/24 10:14 Oxygen Flow Rate 1.5 04/09/24 10:14 BMI result Body Mass Index 21.6 Tobacco/Smoking Status: Tobacco use Status Tobacco use date assessed 11/17/22 04/09/24 10:24 Patient Tobacco Use Status Former Tobacco user 04/09/24 10:24 Tobacco use type Cigarette 04/09/24 10:24 e-Cigarette/Vaping Use Never Used 04/09/24 10:24 Thrive Assessment: Date of Thrive Assessment Date Thrive assessed 10/19/22 04/09/24 10:24 Const General: cooperative and healthy appearing Nutritional Appearance: well nourished Orientation/consciousness: patient oriented x3 Limitations: no limitations HENMT Head: Yes normal to inspection Eyes General: appearance normal, both eyes and all related structures Neck Neck: Yes normal visual inspection Chest Chest palpation & inspection: normal palpation of entire chest wall Resp Other: Lungs: Bilateral breath sounds. Effort & Inspection: normal respiratory effort Neuro General: patient oriented x3 Extrem Other: Extensive clubbing noted in all fingers. Results AMB Hemoglobin A1c AMB Hemoglobin A1c 6.8 % Last Edit by ELLYN Nieto on 04/09/24 11:06 Results Reviewed Results Reviewed: Laboratory Last Values Hgb A1c (Clinic) 6.8 % (4.0-6.0) H 04/09/24 10:22 Assessment and Plan Assessment & Plan (1) Seizures: Comment: new onset likely metabolic Code(s): R56.9 - Unspecified convulsions Plan: Condition has resolved. (2) Diabetes: Onset Date: Unknown Code(s): E11.9 - Type 2 diabetes mellitus without complications Plan: A1c is 6.8. Continue medications at same dosage. Patient was encouraged to make an eye appointment. He does not need a referral for the same. (3) Non-small cell cancer of right lung: Onset Date: ~2021 Comment: (RML Adenocarcinoma - Clinical stage cT3N2/3, IIIB/C - dx 04/2022) Code(s): C34.91 - Malignant neoplasm of unspecified part of right bronchus or lung Plan: Patient's medical condition is stable. He is seeing an oncologist who is actively managing the condition. (4) Essential hypertension: Code(s): I10 - Essential (primary) hypertension Plan Lisinopril added to the regimen. Orders: Orders AMB Hemoglobin A1c 04/09/24 E11.9 - Type 2 diabetes mellitus without complications Medications: New enalapril maleate 5 mg PO DAILY 60 tabs 0RF Coding Level of Care Code Est Pt Level 4 (69979) Complex EM visit Add On G2211 Diagnoses Seizures R56.9 Diabetes E11.9 Non-small cell cancer of right lung C34.91 Essential hypertension I10
== END 2024-04-09 13:04 | disposition home or self-care (01) ==
PROVIDERS: PCP Internal Medicine; Visit Provider Internal Medicine
DX: E11.9 Type 2 diabetes mellitus without complications (principal)
CPT/HCPCS: 83036; 99214; G2211

== ENCOUNTER 2024-06-28 14:00 | Outpatient (REF) | payer OTHER, SELFPAY ==
--- NOTE | 2024-06-28 15:17 | P.PNHO-ONC_ITS ---
Medical Summary - Medical Summary Primary Care Provider: Rubén Joshi PA-C Medical Summary: Diagnosis: Right lung adenocarcinoma April 2022 CT chest with contrast performed 04/14/2022 revealed a 5.4 cm mass in the right middle lobe contiguous with right hilar mass measuring 2.9 cm within the right lower lobe and bulky right hilar and mediastinal lymphadenopathy. Contralateral prevascular mediastinal lymphadenopathy measuring up to 1.3 cm. No pathologically enlarged left hilar nodes or supraclavicular lymphadenopathy. Brain MRI with contrast was negative. PET-CT performed 05/14/2022 showed right upper lung mass with SUV 14.9 measuring 7.8 x 6.2 cm extending into right hilum and narrowing the right upper lobe bronchus. Extensive mediastinal FDG avid lymphadenopathy, right paratracheal lymphadenopathy with SUV 8.4, additional right prevascular in periaortic FDG avid lymphadenopathy SUV 6.7. Subcarinal FDG avid lymphadenopathy, right supraclavicular lymphadenopathy SUV 6.6 measuring 1.5 x 1.3 cm. Clinical stage T4 N3, stage IIIC disease. He started definitive concurrent chemo radiotherapy with weekly carboplatin AUC 2 along with Taxol 80 milligram/meter sq with concurrent radiation therapy at [facility] On 06/21/2022. He completed concurrent chemoradiation therapy on August 12 2022. Unfortunately, since completion of treatment, he was hospitalized twice for pneumonia. He has had multiple emergency room visits for symptoms of tachycardia and shortness of breath. He has had 2 CT angiograms in August which was negative for PE. There were changes of consolidation and emphysema. He he has been through courses of antibiotics as well as steroids. He has been started on inhalers for COPD, oxygen dependent. He has been through long course of steroids for possible pneumonitis. PET scan and November 2022 showed marked partial metabolic response to therapy of extensive FDG avid masses previously seen in right lung. Resolution of some mediastinal and right hilar lymphadenopathy, but new FDG avid left supraclavicular and worsening left prevascular mediastinal lymph nodes present. [facility] Medical History: Medical History (Last Updated 04/19/24 @ 13:09 by Bhargav Chen MD) Acute and chronic respiratory failure Chronic respiratory failure Diabetes Onset Date: Unknown Dyspnea Essential hypertension Non-small cell cancer of right lung Onset Date: ~2021 Pleural effusion on right Pleuritis Pneumonitis Seizures Tachycardia Type 2 diabetes mellitus with hyperglycemia Family History: Family History (Last Reviewed 07/20/23 @ 21:35 by Aleisha Bailey MD) Mother Diabetes Father Diabetes Surgical History: Surgical History (Last Reviewed 07/20/23 @ 21:35 by Aleisha Bailey MD) History of lung biopsy Social History: Social History (Last Reviewed 07/20/23 @ 21:35 by Aleisha Bailey MD) Living Situation History: Household Members: Spouse Household Members: Children Household Members Other:: son Housing: Apartment Do you presently have visiting nurse or other home services: No Tobacco History: Patient Tobacco Use Status: Former Tobacco user Tobacco use type: Cigarette e-Cigarette/Vaping Use: Never Used Second Hand Smoke Exposure: No Occupation Assessmet: service: No Current occupational status: retired Home Medications and Allergies Home Medications ?Medication ?Instructions ?Recorded ?Confirmed ?Type famotidine 20 mg tablet 1 tab PO BID PRN heartburn 09/02/22 12/15/23 History Oxygen Home Use 12/05/22 12/15/23 History nebulizers 12/05/22 12/15/23 History Allergies Allergy/AdvReac Type Severity Reaction Status Date / Time No Known Allergies Allergy Verified 04/09/24 10:15 Assessment and Plan Patient Active problem list reviewed?: Yes (1) Non-small cell cancer of right lung Problem details: (RML Adenocarcinoma - Clinical stage cT3N2/3, IIIB/C - dx 04/2022) Status: Chronic Assessment and plan: 1. This is a pleasant 63-year-old male with right non-small cell lung cancer diagnosed in April 2022. Initially diagnosed with stage IIIC disease, found to have metastatic disease in November 2022. CT-guided biopsy of right middle lobe performed 04/28/2022 revealed poorly differentiated adenocarcinoma consistent with lung primary. PDL1 expression high, TPS 70%, HER2 negative, leblanc TRK not expressed, EGFR mutation not detected. No alterations in ALK, BRAF, KRAS, MET, RET, ROS1. PTEN deletion detected. TMB intermediate, NFE2L2, TP53 snv's/indels detected. He started single agent pembrolizumab 11/2022 for metastatic disease. His PDL1 expression is 70%, TPS. PET-CT scan in March 2023 showed metabolic response in bilaterally FDG avid supraclavicular and left supraclavicular mediastinal adenopathy. New right- sided pleural effusion, non FDG avid has developed since previous study in November. He had therapeutic paracentesis for right pleural effusion on 05/05/2023. He reports improvement in shortness of breath. 2. Pneumonitis secondary to concurrent chemoradiation therapy. This has improved significantly. 3. Seizure activity witnessed by family members. Brain MRI performed 02/17/2023 was negative for metastasis. He is now being followed by neurologist. 4. Nonspecific abdominal pain. Lipase was not elevated although CT abdomen reported some stranding around the pancreas suggestive of pancreatitis. PET scan performed 09/12/2023 showed stable posttreatment changes in the right upper lobe. Subtle subcentimeter mild tracer avid superior right paratracheal lymph node and mild tracer avid moderate size right-sided pleural effusion seen. He will continue on current regimen. He is on pembrolizumab 200 mg every [address] chest with contrast has been ordered, read is pending. He has been seen by production supervisor off shift. He has on a Zithromax now. He feels improvement in symptoms. Proceed with treatment today. - Time Spent With Patient Time Spent with Patient (in minutes): 0
== END 2024-06-28 14:01 | disposition home or self-care (01) ==
LOC: HO.XRAY 14:00
PROVIDERS: PCP Physician Assistant; Visit Provider Hospitalist
DX: C34.91 Malignant neoplasm of unspecified part of right bronchus or lung (principal); J96.10 Chronic respiratory failure, unspecified whether with hypoxia or hypercapnia; R05.3 Chronic cough
CPT/HCPCS: 71046

== ENCOUNTER 2024-07-02 14:20 | Outpatient (AMB) | payer OTHER, SELFPAY ==
[2024-07-02 14:34] VITALS: BP 132/70; PULSE 92; O2SAT 98; BMI 22.1
--- NOTE | 2024-07-02 14:34 | MHC.OFFVIS ---
Vital Signs 07/02/24 14:34 Height 5 ft 11 in Weight 158 lb 11.725 oz BMI 22.1 BP 132/70 Blood Pressure Location Lt brachial Position Sitting Pulse 92 Pulse Source Pulse Oximeter Pulse Oximetry (%) 98 Oxygen Delivery Method Room Air Comment 2 Liters Oxygen Intake Visit Reasons: Lung Cancer Follow up Information Assurance Officer Required: No Allergies No Known Allergies Allergy (Verified 07/02/24 14:37) HPI Comments Details: The patient is a 64-year-old gentleman who was initially evaluated back in the summer of 2021 with worsening cough. He did have a CT scan that point he had a large right middle lobe mass with hilar density as well. 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 He was treated with concomitant chemoradiation including cisplatin and Taxol. The patient completed radiation therapy. However, started developing worsening right-sided chest pains and worsening shortness of breath. Therefore he was started on antibiotics by his radiation therapist. However his symptoms worsened he was admitted to the hospital with a right-sided pneumonia. The patient is treated with antibiotics. He was also placed on oxygen. He has been off the chemo since then. He did speak to Oncology regarding starting immune therapy. I did evaluate his last CTA that he had couple days ago. Appears that he has the masslike density has not become cavitated. He still has some residual abnormalities. In addition to that he has significant airspace disease in pneumonitis along with reactive inflammation of the pleura. He also has a small right-sided pleural effusion. Likely that he has a component of pneumonitis resulting from the chemotherapy and radiation in addition to a component of pleuritis. Smoldering infections are also in the differential she was leukopenic. At this point the patient is still having discomfort so therefore will start him on prednisone. The the patient also had pulmonary function studies demonstrating moderate COPD. The patient also had a moderate restriction due to pneumonitis and also had evidence of severe diffusion impairment. The patient will be started on respiratory therapy for the COPD. He is also continues the oxygen. I will speak further with Oncology regarding the need for bronchoscopy. 07/28/2023 the patient is here for a pulmonary follow-up visit. Continues have dyspnea on exertion. Has been using the oxygen with good effect. Also continues with respiratory therapy. He did go to the ER because of abdominal discomfort. Found to have inflammatory process. He is feeling better at this time. His CT scan of the abdomen demonstrated stranding around the pancreas. In addition to that the lung windows demonstrated stable findings. He did follow-up with Oncology and is scheduled to have a PET scan soon to assess his response to therapy currently on immune therapy. The patient is still using the oxygen. We did taken for 6 minute walk test. The patient had a portable oxygen concentrator trial and he was able to do well on 2 L pulse. Therefore will go ahead and request be cylinders with conserving valve that he can use with better portability outside of the home. We will retest in the future. It may be that he can wean off the oxygen. 12/01/2023 the patient is here for a pulmonary follow-up visit. The patient was exposed to sick contacts in the family. He started developing worse cough and also chest congestion constitutional symptoms. Most of the family now Doing better. He is still having residual symptoms although also has been getting better. He did have a chest x-ray done demonstrating no evidence of any acute disease although very difficult to interpret x-rays in view of his significant radiation changes to his right hemithorax. The patient is scheduled to have a CT scan of the chest per oncology will follow-up with those results. In the meantime will try get a sputum culture to make sure that he is being adequately treated. The patient continues to be on azithromycin 3 times a week which appears to be helpful. He has been having some difficulty with his nebulizer. It is not working appropriately. The compressor does not appear to be functioning and seems like it is affecting the way it is nebulized in the therapy. At this point the nebulizer personally broken beyond repair. Will request a replacement machine for him. The patient is really dependent on his nebulizers important for him to have a functional nebulizer at this time. He continues use the oxygen with good effect. 01/31/2024 the patient is here for a pulmonary follow-up visit. Overall he is doing okay although he still complaining of the chest congestion shortness of breath. Now more than anything he is developing increasing heart rate tachycardia up to 115 even at rest. He is concerned about his heart. He has been using nebulized therapy with budesonide twice a day. Still though he does have significant chest tightness and congestion. On the blood work there significant eosinophilia. This is likely the result of the immune therapy resulting have it can the airway inflammation process. However, we need to hold off on using prednisone. He has chronic bronchitis he has COPD and based on the fact will trying to avoid prednisone he will be a good candidate for Daliresp. Although it may have adverse effects such as weight loss. He have to be careful since he does not have a lot of weight to lose. He can start with a 250 mcg dose 3 times a week and then increase it as tolerated. He will monitor closely for any GI adverse effects. Hopefully he can tolerated then we can increase him to the therapeutic dose to see if we can decrease the inflammation with a PD 4 inhibitor in minimize any interaction with his chemotherapy. In the meantime he is going to go for an EKG. Depending on the findings we will consider medications or referral to Cardiology or both. His last chest x-ray was back from October 2023. Did not show any active disease. He should be scheduled to have a repeat CT scan time now. Will await those results. 04/01/2024 the patient is here for a pulmonary follow-up visit. Overall he is doing a little better. He is tolerating the Daliresp. He also continues on the azithromycin 3 times a week. He continues on the PDL1 inhibitor. Appears to be doing better with the adverse reactions. He understands that he will have increased inflammation due to the medication. Although his respiratory status is better. We did taken for a walking oximetry. The patient did tolerate a portable oxygen concentrator 2 L pulse. I do believe that a POC be better for him as this will provide better portability outside of the home. The patient will continue with his current respiratory therapy. He did have a CT scan of the chest that we personally reviewed in the office. Unfortunately has not been officially read yet. We look that it. Appears to be clear. A lot of the pneumonitis has subsided. The area of the previous malignancy appears to be stable and without any recurrence. And also the he does have a small effusion. Seems to be slightly increased from his previous. Will continue to monitor closely. If there is any worsening of his symptoms will go ahead and get an x-ray sooner otherwise have an x-ray in 3 months before I see him. Will going to go ahead and increase his respiratory medications to the full therapeutic effect. 07/02/2024 the patient is here for a pulmonary follow-up visit vision overall complains of increasing dyspnea on exertion. Moderate severity. He has also had increased wheezing. He went to get his immune therapy few days ago and he was noted to be wheezy by the oncologist. He had a chest x-ray done. It appears that he has interval worsening of the right-sided pleural effusion per my review. Still waiting for the final read. We did also look at his CT scan of the chest from March demonstrating the pleural effusion. Will go ahead and try to see if this something that we can drain as it may indeed help his overall respiratory capacity. Will also send the fluid for cytology looking for any evidence of any recurrence or any progression of his cancer. The patient continues to be on the nebulized treatment that he has had for some time. Will go ahead and add Incruse to his regimen as a long-acting muscarinic antagonist to further improve his bronchodilation effect. I am hopeful that this will help with his underlying wheezing. He will continue with his rescue respiratory regimen along with his oxygen as prescribed. Will follow-up in 2-3 months. [facility] Medical History (Updated 06/28/24 @ 15:18 by Yolie Rojas MD) Essential hypertension Pleural effusion on right Seizures Dyspnea Tachycardia Acute and chronic respiratory failure Pleuritis Pneumonitis Chronic respiratory failure Type 2 diabetes mellitus with hyperglycemia Non-small cell cancer of right lung (~2021) Diabetes (Unknown) Surgical History History of lung biopsy Family History Mother Diabetes Father Diabetes Social History Household Members: Spouse and Children Household Members Other:: son Housing: Apartment Do you presently have visiting nurse or other home services: No Alcohol intake: never Patient Tobacco Use Status: Former Tobacco user Tobacco use type: Cigarette e-Cigarette/Vaping Use: Never Used Second Hand Smoke Exposure: No service: No Current occupational status: retired Cognitive needs: No Hearing needs: No Vision needs: Yes Review of Systems Const Denies chills, Denies fatigue, Denies fever(s), Denies headache(s) and Denies weakness ENT Denies dizziness and Denies headache(s) Card Denies chest pain, Denies lightheadedness, Denies palpitations, Reports dyspnea on exertion and Denies other (Palpitations) Resp Denies change in phlegm color, Denies chest congestion, Reports cough, Reports dyspnea on exertion, Reports wheezing and Denies other ( shortness of breath) GI Reports abdominal pain Musc Denies numbness and Denies tingling Neuro Denies dizziness, Denies headache(s), Denies numbness, Denies tingling, Denies paresthesias and Denies weakness Psych Denies anxiety and Denies depression Endo Denies fatigue, Denies polydipsia, Denies polyuria and Denies palpitations Aller/Immun Reports wheezing Physical Exam Vital Signs: Last Vital Signs Pulse 92 07/02/24 14:34 BP 132/70 07/02/24 14:34 Pulse Ox 98 07/02/24 14:34 Oxygen Delivery Method Room Air 07/02/24 14:34 BMI result Body Mass Index 22.1 Const General: comfortable Nutritional Appearance: thin HEENT Head: Yes normocephalic and Yes atraumatic Eyes General: appearance normal, both eyes and all related structures Neck Neck: Yes supple Chest Chest palpation & inspection: normal inspection of the chest Resp Effort & Inspection: normal respiratory effort Auscultation: no rales, wheezes and diminished lung sounds Cardio Rate: regular rate Rhythm: regular rhythm Heart sounds: S1 normal heart sound present and S2 normal heart sound present GI Palpation (GI): Soft to palpation Auscultation: normal bowel sounds Skin General skin exam: no rashes or lesions noted Extrem General: Yes clubbing, No cyanosis and No edema Assessment & Plan Assessment & Plan (1) COPD (chronic obstructive pulmonary disease): Code(s): J44.9 - Chronic obstructive pulmonary disease, unspecified Category: Medical Qualifiers: COPD type: emphysema Emphysema type: centrilobular Qualified Code(s): J43.2 - Centrilobular emphysema (2) Non-small cell cancer of right lung: Onset Date: ~2021 Comment: (RML Adenocarcinoma - Clinical stage cT3N2/3, IIIB/C - dx 04/2022) Code(s): C34.91 - Malignant neoplasm of unspecified part of right bronchus or lung Category: Medical (3) Pneumonitis: Comment: better Code(s): J18.9 - Pneumonia, unspecified organism Category: Medical (4) Pleural effusion on right: Comment: lymphocytic predominant Code(s): J90 - Pleural effusion, not elsewhere classified Category: Medical (5) Cough: Code(s): R05.9 - Cough, unspecified Category: Medical Qualifiers: Cough type: chronic Qualified Code(s): R05.3 - Chronic cough Plan continue budesonide BID continue Xopenex DOMINIC as needed continue Daliresp 500mcg continue azithromycin MWF Add Incruse daily continue PDL1 inhibitor oxygen revision: 2L/pulse with activity and 2L with sleep. requesting POC Pulmonary rehab US guided thoracentesis for diagnostic/therapeutic intervention benzonates as needed F/U 3-4 months Orders: Orders Other Ref Test - Misc Today J90 - Pleural effusion, not elsewhere classified Total Protein Pleural Fluid Today J90 - Pleural effusion, not elsewhere classified LDH Pleural Fluid Today J90 - Pleural effusion, not elsewhere classified US drain thoracentesis w image Today J90 - Pleural effusion, not elsewhere classified Cell Count w Diff Pleural Fld Today J90 - Pleural effusion, not elsewhere classified Medications: New umeclidinium 62.5 mcg/actuation (Incruse Ellipta) 1 inh inhalation DAILY 30 days 30 ea 11RF J45.909 - Unspecified asthma, uncomplicated Coding Level of Care Code Est Pt Level 5 (58745) Complex EM visit Add On G2211 Diagnoses Centrilobular emphysema J43.2 COPD type: emphysema Emphysema type: centrilobular Non-small cell cancer of right lung C34.91 Pneumonitis J18.9 Pleural effusion on right J90 Chronic cough R05.3 Cough type: chronic Time Spent (min) 35
== END 2024-07-02 15:03 | disposition home or self-care (01) ==
PROVIDERS: PCP Internal Medicine; Visit Provider Hospitalist
DX: J43.2 Centrilobular emphysema (principal); C34.91 Malignant neoplasm of unspecified part of right bronchus or lung; J18.9 Pneumonia, unspecified organism; J90 Pleural effusion, not elsewhere classified; R05.3 Chronic cough
CPT/HCPCS: 99214; G2211

== ENCOUNTER → 2024-07-02 14:20 | Outpatient (BNVA) | payer OTHER, SELFPAY | PROVIDERS: PCP Internal Medicine; Visit Provider Hospitalist | DX: J43.2 Centrilobular emphysema (principal); J90 Pleural effusion, not elsewhere classified; J18.9 Pneumonia, unspecified organism; R05.3 Chronic cough; C34.91 Malignant neoplasm of unspecified part of right bronchus or lung; Z92.3 Personal history of irradiation; Z92.21 Personal history of antineoplastic chemotherapy; Z99.81 Dependence on supplemental oxygen | CPT/HCPCS: 99212 ==

== ENCOUNTER 2024-07-16 11:19 | Day surgery (SDC) | payer OTHER, SELFPAY ==
--- NOTE | ~2024-07-16 | US_ITS ---
History: Patient with right-sided effusion Procedure performed: 1. Ultrasound guided thoracentesis on the right Physician: Antoni Feliz MD Anesthesia: 8 mL of 1% lidocaine was administered for local anesthesia. Specimen: 550 cc of serosanguinous fluid Drain: None Estimated blood loss: Minimal Complications: None Procedure in detail: Informed and written consent was obtained and placed in the patient's chart. The patient was positioned upright on the ultrasound. Ultrasound of the patient's right chest showed a moderate effusion. The overlying skin was prepped and draped. 1% lidocaine was injected subcutaneously and extended to the pleura. A small incision was made in the skin with a #11 blade. Through the incision and under ultrasound guidance with permanent recordings and direct visualization of needle entry into the pleural cavity, a Yueh needle catheter was advanced into the right pleural cavity. The needle was removed and the catheter was connected to suction yielding 550 mL of serosanguineous fluid. The catheter was removed and a sterile dressing applied. Follow-up chest x-ray showed no evidence of a pneumothorax. Summary: Successful US guided right thoracentesis. Electronically signed by: Darin Feliz MD 07/30/2024 04:08 PM [facility]
[2024-07-16 12:11] VITALS: BP 155/104; PULSE 104; RESP 20; TEMP 36.5; O2SAT 99
[2024-07-16 12:12] VITALS: BMI 21.8
[2024-07-16 12:29] LABS: Glucose, Whole Blood 98 mg/dL (60-115)
[2024-07-16 13:55] VITALS: BP 162/101; PULSE 88; RESP 16; TEMP 36.1; O2SAT 100
[2024-07-16 14:10] VITALS: BP 162/100; PULSE 92; RESP 16; O2SAT 100
[2024-07-16 14:25] VITALS: BP 160/103; PULSE 95; RESP 16; O2SAT 100
[2024-07-16 14:40] VITALS: BP 162/103; PULSE 96; RESP 16; TEMP 36.1; O2SAT 100
[2024-07-16] MEDS: Lidocaine HCl 1 % MPF 5 ML VIAL SUBCUT (14:54)
[2024-07-16 15:27] LABS: MN% 94.9 %; PMN% 5.1 %; RBC Pleural Fluid 0.033 X10*6/uL; WBC Pleural Fluid 3.517 X10*3/uL
[2024-07-16 15:50] LABS: BF Shift QC OK YES; Basophils Pleural Fluid 4 %; Eosinophils Pleural Fluid 5 %; Lymphocytes Pleural Fluid 83 %; Monocytes Pleural Fluid 8 %
[2024-07-17 07:48] LABS: pH Pleural Fluid 7.46
[2024-07-17 07:49] LABS: LDH Pleural Fluid 180; Total Protein Pleural Fluid 4.3
== END 2024-07-16 14:57 | disposition home or self-care (01) ==
PROVIDERS: Physician Assistant Surgical; PCP Internal Medicine; Visit Provider Hospitalist
DX: J90 Pleural effusion, not elsewhere classified (principal); Z85.110 Personal history of malignant carcinoid tumor of bronchus and lung; J98.4 Other disorders of lung; J96.20 Acute and chronic respiratory failure, unspecified whether with hypoxia or hypercapnia; I10 Essential (primary) hypertension; E11.65 Type 2 diabetes mellitus with hyperglycemia; R56.9 Unspecified convulsions; Z92.21 Personal history of antineoplastic chemotherapy; Z92.3 Personal history of irradiation; Z87.891 Personal history of nicotine dependence
CPT/HCPCS: 32555; 71045; 82947; 83615; 83986; 84157; 88112; 88305; 88341; 88342; 89051; J2003

== ENCOUNTER → 2024-07-16 12:54 | Outpatient (BNV) | payer OTHER, SELFPAY | PROVIDERS: PCP Internal Medicine; Visit Provider Radiology Vascular & Interventional Radiology | DX: J90 Pleural effusion, not elsewhere classified (principal) | CPT/HCPCS: 32555 ==

== ENCOUNTER 2024-07-23 13:50 | Outpatient (AMB) | payer OTHER, SELFPAY ==
--- NOTE | 2024-07-23 14:08 | A.OFFPC_ITS ---
Vital Signs 07/23/24 14:10 Height 5 ft 11 in Weight 156 lb 2 oz BMI 21.8 BP 142/70 H Blood Pressure Location Lt brachial Position Sitting Pulse 111 H Pulse Source Pulse Oximeter Pulse Oximetry (%) 99 Oxygen Delivery Method Nasal Cannula Intake Visit Reasons: 3 month f/u Intake Note: Patient is here to follow up on DM, HTN, CRF, COPD. 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 Rehabilitation Aide: Not Required per policy Accompanied by: Self / Same As Patient Allergies No Known Allergies Allergy (Verified 07/23/24 14:43) Medication List - Last Reconciled 07/23/24 by Bhargav Chen MD alcohol swabs 1 pad topical DAILY azithromycin 250 mg PO 3XW blood pressure monitor As directed blood sugar diagnostic (FreeStyle Lite Strips) check blood glucose every morning before breakfast blood-glucose meter (FreeStyle Lite Meter kit) check blood glucose every morning before breakfast budesonide (Pulmicort) 0.25 mg (2 mL) inhalation BID 30 days budesonide 0.5 mg (2 mL) inhalation BID 30 days enalapril maleate 5 mg PO DAILY famotidine 1 tab PO BID PRN glipizide ER 5 mg PO QAM 30 days lancets (FreeStyle Lancets) check blood glucose every morning before breakfast levalbuterol HCl 1.25 mg (3 mL) inhalation BID lorazepam 0.5 mg PO BID PRN metformin ER 500 mg PO DAILY 30 days miscellaneous medical supply Wheelchair As directed, 999 days nebulizers As directed bjlxwksv-zzaelopmv-AI 3.5-10,000-1 mg/mL-unit/mL-% 4 drps otic (ears) Q8H ofloxacin 0.3% 10 drps otic (ears) DAILY 7 days ondansetron 8 mg PO Q8H PRN Oxygen Home Use As directed roflumilast (Daliresp) 250 mcg PO DAILY 30 days roflumilast (Daliresp) 500 mcg PO DAILY sennosides-docusate sodium 8.6-50 mg (Senna with Docusate Sodium) 1 tab-cap PO BID PRN tramadol 50 mg PO Q6H PRN triamcinolone acetonide 0.1% 1 appl topical BID 14 days umeclidinium 62.5 mcg/actuation (Incruse Ellipta) 1 inh inhalation DAILY 30 days walker (Ultra-Light Rollator misc) Rollator walker with As directed seat and brakes. As directed, 999 days Tobacco use date assessed: 07/23/24 Fall risk assessment: No Falls in past year Last assessed Fall Risk: 07/23/24 Dental Screening Dental Screen Date: 07/23/24 Did you have a dental visit in the last 12 months?: No Did you have a dental problem in the last 6 months where you did not have access to dental care?: No Was dental information given to patient?: No HPI 3 month f/u HPI Details 64 yr old female presents to the office to discuss her chronic medical conditions. He has a swelling in the scrotum that he would like examined. Compliant with medications and not reporting any side effects. Able to do all ADL's. Recently he had fluid removed. Requesting a flu vaccine. [facility] Medical History Essential hypertension Pleural effusion on right Seizures Dyspnea Tachycardia Acute and chronic respiratory failure Pleuritis Pneumonitis Chronic respiratory failure Type 2 diabetes mellitus with hyperglycemia Non-small cell cancer of right lung (~2021) Diabetes (Unknown) Surgical History History of lung biopsy Family History Mother Diabetes Father Diabetes Social History Household Members: Spouse and Children Household Members Other:: son Housing: Apartment Do you presently have visiting nurse or other home services: No Alcohol intake: never Patient Tobacco Use Status: Former Tobacco user Tobacco use type: Cigarette e-Cigarette/Vaping Use: Never Used Second Hand Smoke Exposure: Yes service: No Current occupational status: retired Cognitive needs: No Hearing needs: No Vision needs: Yes Questionnaire PHQ-9 Over the last 2 weeks, how often have you been bothered by any of the following problems? 1. Little interest or pleasure in doing things: not at all 2. Feeling down, depressed, or hopeless: not at all 3. Trouble falling or staying asleep, or sleeping too much: not at all 4. Feeling tired or having little energy: not at all 5. Poor appetite or overeating: not at all 6. Feeling bad about yourself - or that you are a failure or have let yourself or your family down: not at all 7. Trouble concentrating on things, such as reading the newspaper or watching television: not at all 8. Moving or speaking so slowly that other people could have noticed. Or the opposite - being so fidgety or restless that you have been moving around a lot more than usual: not at all 9. Thoughts that you would be better off or of hurting yourself in some way: not at all Total score: 0 Depression Screening Interpretation: Negative Depression Screening Done: Yes Source: Developed by Drs. Bakari Herr, Genevieve Mcelroy, Asael Winter and colleagues, with an educational ulises from [email or web address]. Thrive Questionnaire Date Thrive assessed: 07/23/24 I am a: Patient What is your living situation today?: I have a steady place to live Within the past 12 months, did the food you bought not last and you didn't have the money to get more?: Never true Within the past 12 months, did you worry whether your food would run out before you got money to buy more?: Never true Do you have trouble paying for medicines?: No Do you have trouble getting transportation to medical appointments?: No Do you have trouble paying your heating and electricity bill?: No Do you have trouble taking care of your child, family member or friend?: No Do you have trouble with day-to-day activities such as bathing, preparing meals, shopping, managing finances, etc.?: No Are you currently unemployed and looking for a job?: No Are you interested in more education?: No Currently or been in a relationship where the following occur: No concerns reported THRIVE Score: 0 AUDIT C Alcohol Use Questionnaire (AUDIT-C) 1. How often do you have a drink containing alcohol?: Never Total Score: 0 EVE-7 AMB Questionnaire EVE-7 Date EVE - 7 assessed: 07/23/24 Feeling nervous, anxious, or on edge: 0 = Not at all Not being able to stop or control worryin = Not at all Worrying too much about different things: 0 = Not at all Trouble relaxin = Not at all Being so restless that it is hard to sit still: 0 = Not at all Becoming easily annoyed or irritable: 0 = Not at all Feeling afraid as if something awful might happen: 0 = Not at all Total EVE-7 score (0-4 normal; 5-9 mild; 10-14 moderate; 15-21 severe): 0 Source: Developed by Drs. Bakari Herr, Genevieve Mcelroy, Asael Winter and colleagues, with an educational ulises from [email or web address]. Physical exam (Primary Care) Vital Signs: Last Vital Signs Pulse 111 H 07/23/24 14:10 BP 142/70 H 07/23/24 14:10 Pulse Ox 99 07/23/24 14:10 Oxygen Delivery Method Nasal Cannula 07/23/24 14:10 BMI result Body Mass Index 21.8 Tobacco/Smoking Status: Tobacco use Status Tobacco use date assessed 07/23/24 07/23/24 14:21 Patient Tobacco Use Status Former Tobacco user 07/23/24 14:21 Tobacco use type Cigarette 07/23/24 14:21 e-Cigarette/Vaping Use Never Used 07/23/24 14:21 PHQ-9: PHQ-9 Score PHQ-9: Total score 0 07/23/24 14:35 Depression Screening Interpretation: Negative Thrive Assessment: Date of Thrive Assessment Date Thrive assessed 07/23/24 07/23/24 14:21 Currently or been in a relationship where the following occur: No concerns reported Const General: cooperative and healthy appearing Nutritional Appearance: well nourished Orientation/consciousness: patient oriented x3 Limitations: no limitations [facility] Head: Yes normal to inspection Eyes General: appearance normal, both eyes and all related structures Neck Neck: Yes normal visual inspection Chest Chest palpation & inspection: normal palpation of entire chest wall Resp Effort & Inspection: normal respiratory effort Other: Large firm swelling in the scrotum. Prominent rugal folds. Swelling is extending into the inguinal canal. Cough impulse is negative. Neuro General: patient oriented x3 Office Procedures Flu Questionnaire Does the patient have a severe egg allergy?: No Does the patient have severe life threatening allergies?: No Does the patient have a fever or illness today?: No Has the patient ever had Guillain-Theresa Syndrome?: No Has the patient ever had any past reaction to a flu shot?: No Results AMB Hemoglobin A1c AMB Hemoglobin A1c 6.7 % Last Edit by ELLYN Jefferson on 07/23/24 14:21 Immunizations Fluarix Triv [id number] (PF) 45 mcg (15 mcg x 3)/0.5 mL IM syringe Performing Provider: Bhargav Chen MD [place] [facility] [place] [place] [facility] Administered by: ELLYN Nieto on 07/23/24 14:36 Dose Route Admin Location Dispensed Lot Number Expiration Date ND Medication Administration Professional 0.5 mL IM Left Deltoid 0.5 mL [id number] 03/10/25 [id number] [employer] VIS Given Date VIS Provided VIS Publication Date 07/23/24 Single Vaccine 21 Eligibility Eligibility Date Funding Source Not [facility] Eligible 07/23/24 Private Results Reviewed Results Reviewed: Laboratory Last Values Hgb A1c (Clinic) 6.7 % (4.0-6.0) H 07/23/24 14:08 Coding Level of Care Code Est Pt Level 4 (99420) Complex EM visit Add On G2211 Diagnoses Hydrocele in adult N43.3 Type 2 diabetes mellitus with hyperglycemia E11.65 Assessment & Plan Assessment & Plan (1) Hydrocele in adult: Code(s): N43.3 - Hydrocele, unspecified Plan: Clinically the swelling appears to be a hydrocele. US of the scrotum has been requested. A surgical consult will be obtained after the US results are available. (2) Type 2 diabetes mellitus with hyperglycemia: Code(s): E11.65 - Type 2 diabetes mellitus with hyperglycemia Category: Medical Plan: Blood sugars are in range. Continue current medications at same dosage. Orders: Orders AMB Hemoglobin A1c Today E11.65 - Type 2 diabetes mellitus with hyperglycemia US scrotum Today N43.3 - Hydrocele, unspecified Influenza [id number] Immunization Today Z23 - Encounter for immunization Medications: Refilled enalapril maleate 5 mg PO DAILY 60 tabs 0RF pqayjxnb-sbnbnigjw-XL 3.5-10,000-1 mg/mL-unit/mL-% 4 drps otic (ears) Q8H 10 mL 0RF ofloxacin 0.3% 10 drps otic (ears) DAILY 7 days 10 mL 0RF H60.311 - Diffuse otitis externa, right ear
[2024-07-23 14:10] VITALS: BP 142/70; PULSE 111; O2SAT 99; BMI 21.8
== END 2024-07-23 15:10 | disposition home or self-care (01) ==
PROVIDERS: PCP Internal Medicine; Visit Provider Internal Medicine
DX: N43.3 Hydrocele, unspecified (principal); E11.65 Type 2 diabetes mellitus with hyperglycemia; Z23 Encounter for immunization

== ENCOUNTER → 2024-07-23 13:50 | Outpatient (BNVA) | payer OTHER, SELFPAY | PROVIDERS: PCP Internal Medicine; Visit Provider Internal Medicine | DX: Z23 Encounter for immunization (principal); E11.65 Type 2 diabetes mellitus with hyperglycemia; N43.3 Hydrocele, unspecified; Z79.4 Long term (current) use of insulin | CPT/HCPCS: 83036; 90471; 90656; 96127; 99212 ==

== ENCOUNTER 2024-07-30 13:50 | Outpatient (REF) | payer OTHER, SELFPAY ==
--- NOTE | ~2024-07-30 | US_ITS ---
EXAMINATION: US SCROTUM CLINICAL INFORMATION: Right scrotal mass. COMPARISON: None available. TECHNIQUE: A sonogram of the scrotum was performed assessing rosales-scale appearance and color Doppler flow. Spectral Doppler analysis of the arterial and venous flow were performed in the testes bilaterally. FINDINGS: RIGHT: Right testicle measures 3.8 x 2.2 x 2.6 cm, volume 11.7 mL. No focal testicular parenchymal lesions are visualized. Spectral Doppler analysis of the arterial and venous flow is normal in the right testis. Right epididymal head is not visualized by the metal grinder. There is a very large right hydrocele with intrinsic septations displacing the epididymis and testicle on the right. These cysts extending up towards the region of the epididymal head and inguinal canal. In total, the hydrocele measures at least 8.5 x 5.9 x 7.6 cm. I do not see a varicocele on the right. LEFT: Left testicle measures 2.8 x 1.7 x 2.3 cm, volume 6.0 mL. As a tiny punctate calcification along the periphery of the left testicle 2 mm. Testicle otherwise unremarkable. Suspicious masses are not seen. Spectral Doppler analysis of the arterial and venous flow is normal in the left testis. Left epididymal head is normal in size. No left hydrocele or varicocele is seen. Left epididymal Doppler flow is normal. US/US scrotum IMPRESSION: Large complex appearing right hydrocele. The testes are intrinsically normal. Electronically signed by: Forest Khalil MD 07/30/2024 05:[address] [facility]
== END 2024-07-30 13:51 | disposition home or self-care (01) ==
LOC: HO.US 13:50
PROVIDERS: PCP Internal Medicine; Visit Provider Internal Medicine
DX: N43.3 Hydrocele, unspecified (principal)
CPT/HCPCS: 76870

== ENCOUNTER 2024-08-13 10:15 | Outpatient (REF) | payer OTHER, SELFPAY ==
--- NOTE | ~2024-08-13 | PE_ITS ---
EXAMINATION: FLUORINE-18 FDG PET/CT SCAN CLINICAL INFORMATION: Subsequent treatment management. Non-small cell right lung cancer. For restaging. TECHNIQUE: 56 minutes following the intravenous administration of 14.4 mCi of fluorine 18 FDG, images from the base of skull to mid-thigh were obtained using a combined PET/CT scanner with CT scan based attenuation correction. No intravenous contrast was administered. Transverse, coronal, sagittal, and volume reconstruction projections were obtained. The patient's blood glucose as determined by a finger stick, was 128 mg/dL immediately prior to injection. The radiotracer was injected intravenously through a left wrist superficial vein, without any complications. Total CT exam dose-length product 548.89 mGy-cm. * These CT images were obtained using dose optimization techniques as appropriate, variously including the following: Automated exposure control * Adjustment of mA and/or kV according to patient size (this includes techniques or standardized protocols for targeted exams where dose is matched to indication/reason for exam; i.e. extremities or head) * Use of iterative reconstruction technique COMPARISON: Baseline and most recent prior PET CT scan done on 05/24/2022 and 09/12/2023 respectively. FINDINGS: SUV MAX REFERENCE: Blood: 1.76 (2.41-prior and 1.59 on the baseline). Liver: 2.42 (2.69-prior and 1.94 on the baseline). HEAD AND NECK: No abnormal radiotracer uptake. No large intracranial hemorrhage, acute territorial infarct or significant shift of midline structures. CHEST: Ports and Devices: None Lungs: Persistent stable presumed post radiation/post treatment paramediastinal fibrosis related and changes are noted along the medial aspect of the right upper lobe, right middle lobe and superior segment of right lower lobe in the form of fibrosis, bronchiectatic changes and mild tracer activity with SUV max of 2.26 (189/267). There is generalized decreased low lung volume present within the right hemithorax with hyperexpansion of the left lung. Extensive emphysematous disease is present bilaterally. Specifically, no evidence of any new discrete focal tracer avid disease identified within the right or left hemithorax to suspect residual and/or recurrent disease. Pleura: The size of the right-sided pleural effusion has significantly decreased since the most recent prior study done on 09/12/2023 with residual mild tracer activity seen within the base of the right pleural space. Lymph Nodes: Persistent stable mild tracer avid right paratracheal lymph node with SUV max of 2.87 (202/267), previously 2.1. No evidence of any new hypermetabolic mediastinal or hilar lymph node. Mediastinum: Persistent stable non-tracer avid small volume pericardial effusion. Breasts/Chest Wall: No abnormal radiotracer uptake. ABDOMEN/PELVIS: Liver/Biliary System: No focal tracer-avid liver lesion. The gallbladder appears unremarkable. Pancreas: Normal. Spleen: No abnormal radiotracer uptake. No evidence of splenomegaly. Adrenal Glands: No abnormal radiotracer uptake. Kidneys: No hydronephrosis, hydroureter or renal calculi bilaterally. Stable left renal cortical cysts. Bowel: There is no significant bowel dilatation to suggest obstruction. Lymph Nodes: No tracer avid retroperitoneal, mesenteric or pelvic and/or groin lymphadenopathy. Pelvic Organs: The urinary bladder is underdistended. MUSCULOSKELETAL: No suspicious tracer avid disease, unchanged. VASCULAR: The infrarenal abdominal aorta measures 2.6 cm at its maximum dimension and is unchanged since the prior study dated 09/12/2023. Calcific atherosclerotic disease of the aorta and its branches including carotid and coronary arterial calcifications. THE SITE(S) OF MOST INTENSE FDG AVIDITY AND SUV MAX: Right superior paratracheal lymph node with SUV max of 2.87, previously 2.1. PET/PET CT fusion skull to thigh IMPRESSION: * Compared to most recent prior PET CT scan done on 09/12/2023: * Persistent stable presumed post radiation/post treatment paramediastinal fibrosis related and changes are noted along the medial aspect of the right upper lobe, right middle lobe and superior segment of right lower lobe in the form of fibrosis, bronchiectatic changes and mild tracer activity with SUV max of 2.26. * No evidence of any new discrete focal tracer avid disease identified within the right or left hemithorax to suspect residual and/or recurrent disease. * Persistent stable mild tracer avid right paratracheal lymph node with SUV max of 2.87, previously 2.1. No evidence of any new hypermetabolic mediastinal or hilar lymph node. * The size of the right-sided pleural effusion has significantly decreased since the most recent prior study done on 09/12/2023 with residual mild tracer activity seen within the base of the right pleural space. * Persistent stable non-tracer avid small volume pericardial effusion. * No evidence of any tracer avid disease within the abdomen and pelvis. * Stable 2.6 cm infrarenal abdominal aortic ectasia. Electronically signed by: Isaak Hyman MD 08/19/2024 09:42 AM [place]
== END 2024-08-13 10:16 | disposition home or self-care (01) ==
LOC: HO.PET 10:15
PROVIDERS: PCP Internal Medicine; Visit Provider Internal Medicine
DX: Z13.89 Encounter for screening for other disorder (principal)

== ENCOUNTER 2024-08-19 13:14 | Outpatient (AMB) | payer OTHER, SELFPAY ==
--- NOTE | 2024-08-19 13:20 | MHC.OFFVIS ---
Vital Signs 08/19/24 13:27 Height 5 ft 11 in Weight 154 lb BMI 21.5 BP 143/88 H Blood Pressure Location Rt brachial Position Sitting Pulse 113 H Intake Visit Reasons: Hydrocele Intake Note: Patient referred by pcp Dr. Chen for hydrocele. Present for 4yrs. Patient c/o: was been drained 4yrs ago. Denies pain, oozing. Feels like pressure. Scrotum US: 07-30-2024 Accompanied by: spouse Claudia Allergies No Known Allergies Allergy (Verified 08/19/24 13:25) HPI Comments Details: Patient presents for evaluation of a symptomatic right hydrocele. He has had this several years time. He had this aspirated in the recent past and it has recurred. [place] Because of progression of symptoms, patient presents here for further evaluation. Chart was reviewed and patient evaluated. Patient was being treated by Oncology for his lung ailment. He at home does not use oxygen but uses supplemental oxygen when he is out side/traveling. [facility], [facility] Medical History Essential hypertension Pleural effusion on right Seizures Dyspnea Tachycardia Acute and chronic respiratory failure Pleuritis Pneumonitis Chronic respiratory failure Type 2 diabetes mellitus with hyperglycemia Non-small cell cancer of right lung (~2021) Diabetes (Unknown) Surgical History History of lung biopsy Family History Mother Diabetes Father Diabetes Social History Household Members: Spouse and Children Household Members Other:: son Housing: Apartment Do you presently have visiting nurse or other home services: No Alcohol intake: never Patient Tobacco Use Status: Former Tobacco user Tobacco use type: Cigarette e-Cigarette/Vaping Use: Never Used Second Hand Smoke Exposure: Yes service: No Current occupational status: retired Cognitive needs: No Hearing needs: No Vision needs: Yes Physical Exam Vital Signs: Last Vital Signs Pulse 113 H 08/19/24 13:27 BP 143/88 H 08/19/24 13:27 BMI result Body Mass Index 21.5 Chest Other: Chest breath sounds bilaterally. HS 1 in 2. Patient was on supplemental oxygen as noted above GI Other: Patient was examined both supine and standing with Valsalva. Scaphoid abdomen. Left groin negative. Right groin negative for hernia. Modestly sized right hydrocele. Assessment & Plan Assessment & Plan (1) Hydrocele: Code(s): N43.3 - Hydrocele, unspecified Category: Surgical Plan Risks, benefits, and alternatives of hydrocelectomy in the right side were reviewed with the patient and included but not limited to bleeding, infection, recurrence, numbness, pain, scarring and the patient wished to proceed. All questions answered. Arrangements were made for this. Coding Level of Care Code New Pt Level 5 (75459) Diagnoses Hydrocele N43.3
[2024-08-19 13:27] VITALS: BP 143/88; PULSE 113; BMI 21.5
== END 2024-08-19 13:35 | disposition home or self-care (01) ==
PROVIDERS: PCP Internal Medicine; Referring Provider Internal Medicine; Visit Provider Surgery
DX: N43.3 Hydrocele, unspecified (principal)
CPT/HCPCS: 99204

== ENCOUNTER → 2024-08-19 13:14 | Outpatient (BNVA) | payer OTHER, SELFPAY | PROVIDERS: PCP Internal Medicine; Referring Provider Internal Medicine; Visit Provider Surgery | DX: N43.3 Hydrocele, unspecified (principal) | CPT/HCPCS: 99202 ==

== ENCOUNTER 2024-08-30 14:08 | Outpatient (AMB) | payer OTHER, SELFPAY ==
[2024-08-30 14:13] VITALS: BP 140/100; PULSE 112; O2SAT 98; BMI 21.7
--- NOTE | 2024-08-30 14:13 | MHC.OFFVIS ---
Vital Signs 08/30/24 14:13 Height 5 ft 11 in Weight 155 lb 6.814 oz BMI 21.7 BP 140/100 H Blood Pressure Location Lt brachial Position Sitting Pulse 112 H Pulse Source Pulse Oximeter Pulse Oximetry (%) 98 Oxygen Delivery Method Nasal Cannula Oxygen Flow Rate 2 Intake Visit Reasons: Lung Cancer Follow up [employer]ician Required: No Allergies No Known Allergies Allergy (Verified 08/30/24 14:15) HPI Comments Details: The patient is a 64-year-old gentleman who was initially evaluated back in the summer of 2021 with worsening cough. He did have a CT scan that point he had a large right middle lobe mass with hilar density as well. 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 He was treated with concomitant chemoradiation including cisplatin and Taxol. The patient completed radiation therapy. However, started developing worsening right-sided chest pains and worsening shortness of breath. Therefore he was started on antibiotics by his radiation therapist. However his symptoms worsened he was admitted to the hospital with a right-sided pneumonia. The patient is treated with antibiotics. He was also placed on oxygen. He has been off the chemo since then. He did speak to Oncology regarding starting immune therapy. I did evaluate his last CTA that he had couple days ago. Appears that he has the masslike density has not become cavitated. He still has some residual abnormalities. In addition to that he has significant airspace disease in pneumonitis along with reactive inflammation of the pleura. He also has a small right-sided pleural effusion. Likely that he has a component of pneumonitis resulting from the chemotherapy and radiation in addition to a component of pleuritis. Smoldering infections are also in the differential she was leukopenic. At this point the patient is still having discomfort so therefore will start him on prednisone. The the patient also had pulmonary function studies demonstrating moderate COPD. The patient also had a moderate restriction due to pneumonitis and also had evidence of severe diffusion impairment. The patient will be started on respiratory therapy for the COPD. He is also continues the oxygen. I will speak further with Oncology regarding the need for bronchoscopy. 07/28/2023 the patient is here for a pulmonary follow-up visit. Continues have dyspnea on exertion. Has been using the oxygen with good effect. Also continues with respiratory therapy. He did go to the ER because of abdominal discomfort. Found to have inflammatory process. He is feeling better at this time. His CT scan of the abdomen demonstrated stranding around the pancreas. In addition to that the lung windows demonstrated stable findings. He did follow-up with Oncology and is scheduled to have a PET scan soon to assess his response to therapy currently on immune therapy. The patient is still using the oxygen. We did taken for 6 minute walk test. The patient had a portable oxygen concentrator trial and he was able to do well on 2 L pulse. Therefore will go ahead and request be cylinders with conserving valve that he can use with better portability outside of the home. We will retest in the future. It may be that he can wean off the oxygen. 12/01/2023 the patient is here for a pulmonary follow-up visit. The patient was exposed to sick contacts in the family. He started developing worse cough and also chest congestion constitutional symptoms. Most of the family now Doing better. He is still having residual symptoms although also has been getting better. He did have a chest x-ray done demonstrating no evidence of any acute disease although very difficult to interpret x-rays in view of his significant radiation changes to his right hemithorax. The patient is scheduled to have a CT scan of the chest per oncology will follow-up with those results. In the meantime will try get a sputum culture to make sure that he is being adequately treated. The patient continues to be on azithromycin 3 times a week which appears to be helpful. He has been having some difficulty with his nebulizer. It is not working appropriately. The compressor does not appear to be functioning and seems like it is affecting the way it is nebulized in the therapy. At this point the nebulizer personally broken beyond repair. Will request a replacement machine for him. The patient is really dependent on his nebulizers important for him to have a functional nebulizer at this time. He continues use the oxygen with good effect. 01/31/2024 the patient is here for a pulmonary follow-up visit. Overall he is doing okay although he still complaining of the chest congestion shortness of breath. Now more than anything he is developing increasing heart rate tachycardia up to 115 even at rest. He is concerned about his heart. He has been using nebulized therapy with budesonide twice a day. Still though he does have significant chest tightness and congestion. On the blood work there significant eosinophilia. This is likely the result of the immune therapy resulting have it can the airway inflammation process. However, we need to hold off on using prednisone. He has chronic bronchitis he has COPD and based on the fact will trying to avoid prednisone he will be a good candidate for Daliresp. Although it may have adverse effects such as weight loss. He have to be careful since he does not have a lot of weight to lose. He can start with a 250 mcg dose 3 times a week and then increase it as tolerated. He will monitor closely for any GI adverse effects. Hopefully he can tolerated then we can increase him to the therapeutic dose to see if we can decrease the inflammation with a PD 4 inhibitor in minimize any interaction with his chemotherapy. In the meantime he is going to go for an EKG. Depending on the findings we will consider medications or referral to Cardiology or both. His last chest x-ray was back from October 2023. Did not show any active disease. He should be scheduled to have a repeat CT scan time now. Will await those results. 04/01/2024 the patient is here for a pulmonary follow-up visit. Overall he is doing a little better. He is tolerating the Daliresp. He also continues on the azithromycin 3 times a week. He continues on the PDL1 inhibitor. Appears to be doing better with the adverse reactions. He understands that he will have increased inflammation due to the medication. Although his respiratory status is better. We did taken for a walking oximetry. The patient did tolerate a portable oxygen concentrator 2 L pulse. I do believe that a POC be better for him as this will provide better portability outside of the home. The patient will continue with his current respiratory therapy. He did have a CT scan of the chest that we personally reviewed in the office. Unfortunately has not been officially read yet. We look that it. Appears to be clear. A lot of the pneumonitis has subsided. The area of the previous malignancy appears to be stable and without any recurrence. And also the he does have a small effusion. Seems to be slightly increased from his previous. Will continue to monitor closely. If there is any worsening of his symptoms will go ahead and get an x-ray sooner otherwise have an x-ray in 3 months before I see him. Will going to go ahead and increase his respiratory medications to the full therapeutic effect. 07/02/2024 the patient is here for a pulmonary follow-up visit vision overall complains of increasing dyspnea on exertion. Moderate severity. He has also had increased wheezing. He went to get his immune therapy few days ago and he was noted to be wheezy by the oncologist. He had a chest x-ray done. It appears that he has interval worsening of the right-sided pleural effusion per my review. Still waiting for the final read. We did also look at his CT scan of the chest from March demonstrating the pleural effusion. Will go ahead and try to see if this something that we can drain as it may indeed help his overall respiratory capacity. Will also send the fluid for cytology looking for any evidence of any recurrence or any progression of his cancer. The patient continues to be on the nebulized treatment that he has had for some time. Will go ahead and add Incruse to his regimen as a long-acting muscarinic antagonist to further improve his bronchodilation effect. I am hopeful that this will help with his underlying wheezing. He will continue with his rescue respiratory regimen along with his oxygen as prescribed. Will follow-up in 2-3 months. 08/30/2024 the patient is here for a pulmonary follow-up visit. Overall the patient has been doing fairly well. He is tolerating his respiratory regimen. He does take a lot of medications and he is currently maximized. He is still having some wheezing but it is reasonable and he still able to do his activities of daily living. The patient did have a recent PET scan that we personally reviewed. No evidence of any worsening disease. He still has some FDG activity in the paratracheal lymph node but he has had this activity before. 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 He also underwent a thoracentesis which was negative for cytology. He does have some degree of inflammation in that area likely related to the immune therapy. At this time he does not need any additional interventions. Will continue with the current respiratory regimen will follow-up in the spring. He continues uses oxygen also with good effect. [facility] Medical History (Updated 08/30/24 @ 11:04 by Stephie Beaulieu PA-C) Seizures Non-small cell cancer of right lung (~2021) COPD (chronic obstructive pulmonary disease) Chronic respiratory failure Acute and chronic respiratory failure Pneumonitis Pleuritis Pleural effusion on right Essential hypertension Dyspnea Tachycardia Type 2 diabetes mellitus with hyperglycemia Diabetes (Unknown) Surgical History (Updated 08/19/24 @ 16:32 by Yolie Rojas MD) History of lung biopsy Family History Mother Diabetes Father Diabetes Social History Household Members: Spouse and Children Household Members Other:: son Housing: Apartment Do you presently have visiting nurse or other home services: No Alcohol intake: never Patient Tobacco Use Status: Former Tobacco user Tobacco use type: Cigarette e-Cigarette/Vaping Use: Never Used Second Hand Smoke Exposure: Yes service: No Current occupational status: retired Cognitive needs: No Hearing needs: No Vision needs: Yes Review of Systems Const Denies chills, Denies fatigue, Denies fever(s), Denies headache(s) and Denies weakness ENT Denies dizziness and Denies headache(s) Card Denies chest pain, Denies lightheadedness, Denies palpitations, Reports dyspnea on exertion and Denies other (Palpitations) Resp Denies change in phlegm color, Denies chest congestion, Reports cough, Reports dyspnea on exertion, Reports wheezing and Denies other ( shortness of breath) GI Reports abdominal pain Musc Denies numbness and Denies tingling Neuro Denies dizziness, Denies headache(s), Denies numbness, Denies tingling, Denies paresthesias and Denies weakness Psych Denies anxiety and Denies depression Endo Denies fatigue, Denies polydipsia, Denies polyuria and Denies palpitations Aller/Immun Reports wheezing Physical Exam Vital Signs: Last Vital Signs Pulse 112 H 08/30/24 14:13 BP 140/100 H 08/30/24 14:13 Pulse Ox 98 08/30/24 14:13 Oxygen Delivery Method Nasal Cannula 08/30/24 14:13 Oxygen Flow Rate 2 08/30/24 14:13 BMI result Body Mass Index 21.7 Const General: comfortable Nutritional Appearance: thin HEENT Head: Yes normocephalic and Yes atraumatic Eyes General: appearance normal, both eyes and all related structures Neck Neck: Yes supple Chest Chest palpation & inspection: normal inspection of the chest Resp Effort & Inspection: normal respiratory effort Auscultation: no rales, wheezes and diminished lung sounds Cardio Rate: regular rate Rhythm: regular rhythm Heart sounds: S1 normal heart sound present and S2 normal heart sound present GI Palpation (GI): Soft to palpation Auscultation: normal bowel sounds Skin General skin exam: no rashes or lesions noted Extrem General: Yes clubbing, No cyanosis and No edema Assessment & Plan Assessment & Plan (1) COPD (chronic obstructive pulmonary disease): Code(s): J44.9 - Chronic obstructive pulmonary disease, unspecified Category: Medical Qualifiers: COPD type: emphysema Emphysema type: centrilobular Qualified Code(s): J43.2 - Centrilobular emphysema (2) Non-small cell cancer of right lung: Onset Date: ~2021 Comment: (RML Adenocarcinoma - Clinical stage cT3N2/3, IIIB/C - dx 04/2022) Code(s): C34.91 - Malignant neoplasm of unspecified part of right bronchus or lung Category: Medical (3) Pneumonitis: Comment: better Code(s): J18.9 - Pneumonia, unspecified organism Category: Medical (4) Pleural effusion on right: Comment: lymphocytic predominant Code(s): J90 - Pleural effusion, not elsewhere classified Category: Medical (5) Cough: Code(s): R05.9 - Cough, unspecified Category: Medical Qualifiers: Cough type: chronic Qualified Code(s): R05.3 - Chronic cough Plan continue budesonide BID continue Xopenex DOMINIC as needed continue Daliresp 500mcg continue azithromycin MWF continue Incruse daily continue PDL1 inhibitor oxygen revision: 2L/pulse with activity and 2L with sleep. requesting POC Pulmonary rehab benzonates as needed F/U 3-4 months Medications: Refilled umeclidinium 62.5 mcg/actuation (Incruse Ellipta) 1 inh inhalation DAILY 30 ea 11RF 30 days J45.909 - Unspecified asthma, uncomplicated Coding Level of Care Code Est Pt Level 4 (59394) Complex EM visit Add On G2211 Diagnoses Centrilobular emphysema J43.2 COPD type: emphysema Emphysema type: centrilobular Non-small cell cancer of right lung C34.91 Pneumonitis J18.9 Pleural effusion on right J90 Chronic cough R05.3 Cough type: chronic Time Spent (min) 17
== END 2024-08-30 15:26 | disposition home or self-care (01) ==
PROVIDERS: PCP Internal Medicine; Visit Provider Hospitalist
DX: J43.2 Centrilobular emphysema (principal); C34.91 Malignant neoplasm of unspecified part of right bronchus or lung; J18.9 Pneumonia, unspecified organism; J90 Pleural effusion, not elsewhere classified; R05.3 Chronic cough
CPT/HCPCS: 99214; G2211

== ENCOUNTER → 2024-08-30 14:08 | Outpatient (BNVA) | payer OTHER, SELFPAY | PROVIDERS: PCP Internal Medicine; Visit Provider Hospitalist | DX: J43.2 Centrilobular emphysema (principal); J18.9 Pneumonia, unspecified organism; J90 Pleural effusion, not elsewhere classified; C34.91 Malignant neoplasm of unspecified part of right bronchus or lung; R05.3 Chronic cough | CPT/HCPCS: 99212 ==

== ENCOUNTER 2024-09-20 08:39 | Outpatient (REF) | payer OTHER, SELFPAY ==
--- NOTE | ~2024-09-20 | MM_ITS ---
EXAMINATION: MM DIAGNOSTIC DIGITAL BREAST TOMOSYNTHESIS, BILATERAL CLINICAL INFORMATION: History of lung cancer on chemotherapy currently. Right breast pain and swelling just behind the nipple. COMPARISON: Mammography: Comparison is made with relevant prior exams. TECHNIQUE: Digital breast mammography with tomosynthesis is performed in both the craniocaudal and mediolateral oblique views along with computer-aided detection (CAD). FINDINGS: The breasts are almost entirely fatty (ACR BI-RADS breast composition Category a). Triangular palpable marker at the nipple with mild retroareolar gynecomastia. There is trace gynecomastia in the left breast. No suspicious masses, calcifications or other abnormal findings. Results are provided to the patient at time of visit by the technologist. MM/MM tomosynthesis diagnostic BI IMPRESSION: Bilateral gynecomastia moderate on the right minimal or trace on the left. Benign. ASSESSMENT: BI-RADS BI-RADS 2 - Benign Findings RECOMMENDATION: Recommend clinical evaluation followup and management for gynecomastia. Patient could be referred to a breast surgeon for clinical evaluation. Electronically signed by: Mona Geiger DO 09/20/2024 09:18 AM EST
== END 2024-09-20 08:40 | disposition home or self-care (01) ==
LOC: HO.MAMMO 08:39
PROVIDERS: PCP Internal Medicine; Visit Provider Internal Medicine
DX: N64.89 Other specified disorders of breast (principal)
CPT/HCPCS: 77062; 77066

== ENCOUNTER → 2024-09-20 08:45 | Outpatient (BNV) | payer OTHER, SELFPAY | PROVIDERS: PCP Internal Medicine; Visit Provider Internal Medicine | DX: N64.89 Other specified disorders of breast (principal) | CPT/HCPCS: 77066; G0279 ==

== ENCOUNTER 2024-09-27 07:29 | Day surgery (SDC) | payer OTHER, SELFPAY ==
[2024-09-25 13:30] VITALS: BMI 21.5
--- NOTE | 2024-09-26 12:48 | MHC.SHP ---
Pre-Procedural Eval Section A - 24 Hr Update-Section A only Date of Service: 09/27/24 The patient is an INPATIENT: No Changes since office visit: No Cold of Flu in the past 2 weeks, No New Medical Problems, No Changes in Medication and No Patient answered all questions Section B - Complete if H&P > 30 days Chief Complaint: Hydrocele, unspecified Allergies: Allergies Allergy/AdvReac Type Severity Reaction Status Date / Time No Known Allergies Allergy Verified 08/30/24 14:15 Review of Systems Sugical H&P ROS: Negative: Constitution, Cardiovascular, Respiratory, Neurological, Psychiatric, Hem-Onc, Allergic/Immunologic, Gastrointestinal, Genitourinary, Musculoskeletal, Integumentary, Endocrine and Eyes/Ears/Nose/Throat Exam Surgical H&P Exam: Normal: HEENT, Normal: Heart, Normal: Lungs, Normal: Extremities, Normal: Abdomen, Normal: Skin and Normal: Neurological Plan I have reviewed the history and physical and performed a pertinent physical examination on my patient. No changes have occurred unless specified. Time Spent With Patient Time: Total time managing care of this patient today ____ minutes.
[2024-09-27] VITALS (10 sets, daily range): BP systolic 103–180; BP diastolic 66–99; PULSE 75–104; RESP 16; TEMP 36.1–36.2; O2SAT 99–100; BMI 21.3
[2024-09-27 08:35] LABS: Glucose, Whole Blood 124 mg/dL (60-115)
[2024-09-27 08:40] LABS: Prothrombin Time 11.3 SEC (10.9-12.4)
[2024-09-27 08:43] LABS: Partial Thromboplastin Time 38.7 SEC (26.0-36.8)
--- NOTE | 2024-09-27 08:45 | HO.ANESPROP2 ---
Documented by User: Carlie Armenta NP 09/26/24 13:05 HPI - Anesthesia Eval Consult details Narrative: 64yo M for Right Hydrocelectomy Repair Chronic respiratory failure requiring O2 @ 2L. [place] [facility] [place] stable at 08/2024 office visit, tx maxamized. Lung CA s/p radiation 2021. PET-CT in July shows stable post radiation fibrosis and bronchiectatic changes. Last immunotherapy 08/2024 Pleural effusion s/p thoracentesis 07/2024, negative cytology Case reviewed with Dr Casper - plan for spinal, coags ordered PMFSH Active Problems Active Problems: All Active Problems Hydrocele (Acute) Cough (Acute) Left flank pain (Acute) Otitis externa (Acute) Rash (Acute) Change in hearing (Acute) Chest pain (Acute) Vision changes (Acute) Hyperglycemia (Acute) Ex-smoker (Acute) Lower extremity weakness (Acute) Acute respiratory failure with hypoxia (Acute) Hypoxia (Acute) Pneumonia (Acute) Non-small cell cancer of right lung (Chronic ~2021) COPD (chronic obstructive pulmonary disease) (Acute) Essential hypertension (Acute) Type 2 diabetes mellitus with hyperglycemia (Acute) Pleural effusion on right (Acute) Seizures (Acute) Diabetes (Acute Unknown) Acute and chronic respiratory failure (Acute) Chronic respiratory failure (Acute) Dyspnea (Acute) Pleuritis (Acute) Pneumonitis (Acute) Tachycardia (Acute) Past Medical History Medical History (Updated 08/30/24 @ 11:04 by Stephie Beaulieu PA-C) Essential hypertension Pleural effusion on right Seizures Dyspnea Tachycardia Acute and chronic respiratory failure Pleuritis Pneumonitis Chronic respiratory failure COPD (chronic obstructive pulmonary disease) Type 2 diabetes mellitus with hyperglycemia Non-small cell cancer of right lung (~2021) Diabetes (Unknown) Family History Family History Mother Diabetes Father Diabetes Surgical History Surgical History History of thoracentesis History of lung biopsy Social History Social History Household Members: Spouse and Children Household Members Other:: son Housing: Apartment Are you a primary acute care physical therapist to a significant other at home: No Do you presently have visiting nurse or other home services: No Alcohol intake: never Patient Tobacco Use Status: Former Tobacco user Tobacco use type: Cigarette Years Smoked: 45 Smoked in Last 30 Days: No e-Cigarette/Vaping Use: Never Used Second Hand Smoke Exposure: Yes Use of substances other than those prescribed or required for medical reasons: Yes Substance Use Type Other:: FORMER Have you been hit, kicked, punched, or otherwise hurt by someone within the past year? If so, by whom?: No Are you DNR?: No Advance Directives: No Advance Directives Information Provided: Yes ( Claudia (per patient)) Advance Directives on File: No (NOT ON FILE) Recently lost weight without trying: No How much weight loss: Not applicable Eating poorly because of decreased appetite: No Nutrition screen score: 0 Nutrition Risks: No Nutritional Risk Poor oral hygiene: Yes (broken top teeth) service: No Current occupational status: retired Cognitive needs: No Hearing needs: No Vision needs: Yes Meds Allergies Allergy/AdvReac Type Severity Reaction Status Date / Time No Known Allergies Allergy Verified 09/27/24 08:23 Home Medications ?Medication ?Instructions ?Recorded ?Confirmed ?Last Taken ?Type famotidine 20 mg tablet 1 tab PO BID PRN heartburn 09/02/22 09/27/24 Unknown History Oxygen Home Use 12/05/22 08/19/24 Unknown History nebulizers 12/05/22 08/19/24 Unknown History Exam Height,Weight and Vital Signs: Height 5 ft 11 in Weight 69.853 kg Pertinent Lab Results Pertinent Lab Results: Laboratory Tests 08/16/24 13:18 WBC 9.5 Hgb 13.9 L Hct 42.9 Plt Count 329 Sodium 135 Potassium 3.8 Chloride 103 Carbon Dioxide 24 BUN 18 H Creatinine 1.19 Narrative Narrative: EKG 01/2024 Vent. Rate : 095 BPM Atrial Rate : 095 BPM P-R Int : 142 ms QRS Dur : 074 ms QT Int : 326 ms P-R-T Axes : 048 071 077 degrees QTc Int : 409 ms Normal sinus rhythm Increased R/S ratio in V1, consider early transition or posterior infarct Abnormal ECG When compared with ECG of 27-SEP-2022 12:24, No significant change was found Assessment and Plan Assessment Anesthesia Assessment: Chart Reviewed Documented by User: Emmy Anna DO 09/27/24 09:31 HPI - Anesthesia Eval Consult details Narrative: 64yo M for Right Hydrocelectomy Repair Chronic respiratory failure requiring O2 @ 2L. [place] [facility] [place] stable at 08/2024 office visit, tx maxamized. Lung CA s/p radiation 2021. PET-CT in July shows stable post radiation fibrosis and bronchiectatic changes. Last immunotherapy 08/2024 Pleural effusion s/p thoracentesis 07/2024, negative cytology PMFSH Past Medical History Medical History (Updated 08/30/24 @ 11:04 by Stephie Beaulieu PA-C) Essential hypertension Pleural effusion on right Seizures Dyspnea Tachycardia Acute and chronic respiratory failure Pleuritis Pneumonitis Chronic respiratory failure COPD (chronic obstructive pulmonary disease) Type 2 diabetes mellitus with hyperglycemia Non-small cell cancer of right lung (~2021) Diabetes (Unknown) Family History Family History Mother Diabetes Father Diabetes Family history of problems with anesthesia: No Surgical History Surgical History History of thoracentesis History of lung biopsy History of Problems with Anesthesia: No Social History Social History Household Members: Spouse and Children Household Members Other:: son Housing: Apartment Are you a primary acute care physical therapist to a significant other at home: No Do you presently have visiting nurse or other home services: No Alcohol intake: never Patient Tobacco Use Status: Former Tobacco user Tobacco use type: Cigarette Years Smoked: 45 Smoked in Last 30 Days: No e-Cigarette/Vaping Use: Never Used Second Hand Smoke Exposure: Yes Use of substances other than those prescribed or required for medical reasons: Yes Substance Use Type Other:: FORMER Have you been hit, kicked, punched, or otherwise hurt by someone within the past year? If so, by whom?: No Are you DNR?: No Advance Directives: No Advance Directives Information Provided: Yes ( Claudia (per patient)) Advance Directives on File: No (NOT ON FILE) Recently lost weight without trying: No How much weight loss: Not applicable Eating poorly because of decreased appetite: No Nutrition screen score: 0 Nutrition Risks: No Nutritional Risk Poor oral hygiene: Yes (broken top teeth) service: No Current occupational status: retired Cognitive needs: No Hearing needs: No Vision needs: Yes Meds Allergies Allergy/AdvReac Type Severity Reaction Status Date / Time No Known Allergies Allergy Verified 09/27/24 08:23 Home Medications ?Medication ?Instructions ?Recorded ?Confirmed ?Last Taken ?Type famotidine 20 mg tablet 1 tab PO BID PRN heartburn 09/02/22 09/27/24 Unknown History Oxygen Home Use 12/05/22 08/19/24 Unknown History nebulizers 12/05/22 08/19/24 Unknown History Exam Exam Date and Time: 09/27/24 0845 Height,Weight and Vital Signs: Height 5 ft 11 in Weight 69.853 kg Vital Signs Temperature 97.2 F 09/27/24 08:28 Pulse Rate 104 H 09/27/24 08:28 Respiratory Rate 16 09/27/24 08:28 Blood Pressure 180/97 H 09/27/24 08:28 Pulse Oximetry 99 09/27/24 08:28 Oxygen Delivery Method Nasal Cannula 09/27/24 08:28 Oxygen Flow Rate 2 09/27/24 08:28 Temperature 97.2 F 09/27/24 08:28 Pulse Rate 104 H 09/27/24 08:28 Respiratory Rate 16 09/27/24 08:28 Blood Pressure 180/97 H 09/27/24 08:28 Pulse Oximetry 99 09/27/24 08:28 Oxygen Delivery Method Nasal Cannula 09/27/24 08:28 Oxygen Flow Rate 2 09/27/24 08:28 Airway Mallampati Class: II TM Dist: >3cm Neck ROM: Full Loose/Missing/Broken Teeth: No (patient denies any loose or broken teeth) Heart: S1S2 Lungs: CTAB Assessment and Plan Assessment Anesthesia Assessment: Anesthesia Plan Discussed and Chart Reviewed Final Anesthetic Review Family History of Problems with Anesthesia: No History of Problems with Anesthesia: No NPO: Yes ASA Class: III Final Preanesthetic Review: No Changes in Pt Med Stat, Meds/Allgs Chart Reviewed, Consent Obtained/Reviewed and Anes Risks/Benef Reviewed Patient Risk: Intermediate Procedure Risk: Low Anesthetic Plan Anesthetic Plan: Spinal and Agree w/ Assess. and Plan Disposition: Standard PACU
[2024-09-27] MEDS: Lactated Ringers 1,000 ML 100 ML IVCONT (08:52)
--- NOTE | 2024-09-27 08:58 | PC.NURSE ---
Patient in preop. Question of inverted T wave on monitor. ST on monitor. Dr. Anna made aware. Last EKG from January 2024 available for comparison. No new complaints of chest pain or discomfort. No new orders at this time. Jeff DIVING FISHER made aware.
--- NOTE | 2024-09-27 10:25 | W.PM.OPN ---
Operative Note Operative Note Date of Service: 09/27/24 Narrative: Preoperative diagnosis: [] Symptomatic, enlarging right scrotal hydrocele Postop diagnosis: [] The same Procedure [] hydrocelectomy, Bottle procedure Surgeon: [] [employer]: [] Type of Anesthesia: [] Spinal Indication for surgery: [] Moderately sized hydrocele of right scrotum. Findings: [] Patient brought to the operating room, placed on operative table supine position, after an adequate level of spinal anesthesia was induced, patient had his scrotal and lower abdominal area prepped and draped in usual sterile fashion. A transverse incision was made in the right mid scrotum carried down through skin, subcutaneous tissue, dartos muscle. Layers of tunica vaginalis were transected using Bovie and the hydrocele was identified and brought onto the field extra scrotal early. This was opened longitudinally and fluid drained. The redundant sac was then imbricated posteriorly upon itself and sutured inferiorly to proximally just short of the gonadal vessels leaving a fingertip opening using running locking 2-0 Vicryl suture. The testicle was then appropriately oriented and returned into the scrotum. A tacking suture between the testicle and the scrotal floor was performed using 3-0 Vicryl suture. Wound was irrigated, secured hemostasis, and closed in the following manner; dartos muscle was closed using running locking 2-0 Vicryl suture. Skin was closed using interrupted inverted dermal 3-0 Vicryl sutures followed by Steri-Strips and sterile dressings. Wound was infiltrated 0.5% Marcaine/1% lidocaine the at completion. Sponge, needle, and instrument counts reported correct. Patient tolerated the procedure well and emerged from anesthesia stable condition. EBL minimal
[2024-09-27] MEDS: Acetaminophen 325 MG TABLET 650 MG PO (13:16)
[2024-09-27] MEDS: oxyCODONE HCl Immed Release 5 MG TABLET PO (13:17)
== END 2024-09-27 15:43 | disposition home or self-care (01) ==
PROVIDERS: Nurse Practitioner; PCP Internal Medicine; Visit Provider Surgery
PROC: (CPT 55060; principal; 2024-09-27 09:00)
DX: N43.3 Hydrocele, unspecified (principal); I10 Essential (primary) hypertension; E11.65 Type 2 diabetes mellitus with hyperglycemia; R56.9 Unspecified convulsions; J96.20 Acute and chronic respiratory failure, unspecified whether with hypoxia or hypercapnia; J44.9 Chronic obstructive pulmonary disease, unspecified; J90 Pleural effusion, not elsewhere classified; Z85.118 Personal history of other malignant neoplasm of bronchus and lung; Z99.81 Dependence on supplemental oxygen; Z79.899 Other long term (current) drug therapy; Z79.84 Long term (current) use of oral hypoglycemic drugs; Z87.891 Personal history of nicotine dependence
CPT/HCPCS: 55060; 36415; 82947; 85610; 85730; J0690; J2003; J2250; J2371; J2704; J2795

== ENCOUNTER → 2024-09-27 07:29 | Outpatient (BNV) | payer OTHER, SELFPAY | PROVIDERS: PCP Internal Medicine; Visit Provider Surgery | DX: N43.3 Hydrocele, unspecified (principal) | CPT/HCPCS: 55040 ==

== ENCOUNTER 2024-10-08 11:03 | Outpatient (AMB) | payer OTHER, SELFPAY ==
--- NOTE | 2024-10-08 11:03 | A.OFFVIS_ITS ---
Intake Visit Reasons: S/P Rt. hydrocelectomy Intake Note: Patient here s/p hydrocelectomy, Bottle procedure. Reports incision healing well. Patient c/o: pain, swelling. Rx pain meds as needed. Surgery: 09-27-2024 Consumer Lender Required: No Accompanied by: Self / Same As Patient Allergies No Known Allergies Allergy (Verified 10/08/24 11:06) HPI Comments Details: Patient presents for follow-up. His incisional discomfort is improving. Otherwise doing well. [facility] Medical History (Updated 08/30/24 @ 11:04 by Stephie Beaulieu PA-C) Essential hypertension Pleural effusion on right Seizures Dyspnea Tachycardia Acute and chronic respiratory failure Pleuritis Pneumonitis Chronic respiratory failure COPD (chronic obstructive pulmonary disease) Type 2 diabetes mellitus with hyperglycemia Non-small cell cancer of right lung (~2021) Diabetes (Unknown) Surgical History (Updated 10/08/24 @ 11:12 by Roger Huddleston MD) Hydrocele (09/27/24) History of thoracentesis History of lung biopsy Family History Mother Diabetes Father Diabetes Social History Household Members: Spouse and Children Household Members Other:: son Housing: Apartment Are you a primary child care centre director to a significant other at home: No Do you presently have visiting nurse or other home services: No Alcohol intake: never Patient Tobacco Use Status: Former Tobacco user Tobacco use type: Cigarette Years Smoked: 45 e-Cigarette/Vaping Use: Never Used Second Hand Smoke Exposure: Yes service: No Current occupational status: retired Cognitive needs: No Hearing needs: No Vision needs: Yes Physical Exam Other: Incision clean dry and intact healing very well. Some expected postoperative edema but no other issues. Assessment & Plan Assessment & Plan (1) Encounter for post surgical wound check: Code(s): Z48.89 - Encounter for other specified surgical aftercare Category: Surgical Plan Patient was been given local instructions and will otherwise follow-up p.r.n.. He was told that it will take anywhere from 6-8 more weeks for the sutures to dissolve and for the edema to improve. Should there be any issues or complaints, patient was instructed to contact the office. All questions answer ed Coding Level of Care Code Global (89595) Diagnoses Encounter for post surgical wound check Z48.89
== END 2024-10-08 11:10 | disposition home or self-care (01) ==
PROVIDERS: PCP Internal Medicine; Visit Provider Surgery
DX: Z48.89 Encounter for other specified surgical aftercare (principal)
CPT/HCPCS: 99024

== ENCOUNTER → 2024-10-08 11:03 | Outpatient (BNVA) | payer OTHER, SELFPAY | PROVIDERS: PCP Internal Medicine; Visit Provider Surgery | DX: Z09 Encounter for follow-up examination after completed treatment for conditions other than malignant neoplasm (principal); Z87.2 Personal history of diseases of the skin and subcutaneous tissue; Z98.890 Other specified postprocedural states | CPT/HCPCS: 99212 ==

== ENCOUNTER 2025-02-26 13:58 | Emergency (ER) | payer OTHER, SELFPAY ==
--- NOTE | ~2025-02-26 | XR_ITS ---
EXAMINATION: XR ABDOMEN KUB CLINICAL INDICATION: pain COMPARISON: None available. TECHNIQUE: AP view of the abdomen. FINDINGS: Moderate gas is present in the right and transverse colon. No abnormal calcific lesions are evident. There is blunting of the right costophrenic angle. XR/XR KUB IMPRESSION: Nonspecific bowel gas pattern. Suspected right pleural effusion. Electronically signed by: Herber Lopez MD 02/26/2025 02:35 PM EDT
--- NOTE | ~2025-02-26 | CT_ITS ---
CLINICAL HISTORY: sbo? CT abdomen and pelvis with contrast Comparison: None provided Findings: Emphysema. Volume loss and scarring in the right hemithorax with loculated effusion. Rightward mediastinal shifting. Mildly distended gallbladder. Proximal pancreatic glandular edema, with fat stranding. No discrete fluid collections or evidence of necrosis. Mildly prominent peripancreatic nodes, likely reactive. Scattered left-sided hypodense/intermediate dense renal cysts. Parenchymal defect with a thin subcapsular peripherally enhancing collection in the left midpole kidney series 7, image 63 measuring 2.1 x 0.5 cm. Small pericapsular abscesses not excluded. No urolithiasis or hydronephrosis. Clinical correlation with follow-up advised. Right upper pole renal vascular calcification. High-grade stenoses of the origin of the right renal artery. No bowel obstruction, pneumoperitoneum, or pneumatosis. Diffuse atheromatous plaque disease throughout the aorta and branch vessels. Stenosis at the origin of the celiac artery with poststenotic dilatation, question median arcuate ligament syndrome. Diffuse heterogeneous penetrating atherosclerotic ulcers with mural thrombus and calcifications. 3.1 cm abdominal aortic aneurysms just proximal to the iliac bifurcations. High-grade stenoses of the origin of the right common iliac artery. Mild prostatomegaly. Scattered colonic diverticulosis without diverticulitis or colitis. Normal appendix. Mildly distended bladder. Fat containing umbilical hernia. Fat containing inguinal hernias. Osteopenia with diffuse multilevel spondylosis. Multilevel disc bulges for example at L4-L5 with moderate spinal canal narrowing. IMPRESSION: 1. Mild acute interstitial edematous pancreatitis. 2. Infrarenal AAA as described. 3. Questionable small left renal pericapsular abscess, please see above. 4. Additional findings described. This document has been electronically signed by: Joey Prieto MD on 02/26/2025 22:35:20
[2025-02-26 14:12] VITALS: BP 140/82; PULSE 82; RESP 16; TEMP 36.4; O2SAT 100; BMI 21.7
--- NOTE | 2025-02-26 14:14 | ECG_ITS ---
Test Reason : SOB Blood Pressure : */* mmHG Vent. Rate : 83 BPM Atrial Rate : 83 BPM P-R Int : 172 ms QRS Dur : 78 ms QT Int : 342 ms P-R-T Axes : 49 56 87 degrees QTcB Int : 401 ms Normal sinus rhythm Nonspecific ST and T wave abnormality Abnormal ECG When compared with ECG of 31-Jan-2024 11:33, No significant change was found Referred By: Carlos Paredes Electronically Signed By: Boris Pennington
--- NOTE | 2025-02-26 14:14 | ED.GENADULT ---
HPI - General Adult General Chief complaint: Abdominal Pain Stated complaint: Lower Abd Pain, Cramping, Chest Pain Time Seen by Provider: 02/26/25 18:15 Source: patient Limitations: no limitations History of Present Illness ED Provider: Elizabeth Slater PA-C HPI narrative: 64-year-old male with a history of diabetes, hypertension, COPD on supplemental oxygen, [id number] cancer of the lung, seizure disorder, who presents with the abdominal pain x1 day. Patient states after eating overnight, he developed discomfort this morning. Pain over mid abdomen, nonradiating unable to describe the nature of his symptoms. Associated abdominal distention, inability to pass flatus, last bowel movement was this morning, he states he struggles with constipation, the bowel movement that he had was minimal. Associated nausea but no vomiting. Related Data Home Medications ?Medication ?Instructions ?Recorded ?Confirmed famotidine 20 mg tablet 1 tab PO BID PRN heartburn 09/02/22 12/13/24 Oxygen Home Use 12/05/22 10/08/24 nebulizers 12/05/22 10/08/24 Previous Rx's ?Medication ?Instructions ?Recorded alcohol swabs 1 pad topical DAILY #100 ea 09/12/22 blood-glucose meter (FreeStyle #1 ea 09/12/22 Lite Meter kit) lancets 28 gauge (FreeStyle #100 ea 09/12/22 Lancets) glipizide 5 mg tablet, extended 5 mg PO QAM 30 days #30 tabs 11/17/22 release 24 hr lorazepam 0.5 mg tablet 0.5 mg PO BID PRN Anxiety #60 tabs 12/15/22 miscellaneous medical supply #1 ea 01/10/23 walker (Ultra-Light Rollator misc) #1 ea 01/10/23 ondansetron 8 mg disintegrating 8 mg PO Q8H PRN Nausea #30 tabs 04/05/24 tablet blood pressure monitor #1 ea 04/11/24 nevpuofp-rsathiboh-ccpnfiyoh 3.5 4 drp otic (ears) Q8H #10 mL 08/06/24 mg-10,000 unit/mL-1 % ear drops,susp umeclidinium 62.5 mcg/actuation 1 inh inhalation DAILY 30 days #30 08/30/24 blister powder for inhalation ea (Incruse Ellipta) hydrocodone 5 mg-acetaminophen 325 1 tab PO Q4-6H PRN pain #30 tabs 09/27/24 mg tablet oxycodone 5 mg tablet 5 mg PO Q8H PRN pain #30 tabs 10/02/24 budesonide 0.5 mg/2 mL suspension 0.5 mg (2 mL) inhalation BID 90 11/11/24 for nebulization days #360 mL roflumilast 500 mcg tablet 500 mcg PO DAILY 90 days #90 tabs 12/04/24 levalbuterol HCl 1.25 mg/3 mL 1.25 mg (3 mL) inhalation BID #540 01/21/25 solution for nebulization mL omeprazole 20 mg capsule,delayed 20 mg PO DAILY #30 caps 01/24/25 release sennosides 8.6 mg-docusate sodium 1 tab-cap PO BID PRN Constipation 01/24/25 50 mg tablet (Senna with Docusate #60 tabs Sodium) metformin 500 mg tablet,extended 500 mg PO DAILY #90 tabs 02/10/25 release 24 hr erythromycin 5 mg/gram (0.5 %) eye 0.5 inch ophthalmic (eye) TID #10 02/21/25 ointment grams prednisolone acetate 1 % eye 1 drp ophthalmic (eye) QID #20 mL 02/21/25 drops,suspension blood sugar diagnostic (FreeStyle #100 ea 02/24/25 Lite Strips) azithromycin 250 mg tablet 250 mg PO 3XW #12 tabs 02/25/25 docusate sodium 100 mg capsule 100 mg PO BID #30 caps 02/26/25 (Col-Rite) enalapril maleate 5 mg tablet 5 mg PO DAILY #60 tabs 02/26/25 polyethylene glycol 3350 17 17 g PO BID #238 grams 02/27/25 gram/dose oral powder (Miralax) Allergies Allergy/AdvReac Type Severity Reaction Status Date / Time No Known Allergies Allergy Verified 02/26/25 14:16 Review of Systems Review of Systems: Yes all other systems are reviewed and are negative Constitutional: Constitutional: Denies fatigue and Denies fever(s) Cardiovascular: Cardiovascular: Denies chest pain and Denies dyspnea Respiratory: Respiratory: Denies cough and Denies dyspnea Gastrointestinal: Gastrointestinal: Reports abdominal pain, Reports constipation, Denies diarrhea, Reports nausea and Denies vomiting Endocrine: Endocrine: Denies fatigue PMFSH Past Medical History Attestation statement: The following information was validated with the patient. Medical History (Updated 02/26/25 @ 23:58 by LOKI Wen) Essential hypertension Pleural effusion on right Seizures Dyspnea Tachycardia Acute and chronic respiratory failure Pleuritis Pneumonitis Chronic respiratory failure COPD (chronic obstructive pulmonary disease) Type 2 diabetes mellitus with hyperglycemia Non-small cell cancer of right lung (~2021) Diabetes (Unknown) Surgical History Hydrocele (09/27/24) History of thoracentesis History of lung biopsy Family History Family History Mother Diabetes Father Diabetes Social History Social History Household Members: Spouse and Children Household Members Other:: son Housing: Apartment Are you a primary rn intensive care unit to a significant other at home: No Do you presently have visiting nurse or other home services: No Alcohol intake: never Patient Tobacco Use Status: Former Tobacco user Tobacco use type: Cigarette Years Smoked: 45 Smoked in Last 30 Days: No e-Cigarette/Vaping Use: Never Used Second Hand Smoke Exposure: Yes Use of substances other than those prescribed or required for medical reasons: No Advance Directives: No Advance Directives Information Provided: No Do you have a plan to hurt others: No Plan service: No Current occupational status: retired Cognitive needs: No Hearing needs: No Vision needs: Yes Physical Exam ED Vital Signs: Vital Signs - 24 hr 02/26/25 14:12 02/26/25 17:36 02/26/25 20:14 Temperature 97.6 F 98.0 F 97.5 F Pulse Rate 82 88 92 Respiratory Rate 16 16 18 Blood Pressure 140/82 H 189/102 H 173/98 H Pulse Oximetry 100 98 99 Oxygen Delivery Method Nasal Cannula Nasal Cannula Room Air Oxygen Flow Rate 3 02/26/25 20:43 02/26/25 23:23 Temperature 98.6 F Pulse Rate 94 109 H Respiratory Rate 17 18 Blood Pressure 187/104 H 177/103 H Pulse Oximetry 95 93 Oxygen Delivery Method Nasal Cannula Room Air Oxygen Flow Rate 2 BMI result Body Mass Index 21.7 Const Other: Alert well-appearing Orientation/consciousness: patient oriented x3 Resp Effort & Inspection: normal respiratory effort Cardio Other: Normal peripheral perfusion GI Other: Abdomen is soft, generalized tenderness, no guarding, objectively distended General: Yes no CVA tenderness Back/Spine/Pelvis Back: no CVA tenderness Skin Other: Warm dry no rash Neuro General: patient oriented x3, gait normal, no focal motor deficits and CN's II-XI intact bilaterally Psych Other: Cooperative Course Course Course Narrative: RME, this is a rapid medical exam performed by Gregory Paredes please refer to primary provider for complete H&P- 64-year-old male with past medical history significant for lung cancer followed by Dr. Rojas, COPD, chronic 2 L, diabetes presents for evaluation of abdominal pain that started last night. His last bowel movement was this morning. Plan for labs, urinalysis, KUB. Reevaluation(s) Reevaluation #1: Reviewed CT scan findings with the patient and his son. The patient was not aware that he had an infrarenal AAA, I have advised that he needs to follow up with primary care for vascular consult, at this point he needs to be followed, there would not be any acute intervention. He has had it for several years, when I review prior CT scans. He was also found to have pancreatitis that is mild, his lipase is 19. With deep palpation of left upper abdomen, the patient has no pain. Furthermore, he has already asked to eat and has been p.o. challenged. He is eating drinking has not had any vomiting here he has no focal left upper quadrant pain. To note, on prior CT scan back in 2022, the report revealed that he had mild pancreatitis, his lipase was 18 at that time. He clinically does not have pancreatitis, I feel that this is an over-read, given the the same interpretation was found on multiple studies. Furthermore there was report of a potential subcapsular renal abscess on the left, the read specifically states ?questionable?. The patient has no back pain, flank pain, his urine is not infected, I believe this is another over-read. Time: 23:30 Medications Administered Discontinued Medications Generic Name Dose Route Start Last Admin Trade Name Freq PRN Reason Stop Dose Admin Sodium Chloride 1,000 mls @ 999 mls/hr 02/26/25 18:45 02/26/25 20:42 Ns IV 02/26/25 19:45 Infused .Q1H1M MANJINDER Infusion Iohexol 85 ml 02/26/25 21:39 02/26/25 21:40 Iohexol 350 Mg/Ml 100 Ml Infus..Btl IV 02/26/25 21:40 85 ml ONCE ONE Administration Morphine Sulfate 4 mg 02/26/25 18:44 02/26/25 19:04 Morphine Sulfate 4 Mg/Ml Cartridge IVPUSH 02/26/25 18:45 4 mg ONCE ONE Administration Protocol Ondansetron HCl 4 mg 02/26/25 18:44 02/26/25 19:04 Ondansetron Hcl 4 Mg/2 Ml Vial IVPUSH 02/26/25 18:45 4 mg ONCE ONE Administration Medical Decision Making Medical Decision Making MDM Narrative: 64-year-old male with a history of diabetes, hypertension, COPD on supplemental oxygen, [id number] cancer of the lung, seizure disorder, who presents with the abdominal pain x1 day. Patient states after eating overnight, he developed discomfort this morning. Pain over mid abdomen, nonradiating unable to describe the nature of his symptoms. Associated abdominal distention, inability to pass flatus, last bowel movement was this morning, he states he struggles with constipation, the bowel movement that he had was minimal. Associated nausea but no vomiting. Problem: Cancer patient, COPD, age, seizure disorder, constipation History: Per patient I have considered the following differential diagnoses: Biliary colic, cholecystitis, SBO, constipation, metastatic cancer Plan: The patient does have obstructive symptoms, his abdomen is objectively distended, we will be obtaining a CT scan with the oral contrast and IV. Giving fluid morphine and Zofran. Given postprandial pain, I did consider underlying biliary pathology, however his LFTs are normal, and again there was no focal right upper quadrant pain. I have independently reviewed the following tests: Labs: Leukocytosis noted with left shift, not anemic, no electrolyte abnormality, troponin 4.1, kidney function is at baseline urine not infected CT abdomen and pelvis:Findings: Emphysema. Volume loss and scarring in the right hemithorax with loculated effusion. Rightward mediastinal shifting. Mildly distended gallbladder. Proximal pancreatic glandular edema, with fat stranding. No discrete fluid collections or evidence of necrosis. Mildly prominent peripancreatic nodes, likely reactive. Scattered left-sided hypodense/intermediate dense renal cysts. Parenchymal defect with a thin subcapsular peripherally enhancing collection in the left midpole kidney series 7, image 63 measuring 2.1 x 0.5 cm. Small pericapsular abscesses not excluded. No urolithiasis or hydronephrosis. Clinical correlation with follow-up advised. Right upper pole renal vascular calcification. High-grade stenoses of the origin of the right renal artery. No bowel obstruction, pneumoperitoneum, or pneumatosis. Diffuse atheromatous plaque disease throughout the aorta and branch vessels. Stenosis at the origin of the celiac artery with poststenotic dilatation, question median arcuate ligament syndrome. Diffuse heterogeneous penetrating atherosclerotic ulcers with mural thrombus and calcifications. 3.1 cm abdominal aortic aneurysms just proximal to the iliac bifurcations. High-grade stenoses of the origin of the right common iliac artery. Mild prostatomegaly. Scattered colonic diverticulosis without diverticulitis or colitis. Normal appendix. Mildly distended bladder. Fat containing umbilical hernia. Fat containing inguinal hernias. Osteopenia with diffuse multilevel spondylosis. Multilevel disc bulges for example at L4-L5 with moderate spinal canal narrowing. IMPRESSION: 1. Mild acute interstitial edematous pancreatitis. 2. Infrarenal AAA as described. 3. Questionable small left renal pericapsular abscess, please see above. 4. Additional findings described. Lab Data 02/26/25 15:04 02/26/25 15:04 Labs: Lab Results 02/26/25 02/26/25 Range/Units 15:04 18:47 WBC 14.3 H (4.8-10.8) X10*3/uL RBC 5.66 (4.60-5.80) X10*6/uL Hgb 14.0 (14.0-18.0) g/dl Hct 41.6 L (42.0-52.0) % MCV 73.5 L (80.0-98.0) fL MCH 24.7 L (27.0-33.0) pg MCHC 33.7 (31.0-36.0) g/dl RDW 14.9 (11.0-16.0) % Plt Count 303 (160-400) X10*3/uL MPV 9.7 (9.4-12.4) fL Immature Gran % (Auto) 0.4 (0.0-0.4) % Neut % (Auto) 77.0 H (45-73) % Lymph % (Auto) 7.4 L (20-40) % [place] % (Auto) 6.9 (2-11) % Eos % (Auto) 7.9 H (0-4) % Baso % (Auto) 0.4 (0-2) % Lymph # (Auto) 1.1 L (1.2-4.9) X10*3/uL [place] # (Auto) 1.0 (0.1-1.2) X10*3/uL Eos # (Auto) 1.1 H (0.0-0.4) X10*3/uL Baso # (Auto) 0.1 (0.0-0.2) X10*3/uL Abs Immat Gran (auto) 0.06 H (0.00-0.03) X10*3/uL Absolute Neuts (auto) 11.0 H (2.0-8.3) x10*3/uL Absolute Nucleated RBC 0.000 (0.0-0.012) X10*3/uL Nucleated RBC % (auto) 0.0 (0.0-0.2) /100WBC Sodium 132 L (135-145) mmol/L Potassium 3.7 (3.3-5.1) mmol/L Chloride 96 (96-108) mmol/L Carbon Dioxide 28 (22-29) mmol/L Anion Gap 12 (12-20) BUN 14 (9-16) mg/dL Creatinine 1.07 (0.5-1.4) mg/dL Estim Creat Clear Calc 69.7 Estimated GFR > 60 Random Glucose 109 (60-115) mg/dL Lactic Acid 1.1 (0.5-2.0) mmol/L Calcium 9.2 (8.4-10.2) mg/dL Total Bilirubin 0.4 (0.0-1.0) mg/dL AST 18 (5-37) U/L ALT 13 (0-40) U/L Alkaline Phosphatase 90 (39-117) U/L Troponin I High Sens 4.1 (<3.5-35.0) ng/L Total Protein 7.3 (6.5-8.0) g/dL Albumin 4.3 (3.5-5.0) g/dL Lipase 19 (8-78) U/L Urine Color Yellow Urine Appearance Clear Urine pH 7.0 (5.0-9.0) Ur Specific [place] <= 1.005 (1.005-1.025) Urine Protein Negative (Neg-Trace) mg/dL Urine Glucose (UA) Negative (Negative) mg/dL Urine Ketones Negative (Negative) mg/dL Urine Blood Negative (Negative) Urine Nitrite Negative (Negative) Ur Leukocyte Esterase Negative (Negative) Urine RBC 0-2 (0-2) /HPF Urine WBC 0-5 (0-5) /HPF Ur Squamous Epith Cells 0-2 (0-2) /HPF Urine Bacteria None Seen (None Seen) Hyaline Casts 0-2 (0-2) /LPF Discharge Plan Discharge Clinical Impression: Abdominal pain, Constipation, Infrarenal abdominal aortic aneurysm (AAA) without rupture Patient Disposition: Home, Self-Care Instructions: Constipation (ED), Abdominal Pain (ED) Additional Instructions: There were no acute findings on the CT scan of the abdomen and pelvis. You were noted to have an infrarenal AAA that measures 3.1 cm, you have had it for several years: I reviewed prior CT scans back from 2022. You need to follow up with your primary care provider, they will refer you to a vascular surgeon. In regard to your ongoing constipation. You should be using Colace twice a day, and MiraLax 1 to 2 times a day, to help maintain regularity. Continue to follow up with your oncologist in your primary care provider. Prescriptions: New docusate sodium [Col-Rite] 100 mg capsule 100 mg PO BID Qty: 30 0RF polyethylene glycol 3350 [Miralax] 17 gram/dose powder 17 g PO BID Qty: 238 0RF No Action (DME) blood pressure monitor Kit See Rx Instructions .Route Qty: 1 0RF Rx Instructions: As directed ooqwmefk-pxdrlixtk-CZ 3.5-10,000-1 mg/mL-unit/mL-% drops,suspension 4 drp otic (ears) Q8H Qty: 10 0RF oxycodone 5 mg tablet 5 mg PO Q8H PRN (Reason: pain) Qty: 30 0RF Rx Instructions: Partial Fill upon patient request. budesonide 0.5 mg/2 mL suspension for nebulization 0.5 mg inhalation BID 90 Days Qty: 360 1RF roflumilast 500 mcg tablet 500 mcg PO DAILY 90 Days Qty: 90 3RF levalbuterol HCl 1.25 mg/3 mL solution for nebulization 1.25 mg inhalation BID Qty: 540 1RF metformin 500 mg tablet extended release 24 hr 500 mg PO DAILY Qty: 90 1RF (DME) FreeStyle Lite Strips Strip Qty: 100 0RF Rx Instructions: check blood glucose every morning before breakfast azithromycin 250 mg tablet 250 mg PO 3XW Qty: 12 3RF enalapril maleate 5 mg tablet 5 mg PO DAILY Qty: 60 0RF lorazepam 0.5 mg Tablet 0.5 mg PO BID PRN (Reason: Anxiety) Qty: 60 0RF ondansetron 8 mg Tablet,Disintegrating 8 mg PO Q8H PRN (Reason: Nausea) Qty: 30 3RF sennosides-docusate sodium [Senna with Docusate Sodium] 8.6-50 mg tablet 1 tab-cap PO BID PRN (Reason: Constipation) Qty: 60 4RF omeprazole 20 mg Capsule,Delayed Release(Dr/Ec) 20 mg PO DAILY Qty: 30 2RF Rx Instructions: Take it on empty stomach prednisolone acetate 1 % Drops,Suspension 1 drp OPHTHALMIC (EYE) QID Qty: 20 1RF erythromycin 5 mg/gram (0.5 %) Ointment 0.5 inch OPHTHALMIC (EYE) TID Qty: 10 0RF famotidine 20 mg tablet 1 tab PO BID PRN (Reason: heartburn) (DME) blood-glucose meter [FreeStyle Lite Meter] Kit Qty: 1 0RF Rx Instructions: check blood glucose every morning before breakfast alcohol swabs Pads, Medicated 1 pad TOPICAL DAILY Qty: 100 0RF Rx Instructions: check blood glucose every morning before breakfast (DME) lancets [FreeStyle Lancets] [facility] Q[facility]: 100 0RF Rx Instructions: check blood glucose every morning before breakfast hydrocodone-acetaminophen 5-325 mg tablet 1 tab PO Q4-6H PRN (Reason: pain) Qty: 30 0RF Rx Instructions: Partial Fill upon patient request. glipizide 5 mg tablet extended release 24hr 5 mg PO QAM 30 Days Qty: 30 2RF (DME) miscellaneous medical supply [facility] See Rx Instructions .ROUTE .MEDSUPPLY Qty: 1 0RF Rx Instructions: Wheelchair As directed, 999 days (DME) Ultra-Light Rollator Misc See Rx Instructions .Route Qty: 1 0RF Rx Instructions: Rollator walker with As directed seat and brakes. As directed, 999 days (DME) nebulizers Misc See Rx Instructions .Route Rx Instructions: As directed (DME) Oxygen Home Use Kit See Rx Instructions .Route Rx Instructions: As directed Incruse Ellipta 62.5 mcg/actuation blister with device 1 inh inhalation DAILY 30 Days Qty: 30 11RF Print Language: Congolese
[2025-02-26 15:11] LABS: MANUAL DIFF FLAG NO
[2025-02-26 15:13] LABS: Basophils Absolute Auto 0.1 X10*3/uL (0.0-0.2); Basophils Percent Auto 0.4 % (0-2); Eosinophils Absolute Auto 1.1 X10*3/uL (0.0-0.4); Eosinophils Percent Auto 7.9 % (0-4); Hematocrit 41.6 % (42.0-52.0); Imm Gran Abs Auto 0.06 X10*3/uL (0.00-0.03); Imm Gran Pct Auto 0.4 % (0.0-0.4); Lymphocytes Absolute Auto 1.1 X10*3/uL (1.2-4.9); Lymphocytes Percent Auto 7.4 % (20-40); Mean Corpuscular HGB Conc 33.7 g/dl (31.0-36.0); Mean Corpuscular Hemoglobin 24.7 pg (27.0-33.0); Mean Corpuscular Volume 73.5 fL (80.0-98.0); Mean Platelet Volume 9.7 fL (9.4-12.4); Monocytes Percent Auto 6.9 % (2-11); Platelet Count 303 X10*3/uL (160-400); Red Blood Count 5.66 X10*6/uL (4.60-5.80); Red Cell Distribution Width 14.9 % (11.0-16.0); White Blood Count 14.3 X10*3/uL (4.8-10.8)
[2025-02-26 15:30] LABS: Lactic Acid 1.1 mmol/L (0.5-2.0)
[2025-02-26 15:31] LABS: Alanine Aminotransferase 13 U/L (0-40); Albumin Level 4.3 g/dL (3.5-5.0); Alkaline Phosphatase 90 U/L (39-117); Anion Gap 12 (12-20); Aspartate Amino Transferase 18 U/L (5-37); Bilirubin Total 0.4 mg/dL (0.0-1.0); Blood Urea Nitrogen 14 mg/dL (9-16); Calcium 9.2 mg/dL (8.4-10.2); Carbon Dioxide 28 mmol/L (22-29); Chloride 96 mmol/L (96-108); Creatinine Clr Calc Pharmacy 69.7; Estimated Glomerular Filt Rate > 60; Glucose Random 109 mg/dL (60-115); Lipase 19 U/L (8-78); Potassium 3.7 mmol/L (3.3-5.1); Sodium 132 mmol/L (135-145); Total Protein 7.3 g/dL (6.5-8.0)
[2025-02-26 15:37] LABS: Troponin-I High Sensitivity 4.1 ng/L (<3.5-35.0)
[2025-02-26 17:36] VITALS: BP 189/102; PULSE 88; RESP 16; TEMP 36.7; O2SAT 98
--- NOTE | 2025-02-26 17:40 | MHC.EDTECH ---
Urine cup provided to patient, as well as bedside urinal if patient was uncomfortable with walking to the restroom. Patient asking for pain medication and food. RN aware
[2025-02-26 18:54] LABS: Appearance Urine Clear; Color Urine Yellow; Glucose Urine UA Negative (Negative); Leukocyte Esterase Urine Negative (Negative); Nitrite Urine Negative (Negative); Specific Gravity - Urine <= 1.005 (1.005-1.025); Urine Blood Negative (Negative); Urine Ketones Negative (Negative); Urine Protein Negative (Neg-Trace)
[2025-02-26 18:56] LABS: Bacteria Urine None Seen (None Seen); Hyaline Casts Urine 0-2 /LPF (0-2); RBC Urine 0-2 /HPF (0-2); Squamous Epithelial Cell Urine 0-2 /HPF (0-2); WBC Urine 0-5 /HPF (0-5)
[2025-02-26] MEDS: Morphine Sulfate 4 MG/ML CARTRIDGE IVPUSH (19:04)
[2025-02-26] MEDS: ondansetron HCL 4 MG/2 ML VIAL IVPUSH (19:04)
[2025-02-26] MEDS: 0.9 % Sodium Chloride 1,000 ML 999 ML IV (19:04)
[2025-02-26 20:14] VITALS: BP 173/98; PULSE 92; RESP 18; TEMP 36.4; O2SAT 99
[2025-02-26 20:43] VITALS: BP 187/104; PULSE 94; RESP 17; O2SAT 95
--- NOTE | 2025-02-26 20:59 | MHC.EDTECH ---
Patient has steady gait and able to ambulate independently to bathroom. Vitals were obtained and documented.
[2025-02-26] MEDS: iohexoL 350 MG/ML 100 ML INFUS..BTL 85 ML IV (21:40)
[2025-02-26 23:23] VITALS: BP 177/103; PULSE 109; RESP 18; TEMP 37; O2SAT 93
[2025-02-27 00:08] VITALS: BP 177/103; PULSE 89; RESP 18; TEMP 36.9; O2SAT 95
== END 2025-02-27 00:10 | disposition home or self-care (01) ==
PROVIDERS: Physician Assistant; Emergency Provider Emergency Medicine Emergency Medical Services; PCP Internal Medicine
DX: K59.00 Constipation, unspecified (principal); R10.9 Unspecified abdominal pain; I71.43 Infrarenal abdominal aortic aneurysm, without rupture; E11.9 Type 2 diabetes mellitus without complications; I10 Essential (primary) hypertension; C34.91 Malignant neoplasm of unspecified part of right bronchus or lung; J44.9 Chronic obstructive pulmonary disease, unspecified; Z99.81 Dependence on supplemental oxygen; Z87.891 Personal history of nicotine dependence
CPT/HCPCS: 36415; 74018; 74177; 80053; 81001; 83605; 83690; 84484; 85025; 93005; 96361; 96374; 96375; 99284; 99285; J2270; J2405; Q9967

== ENCOUNTER → 2025-02-26 14:14 | Outpatient (BNV) | payer OTHER, SELFPAY | PROVIDERS: Emergency Provider Emergency Medicine Emergency Medical Services; PCP Internal Medicine; Visit Provider Internal Medicine Cardiovascular Disease | DX: R94.31 Abnormal electrocardiogram [ECG] [EKG] (principal); R06.02 Shortness of breath | CPT/HCPCS: 93010 ==

== ENCOUNTER → 2025-02-26 14:14 | Outpatient (BNV) | payer OTHER, SELFPAY | PROVIDERS: PCP Internal Medicine; Visit Provider Radiology Diagnostic Radiology | DX: J43.9 Emphysema, unspecified (principal); R14.0 Abdominal distension (gaseous) | CPT/HCPCS: 74018; 74177 ==

== ENCOUNTER 2025-03-20 13:08 | Outpatient (AMB) | payer OTHER, SELFPAY ==
--- OUTSIDE RECORDS SUMMARY | 2025-03-13 13:32 | XMS_ITS | Encounter Summary ---
Author Organization [facility] Address [address] [place] [address] Care Team Providers Care Front Worker Name Role Phone Bhargav Chen MD Primary Care Provider [phone] Reason for Referral * Imaging (Routine) - Pending Review Specialty Diagnoses / Procedures Referred By David addison Referred To Contact Radiology Diagnoses Adenocarcinoma of right lung (CMS/HCC V24, CMS/HCC V28) Procedures PET CT Skull to Mid Thigh Subsequent Yolie Rojas MD [address] [facility] HEMATOLOGY / [place] [address] Phone: tel: fax: [facility] Referral ID Status Reason Start Date Expiration Date V isits Requested Visits Authorized [id number] Pending Review 03/12/2025 03/12/2026 1 1 Reason for Visit * Imaging (Routine) - Pending Review Specialty Diagnoses / Procedures Referred By David addison Referred To Contact Radiology Diagnoses Adenocarcinoma of right lung (CMS/HCC V24, CMS/HCC V28) Procedures PET CT Skull to Mid Thigh Subsequent Yolie Rojas MD [address] [place] [address] HEMATOLOGY / [place] [address] Phone: tel: fax: [facility] Referral ID Status Reason Start Date Expiration Date V isits Requested Visits Authorized [id number] Pending Review 03/12/2025 03/12/2026 1 1 Encounter Details Date Type Department Care Team (Latest Contact Info) Description 03/13/2025 1:32 PM EDT Hospital Encounter [facility] PET Scan [address] [place] [address] Adenocarcinoma of right lung (CMS/HCC V24, CMS/HCC V28) Social History Tobacco Use Types Packs/Day Years Used Date Smoking Tobacco: Never Assessed Sex and Gender Information Value Date Recorded Sex Assigned at Male 03/13/2025 1:31 PM EDT Legal Sex Male 4:36 PM EDT Gender Identity Male 03/13/2025 1:31 PM EDT Sexual Orientation Not on file documented as of this encounter Plan of Treatment Pending Results Name Type Priority Associated Diagnoses Date /Time PET CT Skull to Mid Thigh Subsequent Imaging Routine Adenocarcinoma of right lung (CMS/HCC V24, CMS/HCC V28) 03/13/2025 3:20 PM EDT Scheduled Orders Name Type Priority Associated Diagnoses Orde r Schedule PET CT Skull to Mid Thigh Subsequent Imaging Routine Adenocarcinoma of right lung (CMS/HCC V24, CMS/HCC V28) Once for 1 Occurrences starting 03/13/2025 until 03/13/2025 documented as of this encounter Visit Diagnoses Diagnosis Adenocarcinoma of right lung (CMS/HCC V24, CMS/HCC V28) documented in this encounter Administered Medications Inactive Administered Medications - up to 3 most recent administrations Medication Order MAR Action Action Date Dose Rate Site F-18 FDG pet diag radio-isotope injection 12.5 millicurie 12.5 millicurie, intravenous, Once in imaging, Starting on Corina 03/13/25 at 1400, For 1 dose Given 03/13/2025 2:00 PM EDT 12.5 millicuries Left Antecubital documented in this encounter Orders Medications Ordered That Baron ht Not Have Been Administered Count Last Ordered Date First Ordered Date F-18 FDG pet diag radio-isot ope injection 12.5 millicurie 1 03/13/2025 documented in this encounter Care Teams Front Worker Relationship Specialty Start Date End Date Bhargav Chen MD [facility] [address] [place] [address] [address] [place] [address] PCP - General Internal Medicine 03/13/25 documented as of this encounter
[2025-03-20 13:18] VITALS: BP 124/82; PULSE 108; O2SAT 98; BMI 21.4
--- NOTE | 2025-03-20 13:18 | MHC.PC.OV ---
Vital Signs 03/20/25 13:18 Height 5 ft 11 in Weight 153 lb 8 oz BMI 21.4 BP 124/82 Blood Pressure Location Lt brachial Position Sitting Pulse 108 H Pulse Source Pulse Oximeter Pulse Oximetry (%) 98 Oxygen Delivery Method Room Air Intake Visit Reasons: Pain throughout body - see comments Allergies No Known Allergies Allergy (Verified 02/26/25 14:16) Tobacco use date assessed: 03/20/25 Dental Screening Dental Screen Date: 03/20/25 [facility] Medical History (Updated 02/28/25 @ 00:01 by Rolando Petit) Essential hypertension Pleural effusion on right Seizures Dyspnea Tachycardia Acute and chronic respiratory failure Pleuritis Pneumonitis Chronic respiratory failure COPD (chronic obstructive pulmonary disease) Type 2 diabetes mellitus with hyperglycemia Non-small cell cancer of right lung (~2021) Diabetes (Unknown) Surgical History Hydrocele (09/27/24) History of thoracentesis History of lung biopsy Family History Mother Diabetes Father Diabetes Social History Household Members: Spouse and Children Household Members Other:: son Housing: Apartment Are you a primary direct care provider to a significant other at home: No Do you presently have visiting nurse or other home services: No Alcohol intake: never Patient Tobacco Use Status: Former Tobacco user Tobacco use type: Cigarette Years Smoked: 45 e-Cigarette/Vaping Use: Never Used Second Hand Smoke Exposure: Yes service: No Current occupational status: retired Cognitive needs: No Hearing needs: No Vision needs: Yes Questionnaire PHQ-9 Over the last 2 weeks, how often have you been bothered by any of the following problems? 1. Little interest or pleasure in doing things: not at all 2. Feeling down, depressed, or hopeless: not at all 3. Trouble falling or staying asleep, or sleeping too much: not at all 4. Feeling tired or having little energy: not at all 5. Poor appetite or overeating: several days 6. Feeling bad about yourself - or that you are a failure or have let yourself or your family down: not at all 7. Trouble concentrating on things, such as reading the newspaper or watching television: not at all 8. Moving or speaking so slowly that other people could have noticed. Or the opposite - being so fidgety or restless that you have been moving around a lot more than usual: not at all 09176 - PHQ-9 Billing: Yes Source: Developed by Drs. Bakari Herr, Genevieve Mcelroy, Asael Winter and colleagues, with an educational ulises from [employer]. Thrive Questionnaire Date Thrive assessed: 03/20/25 EVE-7 AMB Questionnaire EVE-7 Date EVE - 7 assessed: 03/20/25 Source: Developed by Drs. Bakari Herr, Genevieve Mcelroy, Asael Winter and colleagues, with an educational ulises from [employer]. Physical exam (Primary Care) Vital Signs: Last Vital Signs Pulse 108 H 03/20/25 13:18 BP 124/82 03/20/25 13:18 Pulse Ox 98 03/20/25 13:18 Oxygen Delivery Method Room Air 03/20/25 13:18 BMI result Body Mass Index 21.4 Tobacco/Smoking Status: Tobacco use Status Tobacco use date assessed 03/20/25 03/20/25 13:26 Patient Tobacco Use Status Former Tobacco user 03/20/25 13:26 Tobacco use type Cigarette 03/20/25 13:26 e-Cigarette/Vaping Use Never Used 03/20/25 13:26 Thrive Assessment: Date of Thrive Assessment Date Thrive assessed 03/20/25 03/20/25 13:26 Coding Level of Care Code Est Pt Level 4 (08590) Complex EM visit Add On G2211 Diagnoses Constipation K59.00 Additional Codes PHQ-9 - 07395 - PHQ-9 Billing: Yes ([id number]) Assessment & Plan Assessment & Plan (1) Constipation: Code(s): K59.00 - Constipation, unspecified Plan: ER visit follow up. CT scan revd. Area of attenuation in the kidney area noted. Currently no clinical corelation. Has a PET scan pending, will check images in that. Plan History of Present Illness - The patient is a 64-year-old male presenting with follow-up regarding an abdominal aortic aneurysm. - The patient reports a history of an abdominal aortic aneurysm, which was discussed during the visit. - The patient mentioned that his was in the emergency room three weeks ago, but no further details were provided. - The patient is currently taking azithromycin, sugar pills, and blood pressure medication. Social History Review of Systems Physical Exam General: Cooperative and healthy appearing Nutritional Appearance: Well nourished Orientation/consciousness: Patient oriented x3 Limitations: No limitations Head: Normal to inspection General: Appearance normal, both eyes and all related structures Neck: Normal visual inspection Chest: Normal palpation of entire chest wall Respiratory: Normal respiratory effort Neurology: Patient oriented x3 Results Plan 1. Abdominal Aortic Aneurysm - The patient is advised to continue monitoring the condition and follow up with imaging as recommended by the healthcare provider. Discussion Notes Patient Instructions Medications: Refilled hydrocodone-acetaminophen 5-325 mg Partial Fill upon patient request. 1 tab PO Q4-6H PRN 30 tabs 0RF pain levalbuterol HCl 1.25 mg (3 mL) inhalation BID 540 mL 1RF J44.9 - Chronic obstructive pulmonary disease, unspecified
== END 2025-03-20 13:52 | disposition home or self-care (01) ==
LOC: HO.HMCH 13:09
PROVIDERS: PCP Internal Medicine; Visit Provider Internal Medicine
DX: K59.00 Constipation, unspecified (principal)

== ENCOUNTER → 2025-03-20 13:08 | Outpatient (BNVA) | payer OTHER, SELFPAY | PROVIDERS: PCP Internal Medicine; Visit Provider Internal Medicine | DX: E11.9 Type 2 diabetes mellitus without complications (principal); K59.00 Constipation, unspecified; J44.9 Chronic obstructive pulmonary disease, unspecified; I71.40 Abdominal aortic aneurysm, without rupture, unspecified | CPT/HCPCS: 96127; 99212 ==

== ENCOUNTER 2025-05-09 12:47 | Outpatient (AMB) | payer OTHER, SELFPAY ==
--- NOTE | 2025-05-09 12:55 | A.OFFVIS_ITS ---
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 He did have a CT scan that point he had a large right middle lobe mass with hilar density as well. 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 He was treated with concomitant chemoradiation including cisplatin and Taxol. The patient completed radiation therapy. However, started developing worsening right-sided chest pains and worsening shortness of breath. Therefore he was started on antibiotics by his radiation therapist. However his symptoms worsened he was admitted to the hospital with a right-sided pneumonia. The patient is treated with antibiotics. He was also placed on oxygen. He has been off the chemo since then. He did speak to Oncology regarding starting immune therapy. I did evaluate his last CTA that he had couple days ago. Appears that he has the masslike density has not become cavitated. He still has some residual abnormalities. In addition to that he has significant airspace disease in pneumonitis along with reactive inflammation of the pleura. He also has a small right-sided pleural effusion. Likely that he has a component of pneumonitis resulting from the chemotherapy and radiation in addition to a component of pleuritis. Smoldering infections are also in the differential she was leukopenic. At this point the patient is still having discomfort so therefore will start him on prednisone. The the patient also had pulmonary function studies demonstrating moderate COPD. The patient also had a moderate restriction due to pneumonitis and also had evidence of severe diffusion impairment. The patient will be started on respiratory therapy for the COPD. He is also continues the oxygen. I will speak further with Oncology regarding the need for bronchoscopy. 07/28/2023 the patient is here for a pulmonary follow-up visit. Continues have dyspnea on exertion. Has been using the oxygen with good effect. Also continues with respiratory therapy. He did go to the ER because of abdominal discomfort. Found to have inflammatory process. He is feeling better at this time. His CT scan of the abdomen demonstrated stranding around the pancreas. In addition to that the lung windows demonstrated stable findings. He did follow-up with Oncology and is scheduled to have a PET scan soon to assess his response to therapy currently on immune therapy. The patient is still using the oxygen. We did taken for 6 minute walk test. The patient had a portable oxygen concentrator trial and he was able to do well on 2 L pulse. Therefore will go ahead and request be cylinders with conserving valve that he can use with better portability outside of the home. We will retest in the future. It may be that he can wean off the oxygen. 12/01/2023 the patient is here for a pulmonary follow-up visit. The patient was exposed to sick contacts in the family. He started developing worse cough and also chest congestion constitutional symptoms. Most of the family now Doing better. He is still having residual symptoms although also has been getting better. He did have a chest x-ray done demonstrating no evidence of any acute disease although very difficult to interpret x-rays in view of his significant radiation changes to his right hemithorax. The patient is scheduled to have a CT scan of the chest per oncology will follow-up with those results. In the meantime will try get a sputum culture to make sure that he is being adequately treated. The patient continues to be on azithromycin 3 times a week which appears to be helpful. He has been having some difficulty with his nebulizer. It is not working appropriately. The compressor does not appear to be functioning and seems like it is affecting the way it is nebulized in the therapy. At this point the nebulizer personally broken beyond repair. Will request a replacement machine for him. The patient is really dependent on his nebulizers important for him to have a functional nebulizer at this time. He continues use the oxygen with good effect. 01/31/2024 the patient is here for a pulmonary follow-up visit. Overall he is doing okay although he still complaining of the chest congestion shortness of breath. Now more than anything he is developing increasing heart rate ta chycardia up to 115 even at rest. He is concerned about his heart. He has been using nebulized therapy with budesonide twice a day. Still though he does have significant chest tightness and congestion. On the blood work there significant eosinophilia. This is likely the result of the immune therapy resulting have it can the airway inflammation process. However, we need to hold off on using p rednisone. He has chronic bronchitis he has COPD and based on the fact will trying to avoid prednisone he will be a good candidate for Daliresp. Although it may have adverse effects such as weight loss. He have to be careful since he does not have a lot of weight to lose. He can start with a 250 mcg dose 3 times a week and then increase it as tolerated. He will monitor closely for any GI adverse effects. Hopefully he can tolerated then we can increase him to the therapeutic dose to see if we can decrease the inflammation with a PD 4 inhibitor in minimize any interaction with his chemotherapy. In the meantime he is going to go for an EKG. Depending on the findings we will consider medications or referral to Cardiology or both. His last chest x-ray was back from October 2023. Did not show any active disease. He should be scheduled to have a repeat CT scan time now. Will await those results. 04/01/2024 the patient is here for a pulmonary follow-up visit. Overall he is doing a little better. He is tolerating the Daliresp. He also continues on the azithromycin 3 times a week. He continues on the PDL1 inhibitor. Appears to be doing better with the adverse reactions. He understands that he will have increased inflammation due to the medication. Although his respiratory status is better. We did taken for a walking oximetry. The patient did tolerate a portable oxygen concentrator 2 L pulse. I do believe that a POC be better for him as this will provide better portability outside of the home. The patient will continue with his current respiratory therapy. He did have a CT scan of the chest that we personally reviewed in the office. Unfortunately has not been officially read yet. We look that it. Appears to be clear. A lot of the pneumonitis has subsided. The area of the previous malignancy appears to be stable and without any recurrence. And also the he does have a small effusion. Seems to be slightly increased from his previous. Will continue to monitor closely. If there is any worsening of his symptoms will go ahead and get an x- ray sooner otherwise have an x-ray in 3 months before I see him. Will going to go ahead and increase his respiratory medications to the full therapeutic effect. 07/02/2024 the patient is here for a pulmonary follow-up visit vision overall complains of increasing dyspnea on exertion. Moderate severity. He has also had increased wheezing. He went to get his immune therapy few days ago and he was noted to be wheezy by the oncologist. He had a chest x-ray done. It appears that he has interval worsening of the right-sided pleural effusion per my review. Still waiting for the final read. We did also look at his CT scan of the chest from March demonstrating the pleural effusion. Will go ahead and t ry to see if this something that we can drain as it may indeed help his overall respiratory capacity. Will also send the fluid for cytology looking for any evidence of any recurrence or any progression of his cancer. The patient continues to be on the nebulized treatment that he has had for some time. Will go ahead and add Incruse to his regimen as a long-acting muscarinic antagonist to further improve his bronchodilation effect. I am hopeful that this will help with his underlying wheezing. He will continue with his rescue respiratory regimen along with his oxygen as prescribed. Will follow-up in 2-3 months. 08/30/2024 the patient is here for a pulmonary follow-up visit. Overall the patient has been doing fairly well. He is tolerating his respiratory regimen. He does take a lot of medications and he is currently maximized. He is still having some wheezing but it is reasonable and he still able to do his activities of daily living. The patient did have a recent PET scan that we personally reviewed. No evidence of any worsening disease. He still has some FDG activity in the paratracheal lymph node but he has had this activity before. 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 He also underwent a thoracentesis which was negative for cytology. He does have some d egree of inflammation in that area likely related to the immune therapy. At this time he does not need any additional interventions. Will continue with the current respiratory regimen will follow-up in the spring. He continues uses oxygen also with good effect. 05/09/2025 the patient is here for pulmonary follow-up visit. He is complaining of worsening cough chest congestion in addition to shortness of breath. [id number] severity. He did stop the PDL1 inhibitor about 3 months ago. He did have a PET scan done about a month ago which I personally reviewed. It appears that his area of the cancer showed some mild FDG activity likely postradiation changes. In addition to that appears to have an area in the contralateral lung with some airspace disease suggesting infectious process. Therefore will go ahead and start him on Augmentin he can continue the azithromycin. The patient is also having hard time tolerating the powdered inhaler. Making him cough. Will switch him over to a nebulized long-acting muscarinic antagonist at this time. The patient can also take a small short course of prednisone to try to help alleviate some of the inflammation. Specially now that he is off the immunotherapy. He is going to have a repeat PET scan sometime in the fall. He will follow-up with Oncology then. He continues use the oxygen therapy with good effect. Although he gets winded going up a flight of stairs. Hopefully after treating the infectious/inflammatory process his breathing will improve. In the meantime he can always increase in the pulse dose from 3-4 L as needed with activity to maintain a pulse ox above 90%. [facility] Medical History (Updated 05/12/25 @ 22:28 by Neil Huynh MD) Essential hypertension Pleural effusion on right Seizures Dyspnea Tachycardia Acute and chronic respiratory failure Pleuritis Pneumonitis Chronic respiratory failure COPD (chronic obstructive pulmonary disease) Type 2 diabetes mellitus with hyperglycemia Non-small cell cancer of right lung (~2021) Diabetes (Unknown) Surgical History Hydrocele (09/27/24) History of thoracentesis History of lung biopsy Family History Mother Diabetes Father Diabetes Social History Household Members: Spouse and Children Household Members Other:: son Housing: Apartment Are you a primary geriatric care manager to a significant other at home: No Do you presently have visiting nurse or other home services: No Alcohol intake: never Patient Tobacco Use Status: Former Tobacco user Tobacco use type: Cigarette Years Smoked: 45 e-Cigarette/Vaping Use: Never Used Second Hand Smoke Exposure: Yes service: No Current occupational status: retired Cognitive needs: No Hearing needs: No Vision needs: Yes Review of Systems Const Denies chills, Denies fatigue, Denies fever(s), Denies headache(s) and Denies weakness ENT Denies dizziness and Denies headache(s) Card Denies chest pain, Denies lightheadedness, Denies palpitations, Reports dyspnea on exertion and Denies other (Palpitations) Resp Denies change in phlegm color, Denies chest congestion, Reports cough, Reports dyspnea on exertion, Reports wheezing and Denies other ( shortness of breath) GI Reports abdominal pain Musc Denies numbness and Denies tingling Neuro Denies dizziness, Denies headache(s), Denies numbness, Denies tingling, Denies paresthesias and Denies weakness Psych Denies anxiety and Denies depression Endo Denies fatigue, Denies polydipsia, Denies polyuria and Denies palpitations Aller/Immun Reports wheezing Physical Exam Vital Signs: Last Vital Signs Pulse 104 H 05/09/25 12:56 BP 146/68 H 05/09/25 12:56 Pulse Ox 97 05/09/25 12:56 Oxygen Delivery Method Nasal Cannula 05/09/25 12:56 Oxygen Flow Rate 2 05/09/25 12:56 BMI result Body Mass Index 22.1 Const General: comfortable Nutritional Appearance: thin HEENT Head: Yes normocephalic and Yes atraumatic Eyes General: appearance normal, both eyes and all related structures Neck Neck: Yes supple Chest Chest palpation & inspection: normal inspection of the chest Resp Effort & Inspection: normal respiratory effort Auscultation: no rales, wheezes and diminished lung sounds Cardio Rate: regular rate Rhythm: regular rhythm Heart sounds: S1 normal heart sound present and S2 normal heart sound present GI Palpation (GI): Soft to palpation Auscultation: normal bowel sounds Skin General skin exam: no rashes or lesions noted Extrem General: Yes clubbing, No cyanosis and No edema Assessment & Plan Assessment & Plan (1) COPD (chronic obstructive pulmonary disease): Code(s): J44.9 - Chronic obstructive pulmonary disease, unspecified Category: Medical Qualifiers: COPD type: COPD with acute exacerbation Qualified Code(s): J44.1 - Chronic obstructive pulmonary disease with (acute) exacerbation (2) Non-small cell cancer of right lung: Onset Date: ~2021 Comment: (RML Adenocarcinoma - Clinical stage cT3N2/3, IIIB/C - dx 04/2022) Code(s): C34.91 - Malignant neoplasm of unspecified part of right bronchus or lung Category: Medical (3) Pneumonitis: Comment: better Code(s): J18.9 - Pneumonia, unspecified organism Category: Medical (4) Pleural effusion on right: Comment: lymphocytic predominant Code(s): J90 - Pleural effusion, not elsewhere classified Category: Medical (5) Cough: Code(s): R05.9 - Cough, unspecified Category: Medical Qualifiers: Cough type: chronic Qualified Code(s): R05.3 - Chronic cough Plan continue budesonide BID start Yulperi continue Xopenex DOMINIC as needed stop Daliresp 500mcg due to side effects hold azithromycin MWF start Prednisone taper start Augmentin off PDL1 inhibitor oxygen revision: 2L/pulse with activity and 2L with sleep. requesting POC Pulmonary rehab cough medicine as needed F/U 3-4 months Medications: New revefenacin (Yupelri) 175 mcg (3 mL) inhalation DAILY 90 mL 8RF 30 days J43.2 - Centrilobular emphysema amoxicillin-pot clavulanate 875-125 mg 1 tab PO BID 20 tabs 0RF 10 days prednisone PO daily; Take 2 tabs daily x 7 days, then 1 tab daily x 7 days 21 tabs 0RF 14 days codeine-guaifenesin 10-100 mg/5 mL 10 mL PO Q6H PRN 300 mL 0RF cough 10 days Coding Level of Care Code Est Pt Level 4 (38537) Complex EM visit Add On G2211 Diagnoses Chronic obstructive pulmonary disease with acute exacerbation J44.1 COPD type: COPD with acute exacerbation Non-small cell cancer of right lung C34.91 Pneumonitis J18.9 Pleural effusion on right J90 Chronic cough R05.3 Cough type: chronic Time Spent (min) 17
[2025-05-09 12:56] VITALS: BP 146/68; PULSE 104; O2SAT 97; BMI 22.1
--- OUTSIDE RECORDS SUMMARY | 2025-05-09 13:16 | XMS_ITS | Clinical Summary ---
Author Organization [facility] Address [address] [place] [phone] Phone Care Team Providers Care Primary Care Provider Name Role Phone Pcp, Unknown Primary Care Provider Unavailabl e Allergies No known active allergies Medications benzonatate (TESSALON) 200 MG capsule Take 200 mg by mouth 2 (two) times a day. 2 Active ibuprofen (ADVIL,MOTRIN) 600 MG tablet Take 1 tablet (600 mg total) by mouth 2 (two) times a day. 60 tablet 1 2 Active oxyCODONE-acet aminophen (PERCOCET) 5-325 mg per tablet Take 1-2 tablets by mouth every 6 (six) hours as needed for pain (specific location in comments) (R thorax pain). 60 tablet 2 Active Additional Information Patient not taking.Reported on 08/08/2022 famotidine (PEPCID) 20 MG tablet Take 1 tablet (20 mg total) by mouth 2 (two) times a day. 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 Not on sylvia e 01/07/2023 Are you concerned about learning? Not on file 01/07/2023 No 01/07/2023 No 01/07/2023 Digital Access Answer Date Recorded No 02/05/2023 No 02/05/2023 No 02/05/2023 Reliable internet access at home? Not on file 02/05/2023 Device with a working camera? Not on file Sex and Gender Information Value Date Recorded Sex Assigned at Not on file Legal Sex Male 4:03 PM EDT Gender Identity Not on file Sexual Orientation Not on file Last Filed Vital Signs Vital Sign Reading Time Taken Comments Blood Pressure 105/72 08/08/2022 1:43 PM EST Pulse 123 08/08/2022 1:43 PM EST Temperature 36.6 C (97.9 F) 07/25/2022 1:15 PM EST Respiratory Rate 24 08/08/2022 1:43 PM EST Oxygen Saturation 93% 08/08/2022 1:43 PM EST Inhaled Oxygen Concentration - - Weight 67.9 kg (149 lb 12.8 oz) 08/08/2022 1:43 PM EST Height 180.3 cm (5' 10.98 ) 06/20/2022 2:55 PM E DT Body Mass Index 20.9 06/20/2022 2:55 PM EDT Plan of Treatment Health Maintenance Due Date Last Done Comments Adult Td,Tdap Booster 1958 LIPID PANEL 1958 DEPRESSION SCREENING 1970 SMOKING Hx and SMOKELESS TOB ACCO SCREENING 1971 HEPATITIS C SCREENING 1976 PNEUMOCOCCAL VACCINES (50+ y ears) (1 of 2 - PCV) 1977 ZOSTER VACCINES (1 of 2) 1977 COLOGUARD 2003 COLONOSCOPY 2003 COLORECTAL CANCER SCREENING 2003 FIT TEST 2003 FOBT 2003 SIGMOIDOSCOPY 2003 VIRTUAL COLONOSCOPY 2003 RSV VACCINE (1 - Risk 60-74 years 1-dose series) 2018 ABDOMINAL AORTIC ANEURYSM (A AA) SCREENING 2023 COVID-19 VACCINE ( - 2023-2 5 season) 2024 HEPATITIS A VACCINES Aged Out No long er eligible based on patient's age to complete this topic HIB VACCINES Aged Out No longer eligi ble based on patient's age to complete this topic MENINGOCOCCAL VACCINES (ACWY) Aged Out No longer eligible based on patient's age to complete this topic MENINGOCOCCAL VACCINES (B) Aged Out N o longer eligible based on patient's age to complete this topic Medical Devices Not on file Insurance [facility] [place] [address] Care Teams Primary Care Provider Relationship Specialty Start Date End Date Pcp, Unknown PCP - General 08/01/22 Additional Source Comments The information contained in this document represents components of the legal health record. It is not the complete legal health record.[facility]
--- OUTSIDE RECORDS SUMMARY | 2025-05-09 13:16 | XMS_ITS | Encounter Summary ---
Author Organization [facility] Address [address] [facility] [address] [place] [phone] Phone Care Team Providers Care Financial Underwriter Name Role Phone Pcp, Unknown Primary Care Provider Unavailabl e Reason for Visit * Reason Comments Medication Refill Encounter Details Date Type Department Care Team (Late st Contact Info) Description 08/30/2022 Refill [facility] Rad Onc [address] [place] [phone] David Coon MD [address] [place] [id number] [email or web address] Medication Refill Social History Tobacco Use Types Packs/Day Years Used Date Smoking Tobacco: Every Day Cigarettes 2 45 Smokeless Tobacco: Never Alcohol Use Standard Drinks/Week Comments Not Currently 0 (1 standard drink = 0.6 oz pur e alcohol) Sex and Gender Information Value Date Recorded Sex Assigned at Not on file Legal Sex Male 4:03 PM EDT Gender Identity Not on file Sexual Orientation Not on file documented as of this encounter Plan of Treatment Not on file documented as of this encounter Visit Diagnoses Not on filedocumented in this encounter Care Teams Financial Underwriter Relationship Specialty Start Date End Date Pcp, Unknown PCP - General 08/01/22 documented as of this encounter Additional Source Comments The information contained in this document represents components of the legal health record. It is not the complete legal health record.[facility]
--- OUTSIDE RECORDS SUMMARY | 2025-05-09 13:16 | XMS_ITS | Encounter Summary ---
Author Organization [facility] Address [address] [facility] [address] [place] [phone] Phone Care Team Providers Care Water Well Driller Name Role Phone Pcp, Unknown Primary Care Provider Unavailabl e Reason for Visit * Reason Comments Medication Refill Encounter Details Date Type Department Care Team (Late st Contact Info) Description 09/30/2022 Refill [facility] Rad Onc [address] [place] [phone] David Coon MD [address] [place] [id number] [email or web address] Medication Refill Social History Tobacco Use [...] on filedocumented in this encounter Care Teams Water Well Driller Relationship Specialty Start Date End Date Pcp, Unknown PCP - General 08/01/22 documented as of this encounter Additional Source Comments The information contained in this document represents components of the legal health record. It is not the complete legal health record.[facility]
--- OUTSIDE RECORDS SUMMARY | 2025-05-09 13:16 | XMS_ITS | Clinical Summary ---
Author Organization [facility] Address [address] [place] [address] Phone Care Team Providers Care Per Diem Registered Nurse Name Role Phone Bhargav Chen MD Primary Care Provider [phone] Encounters Date Type Department Care Team Description 03/13/2025 1:32 PM EDT - 03/13/2025 11:59 PM EDT Hospital Encounter [facility] PET Scan [address] [place] [address] Adenocarcinoma of right lung (CMS/HCC V24, CMS/HCC V28) Discharge Disposition: Home or Self Care from Last 3 Months Social History Tobacco Use Types Packs/Day Years Used Date Smoking Tobacco: Never Assessed Sex and Gender Information Value Date Recorded Sex Assigned at Male 03/13/2025 1:31 PM EDT Legal Sex Male 4:36 PM EDT Gender Identity Male 03/13/2025 1:31 PM EDT Sexual Orientation Not on file Plan of Treatment Health Maintenance Due Date Last Done Comments DTaP,Tdap,and Td Vaccines (1 - Tdap) 1977 Zoster Vaccines (1 of 2) 1977 COVID-19 Vaccine (2 - Pfizer risk series) 08/13/2024 07/23/2024 Depression Screening 09/11/2024 Abdominal Aortic Aneurysm (AAA) Screen 03/13/2025 Cholesterol Screening (Lipid Panel) 03/13/2025 Colorectal Cancer Screening: Colonoscopy 03/13/2025 Falls Risk Assessment 03/13/2025 Hepatitis C Screening 03/13/2025 Social Influencers of Health Screening 03/13/2025 Influenza Vaccine (#1) 2025 , 06/28/2023, 09/07/2022 Pneumococcal Vaccine: 50+ Years Completed 11/10/2023 RSV Immunization Adult Patients Completed 07/23/2024 HIB Vaccines Aged Out No longer eligi ble based on patient's age to complete this topic HPV Vaccines Aged Out No longer eligi ble based on patient's age to complete this topic Hepatitis A Vaccines Aged Out No long er eligible based on patient's age to complete this topic Hepatitis B Vaccines Aged Out No long er eligible based on patient's age to complete this topic IPV Vaccines Aged Out No longer eligi ble based on patient's age to complete this topic MMR Vaccines Aged Out No longer eligi ble based on patient's age to complete this topic Meningococcal ACWY Vaccine Aged Out N o longer eligible based on patient's age to complete this topic Meningococcal B Vaccine Aged Out No l onger eligible based on patient's age to complete this topic RSV Immunization Patients Under 20 months Aged Out No longer eligible b ased on patient's age to complete this topic Varicella Vaccines Aged Out No longer eligible based on patient's age to complete this topic Procedures Procedure Name Priority Date/Time Associated Diagnosis Comments PET CT SKULL TO MID THIGH SUBSEQUENT Routine 03/13/2025 3:20 PM EDT Adenocarcinoma of right lung ([facility] V24, [facility] V28) from Last 3 Months Results * PET CT Skull to Mid Thigh Subsequent (03/13/2025 3:20 PM EDT) Anatomical Region Laterality Modality Body Radiographic Bessy ging 03/21/2025 4:59 AM EDT Impressions 03/21/2025 6:11 AM EDT 1. Mild FDG activity in the right lung presumed to represent posttreatment appearance 2. New nonspecific mildly FDG avid opacities in the left lung which may represent postinfectious/postinflammatory process. This can be followed. 3. FDG avid thoracic lymph nodes. Direct comparison cannot be made as prior PET images are not available for review. Please note: The CT was acquired at a low radiation dose settings. The images are of nondiagnostic quality and used solely for purposes of attenuation correction and slice localization for the PET scan. If a diagnostic CT study is desired it must be ordered separately. -------- FINAL REPORT -------- Dictated By: Kinza Ambrosio Dictated Date: 03/21/2025 04:59 ET Assigned Physician: Kinza Ambrosio Reviewed and Electronically Signed By: Kinza Ambrosio Signed Date: 03/21/2025 06:11 ET Workstation ID: [id number] Transcribed By: Self Edit Transcribed Date: 03/21/2025 05:22 ET Narrative 03/21/2025 6:11 AM EDT INDICATION: NON SMALL CELL LUNG CANCER. Restaging. TECHNIQUE: FDG PET-CT imaging was performed from the skull bases through the thighs in a single acquisition with data set reconstructed in axial, coronal, and sagittal planes at the computer workstation with fused data from both the PET imaging study and attenuation correction CT. The CT portion of the examination was done strictly for attenuation correction and is not a true diagnostic CT examination. DLP: 502 mGy-cm Radiopharmaceutical: 12.5 mCi of F-18 FDG IV. Blood glucose: 126 mg/dl. COMPARISON: Correlation is made with outside PET/CT radiology report August [address] of the abdomen and pelvis February 2025. The PET portion from August 2024 is not available for review. Only the CT portion is available. FINDINGS: HEAD AND NECK: No abnormal FDG activity. THORAX: Right lung paramediastinal architectural distortion/fibrosis measuring up to SUV Max 3.5. Small right-sided pleural effusion SUV max 3.4. New nonspecific opacities in the left upper lobe, lingula and left lower lobe measuring up to SUV Max 2.4 which may represent postinfectious/postinflammatory process. FDG avid thoracic lymph nodes. For example, prevascular SUV Max 3.6 and right paratracheal SUV max 4.1 (previously 2.9). Left hilar SUV max 3.1 and right hilar SUV max 3.0. Mediastinal blood pool SUV Max 2.9. Thoracic aortic and coronary artery calcifications. ABDOMEN/PELVIS: No abnormal FDG activity. Nonspecific bowel activity. Low-attenuation lesion in the left kidney without significant FDG activity. Infrarenal abdominal aortic ectasia SUV max 2.6; similar to prior. MUSCULOSKELETAL: Nonspecific mild asymmetric activity along the left iliac crest SUV max 1.9. Procedure Note Kinza Ambrosio MD - 03/21/2025 INDICATION: NON SMALL CELL LUNG CANCER. Restaging. TECHNIQUE: FDG PET-CT imaging was performed from the skull bases throughthe thighs in a single acquisition with data set reconstructed in axial,coronal, and sagittal planes at the computer workstation with fused datafrom both the PET imaging study and attenuation correction CT. The CTportion of the examination was done strictly for attenuation correctionand is not a true diagnostic CT examination. DLP: 502 mGy-cm Radiopharmaceutical: 12.5 mCi of F-18 FDG IV. Blood glucose: 126 mg/dl. COMPARISON: Correlation is made with outside PET/CT radiology reportDecember [address] of the abdomen and pelvis February 2025. The PET portionfrom August 2024 is not available for review. Only the CT portion isavailable. FINDINGS: HEAD AND NECK: No abnormal FDG activity. THORAX: Right lung paramediastinal architectural distortion/fibrosismeasuring up to SUV Max 3.5. Small right-sided pleural effusion SUV max3.4. New nonspecific opacities in the left upper lobe, lingula and left lowerlobe measuring up to SUV Max 2.4 which may representpostinfectious/postinflammatory process. FDG avid thoracic lymph nodes. For example, prevascular SUV Max 3.6 andright paratracheal SUV max 4.1 (previously 2.9). Left hilar SUV max 3.1and right hilar SUV max 3.0. Mediastinal blood pool SUV Max 2.9. Thoracic aortic and coronary artery calcifications. ABDOMEN/PELVIS: No abnormal FDG activity. Nonspecific bowel activity.Low- attenuation lesion in the left kidney without significant FDGactivity. Infrarenal abdominal aortic ectasia SUV max 2.6; similar toprior. MUSCULOSKELETAL: Nonspecific mild asymmetric activity along the left iliaccrest SUV max 1.9. IMPRESSION: 1. Mild FDG activity in the right lung presumed to representposttreatment appearance 2. New nonspecific mildly FDG avid opacities in the left lung which mayrepresent postinfectious/postinflammatory process. This can befollowed. 3. FDG avid thoracic lymph nodes. Direct comparison cannot be made asprior PET images are not available for review. Please note: The CT was acquired at a low radiation dose settings. The images are ofnondiagnostic quality and used solely for purposes of attenuationcorrection and slice localization for the PET scan. If a diagnostic CTstudy is desired it must be ordered separately. -------- FINAL REPORT -------- Dictated By: Kinza Ambrosio Dictated Date: 03/21/2025 04:59 ET Assigned Physician: Kinza Ambrosio Reviewed and Electronically Signed By: Kinza Ambrosio Signed Date: 03/21/2025 06:11 ET Workstation ID: [id number] Transcribed By: Self Edit Transcribed Date: 03/21/2025 05:22 ET us Yolie Rojas MD IMG NM PROCEDURES Final Result from Last 3 Months Insurance [facility] Member Subscriber Plan / Payer (Ef fective 2023-Present) Name:aByron Arenas Relation to Subscriber:Self Name:Bayron Arenas Payer ID:[id number] Group ID:[id number] Type:Not on file Address: [place] [address] [address] [id number] Care Teams Per Diem Registered Nurse Relationship Specialty Start Date End Date Bhargav Chen MD [address] [place] [address] PCP - General Internal Medicine 03/13/25
== END 2025-05-09 13:37 | disposition home or self-care (01) ==
PROVIDERS: PCP Internal Medicine; Visit Provider Hospitalist
DX: J44.1 Chronic obstructive pulmonary disease with (acute) exacerbation (principal); C34.91 Malignant neoplasm of unspecified part of right bronchus or lung; J18.9 Pneumonia, unspecified organism; J90 Pleural effusion, not elsewhere classified; R05.3 Chronic cough
CPT/HCPCS: 99214; G2211

== ENCOUNTER → 2025-05-09 12:47 | Outpatient (BNVA) | payer OTHER, SELFPAY | PROVIDERS: PCP Internal Medicine; Visit Provider Hospitalist | DX: J44.1 Chronic obstructive pulmonary disease with (acute) exacerbation (principal); C34.91 Malignant neoplasm of unspecified part of right bronchus or lung; J18.9 Pneumonia, unspecified organism; J90 Pleural effusion, not elsewhere classified; R05.3 Chronic cough | CPT/HCPCS: 99212 ==

== ENCOUNTER 2025-06-11 14:15 | Outpatient (AMB) | payer OTHER, SELFPAY ==
--- NOTE | 2025-06-11 14:19 | A.OFFPC_ITS ---
Vital Signs 06/11/25 14:20 Height 5 ft 11 in Weight 160 lb 4 oz BMI 22.3 BP 122/82 Blood Pressure Location Lt brachial Position Sitting Pulse 99 Pulse Source Pulse Oximeter Temp 97.3 F Temp Source Temporal Artery Scan Pulse Oximetry (%) 99 Oxygen Delivery Method Nasal Cannula Intake Visit Reasons: follow up - see comments Intake Note: Patient is here to follow up on DM, COPD, HTN. Adhesion Tester Required: No Speaker Mounter: Not Required per policy Accompanied by: Self / Same As Patient Allergies No Known Allergies Allergy (Verified 06/11/25 15:16) Medication List - Last Reconciled 06/11/25 by Bhargav Chen MD alcohol swabs 1 pad topical DAILY azithromycin 250 mg PO 3XW blood pressure monitor As directed blood sugar diagnostic (FreeStyle Lite Strips) check blood glucose every morning before breakfast blood-glucose meter (FreeStyle Lite Meter kit) check blood glucose every morning before breakfast budesonide 0.5 mg (2 mL) inhalation BID 90 days codeine-guaifenesin 10-100 mg/5 mL 10 mL PO Q6H PRN 10 days enalapril maleate 5 mg PO DAILY erythromycin 0.5 inches ophthalmic (eye) TID famotidine 1 tab PO BID PRN glipizide ER 5 mg PO QAM 30 days hydrocodone-acetaminophen 5-325 mg 1 tab PO Q4-6H PRN lancets (FreeStyle Lancets) check blood glucose every morning before breakfast levalbuterol HCl 1.25 mg (3 mL) inhalation BID lorazepam 0.5 mg PO BID PRN metformin ER 500 mg PO DAILY miscellaneous medical supply Wheelchair As directed, 999 days nebulizers As directed gbiwzwhx-kgbsxbcdt-WJ 3.5-10,000-1 mg/mL-unit/mL-% 4 drps otic (ears) Q8H omeprazole 20 mg PO DAILY ondansetron 8 mg PO Q8H PRN Oxygen Home Use As directed polyethylene glycol 3350 (Miralax) 17 grams PO BID prednisolone acetate 1% 1 drp ophthalmic (eye) QID revefenacin (Yupelri) 175 mcg (3 mL) inhalation DAILY 30 days sennosides-docusate sodium 8.6-50 mg (Senna with Docusate Sodium) 1 tab-cap PO BID PRN sildenafil (Viagra) 50 mg PO DAILY PRN umeclidinium 62.5 mcg/actuation (Incruse Ellipta) 1 inh inhalation DAILY 30 days walker (Ultra-Light Rollator [facility]) Rollator walker with As directed seat and brakes. As directed, 999 days Tobacco use date assessed: 06/11/25 Fall risk assessment: No Falls in past year Last assessed Fall Risk: 06/11/25 Dental Screening Dental Screen Date: 03/20/25 HPI follow up - see comments HPI Details 64-year-old male presents to the office to discuss his chronic medical conditions. He comes to the office walking using a portable oxygen device. At baseline state of health. Patient recently underwent surgery. Continues to follow-up with the oncologist regarding his lung cancer. Compliant with all medications and reports no side effects. Patient is requesting a refill or a new prescription of Viagra. Since the surgery, he reports erectile dysfunction. [facility] Medical History Essential hypertension Pleural effusion on right Seizures Dyspnea Tachycardia Acute and chronic respiratory failure Pleuritis Pneumonitis Chronic respiratory failure COPD (chronic obstructive pulmonary disease) Type 2 diabetes mellitus with hyperglycemia Non-small cell cancer of right lung (~2021) Diabetes (Unknown) Surgical History Hydrocele (09/27/24) History of thoracentesis History of lung biopsy Family History Mother Diabetes Father Diabetes Social History Household Members: Spouse and Children Household Members Other:: son Housing: Apartment Are you a primary lawn care specialist to a significant other at home: No Do you presently have visiting nurse or other home services: No Alcohol intake: never Patient Tobacco Use Status: Former Tobacco user Tobacco use type: Cigarette Years Smoked: 45 e-Cigarette/Vaping Use: Never Used Second Hand Smoke Exposure: Yes service: No Current occupational status: retired Cognitive needs: No Hearing needs: No Vision needs: Yes Questionnaire PHQ-9 Over the last 2 weeks, how often have you been bothered by any of the following problems? 9. Thoughts that you would be better off or of hurting yourself in some way: not at all Source: Developed by Drs. Bakari Herr, Asael Sheriff and colleagues, with an educational ulises from [employer]. Thrive Questionnaire Date Thrive assessed: 06/11/25 I am a: Patient What is your living situation today?: I have a steady place to live Within the past 12 months, did the food you bought not last and you didn't have the money to get more?: I choose not to answer this question Within the past 12 months, did you worry whether your food would run out before you got money to buy more?: I choose not to answer this question Do you have trouble paying for medicines?: No Do you have trouble getting transportation to medical appointments?: No Do you have trouble paying your heating and electricity bill?: No Do you have trouble taking care of your child, family member or friend?: No Do you have trouble with day-to-day activities such as bathing, preparing meals, shopping, managing finances, etc.?: No Are you currently unemployed and looking for a job?: No Are you interested in more education?: No Please select the resources that you would like help with: None Currently or been in a relationship where the following occur: I choose not to answer THRIVE Score: 0 AUDIT C Alcohol Use Questionnaire (AUDIT-C) 1. How often do you have a drink containing alcohol?: Never Total Score: 0 EVE-7 AMB Questionnaire EVE-7 Date EVE - 7 assessed: 03/20/25 Feeling nervous, anxious, or on edge: 0 = Not at all Not being able to stop or control worryin = Not at all Worrying too much about different things: 0 = Not at all Trouble relaxin = Not at all Being so restless that it is hard to sit still: 0 = Not at all Becoming easily annoyed or irritable: 0 = Not at all Feeling afraid as if something awful might happen: 0 = Not at all Total EVE-7 score (0-4 normal; 5-9 mild; 10-14 moderate; 15-21 severe): 0 Source: Developed by Genevieve Robbins Kurt Kroenke and colleagues, with an educational ulises from [employer]. Physical exam (Primary Care) Vital Signs: Last Vital Signs Temp 97.3 F 06/11/25 14:20 Pulse 99 06/11/25 14:20 BP 122/82 06/11/25 14:20 Pulse Ox 99 06/11/25 14:20 Oxygen Delivery Method Nasal Cannula 06/11/25 14:20 BMI result Body Mass Index 22.3 Tobacco/Smoking Status: Tobacco use Status Tobacco use date assessed 06/11/25 06/11/25 14:34 Patient Tobacco Use Status Former Tobacco user 06/11/25 14:34 Tobacco use type Cigarette 06/11/25 14:34 e-Cigarette/Vaping Use Never Used 06/11/25 14:34 Thrive Assessment: Date of Thrive Assessment Date Thrive assessed 06/11/25 06/11/25 14:34 Currently or been in a relationship where the following occur: I choose not to answer Const General: cooperative and healthy appearing Nutritional Appearance: well nourished Orientation/consciousness: patient oriented x3 Limitations: no limitations HENMT Head: Yes normal to inspection Eyes General: appearance normal, both eyes and all related structures Neck Neck: Yes normal visual inspection Chest Chest palpation & inspection: normal palpation of entire chest wall Resp Effort & Inspection: normal respiratory effort Neuro General: patient oriented x3 Results AMB Hemoglobin A1c AMB Hemoglobin A1c 7.0 % Last Edit by ELLYN Jefferson on 06/11/25 14:39 Results Reviewed Results Reviewed: Laboratory Last Values Hgb A1c (Clinic) 7.0 % (4.0-6.0) H 06/11/25 14:18 Coding Level of Care Code Est Pt Level 3 (57796) Complex EM visit Add On G2211 Diagnoses Essential hypertension I10 Non-small cell cancer of right lung C34.91 Assessment & Plan Assessment & Plan (1) Essential hypertension: Code(s): I10 - Essential (primary) hypertension Category: Medical Plan: Continue current medications. (2) Non-small cell cancer of right lung: Onset Date: ~2021 Comment: (RML Adenocarcinoma - Clinical stage cT3N2/3, IIIB/C - dx 04/2022) Code(s): C34.91 - Malignant neoplasm of unspecified part of right bronchus or lung Category: Medical Plan: Continue current medications. Patient will get flu vaccine from the oncology clinic Orders: Orders AMB Hemoglobin A1c Today E11.65 - Type 2 diabetes mellitus with hyperglycemia, E11.9 - Type 2 diabetes mellitus without complications Referrals 2 Cologuard Test Z12.11 - Encounter for screening for malignant neoplasm of colon Medications: New sildenafil (Viagra) administer 30 minutes to 4 hours before activity 50 mg PO DAILY PRN 10 tabs 0RF sexual activity Refilled erythromycin 0.5 inches ophthalmic (eye) TID 10 grams 0RF hretopdc-xolcacoua-CP 3.5-10,000-1 mg/mL-unit/mL-% 4 drps otic (ears) Q8H 10 mL 0RF codeine-guaifenesin 10-100 mg/5 mL 10 mL PO Q6H PRN 300 mL 0RF cough 10 days
[2025-06-11 14:20] VITALS: BP 122/82; PULSE 99; TEMP 36.3; O2SAT 99; BMI 22.3
--- OUTSIDE RECORDS SUMMARY | 2025-06-11 15:29 | XMS_ITS | Encounter Summary ---
Author Organization [facility] Address [address] [place] [id number] Phone Care Team Providers Care Highway Construction Inspector Name Role Phone Pcp, Unknown Primary Care Provider Unavailabl e Reason for Visit * Reason Comments Medication Refill Encounter Details Date Type Department Care Team (Late st Contact Info) Description 09/30/2022 Refill [facility] At [facility] Rad Onc [address] [place] [id number] David Coon MD [address] [place] [phone] [email or web address] Medication Refill Social History Tobacco Use [...] on filedocumented in this encounter Care Teams Highway Construction Inspector Relationship Specialty Start Date End Date Pcp, Unknown PCP - General 08/01/22 documented as of this encounter Additional Source Comments The information contained in this document represents components of the legal health record. It is not the complete legal health record.[facility]
--- OUTSIDE RECORDS SUMMARY | 2025-06-11 15:29 | XMS_ITS | Clinical Summary ---
Author Organization [facility] Address [address] [place] [address] Phone Care Team Providers Care Financial Administration Officer Name Role Phone Bhargav Chen MD Primary Care Provider [phone]- [phone] Encounters Date Type Department Care Team Description 03/13/2025 1:32 PM EDT - 03/13/2025 11:59 PM EDT Hospital Encounter [facility] PET Scan [address] [place] [address] Adenocarcinoma of right lung (CMS/HCC [...] 3:20 PM EDT Adenocarcinoma of right lung ([facility] V24, [facility] V28) from Last 3 Months Results * [...] -------- FINAL REPORT -------- Dictated By: Kinza Amborsio Dictated Date: 03/21/2025 04:59 ET Assigned Physician: Kinza Ambrosio Reviewed and Electronically Signed By: Kinza Ambrosio Signed Date: 03/21/2025 06:11 ET Workstation ID: [id number] Transcribed By: Self Edit Transcribed Date: 03/21/2025 [...] Signed Date: 03/21/2025 06:11 ET Workstation ID: [id number] Transcribed By: Self Edit Transcribed Date: 03/21/2025 05:22 ET us Yolie Rojas MD IMG NM PROCEDURES Final Result from Last 3 Months Insurance [facility] Member Subscriber Plan / Payer (Ef fective 2023-Present) Name:Bayron Arenas Relation to Subscriber:Self Name:Bayron Arenas Payer ID:[id number] Group ID:[id number] Type:Not on file Address: [place] [address] [place] [id number] Care Teams Financial Administration Officer Relationship Specialty Start Date End Date Bhargav Chen MD [address] [place] [address] PCP - General Internal Medicine 03/13/25
--- OUTSIDE RECORDS SUMMARY | 2025-06-11 15:29 | XMS_ITS | Encounter Summary ---
Author Organization [facility] Address [address] [place] [address] Phone Care Team Providers Care Dry Roller Name Role Phone Pcp, Unknown Primary Care Provider Unavailabl e Reason for Visit * Reason Comments Medication Refill Encounter Details Date Type Department Care Team (Late st Contact Info) Description 08/30/2022 Refill [facility] Rad Onc [address] [place] [id number] David Coon MD [address] [place] [phone] [email or web address] Medication Refill Social History Tobacco Use [...] on filedocumented in this encounter Care Teams Dry Roller Relationship Specialty Start Date End Date Pcp, Unknown PCP - General 08/01/22 documented as of this encounter Additional Source Comments The information contained in this document represents components of the legal health record. It is not the complete legal health record.[facility]
== END 2025-06-11 15:49 | disposition home or self-care (01) ==
LOC: HO.HMCH 14:16
PROVIDERS: PCP Internal Medicine; Visit Provider Internal Medicine
DX: I10 Essential (primary) hypertension (principal); C34.91 Malignant neoplasm of unspecified part of right bronchus or lung; E11.9 Type 2 diabetes mellitus without complications; E11.65 Type 2 diabetes mellitus with hyperglycemia

== ENCOUNTER 2025-06-11 15:06 | Outpatient (REF) | payer OTHER, SELFPAY ==
--- NOTE | ~2025-06-11 | CT_ITS ---
EXAMINATION: CT HEAD WITHOUT AND WITH IV CONTRAST CLINICAL INFORMATION: Evaluate for brain metastasis. Status post treatment for non-small cell right lung cancer.. COMPARISON: Correlated to MRI dated February 17, 2023. TECHNIQUE: Contiguous axial imaging was performed from the skull base to vertex without and following the administration of 85 mL of Omnipaque 350 intravenous contrast. . No reported immediate complications. This CT examination was performed using dose optimization techniques as appropriate, variously including the following: *Automated exposure control *Adjustment of mA and/or kV according to patient size (this includes techniques or standardized protocols for targeted exams where dose is matched to indication/reason for exam; i.e. extremities or head) *Use of iterative reconstruction technique. DLP: 1696 mGy centimeter. FINDINGS: No acute cortical disruption in the bony calvarium or the skull base. No lytic or blastic lesions. No abnormal enhancement in the intra-axial or the extra-axial compartment of the cranium. Prominence of the extra-axial CSF spaces cerebral sulci and ventricles mostly along the hemicranial convexities of the frontotemporal and to a lesser extent parietal regions. No acute intracranial hemorrhage, mass effect, midline shift, hydrocephalus or herniation. Retana-white matter differentiation is normal. Posterior cranial fossa contents demonstrated no gross abnormality. Normal position of the cerebellar tonsils. Sellar/suprasellar region demonstrated no gross masses. Calcified plaques in the cavernous supraclinoid segments both ICAs. Mild mucosal thickening in the paranasal sinuses without air-fluid levels. Air-fluid levels in the right and to a lesser extent left mastoid air cells. Tympanic cavities and mastoid antrum are well pneumatized and aerated. Probable old traumatic deformity, nasal bones. CT/CT head/brain w IV con IMPRESSION: No metastatic disease. Electronically signed by: Ralph Sinha MD 06/12/2025 03:24 PM EDT
[2025-06-11] MEDS: iohexoL 350 MG/ML 100 ML INFUS..BTL IV (16:18)
[2025-06-12 12:55] LABS: Creatinine POC 1.2 mg/dL (0.5-1.4); GFR POC > 60
== END 2025-06-11 15:07 | disposition home or self-care (01) ==
LOC: HO.CT 15:06
PROVIDERS: PCP Internal Medicine; Visit Provider Internal Medicine
DX: C34.91 Malignant neoplasm of unspecified part of right bronchus or lung (principal)
CPT/HCPCS: 70460; 82565; 83036; 99212; Q9967

== ENCOUNTER → 2025-06-11 15:07 | Outpatient (BNV) | payer OTHER, SELFPAY | PROVIDERS: PCP Internal Medicine; Visit Provider Radiology Diagnostic Radiology | DX: Z03.89 Encounter for observation for other suspected diseases and conditions ruled out (principal); C34.91 Malignant neoplasm of unspecified part of right bronchus or lung | CPT/HCPCS: 70460 ==

== ENCOUNTER 2025-07-24 09:17 | Outpatient (REF) | payer OTHER, SELFPAY ==
--- NOTE | ~2025-07-24 | CT_ITS ---
EXAMINATION: CT CHEST WITH IV CONTRAST INDICATION: Assess for relapse COMPARISON: Previous chest CT scans most recent March 2024 and PET/CT most recent August 2024 TECHNIQUE: Helical CT scan of the chest was performed following administration of intravenous contrast. Coronal and sagittal reformatted images were generated and reviewed. This CT exam was performed with one or more of the following dose reduction techniques: automated exposure control, adjustment of the mA and/or kV according to patient size, use of iterative reconstruction technique. DLP: 116 mGy-cm CHEST: THYROID: The thyroid is unremarkable. LUNGS: Volume loss to the right hemithorax with shift of the central mediastinal structures to the right and slight elevation of the right hemidiaphragm. Extensive central right lung consolidation cicatrization bronchiectasis fibrosis and scarring involving the right upper lobe and to a lesser extent right middle and right lower lobes. This likely represents post radiation changes. There is similar consolidation and cicatrization bronchiectasis and mild focal pleural thickening in the anterior right upper lobe that appears unchanged as well. Similar changes seen in the anterior medial upper paramediastinal left upper lobe also unchanged. There is severe emphysema. Previously seen left lower lobe nodules largest measuring up to 4 mm axial image 179 series 5 on old exam are no longer seen. These may been infectious or inflammatory in nature. Other small micronodules stable, for example 2 mm calcified left upper lobe nodule axial image 56 series 5. No new or suspicious pulmonary nodule. Distortion of the central right upper middle and lower lobe bronchi and soft tissue thickening seen surrounding the right distal main stem bronchus and central right bronchi. This is unchanged. Central airways appear clear. MEDIASTINUM: There are small mediastinal lymph nodes that appear unchanged. Largest lymph nodes are a right paratracheal lymph node measuring 6.7 mm in short axis axial image 53 series 5 and AP window lymph node measuring 5 mm in short axis axial image 52 series 5. No new or enlarged lymph nodes LISA: There is no hilar lymphadenopathy. CARDIOVASCULATURE: The heart is normal in size. There is no pericardial effusion. The thoracic aorta is normal in caliber. There is wall thickening of the aortic arch and proximal great vessels. This is similar to prior exam. Question changes related to radiation versus vasculitis. There is a bovine arch. There is question small outpouching versus plaque in the proximal left subclavian artery. This is unchanged, coronal reconstructed image 36 series 8. There is mild calcification of the thoracic aorta. Thoracic aorta is normal in caliber. DEGREE OF CORONARY CALCIFICATION: mild PLEURA: There is a small right pleural effusion that is decreased from prior exam. There is mild pleural thickening greatest adjacent to the anterior right upper lobe that is unchanged. There is no left pleural effusion. No pneumothorax. AXILLA: There is no axillary lymphadenopathy. No chest wall mass. BONES AND SOFT TISSUES: Degenerative changes of the spine. No fracture or focal bone lesion. UPPER ABDOMEN: Left renal cysts. Diverticulosis of the colon. CT/CT chest w IV con IMPRESSION: Stable posttreatment changes to the right lung. Interval decrease in small right pleural effusion. Stable mediastinal lymph nodes. No evidence of new or progressive disease. Severe emphysema. Mild wall thickening of the aortic arch and proximal great vessels, question vasculitis versus post radiation change. This is similar to previous exam. This could be better assessed with CTA if clinically warranted. Electronically signed by: Simona Baugh MD 07/24/2025 11:25 AM EST
--- OUTSIDE RECORDS SUMMARY | 2025-07-24 10:33 | XMS_ITS | Clinical Summary ---
Author Organization [facility] Address [address] [place] [address] Phone Care Team Providers Care Car Manager Name Role Phone Bhargav Chen MD Primary Care Provider +1- [phone] Social History Tobacco Use Types Packs/Day Years Used Date Smoking Tobacco: Never Assessed Sex and Gender Information Value Date Recorded Sex Assigned at Male 03/13/2025 1:31 PM EDT Legal Sex Male 4:36 PM EDT Gender Identity Male 03/13/2025 1:31 PM EDT Sexual Orientation Not on file Plan of Treatment Health Maintenance Due Date Last Done Comments Colorectal Cancer Screening: Colonoscopy 1958 DTaP,Tdap,and Td Vaccines (1 - Tdap) 1977 Zoster Vaccines (1 of 2) 1977 COVID-19 Vaccine (2 - Pfizer risk series) 08/13/2024 07/23/2024 Depression Screening 09/11/2024 Abdominal Aortic Aneurysm (AAA) Screen 03/13/2025 Cholesterol Screening (Lipid Panel) 03/13/2025 Falls Risk Assessment 03/13/2025 Hepatitis C [...] on patient's age to complete this topic Insurance [facility] Member Subscriber Plan / Payer (Ef fective 2023-Present) Name:Bayron Arenas Relation to Subscriber:Self Name:Bayron Arenas Payer ID:[id number] Group ID:[id number] Type:Not on file Address: [place] [address] [place] [phone] Care Teams Car Manager Relationship Specialty Start Date End Date Bhargav Chen MD [place] [facility] [address] [place] [address] [address] [place] [address] PCP - General Internal Medicine 03/13/25
[2025-07-24] MEDS: iohexoL 350 MG/ML 100 ML INFUS..BTL 65 ML IV (10:37)
== END 2025-07-24 09:18 | disposition home or self-care (01) ==
LOC: HO.CT 09:17
PROVIDERS: PCP Internal Medicine; Visit Provider Internal Medicine
DX: C34.91 Malignant neoplasm of unspecified part of right bronchus or lung (principal)
CPT/HCPCS: 71260; Q9967

== ENCOUNTER → 2025-07-24 09:19 | Outpatient (BNV) | payer OTHER, SELFPAY | PROVIDERS: PCP Internal Medicine; Visit Provider Radiology Diagnostic Radiology | DX: R07.9 Chest pain, unspecified (principal); Z86.711 Personal history of pulmonary embolism | CPT/HCPCS: 71260 ==

== ENCOUNTER 2025-07-27 15:54 | Emergency (ER) | payer OTHER, SELFPAY ==
--- NOTE | 2025-07-27 | ECG_ITS ---
Test Reason : CHEST PAIN Blood Pressure : */* mmHG Vent. Rate : 100 BPM Atrial Rate : 100 BPM P-R Int : 146 ms QRS Dur : 78 ms QT Int : 328 ms P-R-T Axes : 55 70 100 degrees QTcB Int : 423 ms Normal sinus rhythm Minimal voltage criteria for LVH, may be normal variant ( Sokolow-Cervantes ) Nonspecific ST and T wave abnormality Abnormal ECG When compared with ECG of 26-Feb-2025 14:53, No significant change was found Referred By: Generic ED Physician Electronically Signed By: BENNIE MCKENNA
--- NOTE | ~2025-07-27 | XR_ITS ---
CLINICAL HISTORY: L sided chest pain 2 view chest x-ray. Comparison: Chest CT 07/24/2025 Findings: There is similar right perihilar opacity and small right pleural effusion. No new consolidation on the left. Cardiac and mediastinal contours are grossly stable. Bones unremarkable. Impression: 1. No acute pulmonary disease or significant appearing interval change compared to 07/24/2025.. This document has been electronically signed by: Joshua Vasques MD on 07/27/2025 17:28:12
--- NOTE | ~2025-07-27 | CT_ITS ---
CLINICAL HISTORY: PE, CHEST PAIN Exam: Contrast-enhanced chest CT pulmonary angiogram with multiplanar reformats. Comparison: CT chest 07/24/2025 Findings: There is no evidence of pulmonary embolism or thoracic aortic dissection. There is similar attenuation of the right upper lobe pulmonary arterial branches as they ascend through paramedian fibrosis or post therapeutic changes on the right. Stable mild wall thickening of the superior aspect of the aortic arch and proximal brachiocephalic branches and stable focal ulcer involving the proximal aspect of the left subclavian artery (16; 105 and 10; 36). A small right pleural effusion appears stable. No left effusion or pericardial effusion. Stable mild mediastinal adenopathy (for example, right paratracheal node measuring 12 mm AP dimension on 16; 159). No signal interval changes compared with the recent prior. Images below the diaphragms reveal no acute abnormalities. Lungs reveal stable right paramedian fibrosis and post therapeutic change. No new consolidation. No new pulmonary nodules or parenchymal lesions. No pneumothorax. Osseous structures reveal no new destructive osseous lesions. Impression: 1. No pulmonary embolism or aortic dissection. 2. Similar small right pleural effusion. 3. Additional findings described above, unchanged from recent prior chest CT dated 07/24/2025. This document has been electronically signed by: Joshua Vasques MD on 07/27/2025 19:16:32
[2025-07-27 16:07] VITALS: BP 189/96; PULSE 103; RESP 20; TEMP 36.9; O2SAT 95; BMI 21.9
--- NOTE | 2025-07-27 16:07 | ED_ITS ---
HPI - General Adult General Chief complaint: Chest Pain Stated complaint: chest pain hx of pneumonia/lung cx Time Seen by Provider: 07/27/25 18:10 Source: patient Mode of arrival: ambulatory Limitations: no limitations History of Present Illness ED Provider: Dr. Gibson HPI narrative: This is a 65-year-old male history of lung cancer undergoing chemotherapy and radiation on the right side presented hospital today for evaluation of left- sided chest pain that came on all of a sudden. Patient stated his excruciating left-sided chest pain. He does use oxygen at baseline 2 L nasal cannula. Denies any increased cough. Denies any fever. The last time patient had felt like this. Patient has had bilateral pneumonia. Related Data Home Medications ?Medication ?Instructions ?Recorded ?Confirmed famotidine 20 mg tablet 1 tab PO BID PRN heartburn 1 11/03/21 06/30/25 Oxygen Home Use 12/05/22 06/30/25 nebulizers 12/05/22 06/30/25 Previous Rx's ?Medication ?Instructions ?Recorded alcohol swabs 1 pad topical DAILY #100 ea 09/12/22 blood-glucose meter (FreeStyle #1 ea 09/12/22 Lite Meter kit) lancets 28 gauge (FreeStyle #100 ea 09/12/22 Lancets) glipizide 5 mg tablet, extended 5 mg PO QAM 30 days #3 0 tabs 11/17/22 release 24 hr lorazepam 0.5 mg tablet 0.5 mg PO BID PRN Anxiety #6 0 tabs 12/15/22 miscellaneous medical supply #1 ea 01/10/23 walker (Ultra-Light Rollator misc) #1 ea 01/10/23 ondansetron 8 mg disintegrating 8 mg PO Q8H PRN Nausea #30 tabs 04/05/24 tablet blood pressure monitor #1 ea 04/11/24 umeclidinium 62.5 mcg/actuation 1 inh inhalation DAILY 30 days #30 08/30/24 blister powder for inhalation ea (Incruse Ellipta) omeprazole 20 mg capsule,delayed 20 mg PO DAILY #30 ca ps 01/24/25 release sennosides 8.6 mg-docusate sodium 1 tab-cap PO BID PRN Constipation 01/24/25 50 mg tablet (Senna with Docusate #60 tabs Sodium) prednisolone acetate 1 % eye 1 drp ophthalmic (eye) QI D #20 mL 02/21/25 drops,suspension azithromycin 250 mg tablet 250 mg PO 3XW #12 tabs 02/09 04/04 polyethylene glycol 3350 17 17 g PO BID #238 grams gram/dose oral powder (Miralax) enalapril maleate 5 mg tablet 5 mg PO DAILY #90 tabs 0 03/03/25 hydrocodone 5 mg-acetaminophen 325 1 tab PO Q4-6H PRN pain #30 tabs 03/20/25 mg tablet budesonide 0.5 mg/2 mL suspension 0.5 mg (2 mL) inhala tion BID 90 05/05/25 for nebulization days #360 mL revefenacin 175 mcg/3 mL solution 175 mcg (3 mL) inhal ation DAILY 30 05/09/25 for nebulization (Yupelri) days #90 mL metformin 500 mg tablet,extended 500 mg PO DAILY #90 t abs 05/15/25 release 24 hr blood sugar diagnostic (FreeStyle #100 ea 05/23/25 Lite Strips) codeine 10 mg-guaifenesin 100 mg/5 10 ml PO Q6H PRN co ugh 10 days 06/11/25 mL oral liquid #300 mL erythromycin 5 mg/gram (0.5 %) eye 0.5 inch ophthalmic (eye) TID #10 06/11/25 ointment grams gdldnqyh-adtzawltk-uznhwbjhy 3.5 4 drp otic (ears) Q8H #10 mL 06/11/25 mg-10,000 unit/mL-1 % ear drops,susp sildenafil 50 mg tablet (Viagra) 50 mg PO DAILY PRN se xual activity 06/11/25 #10 tabs levalbuterol HCl 1.25 mg/3 mL 1.25 mg (3 mL) inhalatio n BID #540 07/16/25 solution for nebulization mL acetaminophen 500 mg tablet 1,000 mg (2 x 500 mg) PO Q 8H 10 07/27/25 days #60 tabs ibuprofen 400 mg tablet 400 mg PO Q8H PRN pain #30 t abs 07/27/25 lidocaine 5 % topical patch 1 patch topical DAILY #15 ea 07/27/25 Allergies Allergy/AdvReac Type Severity Reaction Status Date / Time No Known Allergies Allergy Verified 07/27/25 16:10 Review of Systems 2 Review of Systems: Pertinent review of systems as mentioned in HPI. All other system otherwise negative. [facility] Past Medical History [facility] Narrative: Medical history as mentioned in HPI Medical History Essential hypertension Pleural effusion on right Seizures Dyspnea Tachycardia Acute and chronic respiratory failure Pleuritis Pneumonitis Chronic respiratory failure COPD (chronic obstructive pulmonary disease) Type 2 diabetes mellitus with hyperglycemia Non-small cell cancer of right lung (~2021) Diabetes (Unknown) Surgical History Hydrocele (09/27/24) History of thoracentesis History of lung biopsy Family History Family History Mother Diabetes Father Diabetes Social History Social History Household Members: Spouse and Children Household Members Other:: son Housing: Apartment Are you a primary care management assistant to a significant other at home: No Do you presently have visiting nurse or other home services: No Alcohol intake: never Patient Tobacco Use Status: Former Tobacco user Tobacco use type: Cigarette Years Smoked: 45 Smoked in Last 30 Days: No e-Cigarette/Vaping Use: Never Used Second Hand Smoke Exposure: Yes Use of substances other than those prescribed or required for medical reasons: No Advance Directives: No Advance Directives Information Provided: No Do you have a plan to hurt others: No Plan service: No Current occupational status: retired Cognitive needs: No Hearing needs: No Vision needs: Yes Physical Exam ED Exam Exam: General: Pleasant, no distress, interacting appropriately Head: Normacephalic, atraumatic ENT: oral mucosa moist, neck supple, no tracheal deviation Cardiovascular: regular rate, regular rhythm, no murmurs, rubbing, gallops Respiratory: Diminished lung sounds in the right side compared to the left Gastrointestinal: Soft, non distended, non tender, non guarding Extremities: No limb pain or swelling, no calf tenderness Neurological: Awake and alert, no facial droop noted Skin: Warm and dry Psychiatric: Appropriate mood and thoughts Vital Signs: Vital Signs - 24 hr 07/27/25 16:07 07/27/25 18:44 07/27/25 22:10 Temperature 98.5 F 97.7 F 98.6 F Pulse Rate 103 H 87 100 Respiratory Rate 20 20 18 Blood Pressure 189/96 H 180/100 H 172/104 H Pulse Oximetry 95 99 100 Oxygen Delivery Method Room Air Nasal Cannula Nasal Cannula Oxygen Flow Rate 1 2 07/27/25 22:22 Temperature 98.6 F Pulse Rate 100 Respiratory Rate 18 Blood Pressure 172/104 H Pulse Oximetry 100 Oxygen Delivery Method Nasal Cannula Oxygen Flow Rate 2 BMI result Body Mass Index 21.9 Course Course Course Narrative: This is a Rapid Medical Examination (RME) performed by Narcisa Hutchison PA-C in triage. Full HPI, ROS, assessment and treatment plan per primary provider in the Main ED. Hx: 65 yo M hx T2DM, COPD, NSCLC on 2L O2 baseline here w/ left sided chest pain since yesterday. reports SOB, cough w/ green sputum. on azithromycin daily. hx lung cancer- completed radiation/chemo/immunotherapy 1 mo ago, will be starting back soon. Plan: labs, ekg, cxr, viral swabs Medications Administered Discontinued Medications Generic Name Dose Route Start Last Admin Trade Name Freq PRN Reason Stop Dose Admin Lactated Ringer's 1,000 mls @ 999 mls/hr 07/27/25 18:30 07/27/25 20:11 Lr IV 07/27/25 19:30 Infused .Q1H1M MANJINDER Infusion Ceftriaxone Sodium 2 gm/ 50 mls @ 100 mls/hr 07/27/25 18:39 07/27/25 20:11 Sodium Chloride IV 07/27/25 19:08 Infused ONCE ONE Infusion Iohexol 100 ml 07/27/25 18:38 07/27/25 18:38 Iohexol 350 Mg/Ml 100 Ml Infus..Btl IV 07/27/25 18:39 65 ml ONCE ONE Administration Morphine Sulfate 4 mg 07/27/25 18:30 07/27/25 18:42 Morphine Sulfate 4 Mg/Ml Cartridge IVPUSH 07/27/25 18:31 4 mg ONCE ONE Administration Protocol Medical Decision Making Medical Decision Making MDM Narrative: 65-year-old male history of lung cancer on the right. Undergoing chemotherapy and radiation treatment and chronic respiratory failure on 2 L nasal cannula presented hospital today for sudden onset of left-sided chest pain. Patient's EKG did not show any signs of acute ischemic changes however this is a appears to be chronic in nature. It is not acute. Patient does have leukocytosis of 12.8. Lactic acid blood culture will be obtained. Patient will be given a dose of ceftriaxone here. Patient has no elevated lactic acid on examination troponin is negative. The patient did receive a dose of IV morphine for pain control. Reassessment the patient stated his pain has improved. He is asymptomatic no chest pain. CT imaging was obtained to rule out PE or underlying pneumonia. CT imaging did not show any signs of pulmonary he does have a chronic right pleural effusion this was discussed with the patient and his son at bedside. At this time I discussed discharging the patient. Encouraged him to follow up with the closely with the primary care doctor. They agree and understand this plan all questions were addressed. Differential Diagnosis Differential Diagnoses: The differential diagnosis associated with the presentation includes Pneumonia, PE, costochondritis, pleurisy Lab Data MDM Lab Attestation statement: I reviewed the patient's lab results. 07/27/25 16:55 07/27/25 16:55 Labs: Lab Results 07/27/25 07/27/25 Range/Units 16:55 19:04 WBC 12.8 H (4.8-10.8) X10*3/uL RBC 5.63 (4.60-5.80) X10*6/uL Hgb 14.2 (14.0-18.0) g/dl Hct 43.5 (42.0-52.0) % MCV 77.3 L (80.0-98.0) fL MCH 25.2 L (27.0-33.0) pg MCHC 32.6 (31.0-36.0) g/dl RDW 14.7 (11.0-16.0) % Plt Count 279 (160-400) X10*3/uL MPV 9.7 (9.4-12.4) fL Immature Gran % (Auto) 0.4 (0.0-0.4) % Neut % (Auto) 72.4 (45-73) % Lymph % (Auto) 8.8 L (20-40) % [place] % (Auto) 6.2 (2-11) % Eos % (Auto) 11.6 H (0-4) % Baso % (Auto) 0.6 (0-2) % Lymph # (Auto) 1.1 L (1.2-4.9) X10*3/uL [place] # (Auto) 0.8 (0.1-1.2) X10*3/uL Eos # (Auto) 1.5 H (0.0-0.4) X10*3/uL Baso # (Auto) 0.1 (0.0-0.2) X10*3/uL Abs Immat Gran (auto) 0.05 H (0.00-0.03) X10*3/uL Absolute Neuts (auto) 9.3 H (2.0-8.3) x10*3/uL Absolute Nucleated RBC 0.000 (0.0-0.012) X10*3/uL Nucleated RBC % (auto) 0.0 (0.0-0.2) /100WBC Sodium 137 (135-145) mmol/L Potassium 3.9 (3.3-5.1) mmol/L Chloride 101 (96-108) mmol/L Carbon Dioxide 24 (22-29) mmol/L Anion Gap 16 (12-20) BUN 12 (9-16) mg/dL Creatinine 1.24 (0.5-1.4) mg/dL Estim Creat Clear Calc 58.2 Estimated GFR 58 Random Glucose 130 H (60-115) mg/dL Lactic Acid 1.4 (0.5-2.0) mmol/L Calcium 9.9 (8.4-10.2) mg/dL Magnesium 2.1 (1.6-2.6) mg/dL Total Bilirubin 0.2 (0.0-1.0) mg/dL AST 22 (5-37) U/L ALT 14 (0-40) U/L Alkaline Phosphatase 97 (39-117) U/L Troponin I High Sens 3.2 (<3.5-35.0) ng/L Total Protein 7.8 (6.5-8.0) g/dL Albumin 4.4 (3.5-5.0) g/dL Influenza Type A (PCR) NEGATIVE (Negative) Influenza Type B (PCR) NEGATIVE (Negative) RSV RNA Qual (PCR) NEGATIVE (Negative) SARS-CoV-2 RNA (RT-PCR) NEGATIVE (Negative) Independent Interpretation I performed an independent interpretation of an: Plain X-Ray and CT Scan Radiology Impression Discussion of test interpretation with radiology: I have reviewed the radiologist's reading. Chronic Conditions Patient?s care impacted by: Cancer Discharge Plan Discharge Clinical Impression: Chest wall pain Patient Disposition: Home, Self-Care Instructions: Chest Wall Pain (ED) Additional Instructions: There is no blood clot or pneumonia on the CT imaging. Please follow up with your primary care doctor. Prescriptions: New acetaminophen 500 mg tablet 1,000 mg PO Q8H 10 Days Qty: 60 0RF lidocaine 5 % adhesive patch,medicated 1 patch topical DAILY Qty: 15 0RF Rx Instructions: leave on most painful area for up to 12 hrs ibuprofen 400 mg tablet 400 mg PO Q8H PRN (Reason: pain) Qty: 30 0RF No Action (DME) blood pressure monitor Kit See Rx Instructions .Route Qty: 1 0RF Rx Instructions: As directed azithromycin 250 mg tablet 250 mg PO 3XW Qty: 12 3RF enalapril maleate 5 mg tablet 5 mg PO DAILY Qty: 90 1RF budesonide 0.5 mg/2 mL suspension for nebulization 0.5 mg inhalation BID 90 Days Qty: 360 1RF metformin 500 mg tablet extended release 24 hr 500 mg PO DAILY Qty: 90 1RF (DME) FreeStyle Lite Strips Strip Qty: 100 0RF Rx Instructions: check blood glucose every morning before breakfast levalbuterol HCl 1.25 mg/3 mL solution for nebulization 1.25 mg inhalation BID Qty: 540 3RF lorazepam 0.5 mg Tablet 0.5 mg PO BID PRN (Reason: Anxiety) Qty: 60 0RF ondansetron 8 mg Tablet,Disintegrating 8 mg PO Q8H PRN (Reason: Nausea) Qty: 30 3RF sennosides-docusate sodium [Senna with Docusate Sodium] 8.6-50 mg tablet 1 tab-cap PO BID PRN (Reason: Constipation) Qty: 60 4RF omeprazole 20 mg Capsule,Delayed Release(Dr/Ec) 20 mg PO DAILY Qty: 30 2RF Rx Instructions: Take it on empty stomach prednisolone acetate 1 % Drops,Suspension 1 drp OPHTHALMIC (EYE) QID Qty: 20 1RF famotidine 20 mg tablet 1 tab PO BID PRN (Reason: heartburn) (DME) blood-glucose meter [FreeStyle Lite Meter] Kit Qty: 1 0RF Rx Instructions: check blood glucose every morning before breakfast alcohol swabs Pads, Medicated 1 pad TOPICAL DAILY Qty: 100 0RF Rx Instructions: check blood glucose every morning before breakfast ([facility]) lancets [FreeStyle Lancets] 28 gauge [facility] Qty: 100 0RF Rx Instructions: check blood glucose every morning before breakfast polyethylene glycol 3350 [Miralax] 17 gram/dose powder 17 g PO BID Qty: 238 0RF glipizide 5 mg tablet extended release 24hr 5 mg PO QAM 30 Days Qty: 30 2RF (DME) miscellaneous medical supply [facility] [place] [place] See Rx Instructions .ROUTE .MEDSUPPLY Qty: 1 0RF Rx Instructions: Wheelchair As directed, 999 days (DME) Ultra-Light Rollator [facility] [place] [place] See Rx Instructions .Route Qty: 1 0RF Rx Instructions: Rollator walker with As directed seat and brakes. As directed, 999 days ([facility]) nebulizers [facility] [place] [place] See Rx Instructions .Route Rx Instructions: As directed ([facility]) Oxygen Home Use Kit See Rx Instructions .Route Rx Instructions: As directed Yupelri 175 mcg/3 mL solution for nebulization 175 mcg inhalation DAILY 30 Days Qty: 90 8RF hydrocodone-acetaminophen 5-325 mg tablet 1 tab PO Q4-6H PRN (Reason: pain) Qty: 30 0RF Rx Instructions: Partial Fill upon patient request. Incruse Ellipta 62.5 mcg/actuation blister with device 1 inh inhalation DAILY 30 Days Qty: 30 11RF codeine-guaifenesin 10-100 mg/5 mL liquid 10 ml PO Q6H PRN (Reason: cough) 10 Days Qty: 300 0RF erythromycin 5 mg/gram (0.5 %) ointment 0.5 inch OPHTHALMIC (EYE) TID Qty: 10 0RF askgdhmf-ggouwgudw-IE 3.5-10,000-1 mg/mL-unit/mL-% drops,suspension 4 drp otic (ears) Q8H Qty: 10 0RF sildenafil [Viagra] 50 mg tablet 50 mg PO DAILY PRN (Reason: sexual activity) Qty: 10 0RF Rx Instructions: administer 30 minutes to 4 hours before activity Interventions: ED Discharge Assessment Last Done: 07/27/25 22:22 Discharge Date/Time: 07/27/25 22:23 Print Language: [place]
--- OUTSIDE RECORDS SUMMARY | 2025-07-27 16:24 | XMS_ITS | Encounter Summary ---
Author Organization [facility] Address [address] [place] [phone] Phone Care Team Providers Care Maid Cleaning Cooking Name Role Phone Pcp, Unknown Primary Care Provider Unavailabl e Reason for Visit * Reason Comments Medication Refill Encounter Details Date Type Department Care Team (Late st Contact Info) Description 09/30/2022 Refill [facility] Rad Onc [address] [place] [id number] David Coon MD [address] [place] [id number] [email or web address] [email or web address] Refill Social History Tobacco Use [...] on filedocumented in this encounter Care Teams Maid Cleaning Cooking Relationship Specialty Start Date End Date Pcp, Unknown PCP - General 08/01/22 documented as of this encounter Additional Source Comments The information contained in this document represents components of the legal health record. It is not the complete legal health record.[facility]
--- OUTSIDE RECORDS SUMMARY | 2025-07-27 16:24 | XMS_ITS | Continuity of Care Document ---
Author Name [facility], Medical Address [address] [place] [id number] Organization Unknown Address [address] [place] [address] Medications No known medications Problems No known problems
--- OUTSIDE RECORDS SUMMARY | 2025-07-27 16:24 | XMS_ITS | Clinical Summary ---
Author Organization [facility] Address [address] [place] [address] Phone Care Team Providers Care Corporate Tax Manager Name Role Phone Pcp, Unknown Primary Care [...] COLONOSCOPY 2003 RSV VACCINE (1 - Risk 50-74 years 1-dose series) 2008 ABDOMINAL AORTIC ANEURYSM (A AA) SCREENING 2023 INFLUENZA VACCINE (#1) 2025 COVID-19 VACCINE (1 - 2024-2 6 season) 2025 HEPATITIS A VACCINES Aged Out No long er eligible based on patient's age to complete this topic HIB VACCINES Aged Out No longer eligi ble based on patient's age to complete this topic IPV VACCINES Aged Out No longer eligi ble based on patient's age to complete this topic MENINGOCOCCAL VACCINES (ACWY) Aged Out No longer eligible based on patient's age to complete this topic MENINGOCOCCAL VACCINES (B) Aged Out N o longer eligible based on patient's age to complete this topic Medical Devices Not on file Insurance [facility]CO [facility] ACO [facility] ACO [facility] A[place] [id number] Care Teams Corporate Tax Manager Relationship Specialty Start Date End Date Pcp, Unknown PCP - General 08/01/22 Additional Source Comments The information contained in this document represents components of the legal health record. It is not the complete legal health record.[facility]
--- OUTSIDE RECORDS SUMMARY | 2025-07-27 16:24 | XMS_ITS | Encounter Summary ---
Author Organization [facility] Address [address] [facility] [address] [place] [address] Phone Care Team Providers Care Business Excellence Leader Name Role Phone Pcp, Unknown Primary Care Provider Unavailabl e Reason for Visit * Reason Comments Medication Refill Encounter Details Date Type Department Care Team (Late st Contact Info) Description 08/30/[address] [facility] Rad Onc [address] [place] [phone] David Coon MD [address] [place] [id number] [email or web address] Medication Refill Social History Tobacco [...] on filedocumented in this encounter Care Teams Business Excellence Leader Relationship Specialty Start Date End Date Pcp, Unknown PCP - General 08/01/22 documented as of this encounter Additional Source Comments The information contained in this document represents components of the legal health record. It is not the complete legal health record.[facility]
--- OUTSIDE RECORDS SUMMARY | 2025-07-27 16:24 | XMS_ITS | Clinical Summary ---
Author Organization [facility] Address [address] [place] [address] Phone Care Team Providers Care Frame Cleaner Name Role Phone Bhargav Chen MD Primary Care Provider [phone] Social History Tobacco Use Types Packs/Day Years [...] patient's age to complete this topic Insurance [facility] Member Subscriber Plan / Payer (Ef fective 2023-Present) Name:Bayron Arenas Relation to Subscriber:Self Name:Bayron Arenas Payer ID:[id number] Group ID:[id number] Type:Not on file Address: [place] [address] [id number] Care Teams Frame Cleaner Relationship Specialty Start Date End Date Bhargav Chen MD [facility] [address] [place] [address] [address] [place] [address] PCP - General Internal Medicine 03/13/25
--- OUTSIDE RECORDS SUMMARY | 2025-07-27 16:24 | XMS_ITS | Encounter Summary ---
Author Organization [facility] Address [address] [place] [address] Encounters * CPT with Medical [facility] at [facility] on 2025-07-27 { reasonForRequest : Pt's son reporting stomach pain>chest pain>since yesterday , patientReports : , denies :[ History of Heart Attack, in the setting of active chest pain , Active Chest pain, radiates to neck jaw and or arm , Diaphoretic/Sweating , Describes as crushing , Sudden onset of nausea/Vomiting and shortness of breath. , Shortness of Breath , Unable to speak in full sentences without distress , Palpitations, feeling dizzy ,"Chest pain, increased fatigue , CHF history, increased swelling and edema , Weakness/tachycardia ], chiefComplaints : Chest Pain, Abdominal Pain , pmh : Cancer , allergies : No Known Drug Allergies , otherAlle rgies : , painAssessment : , visitOutcome : ", additionalComments : 65 y.o male complains of Chest Pain, Abdominal Pain\n\nSon referring patient. L sided flank/rib pain. Started in stomach and now extrended to ribs on L side . N o chest pain - does not extending to neck/jaw or down the left arm. Denies palpitations. [place] gas pain and bloating yesterday. Nausea with one episode of vomiting yesterday - none today just poor appetite. Denies diarrhea. Passing gas, last bowel movement was this morning - normal in appearance. Mild SOB. Hx of active lung cancer, was on chemo - on chemo holiday currently. On home O2 at baseline - mostly with ambulation. Now using while resting. Denies cough/congestion. Denies fever. Denies kidney issues. [facility] Reviewed red flags. \n\nI provided information on the mobile health provider response time and advised the patient and/or caregiver to monitor reported signs and symptoms. I discussed the warning signs of when to seek emergency care. } Patient chief complained today of left-sided chest pain which goes into his flank as well as shortness of breath. Patient notes that all signs and symptoms have been occurring since last night. Patient does Express that he does have a history of right lung cancer which he has been currently treatedwith radiation/chemotherapy as well as immunotherapy. Patient does use 3 l per minute of oxygen vianasal cannula at baseline. Patient currently expresses that pain is 5 out of 10 level while at rest. Patient today would appreciate a general assessment as well as potential treatment if possible. Patient currently expresses and no signs and symptoms of nvd, dizziness and or changes in vision. Patient allergies noted to be nkda. Non-neurofocal exam, afebrile, all vitals appear to be within normal limits of the patient. (Hypertensive at baseline). Patient is able to ambulate at baseline without the assistance of a walking device and or a person. However, during this interaction, patient does remain bed bound. Patient lungs present with an expiratory ronchi/wheezing. Patient abdomen does present as benign. No new or worsening lower extremity edema noted. Patient is low X4 with a GCS score of 15. 12. Lead ECG taken and noted to be non-diagnostic for any stemi markers. [facility] consulted Patient is informed of findings and told due to his past medical history as well as current Chief complaint, it is reasonable for him to be seen at a facility of higher care for further treatment. Patient and family fully agree. [facility] calls [facility] ahead of patient arrival to transfer report. Patient family informs [facility] provider that they will bring the patient to [facility] of their own accord within the hour. [facility] provider directly stresses the importance of this. All parties involved educated on Red flag signs and symptoms and are strongly advised and told to call emergency services if any present before patient arrival. [facility]. IV_(FLUIDS_AND/OR_MEDICATION), MEDICATION_IM, ORAL_MEDICATION, EKG, POC_FLU_STREP, COVID_TEST Written by Medical [facility] on 2025-07-27
[2025-07-27 17:25] LABS: MANUAL DIFF FLAG NO
[2025-07-27 17:27] LABS: Hematocrit 43.5 % (42.0-52.0); Hemoglobin 14.2 g/dl (14.0-18.0); Imm Gran Abs Auto 0.05 X10*3/uL (0.00-0.03); Imm Gran Pct Auto 0.4 % (0.0-0.4); Lymphocytes Absolute Auto 1.1 X10*3/uL (1.2-4.9); Mean Corpuscular HGB Conc 32.6 g/dl (31.0-36.0); Mean Corpuscular Hemoglobin 25.2 pg (27.0-33.0); Mean Corpuscular Volume 77.3 fL (80.0-98.0); NRBC Abs Auto 0.000 X10*3/uL (0.0-0.012); NRBC Pct Auto 0.0 /100WBC (0.0-0.2); Platelet Count 279 X10*3/uL (160-400); Red Blood Count 5.63 X10*6/uL (4.60-5.80); White Blood Count 12.8 X10*3/uL (4.8-10.8)
[2025-07-27 17:43] LABS: Alanine Aminotransferase 14 U/L (0-40); Albumin Level 4.4 g/dL (3.5-5.0); Alkaline Phosphatase 97 U/L (39-117); Anion Gap 16 (12-20); Aspartate Amino Transferase 22 U/L (5-37); Blood Urea Nitrogen 12 mg/dL (9-16); Calcium 9.9 mg/dL (8.4-10.2); Carbon Dioxide 24 mmol/L (22-29); Chloride 101 mmol/L (96-108); Creatinine Clr Calc Pharmacy 58.2; Estimated Glomerular Filt Rate 58; Magnesium 2.1 mg/dL (1.6-2.6); Potassium 3.9 mmol/L (3.3-5.1); Sodium 137 mmol/L (135-145); Total Protein 7.8 g/dL (6.5-8.0)
[2025-07-27 17:50] LABS: Troponin-I High Sensitivity 3.2 ng/L (<3.5-35.0)
[2025-07-27 18:02] LABS: Resp Syncy Virus RNA Qual PCR NEGATIVE (Negative); SARS COV2 PCR INHOUSE NEGATIVE (Negative)
[2025-07-27] MEDS: iohexoL 350 MG/ML 100 ML INFUS..BTL IV (18:38)
[2025-07-27] MEDS: Lactated Ringers 1,000 ML 999 ML IV (18:42)
[2025-07-27 18:44] VITALS: BP 180/100; PULSE 87; RESP 20; TEMP 36.5; O2SAT 99
[2025-07-27 22:10] VITALS: BP 172/104; PULSE 100; RESP 18; TEMP 37; O2SAT 100
[2025-07-27 22:22] VITALS: BP 172/104; PULSE 100; RESP 18; TEMP 37; O2SAT 100
== END 2025-07-27 22:23 | disposition home or self-care (01) ==
PROVIDERS: Physician Assistant Medical; Emergency Provider Student in an Organized Health Care Education/Training Program; PCP Internal Medicine
DX: R07.89 Other chest pain (principal); C34.91 Malignant neoplasm of unspecified part of right bronchus or lung; J96.10 Chronic respiratory failure, unspecified whether with hypoxia or hypercapnia; J44.9 Chronic obstructive pulmonary disease, unspecified; I10 Essential (primary) hypertension; E11.9 Type 2 diabetes mellitus without complications; Z99.81 Dependence on supplemental oxygen; Z03.818 Encounter for observation for suspected exposure to other biological agents ruled out
CPT/HCPCS: 36415; 71046; 71275; 80053; 83605; 83735; 84484; 85025; 87040; 87637; 93005; 96361; 96374; 96375; 99285; J0696; J2270; J7120; Q9967

== ENCOUNTER → 2025-07-27 16:02 | Outpatient (BNV) | payer OTHER, SELFPAY | PROVIDERS: Emergency Provider Student in an Organized Health Care Education/Training Program; PCP Internal Medicine; Visit Provider Internal Medicine | DX: R94.31 Abnormal electrocardiogram [ECG] [EKG] (principal); R07.9 Chest pain, unspecified | CPT/HCPCS: 93010 ==

== ENCOUNTER → 2025-07-27 16:10 | Outpatient (BNV) | payer OTHER, SELFPAY | PROVIDERS: PCP Internal Medicine; Visit Provider Radiology Diagnostic Radiology | DX: R07.9 Chest pain, unspecified (principal); Z86.711 Personal history of pulmonary embolism; R07.89 Other chest pain | CPT/HCPCS: 71046; 71275 ==

== ENCOUNTER 2025-08-21 10:58 | Outpatient (AMB) | payer OTHER, SELFPAY ==
[2025-08-21 11:00] VITALS: BP 146/88; PULSE 104; O2SAT 98; BMI 22.3
--- NOTE | 2025-08-21 11:00 | MHC.OFFVIS ---
Vital Signs 08/21/25 11:00 Height 5 ft 11 in Weight 159 lb 13.362 oz BMI 22.3 BP 146/88 H Blood Pressure Location Rt brachial Position Sitting Pulse 104 H Pulse Source Pulse Oximeter Pulse Oximetry (%) 98 Oxygen Delivery Method Nasal Cannula Oxygen Flow Rate 2 Intake Visit Reasons: Lung cancer Director Of Patient Financial Services Required: No Accompanied by: Self / Same As Patient Allergies No Known Allergies Allergy (Verified 08/21/25 11:03) HPI Comments Details: The patient is a 65-year-old gentleman who was initially evaluated back in the summer of 2021 with worsening cough. He did have a CT scan that point he had a large right middle lobe mass with hilar density as well. 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 He was treated with concomitant chemoradiation including cisplatin and Taxol. The patient completed radiation therapy. However, started developing worsening right-sided chest pains and worsening shortness of breath. Therefore he was started on antibiotics by his radiation therapist. However his symptoms worsened he was admitted to the hospital with a right-sided pneumonia. The patient is treated with antibiotics. He was also placed on oxygen. He has been off the chemo since then. He did speak to Oncology regarding starting immune therapy. I did evaluate his last CTA that he had couple days ago. Appears that he has the masslike density has not become cavitated. He still has some residual abnormalities. In addition to that he has significant airspace disease in pneumonitis along with reactive inflammation of the pleura. He also has a small right-sided pleural effusion. Likely that he has a component of pneumonitis resulting from the chemotherapy and radiation in addition to a component of pleuritis. Smoldering infections are also in the differential she was leukopenic. At this point the patient is still having discomfort so therefore will start him on prednisone. The the patient also had pulmonary function studies demonstrating moderate COPD. The patient also had a moderate restriction due to pneumonitis and also had evidence of severe diffusion impairment. The patient will be started on respiratory therapy for the COPD. He is also continues the oxygen. I will speak further with Oncology regarding the need for bronchoscopy. 07/28/2023 the patient is here for a pulmonary follow-up visit. Continues have dyspnea on exertion. Has been using the oxygen with good effect. Also continues with respiratory therapy. He did go to the ER because of abdominal discomfort. Found to have inflammatory process. He is feeling better at this time. His CT scan of the abdomen demonstrated stranding around the pancreas. In addition to that the lung windows demonstrated stable findings. He did follow-up with Oncology and is scheduled to have a PET scan soon to assess his response to therapy currently on immune therapy. The patient is still using the oxygen. We did taken for 6 minute walk test. The patient had a portable oxygen concentrator trial and he was able to do well on 2 L pulse. Therefore will go ahead and request be cylinders with conserving valve that he can use with better portability outside of the home. We will retest in the future. It may be that he can wean off the oxygen. 12/01/2023 the patient is here for a pulmonary follow-up visit. The patient was exposed to sick contacts in the family. He started developing worse cough and also chest congestion constitutional symptoms. Most of the family now Doing better. He is still having residual symptoms although also has been getting better. He did have a chest x-ray done demonstrating no evidence of any acute disease although very difficult to interpret x-rays in view of his significant radiation changes to his right hemithorax. The patient is scheduled to have a CT scan of the chest per oncology will follow-up with those results. In the meantime will try get a sputum culture to make sure that he is being adequately treated. The patient continues to be on azithromycin 3 times a week which appears to be helpful. He has been having some difficulty with his nebulizer. It is not working appropriately. The compressor does not appear to be functioning and seems like it is affecting the way it is nebulized in the therapy. At this point the nebulizer personally broken beyond repair. Will request a replacement machine for him. The patient is really dependent on his nebulizers important for him to have a functional nebulizer at this time. He continues use the oxygen with good effect. 01/31/2024 the patient is here for a pulmonary follow-up visit. Overall he is doing okay although he still complaining of the chest congestion shortness of breath. Now more than anything he is developing increasing heart rate tachycardia up to 115 even at rest. He is concerned about his heart. He has been using nebulized therapy with budesonide twice a day. Still though he does have significant chest tightness and congestion. On the blood work there significant eosinophilia. This is likely the result of the immune therapy resulting have it can the airway inflammation process. However, we need to hold off on using prednisone. He has chronic bronchitis he has COPD and based on the fact will trying to avoid prednisone he will be a good candidate for Daliresp. Although it may have adverse effects such as weight loss. He have to be careful since he does not have a lot of weight to lose. He can start with a 250 mcg dose 3 times a week and then increase it as tolerated. He will monitor closely for any GI adverse effects. Hopefully he can tolerated then we can increase him to the therapeutic dose to see if we can decrease the inflammation with a PD 4 inhibitor in minimize any interaction with his chemotherapy. In the meantime he is going to go for an EKG. Depending on the findings we will consider medications or referral to Cardiology or both. His last chest x-ray was back from October 2023. Did not show any active disease. He should be scheduled to have a repeat CT scan time now. Will await those results. 04/01/2024 the patient is here for a pulmonary follow-up visit. Overall he is doing a little better. He is tolerating the Daliresp. He also continues on the azithromycin 3 times a week. He continues on the PDL1 inhibitor. Appears to be doing better with the adverse reactions. He understands that he will have increased inflammation due to the medication. Although his respiratory status is better. We did taken for a walking oximetry. The patient did tolerate a portable oxygen concentrator 2 L pulse. I do believe that a POC be better for him as this will provide better portability outside of the home. The patient will continue with his current respiratory therapy. He did have a CT scan of the chest that we personally reviewed in the office. Unfortunately has not been officially read yet. We look that it. Appears to be clear. A lot of the pneumonitis has subsided. The area of the previous malignancy appears to be stable and without any recurrence. And also the he does have a small effusion. Seems to be slightly increased from his previous. Will continue to monitor closely. If there is any worsening of his symptoms will go ahead and get an x-ray sooner otherwise have an x-ray in 3 months before I see him. Will going to go ahead and increase his respiratory medications to the full therapeutic effect. 07/02/2024 the patient is here for a pulmonary follow-up visit vision overall complains of increasing dyspnea on exertion. Moderate severity. He has also had increased wheezing. He went to get his immune therapy few days ago and he was noted to be wheezy by the oncologist. He had a chest x-ray done. It appears that he has interval worsening of the right-sided pleural effusion per my review. Still waiting for the final read. We did also look at his CT scan of the chest from March demonstrating the pleural effusion. Will go ahead and try to see if this something that we can drain as it may indeed help his overall respiratory capacity. Will also send the fluid for cytology looking for any evidence of any recurrence or any progression of his cancer. The patient continues to be on the nebulized treatment that he has had for some time. Will go ahead and add Incruse to his regimen as a long-acting muscarinic antagonist to further improve his bronchodilation effect. I am hopeful that this will help with his underlying wheezing. He will continue with his rescue respiratory regimen along with his oxygen as prescribed. Will follow-up in 2-3 months. 08/30/2024 the patient is here for a pulmonary follow-up visit. Overall the patient has been doing fairly well. He is tolerating his respiratory regimen. He does take a lot of medications and he is currently maximized. He is still having some wheezing but it is reasonable and he still able to do his activities of daily living. The patient did have a recent PET scan that we personally reviewed. No evidence of any worsening disease. He still has some FDG activity in the paratracheal lymph node but he has had this activity before. 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 He also underwent a thoracentesis which was negative for cytology. He does have some degree of inflammation in that area likely related to the immune therapy. At this time he does not need any additional interventions. Will continue with the current respiratory regimen will follow-up in the spring. He continues uses oxygen also with good effect. 05/09/2025 the patient is here for pulmonary follow-up visit. He is complaining of worsening cough chest congestion in addition to shortness of breath. Rast-vo-pdytyoxl severity. He did stop the PDL1 inhibitor about 3 months ago. He did have a PET scan done about a month ago which I personally reviewed. It appears that his area of the cancer showed some mild FDG activity likely postradiation changes. In addition to that appears to have an area in the contralateral lung with some airspace disease suggesting infectious process. Therefore will go ahead and start him on Augmentin he can continue the azithromycin. The patient is also having hard time tolerating the powdered inhaler. Making him cough. Will switch him over to a nebulized long-acting muscarinic antagonist at this time. The patient can also take a small short course of prednisone to try to help alleviate some of the inflammation. Specially now that he is off the immunotherapy. He is going to have a repeat PET scan sometime in the fall. He will follow-up with Oncology then. He continues use the oxygen therapy with good effect. Although he gets winded going up a flight of stairs. Hopefully after treating the infectious/inflammatory process his breathing will improve. In the meantime he can always increase in the pulse dose from 3-4 L as needed with activity to maintain a pulse ox above 90%. 08/21/2025 the patient is here for pulmonary follow-up visit. The patient overall has been doing okay from a respiratory status. He did undergo a PET scan demonstrating some slight FDG activity in the lung. More recently he did undergo a CT scan of the chest demonstrating chronic stable changes. He will continue having serial imaging studies at this time. The pleural effusion appears to be stable. His main complaint is abdominal discomfort and epigastric discomfort. He did go to the ER for this. He did have a CT scan sometime in the summer demonstrating some degree of pancreatitis. Continues to be constipated. It is causing him difficulty breathing because of the abdominal distention. I will go ahead and prescribe him a cocktail medications to see if it gets some relief. But he will have to follow-up with GI and also PCP. From a respiratory status is going to stop the azithromycin in case that is bothering his pancreas in his GI tract. Otherwise will continue the rest of his nebulizer therapy. He also continues oxygen and will follow-up in 4-6 months. [facility] Medical History Screening for colon cancer (~07/19/25) Essential hypertension Pleural effusion on right Seizures Dyspnea Tachycardia Acute and chronic respiratory failure Pleuritis Pneumonitis Chronic respiratory failure COPD (chronic obstructive pulmonary disease) Type 2 diabetes mellitus with hyperglycemia Non-small cell cancer of right lung (~2021) Diabetes (Unknown) Surgical History Hydrocele (09/27/24) History of thoracentesis History of lung biopsy Family History Mother Diabetes Father Diabetes Social History Household Members: Spouse and Children Household Members Other:: son Housing: Apartment Are you a primary home care specialist to a significant other at home: No Do you presently have visiting nurse or other home services: No Alcohol intake: never Patient Tobacco Use Status: Former Tobacco user Tobacco use type: Cigarette Years Smoked: 45 e-Cigarette/Vaping Use: Never Used Second Hand Smoke Exposure: Yes service: No Current occupational status: retired Cognitive needs: No Hearing needs: No Vision needs: Yes Review of Systems Const Denies chills, Denies fatigue, Denies fever(s), Denies headache(s) and Denies weakness ENT Denies dizziness and Denies headache(s) Card Denies chest pain, Denies lightheadedness, Denies palpitations, Reports dyspnea on exertion and Denies other (Palpitations) Resp Denies change in phlegm color, Denies chest congestion, Reports cough, Reports dyspnea on exertion, Reports wheezing and Denies other ( shortness of breath) GI Reports as per HPI, Reports abdominal pain, Reports change in stool character, Reports constipation and Reports GI cramping Musc Denies numbness and Denies tingling Neuro Denies dizziness, Denies headache(s), Denies numbness, Denies tingling, Denies paresthesias and Denies weakness Psych Denies anxiety and Denies depression Endo Denies fatigue, Denies polydipsia, Denies polyuria and Denies palpitations Aller/Immun Reports wheezing Physical Exam Vital Signs: Last Vital Signs Pulse 104 H 08/21/25 11:00 BP 146/88 H 08/21/25 11:00 Pulse Ox 98 08/21/25 11:00 Oxygen Delivery Method Nasal Cannula 08/21/25 11:00 Oxygen Flow Rate 2 08/21/25 11:00 BMI result Body Mass Index 22.3 Const General: comfortable Nutritional Appearance: thin HEENT Head: Yes normocephalic and Yes atraumatic Eyes General: appearance normal, both eyes and all related structures Neck Neck: Yes supple Chest Chest palpation & inspection: normal inspection of the chest Resp Effort & Inspection: normal respiratory effort Auscultation: no rales, wheezes and diminished lung sounds Cardio Rate: regular rate Rhythm: regular rhythm Heart sounds: S1 normal heart sound present and S2 normal heart sound present GI Palpation (GI): Soft to palpation Auscultation: normal bowel sounds Skin General skin exam: no rashes or lesions noted Extrem General: Yes clubbing, No cyanosis and No edema Assessment & Plan Assessment & Plan (1) COPD (chronic obstructive pulmonary disease): Code(s): J44.9 - Chronic obstructive pulmonary disease, unspecified Category: Medical Qualifiers: COPD type: COPD with acute exacerbation Qualified Code(s): J44.1 - Chronic obstructive pulmonary disease with (acute) exacerbation (2) Non-small cell cancer of right lung: Onset Date: ~2021 Comment: (RML Adenocarcinoma - Clinical stage cT3N2/3, IIIB/C - dx 04/2022) Code(s): C34.91 - Malignant neoplasm of unspecified part of right bronchus or lung Category: Medical (3) Pneumonitis: Comment: better Code(s): J18.9 - Pneumonia, unspecified organism Category: Medical (4) Pleural effusion on right: Comment: lymphocytic predominant Code(s): J90 - Pleural effusion, not elsewhere classified Category: Medical (5) Cough: Code(s): R05.9 - Cough, unspecified Category: Medical Qualifiers: Cough type: chronic Qualified Code(s): R05.3 - Chronic cough Plan continue budesonide BID Yulperi continue Xopenex DOMINIC as needed stopped Daliresp 500mcg due to side effects stop azithromycin MWF PPI off PDL1 inhibitor oxygen revision: 2L/pulse with activity and 2L with sleep. requesting POC Pulmonary rehab cough medicine as needed F/U 4-6 months Medications: New simethicone (Gas Relief (simethicone)) 180 mg PO BID PRN 60 caps 3RF abdominal distention 30 days omeprazole 40 mg PO DAILY 30 caps 3RF Changed From polyethylene glycol 3350 (Miralax) 17 grams PO BID 238 grams 0RF To polyethylene glycol 3350 (Miralax) 17 grams PO DAILY 510 grams 2RF 30 days Coding Level of Care Code Add On Preventative Visit Only Diagnoses Chronic obstructive pulmonary disease with acute exacerbation J44.1 COPD type: COPD with acute exacerbation Non-small cell cancer of right lung C34.91 Pneumonitis J18.9 Pleural effusion on right J90 Chronic cough R05.3 Cough type: chronic Time Spent (min) 18
== END 2025-08-21 11:22 | disposition home or self-care (01) ==
LOC: HO.HPS 10:59
PROVIDERS: PCP Internal Medicine; Visit Provider Hospitalist
DX: J44.1 Chronic obstructive pulmonary disease with (acute) exacerbation (principal); C34.91 Malignant neoplasm of unspecified part of right bronchus or lung; J18.9 Pneumonia, unspecified organism; J90 Pleural effusion, not elsewhere classified; R05.3 Chronic cough
CPT/HCPCS: 99214; G2211

== ENCOUNTER → 2025-08-21 10:58 | Outpatient (BNVA) | payer OTHER, SELFPAY | PROVIDERS: PCP Internal Medicine; Visit Provider Hospitalist | DX: C34.91 Malignant neoplasm of unspecified part of right bronchus or lung (principal); J44.1 Chronic obstructive pulmonary disease with (acute) exacerbation; J90 Pleural effusion, not elsewhere classified; J18.9 Pneumonia, unspecified organism; J98.4 Other disorders of lung; R05.3 Chronic cough; Z87.891 Personal history of nicotine dependence; Z79.899 Other long term (current) drug therapy | CPT/HCPCS: 99212 ==